=== PATIENT | male | born 1965 | race Caucasian/White ===

== ENCOUNTER 2023-08-20 14:54 | Emergency (ER) | payer OTHER, SELFPAY ==
[2023-08-20 14:55] VITALS: BP 183/89; PULSE 106; RESP 18; TEMP 37.4; O2SAT 95
[2023-08-20 15:10] VITALS: BMI 40.4
--- NOTE | 2023-08-20 15:34 | EX.ED.DYSGE1 ---
HPI <MERCY Schulz - Last Filed: 08/20/23 17:08> History of Present Illness Chief Complaint: Cellulitis Narrative Narrative: 58-year-old male with past medical history of hypertension and prediabetes developed redness, pain and swelling in his right elbow 3 days ago. He is right-hand dominant and states he has had a similar episode in the past and was told it is bursitis. Last night he developed pain in his left foot and this morning it is red and swollen. He was seen at his primary care's office and told he had a fever of 100.8 F. He does report subjectively feeling hot and cold. He has had similar redness in the foot before and states it resolved with prednisone but he was not diagnosed with gout. PFSH <MERCY Schulz - Last Filed: 08/20/23 17:08> [facility] Home Medications ?Medication ?Instructions ?Recorded ?Last Taken ?Type atorvastatin 20 mg tablet 20 mg PO DAILY 08/20/23 Unknown History cephalexin 500 mg capsule 500 mg PO Q6 #40 CAPSULES 08/20/23 Unknown Rx hydrochlorothiazide 25 mg tablet 25 mg PO DAILY 08/20/23 Unknown History lisinopril 40 mg tablet 40 mg PO DAILY 08/20/23 Unknown History metformin 1,000 mg tablet 1,000 mg PO BID 08/20/23 Unknown History Allergy/AdvReac Type Severity Reaction Status Date / Time No Known Allergies Allergy Verified 08/20/23 14:55 Social History Smoking Status: Never smoker ROS <MERCY Schulz - Last Filed: 08/20/23 17:08> ROS ED ROS Narrative Constitutional: Positive for fever, chills, malaise. CVS: Negative for chest pain. Respiratory: Negative for shortness of breath, cough. GI: Negative for nausea, vomiting, diarrhea. Musc: Positive for redness and swelling of right elbow and left foot, no trauma. EXAM <MERCY Schulz Last Filed: 08/20/23 17:08> Physical Exam Narrative Exam Narrative: CONST: Patient sitting in no acute distress. EYES: Normal inspection. NECK: Normal inspection. RESP: No respiratory distress, CTAB. CVS: Regular rate and rhythm, no murmur, no gallop. SKIN: Color normal, no rash, warm, dry, intact. EXTREMITIES: Soft tissue swelling right upper arm with overlying erythema and halo in the posterior elbow, warm to touch. No fluctuance or crepitus. Full range of motion intact, normal strength and sensation, 2+ radial pulses. Left dorsal lateral foot red, tender, warm to touch. No focal joint involvement. 2+ DP pulses. NEURO: Alert and answering questions appropriately. PSYCH: Normal affect. Const Vital Signs: 08/20/23 14:55 08/20/23 17:19 08/20/23 19:00 Temperature 99.3 F H 98.1 F Temperature Source Temporal Temporal Pulse Rate 106 H 102 H 80 Respiratory Rate 18 16 18 Blood Pressure 183/89 H 150/91 H 146/94 H Blood Pressure Mean 120 110 111 Pulse Ox 95 93 92 Oxygen Delivery Method Room Air Room Air Room Air 08/20/23 19:08 Temperature 98.1 F Temperature Source Pulse Rate 80 Respiratory Rate 18 Blood Pressure 146/94 H Blood Pressure Mean 111 Pulse Ox 91 Oxygen Delivery Method <Dr. Henry Parrish MD - Last Filed: 08/21/23 01:14> Physical Exam Const Vital Signs: 08/20/23 14:55 08/20/23 17:19 08/20/23 19:00 Temperature 99.3 F H 98.1 F Temperature Source Temporal Temporal Pulse Rate 106 H 102 H 80 Respiratory Rate 18 16 18 Blood Pressure 183/89 H 150/91 H 146/94 H Blood Pressure Mean 120 110 111 Pulse Ox 95 93 92 Oxygen Delivery Method Room Air Room Air Room Air 08/20/23 19:08 Temperature 98.1 F Temperature Source Pulse Rate 80 Respiratory Rate 18 Blood Pressure 146/94 H Blood Pressure Mean 111 Pulse Ox 91 Oxygen Delivery Method [facility] <MERCY Schulz - Last Filed: 08/20/23 17:08> [facility] Narrative Medical decision making narrative: Differential: Bursitis, cellulitis, abscess, septic joint Consults: Orthopedics Patient has following redness of the right elbow and left lateral foot over the fifth metatarsal. There is no joint involvement of the lower extremity. He has no pain to his shoulder range of motion and is neurovascularly intact. Right elbow was aspirated but did not have any fluid. Labs show white count of 11.3, normal lactate at 1.5, elevated inflammatory markers. There is no wounds or trauma send no indication for x-rays. I suspect he has right elbow bursitis and cellulitis and left foot cellulitis. He was given a dose of IV vancomycin and will be prescribed p.o. Keflex. Here he is afebrile and not septic and does not require admission. Case was discussed with Dr. Gordon in orthopedics for close follow-up and patient given return precautions. He was discharged in stable condition. Lab Data Attestation: I reviewed the patient's lab results. Labs: Laboratory Results - last 24 hr 08/20/23 08/20/23 15:45 16:00 WBC 11.3 H RBC 4.06 L Hgb 12.1 L Hct 38.8 L MCV 95.6 H MCH 29.8 MCHC 31.2 L RDW Std Deviation 48.7 H RDW Coeff of Sharif 13.7 Plt Count 207 MPV 9.8 Immature Gran % (Auto) 0.400 Neut % (Auto) 73.1 H Lymph % (Auto) 15.9 L [place] % (Auto) 8.6 Eos % (Auto) 1.6 Baso % (Auto) 0.4 Absolute Neuts (auto) 8.3 H Absolute Lymphs (auto) 1.80 Nucleated RBC % 0 ESR 55 H Sodium 135 L Potassium 3.7 Chloride 103 Carbon Dioxide 26.0 Anion Gap 6 BUN 18 Creatinine 1.05 Estim Creat Clear Calc 98.16 Est GFR (MDRD) Af Amer 94 Est GFR (MDRD) Non-Af 77 BUN/Creatinine Ratio 17.1 Glucose 114 H Lactic Acid 1.5 Calcium 9.2 C-React Prot Ext Range 161.00 H <Dr. Henry Parrish MD - Last Filed: 08/21/23 01:14> [facility] Lab Data Labs: Laboratory Results - last 24 hr 08/20/23 08/20/23 15:45 16:00 WBC 11.3 H RBC 4.06 L Hgb 12.1 L Hct 38.8 L MCV 95.6 H MCH 29.8 MCHC 31.2 L RDW Std Deviation 48.7 H RDW Coeff of Sharif 13.7 Plt Count 207 MPV 9.8 Immature Gran % (Auto) 0.400 Neut % (Auto) 73.1 H Lymph % (Auto) 15.9 L [place] % (Auto) 8.6 Eos % (Auto) 1.6 Baso % (Auto) 0.4 Absolute Neuts (auto) 8.3 H Absolute Lymphs (auto) 1.80 Nucleated RBC % 0 ESR 55 H Sodium 135 L Potassium 3.7 Chloride 103 Carbon Dioxide 26.0 Anion Gap 6 BUN 18 Creatinine 1.05 Estim Creat Clear Calc 98.16 Est GFR (MDRD) Af Amer 94 Est GFR (MDRD) Non-Af 77 BUN/Creatinine Ratio 17.1 Glucose 114 H Lactic Acid 1.5 Calcium 9.2 C-React Prot Ext Range 161.00 H Management Discussion w/another healthcare provider: Audio Video Repairer (ortho Dr. Johnson) Treatment and Re-Evaluation Comments:: I have personally performed a face to face assessment of the patient and have reviewed the JOSÉ Note. I performed a substantive portion of the visit including all aspects of the following. My yu findings include: History is spontaneous onset redness, swelling, discomfort right elbow and left foot around same out time 1 to 2 days. Fevers and chills. Body aches. Uses computer all day at work and often resting his right elbow on a solid surface. Exam is swollen right olecranon bursitis with surrounding cellulitis all tender and warm, good range of motion of the elbow but limited with regards to full flexion due to pain. Left foot is erythematous dorsal lateral midfoot, mild tenderness but not extremely tender at all and no induration, fluctuance, petechia, bullae or other skin abnormalities just hyperemia and warmth. Medical Decison Making Labs, bursa aspiration attempt, antibiotics, further evaluation Other additions or changes: [None] Procedures <Dr. Henry Parrish MD - Last Filed: 08/21/23 01:14> Other Procedures Procedure(s): Aspiration right olecranon bursa: After sterile prep and drape and informed consent from the patient, Betadine, local anesthesia with 0.5 cc 1% lidocaine with epinephrine, it was reprepped and entered lateral aspect of the bursa with the elbow and almost full extension with a #18 needle, a small white plug was able to be obtained but no other fluid. I probed around a short distance. Did not touch bone. Dressed with bacitracin tolerated well no complications. sent for cx, not enough for any other study. Discharge Plan Triage Chief Complaint: Cellulitis ED Midlevel Provider: Rosy Morrissey ED Provider: Henry Parrish Dx/Rx/DC Orders Clinical Impression: Cellulitis of right elbow, Cellulitis of left foot Instructions: Cellulitis Dc Prescriptions: New cephalexin 500 mg capsule 500 mg PO Q6 Qty: 40 0RF No Action atorvastatin 20 mg tablet 20 mg PO DAILY metformin 1,000 mg tablet 1,000 mg PO BID hydrochlorothiazide 25 mg tablet 25 mg PO DAILY lisinopril 40 mg tablet 40 mg PO DAILY Primary Care Provider: Nikunj Luna Referrals: Nikunj Luna [Other] Chau Johnson MD [Med Staff - Active Staff] - Activity Restrictions/Additional Instructions: Call the orthopedic doctor for an appointment to have them recheck your extremities in a few days. Take the antibiotics as directed. Print Language: Welsh Disposition Disposition: Home, Self Care Discharge Date/Time: 08/20/23 19:47
[2023-08-20 15:56] LABS: Absolute Neutrophil Count 8.3 X10^3/uL (2.0-7.7); Basophil# 0.05 X10^3/uL; Basophil% 0.4 % (0-1); Eosinophil# 0.18 X10^3/uL; Eosinophils% 1.6 % (0-5); Hematocrit 38.8 % (40-54); Hemoglobin 12.1 g/dL (13.0-16.5); Lymphocyte % 15.9 % (19-41); Mean Corp Hgb Conc 31.2 g/dL (32-36); Mean Corpuscular Hgb 29.8 pg (27.0-32.0); Mean Corpuscular Volume 95.6 fL (80-94); Mean Platelet Vol. 9.8 fl (6.2-12.0); Monocyte# 0.97 X10^3/uL; Monocyte% 8.6 % (0-10); NRBC Flagged by Analyzer 0 % (0-5); Neutrophil # 8.25 X10^3/uL (2.7-7.7); Neutrophil % 73.1 % (47-70); Platelet Count 207 K/mm3 (150-450); RBC Distribution Width CV 13.7 % (11.6-14.6); RBC Distribution Width SD 48.7 fl (35.1-43.9); Red Blood Count 4.06 M/mm3 (4.6-6.2); White Blood Count 11.3 K/mm3 (4.4-11.0)
[2023-08-20 16:08] LABS: Anion Gap 6 (5-15); BUN 18 mg/dL (7-18); BUN/Creat Ratio 17.1 RATIO (10-20); Calcium,Total 9.2 mg/dL (8.5-10.1); Chloride 103 mmol/L (98-107); Creatinine, Serum 1.05 mg/dL (0.70-1.30); EST Glomerular Filtration Rate 77 mL/min (>60); Est Glom Filt Rate - Afr Amer 94 mL/min (>60); Estimated Creatinine Clearance 98.16 ml/min; Glucose 114 mg/dL (74-106); Potassium 3.7 mmol/L (3.5-5.1); Sodium Level 135 mmol/L (136-145)
[2023-08-20] MEDS: Ketorolac 15 MG/ML Vial IV (16:08)
[2023-08-20] MEDS: 0.9% Normal Saline (1000mL) 1,000 ML 999 ML IV (16:08)
[2023-08-20 16:34] LABS: Erythrocyte Sedimentation Rate 55 mm/hr (0-20)
--- NOTE | 2023-08-20 16:46 | CON.PCM.OR_ITS ---
HPI Consult Data Date of Consult: 08/20/23 HPI Narrative HPI Narrative: MILY PERAZA, is a 58 M who presents per ED provider with cellulitis left olecranon. Aspirated, pending cultures. WBC 11 CRP elevated. PFSH Home Medications ?Medication ?Instructions ?Recorded ?Last Taken ?Type atorvastatin 20 mg tablet 20 mg PO DAILY 08/20/23 Unknown History cephalexin 500 mg capsule 500 mg PO Q6 #40 CAPSULES 08/20/23 Unknown Rx hydrochlorothiazide 25 mg tablet 25 mg PO DAILY 08/20/23 Unknown History lisinopril 40 mg tablet 40 mg PO DAILY 08/20/23 Unknown History metformin 1,000 mg tablet 1,000 mg PO BID 08/20/23 Unknown History Allergy/AdvReac Type Severity Reaction Status Date / Time No Known Allergies Allergy Verified 08/20/23 14:55 Social History Smoking Status: Never smoker Vital Signs Vital Signs Vital Signs: 08/20/23 14:55 Temperature 99.3 F H Temperature Source Temporal Pulse Rate 106 H Respiratory Rate 18 Blood Pressure 183/89 H Blood Pressure Mean 120 Pulse Ox 95 Oxygen Delivery Method Room Air Weight Weight: 266 lb 9.6 oz Body Mass Index (BMI) 40.4 Lab / Micro Data 08/20/23 15:45 08/20/23 15:45 Labs: Laboratory Results - last 24 hr 08/20/23 15:45: WBC 11.3 H, RBC 4.06 L, Hgb 12.1 L, Hct 38.8 L, MCV 95.6 H, MCH 29.8, MCHC 31.2 L, RDW Std Deviation 48.7 H, RDW Coeff of Sharif 13.7, Plt Count 207, MPV 9.8, Immature Gran % (Auto) 0.400, Neut % (Auto) 73.1 H, Lymph % (Auto) 15.9 L, [place] % (Auto) 8.6, Eos % (Auto) 1.6, Baso % (Auto) 0.4, Absolute Neuts (auto) 8.3 H, Absolute Lymphs (auto) 1.80, Nucleated RBC % 0, ESR 55 H, Sodium 135 L, Potassium 3.7, Chloride 103, Carbon Dioxide 26.0, Anion Gap 6, BUN 18, Creatinine 1.05, Estim Creat Clear Calc 98.16, Est GFR (MDRD) Af Amer 94, Est GFR (MDRD) Non-Af 77, BUN/Creatinine Ratio 17.1, Glucose 114 H, Calcium 9.2, C- React Prot Ext Range 161.00 H Assessment & Plan Assessment/Plan (1) Cellulitis of right elbow: PLAN: 58 M with cellulitis / infective bursitis right elbow. Sounds stable enough to treat with outpatient abx and close FU tomorrow AM. No signs of infected joint per the ED provider and pending cultures with no active drainage or fluid collection. Recommend xrays in ED.
[2023-08-20 16:52] LABS: Lactic Acid 1.5 mmol/L (0.4-1.9)
[2023-08-20] MEDS: Vancomycin HCl 1,750 MG in 0.9% Normal Saline (500mL Bag) 500 ML 250 MG IV (17:15)
[2023-08-20 17:19] VITALS: BP 150/91; PULSE 102; RESP 16; O2SAT 93
[2023-08-20 19:00] VITALS: BP 146/94; PULSE 80; RESP 18; TEMP 36.7; O2SAT 92
[2023-08-20 19:08] VITALS: BP 146/94; PULSE 80; RESP 18; TEMP 36.7; O2SAT 91
== END 2023-08-20 19:47 | disposition home or self-care (01) ==
PROVIDERS: Physician Assistant; Emergency Provider Emergency Medicine; Visit Provider Emergency Medicine
DX: L03.116 Cellulitis of left lower limb (principal); L03.113 Cellulitis of right upper limb; I10 Essential (primary) hypertension; Z79.899 Other long term (current) drug therapy; Z79.84 Long term (current) use of oral hypoglycemic drugs; R73.03 Prediabetes; M71.121 Other infective bursitis, right elbow
CPT/HCPCS: 80048; 83605; 85025; 85652; 86140; 87040; 96361; 96365; 96366; 96375; 99285; J7030; J7040; J7050

== ENCOUNTER → 2023-08-27 | Outpatient (CLI) | payer OTHER, SELFPAY ==
[2023-08-27 11:52] LABS: Uric Acid 10.5 mg/dL (3.5-7.2)
== END | disposition home or self-care (01) ==
LOC: LAB 11:09
PROVIDERS: PCP Internal Medicine; Referring Provider Podiatrist Foot & Ankle Surgery; Visit Provider Podiatrist Foot & Ankle Surgery
DX: M10.9 Gout, unspecified (principal)
CPT/HCPCS: 36415; 84550

== ENCOUNTER → 2023-09-23 | Outpatient (CLI) | payer OTHER, SELFPAY ==
[2023-09-23 09:09] LABS: Hemoglobin A1c 6.5 % (3.8-5.6)
[2023-09-23 09:15] LABS: ALB/GLOB Ratio 1.1 RATIO (0.9-2.4); AST(SGOT) 29 U/L (15-37); Alanine Aminotransfer ALT/SGPT 27 U/L (16-61); Albumin, Serum 4.1 g/dL (3.2-5.0); Alkaline Phosphatase 84 U/L (45-117); Anion Gap 4 (5-15); BUN 19 mg/dL (7-18); BUN/Creat Ratio 16.4 RATIO (10-20); Calcium,Total 9.5 mg/dL (8.5-10.1); Chloride 105 mmol/L (98-107); Cholesterol 101 mg/dL (200); Creatinine, Serum 1.16 mg/dL (0.70-1.30); EST Glomerular Filtration Rate 69 mL/min (>60); Est Glom Filt Rate - Afr Amer 83 mL/min (>60); Globulin 3.6 g/dL (2.2-4.2); Glucose 97 mg/dL (74-106); High Density Lipoprotein 35 mg/dL; Potassium 4.2 mmol/L (3.5-5.1); Protein, Total 7.7 g/dL (6.4-8.2); Sodium Level 137 mmol/L (136-145); Triglycerides 93 mg/dL; Very Low Density Lipoprotein 19 mg/dL (5-40)
== END | disposition home or self-care (01) ==
LOC: LAB.FUTURE 08:20 → LAB 08:22
PROVIDERS: PCP Internal Medicine; Visit Provider Internal Medicine
DX: E11.9 Type 2 diabetes mellitus without complications (principal); E78.2 Mixed hyperlipidemia
CPT/HCPCS: 36415; 80053; 80061; 83036

== ENCOUNTER → 2024-03-16 | Outpatient (CLI) | payer OTHER, SELFPAY ==
[2024-03-16 07:57] LABS: Absolute Lymphocyte Count 4.11 X10^3/uL (0.83-4.51); Absolute Neutrophil Count 6.3 X10^3/uL (2.0-7.7); Basophil# 0.08 X10^3/uL; Basophil% 0.7 % (0-1); Eosinophil# 0.41 X10^3/uL; Eosinophils% 3.5 % (0-5); Hematocrit 41.3 % (40-54); Hemoglobin 13.7 g/dL (13.0-16.5); Lymphocyte # 4.11 X10^3/ul (0.83-4.51); Mean Corp Hgb Conc 33.2 g/dL (32-36); Mean Corpuscular Hgb 30.4 pg (27.0-32.0); Mean Corpuscular Volume 91.8 fL (80-94); Mean Platelet Vol. 9.7 fl (6.2-12.0); Monocyte# 0.82 X10^3/uL; NRBC Flagged by Analyzer 0 % (0-5); Neutrophil # 6.25 X10^3/uL (2.7-7.7); Neutrophil % 53.1 % (47-70); Platelet Count 239 K/mm3 (150-450); RBC Distribution Width CV 13.1 % (11.6-14.6); RBC Distribution Width SD 43.8 fl (35.1-43.9); White Blood Count 11.8 K/mm3 (4.4-11.0)
[2024-03-16 08:34] LABS: Microalbumin,Random Urine < 5.0 mg/L (NO RANGE EST.)
[2024-03-16 08:51] LABS: PSA,Total - Annual Screen 1.21 ng/mL (0.00-4.00)
[2024-03-16 10:41] LABS: Hemoglobin A1c 6.7 % (3.8-5.6)
== END | disposition home or self-care (01) ==
LOC: LAB 07:16
PROVIDERS: PCP Internal Medicine
DX: Z00.00 Encounter for general adult medical examination without abnormal findings (principal); Z12.5 Encounter for screening for malignant neoplasm of prostate
CPT/HCPCS: 36415; 82043; 82570; 83036; 84153; 85025; G0103

== ENCOUNTER → 2024-09-09 | Outpatient (CLI) | payer OTHER, SELFPAY ==
[2024-09-09 08:57] LABS: Hematocrit 36.2 % (40-54); Hemoglobin 11.9 g/dL (13.0-16.5); Mean Corp Hgb Conc 32.9 g/dL (32-36); Mean Corpuscular Hgb 30.2 pg (27.0-32.0); Mean Corpuscular Volume 91.9 fL (80-94); Mean Platelet Vol. 9.4 fl (6.2-12.0); Platelet Count 212 K/mm3 (150-450); RBC Distribution Width CV 13.6 % (11.6-14.6); Red Blood Count 3.94 M/mm3 (4.6-6.2); White Blood Count 8.8 K/mm3 (4.4-11.0)
[2024-09-09 09:17] LABS: Color, Urine Yellow (Yellow); Glucose, Dipstick Normal (Normal); Ketone-Dipstick Negative (Negative); Leukocyte Esterase-Dipstick Negative /ul (Negative); Nitrite-Dipstick Negative (Negative); Occult Blood-Urine Negative /ul (Negative); Protein-Dipstick 15 mg/dl (Negative); Specific Gravity, Urine 1.015 (1.002-1.030); Urine Bilirubin Dipstick Negative (Negative); Urine Clarity Clear (Clear); Urine Urobilinogen Normal (Normal)
[2024-09-09 09:25] LABS: Hemoglobin A1c 5.7 % (<=5.6)
[2024-09-09 09:29] LABS: ALB/GLOB Ratio 1.4 RATIO (0.9-2.4); AST(SGOT) 28 U/L (<=37); Alanine Aminotransfer ALT/SGPT 10 U/L (<=46); Alkaline Phosphatase 109 U/L (40-129); Anion Gap 13 (5-15); BUN 14 mg/dL (4-19); BUN/Creat Ratio 13.2 RATIO (10-20); Calcium,Total 9.4 mg/dL (7.6-11.0); Carbon Dioxide 23.6 mmol/L (21.0-32.0); Chloride 102 mmol/L (98-108); Creatinine, Serum 1.09 mg/dL (0.70-1.20); EST Glomerular Filtration Rate 79 (>60); Globulin 2.8 g/dL (2.2-4.2); Glucose 102 mg/dL (70-99); Potassium 5.1 mmol/L (3.3-5.1); Protein, Total 6.8 g/dL (5.9-8.4); Sodium Level 138 mmol/L (133-145); Total Bilirubin 0.34 mg/dL (0.00-1.30)
[2024-09-09 10:00] LABS: Cholesterol 110 mg/dL (<=200); High Density Lipoprotein 26 mg/dL; Low Density Lipoprotein Calc. 59 mg/dL; Triglycerides 126 mg/dL; Very Low Density Lipoprotein 25 mg/dL (5-40); cholesterol:hdl ratio screen 4.28
== END | disposition home or self-care (01) ==
LOC: LAB 08:21
PROVIDERS: PCP Internal Medicine; Referring Provider Internal Medicine; Visit Provider Internal Medicine
DX: Z00.00 Encounter for general adult medical examination without abnormal findings (principal); E11.9 Type 2 diabetes mellitus without complications; Z12.5 Encounter for screening for malignant neoplasm of prostate
CPT/HCPCS: 36415; 80053; 80061; 81002; 83036; 85027

== ENCOUNTER → 2024-09-15 | Outpatient (CLI) | payer OTHER, SELFPAY ==
[2024-09-15 12:23] LABS: FOLATES,SERUM (FOLIC ACID) 6.23 ng/mL (4.60-34.80); Ferritin 500 ng/mL (37-417); Iron 37 ug/dL (65-175); Iron Binding Capacity,Total 281 ug/dL (250-450); Iron Binding Capacity,Unsat 244 ug/dL (228-428); Vitamin B12 304 pg/mL (180-914)
== END | disposition home or self-care (01) ==
LOC: LAB 10:00
PROVIDERS: PCP Internal Medicine; Referring Provider Internal Medicine; Visit Provider Internal Medicine
DX: D64.9 Anemia, unspecified (principal)
CPT/HCPCS: 36415; 82607; 82728; 82746; 83540; 83550

== ENCOUNTER 2024-10-17 07:00 | Day surgery (SDC) | payer OTHER, SELFPAY ==
[2024-10-17] VITALS (8 sets, daily range): BP systolic 77–109; BP diastolic 55–87; PULSE 75–92; RESP 16; TEMP 35.8–36.3; O2SAT 96–100; BMI 30.9
--- OUTSIDE RECORDS SUMMARY | 2024-10-17 07:03 | XMS RPT_ITS | CCD ---
Author Organization [facility]ini[facility] Care Team Providers [facility] Nurse Name Role Phone Gerry Luna Primary Care Provider Gerry Luna Unavailable [phone] JAVIER BOSWELL Attending Unavailable JAVIER BOSWELL Admitting Unavailable NONE, NONE Consulting Unavailable NONE, NONE Primary Care Unavailable Gerry Luna DO Primary Care Provi frank Gerry Luna DO Unavailable [phone] Gerry Luna DO Primary Care Provi frank Gerry Luna DO Unavailable [phone] Gerry Luna DO Unavailable Gerry Luna DO Primary Care Provi frank Gerry Luna DO Unavailable Gerry Luna DO Primary Care Provi frank Gerry Luna DO Primary Care Provider GERRY LUNA Primary Care Unavailable GERRY GORDON Attending Unavailable SELF, SELF Referring Unavailable GERRY LUNA Attending Unava ilGERRY Gallardo Primary Care Unava ilGERRY Gallardo Attending Unavailable GERRY LUNA Primary Care Unavailable Dr. Gerry Luna DO Primary Care Provide r Dr. Gerry Luna DO Attending Provider Dr. Gerry Luna DO Referring Provider GERRY LUNA Attending Unava ilable GERRY LUNA Primary Care Unava ilable GERRY LUNA Attending Unava ilGERRY Gallardo Primary Care Unava ilable GERRY LUNA Attending Unava ilable GERRY LUNA Primary Care Unava ilable GERRY LUNA Attending Unava ilable GERRY LUNA Primary Care Unava ilable GERRY LUNA Attending Unava ilable GERRY LUNA Primary Care Unava ilable TAURUS WOODS Attending Unavailable Gerry Luna Primary Care Unavailable TAURUS WOODS Referring Unavailable Moreno Mosqueda Attending Unavailable Gerry Luna Primary Care Unavailable Gerry Luna Referring Unavailable Gerry Luna Attending Unavailable Gerry Luna Primary Care Unavailable Gerry Luna Attending Unavailable Gerry Luna Primary Care Unavailable Gerry Luna Referring Unavailable Gerry Luna Attending Unavailable Gerry Luna Primary Care Unavailable Gerry Luna Referring Unavailable Medications Current Medications Medication Drug Class(es) Dates Sig (Normalized) Sig (Original) Acetaminophen (20 sources) acetaminophen (T YLENOL ARTHRITIS ORAL) Take by mouth . Active acetaminophen (T YLENOL ARTHRITIS ORAL) Take by mouth . 0 Active allopurinol 100 mg oral tablet (6 sources) Xanthine Oxidase Inhibitor Start: 08-25-2024 take 1 tablet by mouth once daily allopurinoL (ZYLOPRIM) 100 MG tablet Take 1 (one) tablet (100 mg total) by mouth daily . 30 tablet 5 08/25/2024 Active Start: 01-11-2024 take 1 tablet by ramón th once daily allopurinoL (ZYLOPRIM) 100 MG tablet Take 1 (one) tablet (100 mg total) by mouth daily . 30 tablet 5 01/11/2024 Active amoxicillin 875 mg oral tablet (2 sources) Penicillin-class Antibacterial Start: 05-30-2024 End: 06-06-2024 take 1 tablet by mouth twice daily amoxicillin (AMOXIL) 875 MG tablet Indications: Upper respiratory tract infection, unspecified type Take 1 (one) tablet (875 mg total) by mouth 2 (two) times a day for 7 days . 14 tablet 05/30/2024 06/06/2024 Active Start: 09-19-2022 End: 09-29-2022 take 1 capsule by mouth three times daily Amoxicillin 500 MG capsule Take 1 capsule by mouth 3 times daily for 10 days. 30 capsule 0 09/19/2022 09/29/2022 Active atorvastatin 20 mg oral tablet (19 sources) HMG-CoA Reductase Inhibitor Start: 03-27-2023 End: 06-13-2024 take 1 tablet by mouth once daily Atorvastatin 20 mg tablet Active 20 mg PO DAILY August 20, 2023 12:00am cephalexin 500 mg oral capsule (10 sources) Cephalosporin Antibacterial Start: 08-20-2023 take 1 capsule by mouth every six hours Cephalexin 500 mg capsule Active 500 mg PO EVERY 6 HOURS 40 August 20, 2023 12:00am Start: 03-18-2022 End: 03-25-2022 take 1 capsule by mouth three times daily cephALEXin (KEFLEX) 500 MG capsule Indications: Cellulitis of foot Take 1 (one) capsule (500 mg total) by mouth 3 (three) times a day for 7 days . 21 capsule 0 03/18/2022 03/25/2022 Active dexamethasone 1 mg/ml / neomycin 3.5 mg/ml / polymyxin b [id number] unt/ml ophthalmic suspension (1 source) Aminoglycoside Antibacterial, Polymyxin-class Antibacterial, Corticosteroid Start: 01-10-2018 [id number] yxin [id number] Suspension 3-4 drops to each ear 3 times daily x3 days. Leave in drops in the ear canals for 15 minutes each time. 5 mL 0 01/10/2018 Active ferrous sulfate 325 mg oral tablet (1 source) take 1 tablet by mouth once daily at breakf ast ferrous sulfate 325 (65 FE) MG tablet Take 1 (one) tablet (325 mg total) by mouth daily with breakfast . Active hydroCHLOROthiazide 25 mg oral tablet (20 sources) Thiazide Diuretic Start: 01-27-2022 End: 09-18-2024 take 1 tablet by mouth once daily Hydrochlorothiazide 25 mg tablet Active 25 mg PO DAILY August 20, 2023 12:00am Start: 01-18-2021 End: 01-20-2022 take 1 tablet by mouth once daily hydroCHLOROthiazide (HYDRODIURIL) 25 MG tablet Take 1 (one) tablet (25 mg total) by mouth daily . 90 tablet 1 07/24/2021 01/20/2022 Active Start: 10-18-2019 End: 01-12-2021 take 1 tablet by mouth once daily hydroCHLOROthiazide (HYDRODIURIL) 25 MG tablet Take 1 (one) tablet (25 mg total) by mouth daily . 90 tablet 1 07/16/2020 01/12/2021 Active take 1 capsule by mo [facility] once daily hydrochlorothiazide 12.5 MG Cap capsule Take 12.5 mg by mouth daily. 0 Active latanoprost 0.05 mg/ml ophthalmic solution (2 sources) Prostaglandin Analog Start: 08-23-2024 take 1 drop(s) into the eye(s) once daily at bedtime latanoprost (XALATAN) 0.005 % ophthalmic solution INSTILL 1 DROP INTO EACH EYE ONCE DAILY AT NIGHT AT BEDTIME 08/23/2024 Active lisinopril 40 mg oral tablet (20 sources) Angiotensin Converting Enzyme Inhibitor Start: 01-27-2022 End: 09-18-2024 take 1 tablet by mouth once daily Lisinopril 40 mg tablet Active 40 mg PO DAILY August 20, 2023 12:00am Start: 01-18-2021 End: 01-20-2022 take 1 tablet by mouth once daily lisinopriL (PRINIVIL,ZESTRIL) 40 MG tablet Take 1 (one) tablet (40 mg total) by mouth daily . 90 tablet 1 07/24/2021 01/20/2022 Active Start: 10-18-2019 End: 01-12-2021 take 1 tablet by mouth once daily lisinopriL (PRINIVIL,ZESTRIL) 40 MG tablet Take 1 (one) tablet (40 mg total) by mouth daily . 90 tablet 1 07/16/2020 01/12/2021 Active take 1 tablet by [facility] once daily lisinopril 20 MG Tab Take 20 mg by mouth daily. 0 Active metFORMIN hydrochloride 1000 mg oral tablet (20 sources) Biguanide Start: 03-27-2023 End: 09-18-2024 take 1 tablet by mouth twice daily Metformin 1,000 mg tablet Active 1000 mg PO TWICE A DAY August 20, 2023 12:00am Start: 01-27-2022 End: 07-28-2023 take 1 tablet by mouth twice daily at mealtime metFORMIN (GLUCOPHAGE) 500 MG tablet Take 1 (one) tablet (500 mg total) by mouth 2 (two) times a day with meals . 180 tablet 1 01/29/2023 07/28/2023 Active Start: 01-18-2021 End: 01-20-2022 take 1 tablet by mouth twice daily at mealtime metFORMIN (GLUCOPHAGE) 500 MG tablet Take 1 (one) tablet (500 mg total) by mouth 2 (two) times a day with meals . 180 tablet 1 07/24/2021 01/20/2022 Active Start: 11-19-2017 End: 01-12-2021 take 1 tablet by mouth twice daily at mealtime metFORMIN (GLUCOPHAGE) 500 MG tablet Take 1 (one) tablet (500 mg total) by mouth 2 (two) times a day with meals . 180 tablet 1 07/16/2020 01/12/2021 Active NIFEdipine 30 mg osmotic 24 hr extended release oral tablet (11 sources) Dihydropyridine Calcium Channel Nicko Start: 09-24-2023 End: 03-22-2024 take 1 tablet by mouth once daily NIFEdipine (PROCARDIA XL) 30 MG 24 hr tablet Indications: Essential hypertension Take 1 tablet by mouth once daily 30 tablet 5 03/06/2024 Active predniSONE 20 mg oral tablet (1 source) Start: 01-10-2018 predniSONE 20 MG Tab tablet PO QD: 60, 60, 40, 40, 20, 20 12 tablet 0 01/10/2018 Active Completed/Discontinued Medications Medication Drug Class(es) Dates Sig (Normalized) Sig (Original) methylPREDNISolone (20 sources) Corticosteroid Start: 09-29-2023 End: 03-22-2024 methylPREDNISolone (MEDROL DOSEPACK) 4 mg tablet Indications: Gout, unspecified cause, unspecified chronicity, unspecified site follow package directions . 21 tablet 09/29/2023 03/22/2024 Discontinued Start: 09-29-2023 methylPREDNISo lone (MEDROL DOSEPACK) 4 mg tablet Indications: Gout, unspecified cause, unspecified chronicity, unspecified site follow package directions . 21 tablet 09/29/2023 Active Start: 08-03-2023 End: 08-20-2023 methylPREDNISolone (MEDROL D OSEPACK) 4 mg tablet Indications: Acute ankle pain, unspecified laterality follow package directions . 21 tablet 0 08/03/2023 08/20/2023 Discontinued Start: 08-03-2023 methylPREDNISo lone (MEDROL DOSEPACK) 4 mg tablet Indications: Acute ankle pain, unspecified laterality follow package directions . 21 tablet 0 08/03/2023 Active Start: 06-22-2023 End: 08-03-2023 methylPREDNISolone (MEDROL D OSEPACK) 4 mg tablet Indications: Acute ankle pain, unspecified laterality follow package directions . 21 tablet 0 06/22/2023 08/03/2023 Discontinued (Reorder (Suppress CancelRx Message to Pharmacy)) Start: 06-22-2023 methylPREDNISo lone (MEDROL DOSEPACK) 4 mg tablet Indications: Acute ankle pain, unspecified laterality follow package directions . 21 tablet 0 06/22/2023 Active Start: 07-24-2022 End: 03-25-2023 methylPREDNISolone (MEDROL D OSEPACK) 4 mg tablet Indications: Acute ankle pain, unspecified laterality follow package directions . 21 tablet 0 07/24/2022 03/25/2023 Discontinued Start: 07-24-2022 methylPREDNISo lone (MEDROL DOSEPACK) 4 mg tablet Indications: Acute ankle pain, unspecified laterality follow package directions . 21 tablet 0 07/24/2022 Active Start: 03-18-2022 End: 07-24-2022 methylPREDNISolone (MEDROL D OSEPACK) 4 mg tablet Indications: Cellulitis of foot follow package directions . 21 tablet 0 03/18/2022 07/24/2022 Discontinued (Reorder (Suppress CancelRx Message to Pharmacy)) Start: 03-18-2022 methylPREDNISo lone (MEDROL DOSEPACK) 4 mg tablet Indications: Cellulitis of foot follow package directions . 21 tablet 0 03/18/2022 Active Start: 02-14-2021 End: 09-13-2021 methylPREDNISolone (MEDROL D OSEPACK) 4 mg tablet Indications: Strain of left ankle, initial encounter follow package directions . 21 tablet 0 02/14/2021 09/13/2021 Discontinued Start: 02-14-2021 methylPREDNISo lone (MEDROL DOSEPACK) 4 mg tablet Indications: Strain of left ankle, initial encounter follow package directions . 21 tablet 0 02/14/2021 Active Problems Active Problems Problem Classification Problem Date Documented Da te Episodic/Chronic Deficiency and other anemia (2 sources) Anemia; Translations: [Anemia, unspecified] 09-11-2024 Episodic Deficiency and other anemia (3 sources) Anemia, unspecified; Translations: [Anemia, unspecified] Onset: 09-21-2024 Episodic Diabetes mellitus without complication (20 sources) Type 2 diabetes mellitus without complication; Translations: [Type 2 diabetes mellitus without complications] Onset: 01-17-2020 01-17-2020 Chronic Diseases of white blood cells (1 source) Leukocytosis; Translations: [Elevated white blood cell count, unspecified] Chronic Disorders of lipid metabolism (20 sources) Hyperlipidemia; Translations: [Hyperlipidemia, unspecified] Onset: 01-17-2020 01-17-2020 Chronic Essential hypertension (20 sources) Essential hypertension; Translations: [Essential (primary) hypertension] Onset: 01-17-2020 01-17-2020 Chronic Gout and other crystal arthropathies (1 source) Gout; Translations: [Gout, unspecified] 09-29-2023 Chronic Other connective tissue disease (1 source) Infection of olecranon bursa of right elbow; Translations: [Other infective bursitis, right elbow] 08-20-2023 Episodic Other ear and sense organ disorders (1 source) Bilateral earache; Translations: [Otalgia, bilateral] 09-19-2022 Episodic Other ear and sense organ disorders (2 sources) Otalgia, bilateral; Translations: [Otalgia, bilateral] Onset: 09-19-2022 Episodic Other liver diseases (1 source) Elevated liver enzymes level; Translations: [Abnormal levels of other serum enzymes] Episodic Other non-traumatic joint disorders (3 sources) Acute ankle pain; Translations: [Pain in unspecified ankle and joints of unspecified foot] 07-24-2022 Episodic Other nutritional; endocrine; and metabolic disorders (1 source) Hyperproteinemia; 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, not elsewhere classified] Chronic Other screening for suspected conditions (not mental disorders or infectious disease) (6 sources) Viral screening status; Translations: [Patient encounter status] Onset: 03-25-2023 Episodic Other upper respiratory infections (1 source) Upper respiratory infection; Translations: [Acute upper respiratory infection, unspecified] 05-30-2024 Episodic Skin and subcutaneous tissue infections (7 sources) Cellulitis of foot; Translations: [Cellulitis of unspecified part of limb] Episodic Sprains and strains (2 sources) Strain of muscle and/or tendon of lower leg; Translations: [Strain of unspecified muscle and tendon at ankle and foot level, left foot, initial encounter] Episodic Unclassified (2 sources) Patient encounter status; Translations: [Preventative health care] Past or Other Problems Problem Classification Problem Date Documented Da te Episodic/Chronic Immunizations and screening for infectious disease (5 sources) Requires vaccination; Translations: [Encounter for immunization] Onset: 03-22-2024 Episodic Results Test Name Value Interpretation Reference Range Facility Ferritinon 09-15-2024 Ferritin [Mass/Vol] 500 ng/mL High 37-417 [facility] Comment on above: Performed By: #### L [id number], L503.0106, L506.0200, L503.6030 #### [facility] [address] [place], [place], [id number] Folate [Moles/volume] in Ser um or PlasmaOrdered By: Gerry Luna on 09-15-2024 Folate [Moles/Vol] 6.23 ng/mL 4.60-34.80 [facility] Folates,Serum (Folic Acid)on 09-15-2024 FOLATES,SERUM 6.23 ng/mL Normal 4.60-34.80 [facility] Comment on above: Order Comment: N Performed By: #### L [id number], L503.0106, L506.0200, L503.6030 #### [facility] [address] [place], [place], [id number] Iron measurement (mass/mass) Ordered By: Gerry Luna on 09-15-2024 Iron (Unsp spec) [Mass/Mass] 37 ug/dL Low 65-175 [facility] Iron+Iron Binding Capacityon 09-15-2024 Iron [Mass/Vol] 37 ug/dL Low 65-175 [facility] Comment on above: Performed By: #### L [id number], L503.0106, L506.0200, L503.6030 #### [facility] [address] [place], [place], [id number] IRON SATURATION 13.0 Normal 9-55 [facility] Comment on above: Performed By: #### L [id number], L503.0106, L506.0200, L503.6030 #### [facility] [address] [place], [address] TIBC 281 ug/dL Normal 250-450 [facility] Comment on above: Performed By: #### L [id number], L503.0106, L506.0200, L503.6030 #### [facility] [address] [place], [address] UIBC 244 ug/dL Normal 228-428 [facility] Comment on above: Performed By: #### L [id number], L503.0106, L506.0200, L503.6030 #### [facility] [address] [place], [address] No Panel InformationOrdered By: Gerry Luna on 09-15-2024 Unsaturated Iron Binding Capacity 244 ug/dL 228-428 [facility] Serum or plasma ferritin dick surement (mass/volume)Ordered By: Gerry Luna on 09-15-2024 Ferritin [Mass/Vol] 500 ng/mL High 37-417 [facility] Serum or plasma iron saturat ion measurement (mass fraction)Ordered By: Gerry Luna on 09-15-2024 Iron saturation [Mass fraction] 13.0 % 9-55 [facility] Vitamin B12on 09-15-2024 Cobalamin (Vitamin B12) [Mass/Vol] 304 pg/mL Normal 180-914 [facility] Comment on above: Performed By: #### L [id number], L503.0106, L506.0200, L503.6030 #### [facility] [address] [place], [address] Vitamin B12 ser/plasOrdered By: Gerry Luna on 09-15-2024 Cobalamin (Vitamin B12) [Mass/Vol] 304 pg/mL 180-914 [facility] Anion gap in Serum or Plasma Ordered By: Gerry Luna on 09-09-2024 Anion gap [Moles/Vol] 13 mmol/L 5-15 [facility] BUN/creatinine ratioOrdered By: Gerry Luna on 09-09-2024 Urea nitrogen/Creatinine [Mass ratio] 13.2 mg/mg 10-20 [facility] Bilirubin Test strip Ql (U)O rdered By: Gerry Luna on 09-09-2024 Bilirubin Ql (U) Negative Negative [facility] Bilirubin, totalOrdered By: Gerry Luna on 09-09-2024 Bilirubin [Mass/Vol] 0.34 mg/dL 0.00-1.30 [facility] CBC-Complete Blood Cnt No Di ffon 09-09-2024 Erythrocyte distribution width (RBC) [Ratio] 13.6 % Normal 11.6-14.6 [facility] Comment on above: Performed By: #### L [id number], L500.4100, L4, L100.0500, L500.4050 #### [facility] [address] [place], [address] Hematocrit (Bld) [Volume fraction] 36.2 % Low 40-54 [facility] Comment on above: Performed By: #### L [id number], L500.4100, L4, L100.0500, L500.4050 #### [facility] [address] [place], [address] Hemoglobin (Bld) [Mass/Vol] 11.9 g/dL Low 13.0-16.5 [facility] Comment on above: Performed By: #### L [id number], L500.4100, L4, L100.0500, L500.4050 #### [facility] [address] [place], [address] MCH (RBC) [Entitic mass] 30.2 pg Normal 27.0-32.0 [facility] Comment on above: Performed By: #### L [id number], L500.4100, L400.2010, L100.0500, L500.4050 #### [facility] [address] [place], [address] MCHC (RBC) [Mass/Vol] 32.9 g/dL Normal 32-36 [facility] Comment on above: Performed By: #### L [id number], L500.4100, L400.2010, L100.0500, L500.4050 #### [facility] [address] [place], [address] MCV (RBC) [Entitic vol] 91.9 fL Normal 80-94 [facility] Comment on above: Performed By: #### L [id number], L500.4100, L400.2010, L100.0500, L500.4050 #### [facility] [address] [place], [address] Platelet mean volume (Bld) [Entitic vol] 9.4 fL Normal 6.2-12.0 [facility] Comment on above: Performed By: #### L [id number], L500.4100, L400.2010, L100.0500, L500.4050 #### [facility] [address] [place], [address] Platelets (Bld) [#/Vol] 212 10*3/uL Normal 150-450 [facility] Comment on above: Performed By: #### L [id number], L500.4100, L400.2010, L100.0500, L500.4050 #### [facility] [address] [place], [address] RBC (Bld) [#/Vol] 3.94 10*6/uL Low 4.6-6.2 [facility] Comment on above: Performed By: #### L [id number], L500.4100, L400.2010, L100.0500, L500.4050 #### [facility] [address] [place], [address] RDW SD 46.0 fl High 35.1-43.9 [facility] Comment on above: Performed By: #### L [id number], L500.4100, L400.2010, L100.0500, L500.4050 #### [facility] [address] [place], [address] WBC (Bld) [#/Vol] 8.8 10*3/uL Normal 4.4-11.0 [facility] Comment on above: Performed By: #### L [id number], L500.4100, L400.2010, L100.0500, L500.4050 #### [facility] [address] [place], [address] Calculated very low density lipoprotein (VLDL) cholesterol measurementOrdered By: Gerry Luna on 09-09-2024 Calculated very low density lipoprotein (VLDL) cholesterol measurement 25 mg/dL 5-40 [facility] Carbon dioxide, total [Moles /volume] in Central venous bloodOrdered By: Gerry Luna on 09-09-2024 CO2 [Moles/Vol] 23.6 mmol/L 21.0-32.0 [facility] Chloride assayOrdered By: Joaquin Luna on 09-09-2024 Chloride [Moles/Vol] 102 mmol/L 98-108 [facility] Comprehensive Metabolic Prof ilon 09-09-2024 Albumin [Mass/Vol] 4.0 g/dL Normal 3.5-5.0 [facility] Comment on above: Performed By: #### L 503.6550, L503.0106, L506.0200, L503.6030 #### [facility] [address] [place], [address] Albumin/Globulin [Mass ratio] 1.4 {ratio} Normal 0.9-2.4 [facility] Comment on above: Performed By: #### L 503.6550, L503.0106, L506.0200, L503.6030 #### [facility] [address] [place], [address] ALK PHOS 109 U/L Normal 40-129 [facility] Comment on above: Performed By: #### L 503.6550, L503.0106, L506.0200, L503.6030 #### [facility] [address] [place], [address] ALT [Catalytic activity/Vol] 10 U/L Normal <=46 [facility] Comment on above: Performed By: #### L 503.6550, L503.0106, L506.0200, L503.6030 #### [facility] [address] [place], [address] AST [Catalytic activity/Vol] 28 U/L Normal <=37 [facility] Comment on above: Performed By: #### L 503.6550, L503.0106, L506.0200, L503.6030 #### [facility] [address] [place], [address] Bilirubin [Mass/Vol] 0.34 mg/dL Normal 0.00-1.30 [facility] Comment on above: Performed By: #### L 503.6550, L503.0106, L506.0200, L503.6030 #### [facility] [address] [place], [address] BUN/CRE 13.2 RATIO Normal 10-20 [facility] Comment on above: Performed By: #### L 503.6550, L503.0106, L506.0200, L503.6030 #### [facility] [address] [place], [address] Calcium [Mass/Vol] 9.4 mg/dL Normal 7.6-11.0 [facility] Comment on above: Performed By: #### L 503.6550, L503.0106, L506.0200, L503.6030 #### [facility] [address] [place], [address] Chloride [Moles/Vol] 102 mmol/L Normal 98-108 [facility] Comment on above: Performed By: #### L 503.6550, L503.0106, L506.0200, L503.6030 #### [facility] [address] [place], [address] CO2 [Moles/Vol] 23.6 mmol/L Normal 21.0-32.0 [facility] Comment on above: Performed By: #### L 503.6550, L503.0106, L506.0200, L503.6030 #### [facility] [address] [place], [address] Creatinine [Mass/Vol] 1.09 mg/dL Normal 0.70-1.20 [facility] Comment on above: Performed By: #### L 503.6550, L503.0106, L506.0200, L503.6030 #### [facility] [address] [place], [address] GAP 13 Normal 5-15 [facility] Comment on above: Performed By: #### L 503.6550, L503.0106, L506.0200, L503.6030 #### [facility] [address] [place], [address] GFR/1.73 sq M.predicted among non-blacks MDRD (S/P/Bld) [Vol rate/Area] 79 mL/min/{1.73_m2} Normal >60 [facility] Comment on above: Result Comment: mL/m in/1.73m2 CKD-EPI Creatinine Equation (2020) Performed By: #### L 503.6550, L503.0106, L506.0200, L503.6030 #### [facility] [address] [place], [address] Globulin (S) [Mass/Vol] 2.8 g/dL Normal 2.2-4.2 [facility] Comment on above: Performed By: #### L 503.6550, L503.0106, L506.0200, L503.6030 #### [facility] [address] [place], [address] Glucose [Mass/Vol] 102 mg/dL High 70-99 [facility] Comment on above: Performed By: #### L 503.6550, L503.0106, L506.0200, L503.6030 #### [facility] [address] [place], [address] Potassium [Moles/Vol] 5.1 mmol/L Normal 3.3-5.1 [facility] Comment on above: Performed By: #### L 503.6550, L503.0106, L506.0200, L503.6030 #### [facility] [address] [place], [address] Sodium [Moles/Vol] 138 mmol/L Normal 133-145 [facility] Comment on above: Performed By: #### L 503.6550, L503.0106, L506.0200, L503.6030 #### [facility] [address] [place], [address] T PROT 6.8 g/dL Normal 5.9-8.4 [facility] Comment on above: Performed By: #### L 503.6550, L503.0106, L506.0200, L503.6030 #### [facility] [address] [place], [address] Urea nitrogen [Mass/Vol] 14 mg/dL Normal 4-19 [facility] Comment on above: Performed By: #### L 503.6550, L503.0106, L506.0200, L503.6030 #### [facility] [address] [place], [address] Erythrocyte distribution wid th ratioOrdered By: Gerry Luna on 09-09-2024 Erythrocyte distribution width (RBC) [Ratio] 13.6 % 11.6-14.6 [facility] Erythrocyte distribution wid th standard deviationOrdered By: Gerry Luna on 09-09-2024 Erythrocyte distribution width (RBC) [Ratio] 46.0 fl High 35.1-43.9 [facility] Glomerular filtration rate ( GFR) estimation/1.73 sq m using serum, plasma, or whole bOrdered By: Gerry Luna on 09-09-2024 GFR/1.73 sq M.predicted among non-blacks MDRD (S/P/Bld) [Vol rate/Area] 79 mL/min/{1.73_m2} >60 [facility] Comment on above: mL/min/1.73m2 CKD-EP I Creatinine Equation (2020) Hematocrit Auto (Bld) [Volum e fraction]Ordered By: Gerry Luna on 09-09-2024 Hematocrit (Bld) [Volume fraction] 36.2 % Low 40-54 [facility] Hemoglobin A1con 09-09-2024 HbA1c (Bld) [Mass fraction] 5.7 % Normal <=5.6 [facility] Comment on above: Result Comment: Norm al < 5.7 % Prediabetic 5.7 - 6.4 % Diabetic >or= 6.5 % Please note range changes. Performed By: #### L 503.6550, L503.0106, L506.0200, L503.6030 #### [facility] [address] [place] [address]. [place], [place], [id number] Hemoglobin A1c percentageOrd ered By: Gerry Luna on 09-09-2024 HbA1c (Bld) [Mass fraction] 5.7 % <5.7 [facility] Comment on above: Normal < 5.7 % Predi abetic 5.7 - 6.4 % Diabetic >or= 6.5 % Please note range changes. Hemoglobin measurementOrdere d By: Gerry Luna on 09-09-2024 Hemoglobin (Bld) [Mass/Vol] 11.9 g/dL Low 13.0-16.5 [facility] Ketones Test strip Ql (U)Ord ered By: Gerry Luna on 09-09-2024 Ketones Ql (U) Negative Negative [facility] LDL calc ser/plasOrdered By: Gerry Luna on 09-09-2024 Cholesterol in LDL [Mass/Vol] 59 mg/dL Normal [facility] Comment on above: Fmpnvixtcn=150-595 m g/dL & Higher Cjqe=251 mg/dL or greater Result Comment: Bord seuhzb=671-215 mg/dL Higher Ivgo=323 mg/dL or greater Performed By: #### L 503.6550, L503.0106, L506.0200, L503.6030 #### [facility] [address] [place], [address] Laboratory - Chemistry and C hemistry - challengeOrdered By: Gerry Luna on 09-09-2024 AST [Catalytic activity/Vol] 28 U/L <38 [facility] Lipid Profileon 09-09-2024 CHOL:HDL 4.28 Normal [facility] Comment on above: Performed By: #### L 503.6550, L503.0106, L506.0200, L503.6030 #### [facility] [address] [place], [address] Cholesterol in VLDL [Mass/Vol] 25 mg/dL Normal 5-40 [facility] Comment on above: Performed By: #### L 503.6550, L503.0106, L506.0200, L503.6030 #### [facility] [address] [place], [address] MCV (mean corpuscular volume ) determinationOrdered By: Gerry Luna on 09-09-2024 MCV (RBC) [Entitic vol] 91.9 fL 80-94 [facility] Mean corpuscular hemoglobin (MCH) determinationOrdered By: Gerry Luna on 09-09-2024 MCH (RBC) [Entitic mass] 30.2 pg 27.0-32.0 [facility] Mean corpuscular hemoglobin concentration (MCHC) determinationOrdered By: Gerry Luna on 09-09-2024 MCHC (RBC) [Mass/Vol] 32.9 g/dL 32-36 [facility] Mean platelet volume determi nationOrdered By: Gerry Luna on 09-09-2024 Platelet mean volume (Bld) [Entitic vol] 9.4 fL 6.2-12.0 [facility] Nitrite Test strip Ql (U)Ord ered By: Gerry Luna on 09-09-2024 Nitrite Ql (U) Negative Negative [facility] Platelet countOrdered By: Joaquin Luna on 09-09-2024 Platelets (Bld) [#/Vol] 212 10*3/uL 150-450 [facility] Potassium measurement (mass/ volume)Ordered By: Gerry Luna on 09-09-2024 Potassium (Unsp spec) [Mass/Vol] 5.1 mmol/L 3.3-5.1 [facility] Protein Test strip Ql (U)Ord ered By: Gerry Luna on 09-09-2024 Protein Ql (U) 15 mg/dl High Negative [facility] RBC Auto (Bld) [#/Vol]Ordere d By: Gerry Luna on 09-09-2024 RBC (Bld) [#/Vol] 3.94 10*6/uL Low 4.6-6.2 [facility] Screening total cholesterol/ high density lipoprotein (HDL) cholesterol ratioOrdered By: Gerry Luna on 09-09-2024 Cholesterol.total/Cholest nathaniel in HDL [Mass ratio] 4.28 {ratio} [facility] Serum creatinine measurement (mass/volume)Ordered By: Gerry Luna on 09-09-2024 Creatinine [Mass/Vol] 1.09 mg/dL 0.70-1.20 [facility] Serum globulin measurementOr dered By: Gerry Luna on 09-09-2024 Globulin (S) [Mass/Vol] 2.8 g/dL 2.2-4.2 [facility] Serum glucose measurement (m ass/volume)Ordered By: Gerry Luna on 09-09-2024 Glucose [Mass/Vol] 102 mg/dL High 70-99 [facility] Serum or plasma alanine spencer otransferase (ALT) measurementOrdered By: Gerry Luna on 09-09-2024 ALT [Catalytic activity/Vol] 10 U/L <47 [facility] Serum or plasma albumin melony urement (mass/volume)Ordered By: Gerry Luna on 09-09-2024 Albumin [Mass/Vol] 4.0 g/dL 3.5-5.0 [facility] Serum or plasma albumin/glob ulin mass ratioOrdered By: Gerry Luna on 09-09-2024 Albumin/Globulin [Mass ratio] 1.4 {ratio} 0.9-2.4 [facility] Serum or plasma alkaline alexa sphatase measurementOrdered By: Gerry Luna on 09-09-2024 ALP [Catalytic activity/Vol] 109 U/L 40-129 [facility] Serum or plasma calcium melony urement (mass/volume)Ordered By: Gerry Luna on 09-09-2024 Calcium [Mass/Vol] 9.4 mg/dL 7.6-11.0 [facility] Serum or plasma cholesterol in HDL measurement (mass/volume)Ordered By: Gerry Luna on 09-09-2024 Cholesterol in HDL [Mass/Vol] 26 mg/dL Low [facility] Comment on above: National Cholesterol Education Program (NCEP) guidelines:<40 mg/dL: Low HDL-cholesterol (major risk factor for CHD)>= 60 mg/dL: High HDL-cholesterol (negative risk factor for CHD)HDL-cholesterol is affected by a number of factors, e.g. smoking, exercise, hormones, sex and age. Result Comment: Mari onal Cholesterol Education Program (NCEP) guidelines: <40 mg/dL: Low HDL-cholesterol (major risk factor for CHD) >= 60 mg/dL: High HDL-cholesterol (negative risk factor for CHD) HDL-cholesterol is affected by a number of factors, e.g. smoking, exercise, hormones, sex and age. Performed By: #### L 503.6550, L503.0106, L506.0200, L503.6030 #### [facility] [place], [address] Serum or plasma cholesterol measurement (mass/volume)Ordered By: Gerry Luna on 09-09-2024 Cholesterol [Mass/Vol] 110 mg/dL Normal <=200 [facility] Comment on above: Cholesterol level, D esirable <200 mg/dLBorderline high cholesterol 200-239 mg/dLHigh cholesterol >=240 mg/dLRecommendations of the NCEP Adult Treatment Panel for the following risk-cutoff thresholds for the [place] population. Result Comment: Chol esterol level, Desirable <200 mg/dL Borderline high cholesterol 200-239 mg/dL High cholesterol >=240 mg/dL Recommendations of the NCEP Adult Treatment Panel for the following risk-cutoff thresholds for the [place] population. Performed By: #### L 503.6550, L503.0106, L506.0200, L503.6030 #### [facility] [address] [place], [place], [id number] Serum or plasma urea nitroge n measurement (mass/volume)Ordered By: Gerry Luna on 09-09-2024 Urea nitrogen [Mass/Vol] 14 mg/dL 4-19 [facility] Sodium levelOrdered By: Chaz Luna on 09-09-2024 Sodium [Moles/Vol] 138 mmol/L 133-145 [facility] Total proteinOrdered By: Rafiq Luna on 09-09-2024 Protein [Mass/Vol] 6.8 g/dL 5.9-8.4 [facility] Triglycerides measurementOrd ered By: Gerry Luna on 09-09-2024 Triglyceride [Mass/Vol] 126 mg/dL Normal [facility] Comment on above: The drugs N-Acetylcy steine and Metamizole may falsely depress this assay. Normal range: <150 mg/dLBorderline High: 150-199 mg/dLHigh: 200-499 mg/dLVery High: >500 mg/dL Result Comment: The drugs N-Acetylcysteine and Metamizole may falsely depress this assay. Normal range: <150 mg/dL Borderline High: 150-199 mg/dL High: 200-499 mg/dL Very High: >500 mg/dL Performed By: #### L 503.6550, L503.0106, L506.0200, L503.6030 #### [facility] [address] [place], [place], [id number] Urinalysis, Routine (Dipstic k)on 06-06-2025 BILIRUBIN URINE Negative Normal Negative [facility] Comment on above: Order Comment: Urine , Random Performed By: #### L 501.9985, L500.4100, L400.2010, L100.0500, L500.4050 #### [facility] [address] [place], [address] Clarity (U) Clear Normal Clear [facility] Comment on above: Order Comment: Urine , Random Performed By: #### L 501.9985, L500.4100, L400.2010, L100.0500, L500.4050 #### [facility] [address] [place], [address] Color (U) Yellow Normal Yellow [facility] Comment on above: Order Comment: Urine , Random Performed By: #### L 501.9985, L500.4100, L400.2010, L100.0500, L500.4050 #### [facility] [address] [place], [address] GLUCOSE, UR Normal Normal Normal [facility] Comment on above: Order Comment: Urine , Random Performed By: #### L 501.9985, L500.4100, L400.2010, L100.0500, L500.4050 #### [facility] [address] [place], [address] KETONE UR Negative Normal Negative [facility] Comment on above: Order Comment: Urine , Random Performed By: #### L 501.9985, L500.4100, L400.2010, L100.0500, L500.4050 #### [facility] [address] [place], [address] LEUK ESTERASE Negative Normal Negative [facility] Comment on above: Order Comment: Urine , Random Performed By: #### L 501.9985, L500.4100, L400.2010, L100.0500, L500.4050 #### [facility] [address] [place], [address] Nitrite Ql (U) Negative Normal Negative [facility] Comment on above: Order Comment: Urine , Random Performed By: #### L 501.9985, L500.4100, L400.2010, L100.0500, L500.4050 #### [facility] [address] [place], [address] OCCULT BLOOD-UR Negative Normal Negative [facility] Comment on above: Order Comment: Urine , Random Performed By: #### L 501.9985, L500.4100, L400.2010, L100.0500, L500.4050 #### [facility] [address] [place], [address] pH UR 6.0 Normal 5.0 - 8.0 [facility] Comment on above: Order Comment: Urine , Random Performed By: #### L 501.9985, L500.4100, L400.2010, L100.0500, L500.4050 #### [facility] [address] [place], [address] PROT DIPSTX 15 mg/dl Abnormal Negative [facility] Comment on above: Order Comment: Urine , Random Performed By: #### L 501.9985, L500.4100, L400.2010, L100.0500, L500.4050 #### [facility] [address] [place], [address] SP.GR. DIPSTX 1.015 Normal 1.002-1.030 [facility] Comment on above: Order Comment: Urine , Random Performed By: #### L 501.9985, L500.4100, L400.2010, L100.0500, L500.4050 #### [facility] [address] [place], [address] UROBILI Normal Normal Normal [facility] Comment on above: Order Comment: Urine , Random Performed By: #### L 501.9985, L500.4100, L400.2011, L100.0500, L500.4050 #### [facility] [address] [place], [place], [id number] Urine clarityOrdered By: Rafiq servinm Cheryl on 09-09-2024 Clarity (U) Clear Clear [facility] Urine color determinationOrd ered By: Gerry Luna on 09-09-2024 Color (U) Yellow Yellow [facility] Urine glucose detectionOrder ed By: Gerry Luna on 09-09-2024 Glucose Ql (U) Normal mg/dl Normal [facility] Urine leukocyte esterase det ection by dipstickOrdered By: Gerry Luna on 09-09-2024 Leukocyte esterase Test strip Ql (U) Negative Negative [facility] Urine pHOrdered By: Gerry Luna on 09-09-2024 pH (U) 6.0 [pH] 5.0 - 8.0 [facility] Urine specific gravity measu rementOrdered By: Gerry Luna on 09-09-2024 Specific gravity (U) [Rel density] 1.015 1.002-1.030 [facility] Urine urobilinogen measureme ntOrdered By: Gerry Luna on 09-09-2024 Urobilinogen Ql (U) Normal mg/dl Normal [facility] White blood cell (WBC) count Ordered By: Gerry Luna on 09-09-2024 WBC (Bld) [#/Vol] 8.8 10*3/uL 4.4-11.0 [facility] CBC W/Diff, Automatedon 03-06 Absolute Lymph 4.11 X10 3/uL Normal 0.83-4.51 [facility] Comment on above: Performed By: #### L 502.0250, L501.9985, L100.0100, L501.9910 #### [facility] [address] [place], [place], [id number] Absolute Neut 6.3 X10 3/uL Normal 2.0-7.7 [facility] Comment on above: Performed By: #### L 502.0250, L501.9985, L100.0100, L501.9910 #### [facility] [address] [place], [address] Basophils/100 WBC (Bld) 0.7 % Normal 0-1 [facility] Comment on above: Performed By: #### L 502.0250, L501.9985, L100.0100, L501.9910 #### [facility] [address] [place], [address] Eosinophils/100 WBC (Bld) 3.5 % Normal 0-5 [facility] Comment on above: Performed By: #### L 502.0250, L501.9985, L100.0100, L501.9910 #### [facility] [address] [place], [address] Erythrocyte distribution width (RBC) [Ratio] 13.1 % Normal 11.6-14.6 [facility] Comment on above: Performed By: #### L 502.0250, L501.9985, L100.0100, L501.9910 #### [facility] [address] [place], [address] Hematocrit (Bld) [Volume fraction] 41.3 % Normal 40-54 [facility] Comment on above: Performed By: #### L 502.0250, L501.9985, L100.0100, L501.9910 #### [facility] [address] [place], [address] Hemoglobin (Bld) [Mass/Vol] 13.7 g/dL Normal 13.0-16.5 [facility] Comment on above: Performed By: #### L 502.0250, L501.9985, L100.0100, L501.9910 #### [facility] [address] [place], [address] IG% 0.700 Normal 0.0-0.9 [facility] Comment on above: Result Comment: IG% - Immature Granulocytes (promyelocytes, myelocytes and metamyelocytes) > 1% indicates that a LEFT SHIFT is Present. Performed By: #### L 502.0250, L501.9985, L100.0100, L501.9910 #### [facility] [address] [place], [address] Lymphocytes/100 WBC (Bld) 35.0 % Normal 19-41 [facility] Comment on above: Performed By: #### L 502.0250, L501.9985, L100.0100, L501.9910 #### [facility] [address] [place], [address] MCH (RBC) [Entitic mass] 30.4 pg Normal 27.0-32.0 [facility] Comment on above: Performed By: #### L 502.0250, L501.9985, L100.0100, L501.9910 #### [facility] [address] [place], [address] MCHC (RBC) [Mass/Vol] 33.2 g/dL Normal 32-36 [facility] Comment on above: Performed By: #### L 502.0250, L501.9985, L100.0100, L501.9910 #### [facility] [address] [place], [address] MCV (RBC) [Entitic vol] 91.8 fL Normal 80-94 [facility] Comment on above: Performed By: #### L 502.0250, L501.9985, L100.0100, L501.9910 #### [facility] [address] [place], [address] Monocytes/100 WBC (Bld) 7.0 % Normal 0-10 [facility] Comment on above: Performed By: #### L 502.0250, L501.9985, L100.0100, L501.9910 #### [facility] [address] [place], [address] Neutrophils/100 WBC (Bld) 53.1 % Normal 47-70 [facility] Comment on above: Performed By: #### L 502.0250, L501.9985, L100.0100, L501.9910 #### [facility] [address] [place], [address] Nucleated RBC (Bld) [#/Vol] 0 10*3/uL Normal 0-5 [facility] Comment on above: Performed By: #### L 502.0250, L501.9985, L100.0100, L501.9910 #### [facility] [address] [place], [address] Platelet mean volume (Bld) [Entitic vol] 9.7 fL Normal 6.2-12.0 [facility] Comment on above: Performed By: #### L 502.0250, L501.9985, L100.0100, L501.9910 #### [facility] [address] [place], [address] Platelets (Bld) [#/Vol] 239 10*3/uL Normal 150-450 [facility] Comment on above: Performed By: #### L 502.0250, L501.9985, L100.0100, L501.9910 #### [facility] [address] [place], [address] RBC (Bld) [#/Vol] 4.50 10*6/uL Low 4.6-6.2 [facility] Comment on above: Performed By: #### L 502.0250, L501.9985, L100.0100, L501.9910 #### [facility] [address] [place], [address] RDW SD 43.8 fl Normal 35.1-43.9 [facility] Comment on above: Performed By: #### L 502.0250, L501.9985, L100.0100, L501.9910 #### [facility] [address] [place], [address] WBC (Bld) [#/Vol] 11.8 10*3/uL High 4.4-11.0 [facility] Comment on above: Performed By: #### L 502.0250, L501.9985, L100.0100, L501.9910 #### [facility] [address] [place], [address] Hemoglobin A1con 03-16-2024 HbA1c (Bld) [Mass fraction] 6.7 % High 3.8-5.6 [facility] Comment on above: Result Comment: Norm al < 5.7 % Prediabetic 5.7 - 6.4 % Diabetic >or= 6.5 % Please note range changes. Performed By: #### L 502.0250, L501.9985, L100.0100, L501.9910 #### [facility] [address] [place], [address] Microalb:Creat Ratio,Random URon 03-16-2024 Creatinine [Mass/Vol] 34.90 mg/dL Normal NO RANGE EST. [facility] Comment on above: Performed By: #### L 502.0250, L501.9985, L100.0100, L501.9910 #### [facility] [address] [place], [address] MALB:CRE TNP Normal <30 mg/g CRE [facility] Comment on above: Performed By: #### L 502.0250, L501.9985, L100.0100, L501.9910 #### [facility] [address] [place], [address] MICROALBUMIN,UR < 5.0 Normal NO RANGE EST. [facility] Comment on above: Performed By: #### L 502.0250, L501.9985, L100.0100, L501.9910 #### [facility] [address] [place], [place], [address] PSA,Total - Annual Screenon 03-16-2024 PSA,TOT SCREEN 1.21 ng/mL Normal 0.00-4.00 [facility] Comment on above: Result Comment: This test was performed using the TPSA assay method for the [employer] chemistry system. Values obtained with different assay methods cannot be used interchangably. When changing PSA assays in the course of monitoring a patient, additional sequential testing should be carried out to confirm baseline values. Performed By: #### L 502.0250, L501.9985, L100.0100, L501.9910 #### [facility] [address] [place], [place], [id number] CBC With No Diffon Hematocrit (Bld) [Volume fraction] 42.7 % Normal [facility] Comment on above: Performed By: #### H EMOG #### [facility] (DEFAULT) [address], [place] [address] Hemoglobin (Bld) [Mass/Vol] 14.0 g/dL Normal 13.5-17.5 [facility] Comment on above: Performed By: #### H EMOG #### [facility] (DEFAULT) [address], [place] [address] MCH (RBC) [Entitic mass] 31.6 pg Normal 26.0-34.0 [facility] Comment on above: Performed By: #### H EMOG #### [facility] (DEFAULT) [address], [place] [address] MCHC (RBC) [Mass/Vol] 32.8 g/dL Normal 31.0-37.0 [facility] Comment on above: Performed By: #### H EMOG #### [facility] (DEFAULT) [address], [place] [address] MCV (RBC) [Entitic vol] 96 fL Normal 80-100 [facility] Comment on above: Performed By: #### H EMOG #### [facility] (DEFAULT) [address], [place] [address] Platelets (Bld) [#/Vol] 210 10*3/uL Normal 150-400 [facility] Comment on above: Performed By: #### H EMOG #### [facility] (DEFAULT) [address], [place] [address] RBC (Bld) [#/Vol] 4.43 10*6/uL Low 4.50-5.90 [facility] Comment on above: Performed By: #### H EMOG #### [facility] (DEFAULT) [address] [place] [address] WBC (Bld) [#/Vol] 8.00 10*3/uL Normal 4.50-11.00 [facility] Comment on above: Performed By: #### H EMOG #### [facility] (DEFAULT) [address] [place] [address] CBC panel Auto (Bld)on 03-25 Hematocrit (Bld) [Volume fraction] 42.7 % [facility] Hemoglobin (Bld) [Mass/Vol] 14.0 g/dL 13.5 - 17.5 g/dL [facility] Interpretation and review of laboratory results Abnormal [facility] MCH (RBC) [Entitic mass] 31.6 pg 26.0 - 34.0 pg [facility] MCHC (RBC) [Mass/Vol] 32.8 g/dL 31.0 - 37.0 g/dL [facility] MCV (RBC) [Entitic vol] 96 fL 80 - 100 fL [facility] Platelets (Bld) [#/Vol] 210 10*3/uL 150 - 400 K /uL [facility] RBC (Bld) [#/Vol] 4.43 10*6/uL [facility] WBC (Bld) [#/Vol] 8.00 10*3/uL 4.50 - 11. 00 K/uL [facility] Comprehensive Metabolic Pane godwin 03-25-2023 Albumin [Mass/Vol] 4.1 g/dL Normal 3.2-4.5 [facility] Comment on above: Performed By: #### C MP #### [facility] (DEFAULT) [address] [place], [place] [address] ALP [Catalytic activity/Vol] 75 U/L Normal 40-150 [facility] Comment on above: Performed By: #### C MP #### [facility] (DEFAULT) [address] [place], [place] [address] ALT [Catalytic activity/Vol] 96 U/L High 14-65 [facility] Comment on above: Performed By: #### C MP #### [facility] (DEFAULT) [address] [place], [place] [address] Anion gap [Moles/Vol] 12 mmol/L Normal 10-20 [facility] Comment on above: Performed By: #### C MP #### [facility] (DEFAULT) [address] [place], [place] [address] AST [Catalytic activity/Vol] 88 U/L High 0-45 [facility] Comment on above: Performed By: #### C MP #### [facility] (DEFAULT) [address] [place], [place] [address] Bilirubin [Mass/Vol] 0.5 mg/dL Normal 0.0-1.3 [facility] Comment on above: Performed By: #### C MP #### [facility] (DEFAULT) [address] [place], [place] [address] Calcium [Mass/Vol] 9.5 mg/dL Normal 8.0-10.2 [facility] Comment on above: Performed By: #### C MP #### [facility] (DEFAULT) [address] [place], [place] [address], [place] [address] Chloride [Moles/Vol] 105 mmol/L Normal 98-108 [facility] Comment on above: Performed By: #### C MP #### [facility] (DEFAULT) [address] [place], [place] [address] CO2 [Moles/Vol] 24.0 mmol/L Normal 21.0-32.0 [facility] Comment on above: Performed By: #### C MP #### [facility] (DEFAULT) [address], [place] [address] Creatinine [Mass/Vol] 1.1 mg/dL Normal 0.5-1.3 [facility] Comment on above: Performed By: #### C MP #### [facility] (DEFAULT) [address] [place], [place] [address] GFR/1.73 sq M.predicted MDRD (S/P/Bld) [Vol rate/Area] 71 mL/min/{1.73_m2} Normal 60-1000 [facility] Comment on above: Result Comment: The eGFR should be used for monitoring renal function only and not for medication dosing. Performed By: #### C MP #### [facility] (DEFAULT) [address] [place], [place] [address] Glucose [Mass/Vol] 100 mg/dL High 65-99 [facility] Comment on above: Performed By: #### C MP #### [facility] (DEFAULT) [address] [place], [place] [address] Potassium [Moles/Vol] 4.0 mmol/L Normal 3.5-5.1 [facility] Comment on above: Performed By: #### C MP #### [facility] (DEFAULT) [address] [place] [address] Protein [Mass/Vol] 8.4 g/dL High 6.0-8.0 [facility] Comment on above: Performed By: #### C MP #### [facility] (DEFAULT) [address] [place], [place] [address] Sodium [Moles/Vol] 137 mmol/L Normal 135-145 [facility] Comment on above: Performed By: #### C MP #### [facility] (DEFAULT) [address] [place] [address] Urea nitrogen [Mass/Vol] 23 mg/dL Normal 8-25 [facility] Comment on above: Performed By: #### C MP #### [facility] (DEFAULT) [address] [place], [place] [address] Comprehensive metabolic 2000 panelon 03-25-2023 Albumin [Mass/Vol] 4.1 g/dL 3.2 - 4.5 g/dL [facility] ALP [Catalytic activity/Vol] 75 U/L 40 - 150 U/L [facility] ALT [Catalytic activity/Vol] 96 U/L High 14 - 65 U/L [facility] Anion gap [Moles/Vol] 12 mmol/L 10 - 20 mmol/L [facility] AST [Catalytic activity/Vol] 88 U/L High 0 - 45 U/L [facility] Bilirubin Ql (U) 0.5 mg/dL 0.0 - 1.3 mg/dL [facility] Calcium [Mass/Vol] 9.5 mg/dL 8.0 - 10. 2 mg/dL [facility] Chloride [Moles/Vol] 105 mmol/L 98 - 10 8 mmol/L [facility] Creatinine [Mass/Vol] 1.1 mg/dL 0.5 - 1.3 mg/dL [facility] GFR/1.73 sq M.predicted among non-blacks MDRD (S/P/Bld) [Vol rate/Area] 71 mL/min/{1.73_m2} [facility] Comment on above: The eGFR should be u sed for monitoring renal function only and not for medication dosing. Glucose [Mass/Vol] 100 mg/dL High 65 - 99 [facility] (Bld) [Moles/Vol] 24.0 mmol/L 21.0 - 32.0 mmol/L [facility] Potassium [Moles/Vol] 4.0 mmol/L 3.5 - 5.1 mmol/L [facility] Protein [Mass/Vol] 8.4 g/dL High 6.0 - 8.0 g/dL [facility] Sodium [Moles/Vol] 137 mmol/L 135 - 145 mmol/L [facility] Urea nitrogen (BldV) [Mass/Vol] 23 mg/dL 8 - 25 mg/dL [facility] HGB A1Con 03-25-2023 Glucose [Mass/Vol] 151 mg/dL High 68-114 [facility] Comment on above: Performed By: #### A 1CE #### [facility] (DEFAULT) [address] [place], [place] [address] HbA1c (Bld) [Mass fraction] 6.9 % High 4.0-5.6 [facility] Comment on above: Result Comment: NORM AL: 4.0% - 5.6% INCREASED RISK FOR DIABETES: 5.7% - 6.4% DIABETES: >6.5% Performed By: #### A 1CE #### [facility] (DEFAULT) [address] [place], [place] [address] HbA1c (Bld) [Mass fraction]o n 03-25-2023 Glucose [Mass/Vol] 151 mg/dL High 68 - 114 mg/dL [facility] Interpretation and review of laboratory results Abnormal [facility] Hemoglobin A1con 03-25-2023 HbA1c (Bld) [Mass fraction] 6.9 % High 4.0 - 5.6 % [facility] Comment on above: NORMAL: 4.0% - 5.6% INCREASED RISK FOR DIABETES: 5.7% - 6.4% DIABETES: >6.5% Lipid 1996 panelon Cholesterol [Mass/Vol] 181 mg/dL 100 - 199 mg/dL [facility] Comment on above: Comment: National Cholesterol Education Program Guidelines: Cholesterol Desirable: <200 mg/dL Borderline High: 200-239 mg/dL High: greater than or equal to 240 mg/dL Cholesterol in HDL [Mass/Vol] 35 mg/dL Low 40 - 59 mg/dL [facility] Comment on above: Comment: National Cholesterol Education Program Guidelines: HDL Cholesterol Low: <40 mg/dL Near Optimal: 40-59 mg/dL High: greater than or equal to 60 mg/dL Cholesterol in LDL [Mass/Vol] 107 mg/dL High 0 - 99 mg/dL [facility] Comment on above: Comment: National Cholesterol Education Program Guidelines: LDL Cholesterol Optimal: <100 mg/dL Near Optimal/above Optimal: 100-129 mg/dL Borderline High: 130-159 mg/dL High: 160-189 mg/dL Very High: greater than or equal to 190 mg/dL Cholesterol.total/Cholest nathaniel in HDL [Mass ratio] 5.17 {ratio} [facility] Comment on above: Comment: Female CHolesterol/HDL Ratio: Average risk: 4.4 1/2 average risk: 3.3 2 x average risk: 7.1 Magnesium [Mass/Vol] 146 mg/dL [facility] Comment on above: Comment: National Cholesterol Education Program guidelines: NON HDL Cholesterol Desirable: <130 mg/dL Borderline High 130-159 mg/dL High: 160-189 mg/dL Very High: > or = 190 mg/dL Triglyceride [Mass/Vol] 196 mg/dL High 30 - 150 mg/ dL [facility] Comment on above: Comment: National Cholesterol Education Program Guidelines: Triglyceride Normal: <150 mg/dL Borderline High: 150-199 mg/dL High: 200-499 mg/dL Very High: greater than or equal to 500 mg/dL Lipid Profileon 03-25-2023 Cholesterol [Mass/Vol] 181 mg/dL Normal 100-199 [facility] Comment on above: Result Comment: Comm ent: National Cholesterol Education Program Guidelines: Cholesterol Desirable: <200 mg/dL Borderline High: 200-239 mg/dL High: greater than or equal to 240 mg/dL Performed By: #### L IPID #### [facility] (DEFAULT) [address] [place] [address] Cholesterol in HDL [Mass/Vol] 35 mg/dL Low 40-59 [facility] Comment on above: Result Comment: Comm ent: National Cholesterol Education Program Guidelines: HDL Cholesterol Low: <40 mg/dL Near Optimal: 40-59 mg/dL High: greater than or equal to 60 mg/dL Performed By: #### L IPID #### [facility] (DEFAULT) [address] [place] [address] Cholesterol in LDL [Mass/Vol] 107 mg/dL High 0-99 [facility] Comment on above: Result Comment: Comm ent: National Cholesterol Education Program Guidelines: LDL Cholesterol Optimal: <100 mg/dL Near Optimal/above Optimal: 100-129 mg/dL Borderline High: 130-159 mg/dL High: 160-189 mg/dL Very High: greater than or equal to 190 mg/dL Performed By: #### L IPID #### [facility] (DEFAULT) [address] [place] [address] Cholesterol non HDL [Mass/Vol] 146 mg/dL Normal [facility] Comment on above: Result Comment: Comm ent: National Cholesterol Education Program guidelines: NON HDL Cholesterol Desirable: <130 mg/dL Borderline High 130-159 mg/dL High: 160-189 mg/dL Very High: > or = 190 mg/dL Performed By: #### L IPID #### [facility] (DEFAULT) [address] [place] [address] Cholesterol.total/Cholest nathaniel in HDL [Mass ratio] 5.17 {ratio} Normal [facility] Comment on above: Result Comment: Comm ent: Female CHolesterol/HDL Ratio: Average risk: 4.4 1/2 average risk: 3.3 2 x average risk: 7.1 Performed By: #### L IPID #### [facility] (DEFAULT) [address] [place] [address] Triglyceride [Mass/Vol] 196 mg/dL High 30-150 [facility] Comment on above: Result Comment: Comm ent: National Cholesterol Education Program Guidelines: Triglyceride Normal: <150 mg/dL Borderline High: 150-199 mg/dL High: 200-499 mg/dL Very High: greater than or equal to 500 mg/dL Performed By: #### L IPID #### [facility] (DEFAULT) [address] [place] [address] Microalb/Creat Ratio, Urineo n 03-25-2022 Albumin DL <= 20 mg/L (U) [Mass/Vol] 0.7 mg/dL Normal 0.0-1.8 [facility] Comment on above: Result Comment: Test ing Performed At: [facility] [address] [place] [address] Performed By: #### Shahbaz MONTANO #### [facility] (UNKNOWN) [address] [place] [address] CREATININE, URINE, RANDOM 70.3 mg/dL Normal [facility] Comment on above: Result Comment: Test ing Performed At: [facility] [address] [place] [address] Performed By: #### M KYLERT #### [facility] (UNKNOWN) [address] [place] [address] MICROALBUMIN/CREATININE RATIO 10 mg/g crea Normal 0-25 [facility] Comment on above: Result Comment: Test ing Performed At: [facility] [address] [place] [address] Performed By: #### M CHARMAINE #### [facility] (UNKNOWN) [address] [place] [phone] No Panel Informationon 03-25 Interpretation and review of laboratory results Abnormal [facility] Prostate specific Ag [Mass/V ol]on 03-25-2023 PSA Total 1.35 ng/mL High 0.00 - 0.99 ng/mL [facility] Comment on above: NCCN Guidelines: PSA > 1.0 ng/mL and age 45-49 repeat in 1-2 years. PSA < 1.0 ng/mL and age 45-49 repeat at age 50 PSA > 3.0 ng/mL positive Urinalysison 03-25-2023 Bilirubin Ql (U) Negative Normal Negative [facility] Comment on above: Performed By: #### U A #### [facility] (DEFAULT) [address] [place] [address] Clarity (U) Clear Normal Clear [facility] Comment on above: Performed By: #### U A #### [facility] (DEFAULT) [address] [place] [address] Color (U) Yellow Normal [facility] Comment on above: Performed By: #### U A #### [facility] (DEFAULT) [address] [place] [address] Glucose Ql (U) Negative Normal Negative [facility] Comment on above: Performed By: #### U A #### [facility] (DEFAULT) [address] [place] [address] Hemoglobin Ql (U) Negative Normal Negative [facility] Comment on above: Performed By: #### U A #### [facility] (DEFAULT) [address] [place] [address] Ketones Ql (U) Negative Normal Negative [facility] Comment on above: Performed By: #### U A #### [facility] (DEFAULT) [address] [place] [address] Leukocytes Negative Normal Negative [facility] Comment on above: Performed By: #### U A #### [facility] (DEFAULT) [address] [place] [address] Nitrite Ql (U) Negative Normal Negative [facility] Comment on above: Performed By: #### U A #### [facility] (DEFAULT) [address] [place] [address] Protein Ql (U) Negative Normal Negative [facility] Comment on above: Performed By: #### U A #### [facility] (DEFAULT) [address] [place] [address] Specific gravity (U) [Rel density] 1.010 Normal 1.005-1.025 [facility] Comment on above: Performed By: #### U A #### [facility] (DEFAULT) [address] [place] [address] UpH 6.0 Normal 5.0-6.5 [facility] Comment on above: Performed By: #### U A #### [facility] (DEFAULT) [address] [place] [address] Urine Specimen Type Clean Catch Normal [facility] Comment on above: Performed By: #### U A #### [facility] (DEFAULT) [address] [place] [address] Urobilinogen (U) [Mass/Vol] 0.2 mg/dL Normal <2.0 [facility] Comment on above: Performed By: #### U A #### [facility] (DEFAULT) [address] [place] [address] Urinalysis dipstick panel Au to test strip (U)on 03-25-2023 Bilirubin Ql (U) Negative Negative [facility] Blood, Urine Negative Negative [facility] Clarity (U) Clear Clear [facility] Color (U) Yellow [facility] Glucose Ql (U) Negative Negative [facility] Ketones Ql (U) Negative Negative [facility] Leukocyte esterase Test strip Ql (U) Negative Negative [facility] Nitrite Auto test strip Ql (U) Negative Negative [facility] pH (U) 6.0 [pH] 5.0 - 6.5 [facility] Protein, Urine Negative Negative [facility] Specific gravity (U) [Rel density] 1.010 1.005 - 1.025 [facility] Urine Specimen Type Clean Catch [facility] Urobilinogen Qn (U) 0.2 NINF - 2.0 [facility] CBC panel Auto (Bld)on 03-18 Hematocrit (Bld) [Volume fraction] 42.9 % [facility] Hemoglobin (Bld) [Mass/Vol] 14.4 g/dL 13.5 - 17.5 g/dL [facility] Interpretation and review of laboratory results Abnormal [facility] MCH (RBC) [Entitic mass] 32.2 pg 26.0 - 34.0 pg [facility] MCHC (RBC) [Mass/Vol] 33.6 g/dL 31.0 - 37.0 g/dL [facility] MCV (RBC) [Entitic vol] 96 fL 80 - 100 fL [facility] Platelets (Bld) [#/Vol] 287 10*3/uL 150 - 400 K /uL [facility] RBC (Bld) [#/Vol] 4.47 10*6/uL Low [facility] WBC (Bld) [#/Vol] 16.64 10*3/uL High 4.50 - 11 .00 K/uL [facility] Comprehensive metabolic 2000 panelon 03-18-2022 Albumin [Mass/Vol] 4.0 g/dL 3.2 - 4.5 g/dL [facility] ALP [Catalytic activity/Vol] 82 U/L 40 - 150 U/L [facility] ALT [Catalytic activity/Vol] 31 U/L 14 - 65 U/L [facility] Anion gap [Moles/Vol] 15 mmol/L 10 - 20 mmol/L [facility] AST [Catalytic activity/Vol] 17 U/L 0 - 45 U/L [facility] Bilirubin Ql (U) 0.7 mg/dL 0.0 - 1.3 mg/dL [facility] Calcium [Mass/Vol] 9.8 mg/dL 8.0 - 10. 2 mg/dL [facility] Chloride [Moles/Vol] 98 mmol/L 98 - 10 8 mmol/L [facility] Creatinine [Mass/Vol] 1.5 mg/dL High 0.5 - 1.3 mg/dL [facility] GFR/1.73 sq M.predicted among non-blacks MDRD (S/P/Bld) [Vol rate/Area] 49 mL/min/{1.73_m2} Low [facility] Comment on above: The eGFR should be u sed for monitoring renal function only and not for medication dosing. Glucose [Mass/Vol] 136 mg/dL High 65 - 99 mg/dL [facility] HCO3 (Bld) [Moles/Vol] 25.0 mmol/L 21.0 - 32.0 mmol/L [facility] Interpretation and review of laboratory results Abnormal [facility] Potassium [Moles/Vol] 3.8 mmol/L 3.5 - 5.1 mmol/L [facility] Protein [Mass/Vol] 9.5 g/dL High 6.0 - 8.0 g/dL [facility] Sodium [Moles/Vol] 134 mmol/L Low 135 - 145 mmol/L [facility] Urea nitrogen (BldV) [Mass/Vol] 29 mg/dL High 8 - 25 mg/dL [facility] HbA1c (Bld) [Mass fraction]o n 03-18-2022 Glucose [Mass/Vol] 126 mg/dL High 68 - 114 mg/dL [facility] Interpretation and review of laboratory results Abnormal [facility] Hemoglobin A1con 03-18-2022 HbA1c (Bld) [Mass fraction] 6.0 % High 4.0 - 5.6 % [facility] Comment on above: NORMAL: 4.0% - 5.6% INCREASED RISK FOR DIABETES: 5.7% - 6.4% DIABETES: >6.5% Lipid 1996 panelon Cholesterol [Mass/Vol] 172 mg/dL 100 - 199 mg/dL [facility] Comment on above: Comment: National Cholesterol Education Program Guidelines: Cholesterol Desirable: <200 mg/dL Borderline High: 200-239 mg/dL High: greater than or equal to 240 mg/dL Cholesterol in HDL [Mass/Vol] 49 mg/dL 40 - 59 mg/dL [facility] Comment on above: Comment: National Cholesterol Education Program Guidelines: HDL Cholesterol Low: <40 mg/dL Near Optimal: 40-59 mg/dL High: greater than or equal to 60 mg/dL Cholesterol in LDL [Mass/Vol] 103 mg/dL High 0 - 99 mg/dL [facility] Comment on above: Comment: National Cholesterol Education Program Guidelines: LDL Cholesterol Optimal: <100 mg/dL Near Optimal/above Optimal: 100-129 mg/dL Borderline High: 130-159 mg/dL High: 160-189 mg/dL Very High: greater than or equal to 190 mg/dL Cholesterol.total/Cholest nathaniel in HDL [Mass ratio] 3.51 {ratio} [facility] Comment on above: Comment: Female CHolesterol/HDL Ratio: Average risk: 4.4 1/2 average risk: 3.3 2 x average risk: 7.1 Interpretation and review of laboratory results Abnormal [facility] Magnesium [Mass/Vol] 123 mg/dL [facility] Comment on above: Comment: National Cholesterol Education Program guidelines: NON HDL Cholesterol Desirable: <130 mg/dL Borderline High 130-159 mg/dL High: 160-189 mg/dL Very High: > or = 190 mg/dL Triglyceride [Mass/Vol] 99 mg/dL 30 - 150 mg/ dL [facility] Comment on above: Comment: National Cholesterol Education Program Guidelines: Triglyceride Normal: <150 mg/dL Borderline High: 150-199 mg/dL High: 200-499 mg/dL Very High: greater than or equal to 500 mg/dL [facility] Urinalysis dipstick panel Au to test strip (U)on 03-18-2022 Bilirubin Ql (U) Small Abnormal Negative [facility] th Blood, Urine Negative Negative [facility] Clarity (U) Clear Clear [facility] Color (U) Yellow [facility] Glucose Ql (U) Negative Negative [facility] Interpretation and review of laboratory results Abnormal [facility] Ketones Ql (U) 15 Abnormal Negative [facility] Leukocyte esterase Test strip Ql (U) Negative Negative [facility] Nitrite Auto test strip Ql (U) Negative Negative [facility] pH (U) 5.5 [pH] 5.0 - 6.5 [facility] Protein, Urine 30 Abnormal Negative [facility] Specific gravity (U) [Rel density] 1.005 - 1.025 [facility] Urine Specimen Type Clean Catch [facility] Urobilinogen Qn (U) 1.0 NINF - 2.0 [facility] Urine Microscopicon 03-18-20 22 Cast, Hyaline 5-10 [facility] Coarse Granular Casts 0-3 [facility] Interpretation and review of laboratory results Abnormal [facility] Mucus, Urine Moderate Abnormal None /hpf [facility] RBCs, Urine 0-3 None;0-3 /hpf [facility] Squamous Epithelial 0-4 [facility] WBCs, Urine 0-5 [facility] Comprehensive metabolic 2000 panelon 09-13-2021 Albumin [Mass/Vol] 4.3 g/dL 3.2 - 4.5 g/dL [facility] ALP [Catalytic activity/Vol] 84 U/L 40 - 150 U/L [facility] ALT [Catalytic activity/Vol] 84 U/L High 14 - 65 U/L [facility] Anion gap [Moles/Vol] 10 mmol/L 10 - 20 mmol/L [facility] AST [Catalytic activity/Vol] 56 U/L High 0 - 45 U/L [facility] Bilirubin Ql (U) 0.4 mg/dL 0 - 1.3 mg/dL [facility] Calcium [Mass/Vol] 9.4 mg/dL 8 - 10.2 mg/dL [facility] Chloride [Moles/Vol] 104 mmol/L 98 - 10 8 mmol/L [facility] Creatinine [Mass/Vol] 1.3 mg/dL 0.5 - 1.3 mg/dL [facility] GFR/1.73 sq M.predicted among non-blacks MDRD (S/P/Bld) [Vol rate/Area] 57 mL/min/{1.73_m2} Low [facility] Comment on above: The eGFR should be u sed for monitoring renal function only and not for medication dosing. Glucose [Mass/Vol] 102 mg/dL High 65 - 99 mg/dL [facility] HCO3 (Bld) [Moles/Vol] 24.0 mmol/L 21 - 32 mmol /L [facility] Interpretation and review of laboratory results Abnormal [facility] Potassium [Moles/Vol] 4.3 mmol/L 3.5 - 5.1 mmol/L [facility] Protein [Mass/Vol] 8.7 g/dL High 6 - 8 g/dL [facility] Sodium [Moles/Vol] 134 mmol/L Low 135 - 145 mmol/L [facility] Urea nitrogen (BldV) [Mass/Vol] 31 mg/dL High 8 - 25 mg/dL [facility] HbA1c (Bld) [Mass fraction]o n 09-13-2021 Glucose [Mass/Vol] 131 mg/dL High 68 - 114 mg/dL [facility] Interpretation and review of laboratory results Abnormal [facility] Hemoglobin A1con 09-13-2021 HbA1c (Bld) [Mass fraction] 6.2 % High 4 - 5.6 % [facility] Comment on above: NORMAL: 4.0% - 5.6% INCREASED RISK FOR DIABETES: 5.7% - 6.4% DIABETES: >6.5% CBC panel Auto (Bld)on 02-14 Hematocrit (Bld) [Volume fraction] 41.6 % [facility] Hemoglobin (Bld) [Mass/Vol] 14.0 g/dL 13.5 - 17.5 g/dL [facility] Interpretation and review of laboratory results Abnormal [facility] MCH (RBC) [Entitic mass] 32.3 pg 26.0 - 34.0 pg [facility] MCHC (RBC) [Mass/Vol] 33.7 g/dL 31.0 - 37.0 g/dL [facility] MCV (RBC) [Entitic vol] 96 fL 80 - 100 fL [facility] Platelets (Bld) [#/Vol] 238 10*3/uL 150 - 400 K /uL [facility] RBC (Bld) [#/Vol] 4.34 10*6/uL [facility] WBC (Bld) [#/Vol] 11.17 10*3/uL High 4.50 - 11 .00 K/uL [facility] HbA1c (Bld) [Mass fraction]o n 02-14-2021 Glucose [Mass/Vol] 128 mg/dL High 68 - 114 mg/dL [facility] Interpretation and review of laboratory results Abnormal [facility] Hemoglobin A1con 02-14-2021 HbA1c (Bld) [Mass fraction] 6.1 % High 4.0 - 5.6 % [facility] Comment on above: NORMAL: 4.0% - 5.6% INCREASED RISK FOR DIABETES: 5.7% - 6.4% DIABETES: >6.5% Lipid 1996 panelon Cholesterol [Mass/Vol] 135 mg/dL 100 - 199 mg/dL [facility] Comment on above: Comment: National Cholesterol Education Program Guidelines: Cholesterol Desirable: <200 mg/dL Borderline High: 200-239 mg/dL High: greater than or equal to 240 mg/dL Cholesterol in HDL [Mass/Vol] 47 mg/dL 40 - 59 mg/dL [facility] Comment on above: Comment: National Cholesterol Education Program Guidelines: HDL Cholesterol Low: <40 mg/dL Near Optimal: 40-59 mg/dL High: greater than or equal to 60 mg/dL Cholesterol in LDL [Mass/Vol] 74 mg/dL 0 - 99 mg/dL [facility] Comment on above: Comment: National Cholesterol Education Program Guidelines: LDL Cholesterol Optimal: <100 mg/dL Near Optimal/above Optimal: 100-129 mg/dL Borderline High: 130-159 mg/dL High: 160-189 mg/dL Very High: greater than or equal to 190 mg/dL Cholesterol.total/Cholest nathaniel in HDL [Mass ratio] 2.87 {ratio} [facility] Comment on above: Comment: Female CHolesterol/HDL Ratio: Average risk: 4.4 1/2 average risk: 3.3 2 x average risk: 7.1 Non HDL Cholesterol 88 mg/dL [facility] Comment on above: Comment: National Cholesterol Education Program guidelines: NON HDL Cholesterol Desirable: <130 mg/dL Borderline High 130-159 mg/dL High: 160-189 mg/dL Very High: > or = 190 mg/dL Triglyceride [Mass/Vol] 69 mg/dL 30 - 150 mg/ dL [facility] Comment on above: Comment: National Cholesterol Education Program Guidelines: Triglyceride Normal: <150 mg/dL Borderline High: 150-199 mg/dL High: 200-499 mg/dL Very High: greater than or equal to 500 mg/dL No Panel Informationon 02-14 [facility] Prostate specific Ag [Mass/V ol]on 02-14-2021 Interpretation and review of laboratory results Abnormal [facility] PSA Total 1.18 ng/mL High 0.00 - 0.99 ng/mL [facility] Comment on above: NCCN Guidelines: PSA > 1.0 ng/mL and age 45-49 repeat in 1-2 years. PSA < 1.0 ng/mL and age 45-49 repeat at age 50 PSA > 3.0 ng/mL positive Urinalysis dipstick panel Au to test strip (U)on 02-14-2021 Bilirubin, Urine Negative Negative [facility] Blood, Urine Negative Negative [facility] Clarity (U) Clear Clear [facility] Color (U) Yellow [facility] Glucose Ql (U) Negative Negative [facility] Interpretation and review of laboratory results Abnormal [facility] Ketones Ql (U) 40 Abnormal Negative [facility] Leukocyte esterase Test strip Ql (U) Negative Negative [facility] Nitrite, Urine Negative Negative [facility] pH (U) 5.5 [pH] [facility] Protein, Urine 30 Abnormal Negative [facility] Specific gravity (U) [Rel density] 1.025 [facility] Urine Specimen Type Clean Catch [facility] Urobilinogen, Urine 0.2 <2.0 [facility] Urine Microscopicon 02-15-20 Interpretation and review of laboratory results Abnormal [facility] Mucus, Urine Moderate Abnormal None /hpf [facility] Squamous Epithelial 0-1 [facility] Basic metabolic 2000 panelOr dered By: Gerry Luna on 08-06-2020 Anion gap [Moles/Vol] 11 mmol/L 10 - 20 mmol/L [facility] Calcium [Mass/Vol] 10.1 mg/dL 8.0 - 10. 2 mg/dL [facility] Chloride [Moles/Vol] 107 mmol/L 98 - 10 8 mmol/L [facility] Creatinine [Mass/Vol] 1.4 mg/dL High 0.5 - 1.3 mg/dL [facility] GFR/1.73 sq M.predicted among non-blacks MDRD (S/P/Bld) [Vol rate/Area] 52 mL/min/{1.73_m2} Low [facility] Comment on above: The eGFR should be u sed for monitoring renal function only and not for medication dosing. Glucose [Mass/Vol] 97 mg/dL 65 - 99 mg/dL [facility] HCO3 (Bld) [Moles/Vol] 25.0 mmol/L 21.0 - 32.0 mmol/L [facility] Interpretation and review of laboratory results Abnormal [facility] Potassium [Moles/Vol] 4.6 mmol/L 3.5 - 5.1 mmol/L [facility] Sodium [Moles/Vol] 138 mmol/L 135 - 145 mmol/L [facility] Urea nitrogen [Mass/Vol] 33 mg/dL High 8 - 25 mg/d L [facility] HbA1c (Bld) [Mass fraction]O rdered By: Gerry Luna on 08-06-2020 Glucose [Mass/Vol] 126 mg/dL High 68 - 114 mg/dL [facility] Interpretation and review of laboratory results Abnormal [facility] Hemoglobin [id number] By: Joaquin Luna on 08-06-2020 HbA1c (Bld) [Mass fraction] 6.0 % High 4.0 - 5.6 % [facility] Comment on above: NORMAL: 4.0% - 5.6% INCREASED RISK FOR DIABETES: 5.7% - 6.4% DIABETES: >6.5% Vital Signs Date Time Vital Sign Value Performing Clinician Facility 09-21-2024 07:29-0400 Body height 180.3 cm Gerry Luna DO Work Phone: [facility] 09-21-2024 07:29-0400 Body mass index (BMI) [Ratio] 30.68 kg/m2 Gerry Luna DO Work Phone: [facility] 09-21-2024 07:29-0400 Body weight 99.79 kg Gerry Luna DO Work Phone: [facility] 09-21-2024 07:29-0400 Diastolic blood pressure 82 mm[Hg] Gerry Luna DO Work Phone: [facility] 09-21-2024 07:29-0400 Heart rate 85 /min Gerry Luna DO Work Phone: [facility] 09-21-2024 07:29-0400 SaO2% (BldA) [Mass fraction] 99 % Gerry Luna DO Work Phone: [facility] 09-21-2024 07:29-0400 Systolic blood pressure 124 mm[Hg] Gerry Luna DO Work Phone: [facility] 03-22-2024 08:46-0500 Body height 180.3 cm Gerry Luna DO Work Phone: [facility] 03-22-2024 08:46-0500 Body mass index (BMI) [Ratio] 37.66 kg/m2 Gerry Luna DO Work Phone: [facility] 03-22-2024 08:46-0500 Body weight 122.47 kg Gerry Luna DO Work Phone: [facility] 03-22-2024 08:46-0500 Diastolic blood pressure 82 mm[Hg] Gerry Cheryl DO Work Phone: [facility] 03-22-2024 08:46-0500 Heart rate 81 /min Gerry Cheryl DO Work Phone: [facility] 03-22-2024 08:46-0500 Respiratory rate 14 /min Gerry Dejesuston DO Work Phone: [facility] 03-22-2024 08:46-0500 SaO2% (BldA) [Mass fraction] 96 % Gerry Luna DO Work Phone: [facility] 03-22-2024 08:46-0500 Systolic blood pressure 138 mm[Hg] Gerry Luna DO Work Phone: [facility] 09-24-2023 09:37-0400 Diastolic blood pressure 92 mm[Hg] Gerry Luna DO Work Phone: [facility] 09-24-2023 09:37-0400 Systolic blood pressure 154 mm[Hg] Gerry Luna DO Work Phone: [facility] 09-24-2023 09:35-0400 Body height 180.3 cm Gerry Luna DO Work Phone: [facility] 09-24-2023 09:35-0400 Body mass index (BMI) [Ratio] 35.43 kg/m2 Gerry Luna DO Work Phone: [facility] 09-24-2023 09:35-0400 Body weight 115.21 kg Gerry Luna DO Work Phone: [facility] 09-24-2023 09:35-0400 Heart rate 84 /min Gerry Dejesuston DO Work Phone: [facility] 09-24-2023 09:35-0400 Respiratory rate 14 /min Gerry Luna DO Work Phone: [facility] 09-24-2023 09:35-0400 SaO2% (BldA) [Mass fraction] 99 % Gerry Luna DO Work Phone: [facility] 08-20-2023 13:19-0400 Diastolic blood pressure 106 mm[Hg] Shirlene Mccarthy [employer] Work Phone: [facility] 08-20-2023 13:19-0400 Systolic blood pressure 188 mm[Hg] Shirlene Mccarthy [employer] Work Phone: [facility] 08-20-2023 13:10-0400 Body height 180.3 cm Shirlene Mccarthy CNP Work Phone: [facility] 08-20-2023 13:10-0400 Body mass index (BMI) [Ratio] 36.96 kg/m2 Shirlene Mccarthy CNP Work Phone: [facility] 08-20-2023 13:10-0400 Body temperature 100.8 [degF] Shirlene Mccarthy CNP Work Phone: [facility] 08-20-2023 13:10-0400 Body weight 120.2 kg Shirlene Mccarthy [employer] Work Phone: [facility] 08-20-2023 13:10-0400 Heart rate 97 /min Shirlene Mccarthy CNP Work Phone: [facility] 08-20-2023 13:10-0400 SaO2% (BldA) [Mass fraction] 96 % Shirlene Mccarthy [employer] Work Phone: [facility] 03-25-2023 13:56-0500 Diastolic blood pressure 90 mm[Hg] Gerry Rapidan DO Work Phone: [facility] 03-25-2023 13:56-0500 Systolic blood pressure 144 mm[Hg] Gerry Cheryl DO Work Phone: [facility] 03-25-2023 13:50-0500 Body height 180.3 cm Gerry Rapidan DO Work Phone: [facility] 03-25-2023 13:50-0500 Body mass index (BMI) [Ratio] 38.22 kg/m2 Gerry Rapidan DO Work Phone: [facility] 03-25-2023 13:50-0500 Body weight 124.29 kg Gerry Cheryl DO Work Phone: [facility] 03-25-2023 13:50-0500 Heart rate 86 /min Gerry Cheryl DO Work Phone: [facility] 03-25-2023 13:50-0500 Respiratory rate 14 /min Gerry Cheryl DO Work Phone: [facility] 03-25-2023 13:50-0500 SaO2% (BldA) [Mass fraction] 97 % Gerry Dejesuston DO Work Phone: [facility] 09-19-2022 08:33-0400 Body height 175.3 cm Gerry Jimmy PA Work Phone: [facility] 09-19-2022 08:33-0400 Body temperature 99.81 [degF] Gerry Jimmy PA Work Phone: [facility] 09-19-2022 08:33-0400 Diastolic blood pressure 68 mm[Hg] Gerry Jimmy PA Work Phone: [facility] 09-19-2022 08:33-0400 Heart rate 89 /min Gerry Jimmy PA Work Phone: [facility] 09-19-2022 08:33-0400 Respiratory rate 16 /min Gerry Jimmy PA Work Phone: [facility] 09-19-2022 08:33-0400 SaO2% (BldA) [Mass fraction] 97 % Gerry Jimmy PA Work Phone: [facility] 09-19-2022 08:33-0400 Systolic blood pressure 137 mm[Hg] Gerry Jimmy PA Work Phone: [facility] 03-18-2022 10:31-0500 Body height 180.3 cm Gerry Dejesuston DO Work Phone: [facility] 03-18-2022 10:31-0500 Body mass index (BMI) [Ratio] 33.89 kg/m2 Gerry Dejesuston DO Work Phone: [facility] 03-18-2022 10:31-0500 Body temperature 97.39 [degF] Gerry Cheryl DO Work Phone: [facility] 03-18-2022 10:31-0500 Body weight 110.22 kg Gerry Cheryl DO Work Phone: [facility] 03-18-2022 10:31-0500 Diastolic blood pressure 86 mm[Hg] Gerry Cheryl DO Work Phone: [facility] 03-18-2022 10:31-0500 Heart rate 113 /min Gerry Luna DO Work Phone: [facility] 03-18-2022 10:31-0500 SaO2% (BldA) [Mass fraction] 99 % Gerry Luna DO Work Phone: [facility] 03-18-2022 10:31-0500 Systolic blood pressure 138 mm[Hg] Gerry Luna DO Work Phone: [facility] 09-13-2021 08:32-0400 Body height 180.3 cm Gerry Luna DO Work Phone: [facility] 09-13-2021 08:32-0400 Body mass index (BMI) [Ratio] 36.74 kg/m2 Gerry Luna DO Work Phone: [facility] 09-13-2021 08:32-0400 Body temperature 98.2 [degF] Gerry Luna DO Work Phone: [facility] 09-13-2021 08:32-0400 Body weight 119.48 kg Gerry Luna DO Work Phone: [facility] 09-13-2021 08:32-0400 Diastolic blood pressure 78 mm[Hg] Gerry Luna DO Work Phone: [facility] 09-13-2021 08:32-0400 Heart rate 62 /min Gerry Luna DO Work Phone: [facility] 09-13-2021 08:32-0400 SaO2% (BldA) [Mass fraction] 97 % Gerry Luna DO Work Phone: [facility] 09-13-2021 08:32-0400 Systolic blood pressure 132 mm[Hg] Gerry Luna DO Work Phone: [facility] 02-14-2021 14:37-0500 Body height 180.3 cm Gerry Luna DO Work Phone: [facility] 02-14-2021 14:37-0500 Body mass index (BMI) [Ratio] 31.24 kg/m2 Gerry Luna DO Work Phone: [facility] 02-14-2021 14:37-0500 Body temperature 98.4 [degF] Gerry Luna DO Work Phone: [facility] 02-14-2021 14:37-0500 Body weight 101.61 kg Gerry Luna DO Work Phone: [facility] 02-14-2021 14:37-0500 Diastolic blood pressure 76 mm[Hg] Gerry Luna DO Work Phone: [facility] 02-14-2021 14:37-0500 Heart rate 88 /min Gerry Luna DO Work Phone: [facility] 02-14-2021 14:37-0500 Respiratory rate 16 /min Gerry Luna DO Work Phone: [facility] 02-14-2021 14:37-0500 SaO2% (BldA) [Mass fraction] 97 % Gerry Luna DO Work Phone: [facility] 02-14-2021 14:37-0500 Systolic blood pressure 128 mm[Hg] Gerry Luna DO Work Phone: [facility] 08-06-2020 09:12-0400 Diastolic blood pressure 84 mm[Hg] Gerry Luna DO Work Phone: [facility] 08-06-2020 09:12-0400 Systolic blood pressure 138 mm[Hg] Gerry Luna DO Work Phone: [facility] 08-06-2020 08:58-0400 Body height 180.3 cm Gerry Luna DO Work Phone: [facility] 08-06-2020 08:58-0400 Body mass index (BMI) [Ratio] 35.98 kg/m2 Gerry Luna DO Work Phone: [facility] 08-06-2020 08:58-0400 Body temperature 97.5 [degF] Gerry Luna DO Work Phone: [facility] 08-06-2020 08:58-0400 Body weight 117.03 kg Gerry Luna DO Work Phone: [facility] 08-06-2020 08:58-0400 Heart rate 81 /min Gerry Luna DO Work Phone: [facility] 08-06-2020 08:58-0400 Respiratory rate 16 /min Gerry Luna DO Work Phone: [facility] 08-06-2020 08:58-0400 SaO2% (BldA) [Mass fraction] 99 % Gerry Luna DO Work Phone: [facility] 01-17-2020 08:08-0400 BP Diastolic 88 mm[Hg] [facility] 01-17-2020 08:08-0400 BP Systolic 148 mm[Hg] [facility] 01-17-2020 07:50-0400 BMI (Body Mass Index) 32.5 kg/m2 [facility] 01-17-2020 07:50-0400 Body Temperature 97.5 [degF] [facility] 01-17-2020 07:50-0400 Body weight 105.69 [facility] 01-17-2020 07:50-0400 Height 180.3 cm [facility] 01-17-2020 07:50-0400 Pulse (Heart Rate) 87 /min Gerry [facility] 01-17-2020 07:50-0400 Pulse Oximetry 98 % Gerry [facility] 01-17-2020 07:50-0400 Respiratory Rate 14 /min [facility] 10-18-2019 14:03-0400 BP Diastolic 92 mm[Hg] [facility] 10-18-2019 14:03-0400 BP Systolic 180 mm[Hg] [facility] 10-18-2019 14:02-0400 BMI (Body Mass Index) 35.01 kg/m2 [facility] 10-18-2019 14:02-0400 Body Temperature 99.7 [degF] [facility] 10-18-2019 14:02-0400 Body weight 113.85 kg Gerry [facility] 10-18-2019 14:02-0400 Height 180.3 cm Gerry [facility] 10-18-2019 14:02-0400 Pulse (Heart Rate) 88 /min [facility] 10-18-2019 14:02-0400 Pulse Oximetry 96 % Gerry Luna [facility] 10-18-2019 [id number] Respiratory Rate 16 /min Gerry Rapidan [facility] Encounters Encounter Date Encounter Type Care Provider Facility Start: 10-17-2024 ambulatory [place] Facility :[facility] Start: 09-21-2024 End: 09-21-2024 Office outpatient visit 25 minutes Gerry Luna DO Work Phone: [facility] Comment on above: Type 2 diabetes jordi itus without complication, without long- term current use of insulin (HCC) (Primary Dx); Essential hypertension; Mixed hyperlipidemia; Anemia, unspecified type Start: 09-21-2024 End: 09-21-2024 ambulatory GERRY ANDRADE [facility] Start: 09-21-2024 ambulatory GERRY Lehman [facility] Start: 09-15-2024 End: 09-15-[address] Gerry Luna DO Work Phone: [facility] Work Phone: Start: 09-15-2024 End: 09-15-[address] Gerry Luna DO -Laboratory Work Phone: Start: 09-15-2024 Encounter for genera l adult medical examination without abnormal findings Gerry Miller Cheryl [facility] Start: 09-15-2024 End: 09-15-2024 ambulatory GERRY RANDALL [facility] Start: 09-11-2024 End: 09-11-2024 Orders Only Gerry Luna DO Work Phone: [facility] Comment on above: Anemia, unspecified type (Primary Dx) Start: 09-09-2024 End: 09-09-[address] Gerry Luna DO Work Phone: [facility] Work Phone: Start: 09-09-2024 End: 09-09-[address] Gerry Luna DO -Laboratory Work Phone: Start: 09-09-2024 End: 09-09-2024 ambulatory GERRY LUNA [facility] Start: 05-30-2024 End: 05-30-2024 Orders Only Gerry Luna DO Work Phone: [facility] Comment on above: Upper respiratory tr act infection, unspecified type (Primary Dx) Start: 03-24-2024 End: 03-24-2024 Orders Only Historical Provider [facility] Phys[facility] Start: 03-22-2024 End: 03-22-2024 Patient encounter status Gerry Luna DO Work Phone: [facility] Work Phone: Start: 03-22-2024 End: 03-22-2024 Periodic preventive med est patient 40-64yrs Gerry Luna DO Work Phone: [facility] Physician [facility] Comment on above: Preventative health care (Primary Dx); Type 2 diabetes mellitus without complication, without long-term current use of insulin (HCC); Essential hypertension; Mixed hyperlipidemia; Need for Streptococcus pneumoniae vaccination Start: 03-22-2024 End: 03-22-2024 ambulatory GERRY ANDRADE [facility] Start: 03-22-2024 End: 03-22-2024 Encounter for general adult medical examination without abnormal findings GERRY LUNA [facility] Start: 03-16-2024 End: 03-16-2024 ambulatory TAURUS WOODS Facility:[facility] Start: 03-06-2024 End: 03-06-2024 Refill Gerry Luna DO Work Phone: [facility] Comment on above: Essential hypertensi on Start: 12-16-2023 End: 12-16-2023 Refill Gerry Luna DO Work Phone: [facility] Comment on above: Mixed hyperlipidemia Start: 11-04-2023 End: 11-04-2023 Refill Gerry Luna DO Work Phone: [facility] Comment on above: Type 2 diabetes jordi itus without complication, without long- term current use of insulin (HCC); Mixed hyperlipidemia Start: 09-29-2023 End: 09-29-2023 Orders Only Gerry Randall Rapidan DO Work Phone: [facility] [address] Comment on above: Gout, unspecified ca use, unspecified chronicity, unspecified site (Primary Dx) Start: 09-24-2023 End: 09-24-2023 Office outpatient visit 25 minutes Gerry Randallenriqueta Luna DO Work Phone: [facility] Physician [facility] [address] Comment on above: Type 2 diabetes jordi itus without complication, without long- term current use of insulin (HCC) (Primary Dx); Essential hypertension; Mixed hyperlipidemia Start: 09-16-2023 Orders Only Gerry Luna DO Work Phone: [facility] [address] Comment on above: Type 2 diabetes jordi itus without complication, without long- term current use of insulin (HCC) (Primary Dx); Mixed hyperlipidemia Start: 08-20-2023 End: 08-20-2023 Office outpatient visit 25 minutes Shirlene Mccarthy CNP Work Phone: [facility] Phys[facility] [address] Comment on above: Septic olecranon bur sitis of right elbow (Primary Dx); Cellulitis of foot, left Start: 08-18-2023 Refill Nel adhikari MA [facility] [address] Start: 08-03-2023 Orders Only Gerry Luna DO Work Phone: [facility] Phys[facility] [address] Comment on above: Acute ankle pain, un specified laterality Start: 06-22-2023 Orders Only Gerry Luna DO Work Phone: [facility] Phys[facility] [address] Comment on above: Acute ankle pain, un specified laterality Start: 03-25-2023 End: 03-25-2023 ambulatory [facility] Start: 03-25-2023 End: 03-25-2023 Encounter for general adult medical examination without abnormal findings GERRY [facility] Start: 03-25-2023 End: 03-25-2023 ambulatory GERRY LUNA Facility:[facility] Start: 03-25-2023 Encounter for genera l adult medical examination without abnormal findings GERRY LUNA [facility] Start: 03-25-2023 Orders Only Gerry Luna DO Work Phone: [facility] Phys[facility] [address] Start: 03-25-2023 End: 03-25-2023 Patient encounter status Gerry Luna DO Work Phone: [facility] Work Phone: Start: 03-25-2023 End: 03-25-2023 Periodic preventive med est patient 40-64yrs Gerry Luna DO Work Phone: [facility] [address] Comment on above: Preventative health care (Primary Dx); Type 2 diabetes mellitus without complication, without long-term current use of insulin (HCC); Essential hypertension; Mixed hyperlipidemia; Prostate cancer screening Start: 01-29-2023 Refill Gerry Yosef Dejesuston DO Work Phone: [facility] [address] Start: 09-19-2022 ambulatory GERRY LUNA [facility] Start: 09-19-2022 End: 09-19-2022 Office outpatient new 30 minutes Gerry MADRID Work Phone: [facility] Comment on above: Ear pain, bilateral (Primary Dx) Start: 07-24-2022 Refill Gerry Yosef fallon Cheryl DO Work Phone: [facility] [address] Comment on above: Acute ankle pain, un specified laterality (Primary Dx); Cellulitis of foot Start: 03-19-2022 Orders Only Gerry Luna DO Work Phone: [facility] [address] Comment on above: Essential hypertensi on (Primary Dx); Leukocytosis, unspecified type Start: 03-18-2022 Orders Only Gerry Luna DO Work Phone: [facility] [address] Start: 03-18-2022 End: 03-18-2022 Patient encounter status Gerry Randallenriqueta Luna DO Work Phone: [facility] [address] Start: 03-18-2022 End: 03-18-2022 Periodic preventive med est patient 40-64yrs Gerry Luna DO Work Phone: [facility] [address] Comment on above: Preventative health care (Primary Dx); Type 2 diabetes mellitus without complication, without long-term current use of insulin (HCC); Essential hypertension; Hyperlipidemia, unspecified hyperlipidemia type; Cellulitis of foot Start: 09-16-2021 Orders Only Gerry Luna DO Work Phone: [facility] Comment on above: Elevated liver enzym es (Primary Dx) Start: 09-13-2021 Orders Only Gerry Luna DO Work Phone: [facility] [facility] [address] Start: 09-13-2021 End: 09-13-2021 Office outpatient visit 25 minutes Gerry Luna DO Work Phone: [facility] Comment on above: Type 2 diabetes jordi itus without complication, without long- term current use of insulin (HCC) (Primary Dx); Essential hypertension; Hyperlipidemia, unspecified hyperlipidemia type Start: 07-24-2021 Refill Gerry Luna DO Work Phone: [facility] [address] Start: 02-25-2021 Orders Only Gerry Luna DO Work Phone: [facility] Comment on above: Essential hypertensi on (Primary Dx) Start: 02-17-2021 Orders Only Gerry Luna DO Work Phone: [facility] Comment on above: Hyperproteinemia (Pr imary Dx) Start: 02-14-2021 End: 02-14-2021 Patient encounter status Gerry Luna DO Work Phone: [facility] [address] Start: 02-14-2021 End: 02-14-2021 Periodic preventive med est patient 40-64yrs Gerry Luna DO Work Phone: [facility] [address] Comment on above: Preventative health care (Primary Dx); Type 2 diabetes mellitus without complication, without long-term current use of insulin (HCC); Essential hypertension; Hyperlipidemia, unspecified hyperlipidemia type; Prostate cancer screening; Need for Streptococcus pneumoniae vaccination; Strain of left ankle, initial encounter Start: 02-14-2021 Orders Only Gerry Luna DO Work Phone: [facility] [address] Start: 08-06-2020 End: 08-06-2020 Orders Only Gerry Luna DO Work Phone: [facility] [address] Start: 08-06-2020 End: 08-06-2020 Office outpatient visit 25 minutes Gerry Luna DO Work Phone: [facility] [address] Comment on above: Type 2 diabetes jordi itus without complication, without long- term current use of insulin (HCC) (Primary Dx); Essential hypertension; Hyperlipidemia, unspecified hyperlipidemia type Start: 07-16-2020 End: 07-16-2020 Refill Gerry Luna Work Phone: [facility] [address] Start: 06-29-2020 Patient encounter procedure JAVIER YOUSUF ANTONIOKARISHMA Facility:[facility] Start: 06-13-2020 End: 06-13-2020 Orders Only Giuliana Burris Work Phone: [facility] Physician [facility] Start: 01-17-2020 End: 01-17-2020 Office outpatient visit 25 minutes Gerry Luna Work Phone: [facility] [address] Comment on above: Type 2 diabetes jordi itus without complication, without long- term current use of insulin (HCC) (Primary Dx); Essential hypertension; Hyperlipidemia, unspecified hyperlipidemia type Start: 10-18-2019 End: 10-18-2019 Initial preventive medicine new patient 40-64yrs Gerry Luna Work Phone: [facility] [place] Comment on above: Preventative health care (Primary Dx); Type 2 diabetes mellitus without complication, without long-term current use of insulin (HCC); Essential hypertension; Hyperlipidemia, unspecified hyperlipidemia type; Need for hepatitis C screening test; Prostate cancer screening Procedures Date Procedure Procedure Detail Performing Clinician Start: 09-15-2024 Total iron binding capacity measurement Dr. Gerry Luna DO Work Phone: Start: 09-09-2024 Urnls dip stick/tabl et reagent auto microscopy Dr. Gerry Luna DO Work Phone: Start: 03-24-2024 EXTERNAL LAB SCAN Histo rical Provider Start: 03-25-2023 PSA screening GERRY HERNANDEZ Comment on above: Result Comment: NCCN Guidelines: PSA > 1.0 ng/mL and age 45-49 repeat in 1-2 years. PSA < 1.0 ng/mL and age 45-49 repeat at age 50 PSA > 3.0 ng/mL positive Performed By: #### P SAS1 #### [facility] (DEFAULT) [address] [place] [address] Start: 03-25-2023 Blood count complete automated Gerry Luna DO Work Phone: Start: 03-25-2023 Lipid panel Gerry Luna DO Work Phone: Start: 03-25-2023 Prostate specific Ag [Mass/volume] in Serum or Plasma Gerry Luna DO Work Phone: Start: 03-25-2023 Urnls dip stick/tabl et rgnt auto w/o microscopy Gerry Luna DO Work Phone: Start: 03-25-2023 Microalbumin [Mass/v olume] in Urine by Test strip Gerry Luna DO Work Phone: Start: 03-18-2022 Blood count complete automated Gerry Luna DO Work Phone: Start: 03-18-2022 Lipid panel Gerry Luna DO Work Phone: Start: 03-18-2022 Urinalysis dipstick W Reflex Microscopic panel - Urine Gerry Luna DO Work Phone: Start: 03-18-2022 Urnls dip stick/tabl et rgnt auto w/o microscopy Gerry Luna DO Work Phone: Start: 03-18-2022 3 comp foot exam completed Gerry Luna DO Work Phone: Start: 03-18-2022 Microalbumin [Mass/v olume] in Urine by Test strip Gerry Luna DO Work Phone: Start: 09-13-2021 Hemoglobin glycosyla guille a1c Gerry Luna DO Work Phone: Start: 09-13-2021 Microalbumin [Mass/v olume] in Urine by Test strip Gerry Luna DO Work Phone: Start: 02-14-2021 Blood count complete automated Gerry Luna DO Work Phone: Start: 02-14-2021 Lipid panel Gerry Luna DO Work Phone: Start: 02-14-2021 Urinalysis dipstick W Reflex Microscopic panel - Urine Gerry Luna DO Work Phone: Start: 02-14-2021 Urnls dip stick/tabl et rgnt auto w/o microscopy Gerry Luna DO Work Phone: Start: 02-14-2021 3 comp foot exam completed Gerry Luna DO Work Phone: Start: 02-14-2021 Microalbumin [Mass/v olume] in Urine by Test strip Gerry Luna DO Work Phone: Start: 11-16-2020 Ophthalmic examinati on and evaluation Gerry Luna DO Work Phone: Start: 08-06-2020 Hemoglobin glycosyla guille a1c Gerry Luna DO Work Phone: Start: 01-17-2020 3 comp foot exam completed Gerry Luna Start: 10-18-2019 Microalbumin [Mass/v olume] in Urine by Test strip Gerry Lnua Start: 03-06-2017 Colonoscopy Gerry gibbs Plan of Treatment Date Care Activity Detail Author Start: 06-12-2031 Pneumococcal Vaccine : Ped or At-Risk (2 of 2 - PPSV23) Pneumococcal Vaccine: Ped or At-Risk (2 of 2 - PPSV23) [facility] Start: 03-06-2027 Screening for malign ant neoplasm of colon [facility] Start: 03-17-2026 Prostate specific antigen measurement PSA Level [facility] Start: 09-21-2025 Diabetic foot examination Diabetic Foot Exam [facility] Start: 09-21-2025 Tetanus vaccination Tetanus: Every 1 0yrs [facility] Comment on above: Postponed from 06/11 (Patient Refused) Start: 09-09-2025 eGFR Diabetes eGFR Diabetes [facility] Start: 03-25-2025 Prostate specific antigen measurement PSA Level [facility] Start: 03-23-2025 End: 03-23-2025 Patient encounter procedure 03/23/2025 7:20 AM EST Office Visit [facility] Physician [facility] [place] [place] [address] [place] [id number] Gerry Luna DO [address] [facility] [address] [facility] Physician [facility] [place] Start: 03-22-2025 History and physical examination, annual for health maintenance Wellness Visit [facility] Start: 03-17-2025 ambulatory Ambulatory Facility:[facility] Start: 03-11-2025 Hemoglobin A1c measurement A1C [facility] Start: 10-21-2024 End: 12-22-2024 CBC panel - Blood by Automated count CBC Lab Routine Anemia, unspecified type Expected: 10/21/2024, Expires: 12/22/2024 [facility] Work Phone: Comment on above: Expected: 10/21/2024 , Expires: 12/22/2024 Start: 10-21-2024 End: 12-22-2024 Iron and Iron binding capacity panel - Serum or Plasma Iron and TIBC Lab Routine Anemia, unspecified type Expected: 10/21/2024, Expires: 12/22/2024 [facility] Comment on above: Expected: 10/21/2024 , Expires: 12/22/2024 Start: 09-21-2024 End: 09-21-2024 Patient encounter procedure 09/21/2024 7:40 AM EDT Office Visit [facility] [place] [address] [place] [address] Gerry Luna DO [address] [facility] [address] [facility] [place] Start: 09-11-2024 End: 10-11-2024 B12/Folate B12/Folate Lab Routine Anemia, unspecified type Expected: 09/11/2024, Expires: 10/11/2024 [facility] Comment on above: Expected: 09/11/2024 , Expires: 10/11/2024 Start: 09-11-2024 End: 10-11-2024 Ferritin [Mass/volume] in Serum or Plasma Ferritin Lab Routine Anemia, unspecified type Expected: 09/11/2024, Expires: 10/11/2024 [facility] Comment on above: Expected: 09/11/2024 , Expires: 10/11/2024 Start: 09-11-2024 End: 10-11-2024 Iron and Iron binding capacity panel - Serum or Plasma Iron and TIBC Lab Routine Anemia, unspecified type Expected: 09/11/2024, Expires: 10/11/2024 [facility] Work Phone: Comment on above: Expected: 09/11/2024 , Expires: 10/11/2024 Start: 03-25-2024 Diabetic foot examination Diabetic Foot Exam [facility] Start: 03-25-2024 eGFR Diabetes eGFR Diabetes [facility] Start: 03-25-2024 History and physical examination, annual for health maintenance Wellness Visit [facility] Start: 03-25-2024 Tetanus vaccination Tetanus: Every 1 0yrs [facility] Comment on above: Postponed from 06/11 (Patient Refused) Start: 03-25-2024 Urine screening for protein [facility] Start: 03-24-2024 Hemoglobin A1c measurement A1C [facility] Start: 03-22-2024 End: 03-22-2024 Patient encounter procedure 03/22/2024 8:40 AM EST Office Visit [place] [address] [place] [address] Gerry Luna DO [address] [facility] [address] [facility] Start: 12-06-2023 Influenza vaccination Influenza Vacc ine (#1) [facility] Start: 09-24-2023 Hemoglobin A1c measurement A1C [facility] Start: 09-24-2023 End: 09-24-2023 Patient encounter procedure 09/24/2023 9:40 AM EDT Office Visit [facility] [address] [place] [id number] Gerry Luna DO [address] [facility] [place] [address] [facility] Start: 09-16-2023 End: 10-16-2023 Comprehensive metabolic 2000 panel - Serum or Plasma Comprehensive Metabolic Panel Lab Routine Mixed hyperlipidemia Expected: 09/16/2023, Expires: 10/16/2023 [facility] Work Phone: Comment on above: Expected: 09/16/2023 , Expires: 10/16/2023 Start: 09-16-2023 End: 10-16-2023 Hemoglobin A1c/Hemoglobin.total in Blood Hemoglobin A1c Lab Routine Type 2 diabetes mellitus without complication, without long-term current use of insulin (HCC) Expected: 09/16/2023, Expires: 10/16/2023 [facility] Comment on above: Expected: 09/16/2023 , Expires: 10/16/2023 Start: 09-16-2023 End: 10-16-2023 Lipid 1996 panel - Serum or Plasma Lipid Panel Lab Routine Mixed hyperlipidemia Expected: 09/16/2023, Expires: 10/16/2023 [facility] Comment on above: Expected: 09/16/2023 , Expires: 10/16/2023 Start: 03-25-2023 End: 04-25-2023 CBC panel - Blood by Automated count CBC Lab Routine Preventative health care Expected: 03/25/2023, Expires: 04/25/2023 [facility] Work Phone: Comment on above: Expected: 03/25/2023 , Expires: 04/25/2023 Start: 03-25-2023 End: 04-25-2023 Comprehensive metabolic 2000 panel - Serum or Plasma Comprehensive Metabolic Panel Lab Routine Preventative health care Expected: 03/25/2023, Expires: 04/25/2023 [facility] Comment on above: Expected: 03/25/2023 , Expires: 04/25/2023 Start: 03-25-2023 End: 04-25-2023 External Lab Microalbumin/Creatinine External Lab Microalbumin/Creatinine Lab Routine Type 2 diabetes mellitus without complication, without long-term current use of insulin (HCC) Expected: 03/25/2023, Expires: 04/25/2023 [facility] Comment on above: Expected: 03/25/2023 , Expires: 04/25/2023 Start: 03-25-2023 End: 04-25-2023 Hemoglobin A1c/Hemoglobin.total in Blood Hemoglobin A1c Lab Routine Type 2 diabetes mellitus without complication, without long-term current use of insulin (HCC) Expected: 03/25/2023, Expires: 04/25/2023 [facility] Comment on above: Expected: 03/25/2023 , Expires: 04/25/2023 Start: 03-25-2023 End: 04-25-2023 Lipid 1996 panel - Serum or Plasma Lipid Panel Lab Routine Preventative health care Expected: 03/25/2023, Expires: 04/25/2023 [facility] Comment on above: Expected: 03/25/2023 , Expires: 04/25/2023 Start: 03-25-2023 End: 03-25-2023 Patient encounter procedure 03/25/2023 2:00 PM EST Office Visit [facility] [place] [address] [place] [address] Gerry Luna, DO [address] [place] [address] [facility] Phys[facility] Start: 03-25-2023 End: 04-25-2023 Prostate specific Ag [Mass/volume] in Serum or Plasma PSA, Screen Lab Routine Prostate cancer screening Expected: 03/25/2023, Expires: 04/25/2023 [facility] Comment on above: Expected: 03/25/2023 , Expires: 04/25/2023 Start: 03-25-2023 End: 04-22-2023 Urinalysis Urinalysis Lab Routine Preventative health care Expected: 03/25/2023, Expires: 04/22/2023 [facility] Comment on above: Expected: 03/25/2023 , Expires: 04/22/2023 Start: 03-18-2023 Diabetic foot examination Foot Exam [facility] Start: 03-18-2023 History and physical examination, annual for health maintenance Wellness Visit [facility] Start: 03-18-2023 Tetanus vaccination Tetanus: Every 1 0yrs [facility] Comment on above: Postponed from 06/11 (Patient Refused) Start: 02-14-2023 Prostate specific antigen measurement PSA Level [facility] Start: 12-05-2022 COVID-19 Vaccine ( season) COVID-19 Vaccine ( season) [facility] Start: 12-05-2022 Influenza vaccination Sequenti al Influenza Vaccine (#1) [facility] Start: 09-18-2022 End: 09-18-2022 Patient encounter procedure [facility] Start: 09-16-2022 Hemoglobin A1c measurement A1C [facility] Start: 09-16-2022 Urine screening for protein Urine Microalbumin [facility] Start: 04-19-2022 End: 05-20-2022 Basic metabolic 2000 panel - Serum or Plasma Basic Metabolic Panel Lab Routine Essential hypertension Expected: 04/19/2022, Expires: 05/20/2022 [facility] Comment on above: Expected: 04/19/2022 , Expires: 05/20/2022 Start: 04-19-2022 End: 05-20-2022 Complete blood count with white cell differential, manual CBC and Differential Lab Routine Leukocytosis, unspecified type Expected: 04/19/2022, Expires: 05/20/2022 [facility] Work Phone: Comment on above: Expected: 04/19/2022 , Expires: 05/20/2022 Start: 03-18-2022 End: 04-18-2022 CBC panel - Blood by Automated count CBC Lab Routine Preventative health care Expected: 03/18/2022, Expires: 04/18/2022 [facility] Work Phone: Comment on above: Expected: 03/18/2022 , Expires: 04/18/2022 Start: 03-18-2022 End: 04-18-2022 Comprehensive metabolic 2000 panel - Serum or Plasma Comprehensive Metabolic Panel Lab Routine Preventative health care Expected: 03/18/2022, Expires: 04/18/2022 [facility] Comment on above: Expected: 03/18/2022 , Expires: 04/18/2022 Start: 03-18-2022 End: 04-18-2022 External Lab Microalbumin/Creatinine External Lab Microalbumin/Creatinine Lab Routine Type 2 diabetes mellitus without complication, without long-term current use of insulin (HCC) Expected: 03/18/2022, Expires: 04/18/2022 [facility] Comment on above: Expected: 03/18/2022 , Expires: 04/18/2022 Start: 03-18-2022 End: 04-18-2022 Hemoglobin A1c/Hemoglobin.total in Blood Hemoglobin A1c Lab Routine Type 2 diabetes mellitus without complication, without long-term current use of insulin (HCC) Expected: 03/18/2022, Expires: 04/18/2022 [facility] Comment on above: Expected: 03/18/2022 , Expires: 04/18/2022 Start: 03-18-2022 End: 04-18-2022 Lipid 1996 panel - Serum or Plasma Lipid Panel Lab Routine Preventative health care Expected: 03/18/2022, Expires: 04/18/2022 [facility] Comment on above: Expected: 03/18/2022 , Expires: 04/18/2022 Start: 03-18-2022 End: 04-18-2022 Urinalysis Urinalysis Lab Routine Preventative health care Expected: 03/18/2022, Expires: 04/18/2022 [facility] Comment on above: Expected: 03/18/2022 , Expires: 04/18/2022 Start: 03-15-2022 Hemoglobin A1c measurement A1C [facility] Start: 03-15-2022 Microalbumin measurement, urine, quantitative Urine Microalbumin [facility] Start: 03-15-2022 Urine screening for protein Urine Microalbumin [facility] Start: 03-14-2022 End: 03-14-2022 Patient encounter procedure 03/14/2022 Office Visit Primary Care Gerry Luna, DO [address] [address] [facility] [place] Start: 02-14-2022 Diabetic foot examination Foot Exam [facility] Start: 02-14-2022 History and physical examination, annual for health maintenance Wellness Visit [facility] Start: 02-14-2022 Microalbumin measurement, urine, quantitative Urine Microalbumin [facility] Start: 02-14-2022 Pneumococcal Vaccine : Ped or At-Risk (2 - PCV) Pneumococcal Vaccine: Ped or At-Risk (2 - PCV) [facility] Start: 02-14-2022 Pneumococcal Vaccine : Ped or At-Risk (2 of 2 - PCV) Pneumococcal Vaccine: Ped or At-Risk (2 of 2 - PCV) [facility] Start: 11-16-2021 Glaucoma screening [facility] Start: 11-16-2021 Ophthalmic examinati on and evaluation Ophthalmology Exam [facility] Start: 10-17-2021 Prostate specific antigen measurement PSA Level [facility] Start: 09-16-2021 End: 11-16-2021 US scan of upper abdomen US Abdomen Limited Study Imaging Routine Elevated liver enzymes Expected: 09/16/2021, Expires: 11/16/2021 [facility] Work Phone: Comment on above: Expected: 09/16/2021 , Expires: 11/16/2021 Start: 09-13-2021 End: 10-13-2021 Comprehensive metabolic 2000 panel - Serum or Plasma Comprehensive Metabolic Panel Lab Routine Type 2 diabetes mellitus without complication, without long-term current use of insulin (HCC) Expected: 09/13/2021, Expires: 10/13/2021 [facility] Work Phone: Comment on above: Expected: 09/13/2021 , Expires: 10/13/2021 Start: 09-13-2021 End: 10-13-2021 External Lab Microalbumin/Creatinine External Lab Microalbumin/Creatinine Lab Routine Type 2 diabetes mellitus without complication, without long-term current use of insulin ([facility]) Expected: 09/13/2021, Expires: 10/13/2021 [facility] Comment on above: Expected: 09/13/2021 , Expires: 10/13/2021 Start: 09-13-2021 End: 10-13-2021 Hemoglobin A1c/Hemoglobin.total in Blood Hemoglobin A1c Lab Routine Type 2 diabetes mellitus without complication, without long-term current use of insulin (HCC) Expected: 09/13/2021, Expires: 10/13/2021 [facility] Comment on above: Expected: 09/13/2021 , Expires: 10/13/2021 Start: 09-13-2021 End: 09-13-2021 Patient encounter procedure 09/13/2021 Office Visit Primary Care Gerry Luna DO [address] [place] [address] [facility] Start: 08-14-2021 Hemoglobin A1c measurement A1C [facility] Start: 08-14-2021 Microalbumin measurement, urine, quantitative Urine Microalbumin [facility] Start: 08-14-2021 End: 08-14-2021 Patient encounter procedure 08/14/2021 Office Visit Primary Care Gerry Luna DO [address] [place] [address] [facility] Start: 08-06-2021 Tetanus vaccination Tetanus: Every 1 0yrs [facility] Comment on above: Postponed from 06/11 (Patient Refused) Start: 08-04-2021 COVID-19 Vaccine (3 - Booster for Moderna series) COVID-19 Vaccine (3 - Booster for Moderna series) [facility] Start: 03-27-2021 End: 04-27-2021 Comprehensive metabolic 2000 panel - Serum or Plasma Comprehensive Metabolic Panel Lab Routine Essential hypertension Expected: 03/27/2021, Expires: 04/27/2021 [facility] Work Phone: Comment on above: Expected: 03/27/2021 , Expires: 04/27/2021 Start: 02-17-2021 End: 03-19-2021 Serum immunofixation Immunofixation, Serum Lab Routine Hyperproteinemia Expected: 02/17/2021, Expires: 03/19/2021 [facility] Comment on above: Expected: 02/17/2021 , Expires: 03/19/2021 Start: 02-17-2021 End: 03-19-2021 Serum protein electrophoresis Protein Electrophoresis, Serum Lab Routine Hyperproteinemia Expected: 02/17/2021, Expires: 03/19/2021 [facility] Work Phone: Comment on above: Expected: 02/17/2021 , Expires: 03/19/2021 Start: 02-17-2021 End: 03-19-2021 Urine protein electrophoresis Protein Electrophoresis, Urine, Random Lab Routine Hyperproteinemia Expected: 02/17/2021, Expires: 03/19/2021 [facility] Comment on above: Expected: 02/17/2021 , Expires: 03/19/2021 Start: 02-14-2021 End: 03-16-2021 CBC panel - Blood by Automated count CBC Lab Routine Preventative health care Expected: 02/14/2021, Expires: 03/16/2021 [facility] Work Phone: Comment on above: Expected: 02/14/2021 , Expires: 03/16/2021 Start: 02-14-2021 End: 03-16-2021 Comprehensive metabolic 2000 panel - Serum or Plasma Comprehensive Metabolic Panel Lab Routine Preventative health care Expected: 02/14/2021, Expires: 03/16/2021 [facility] Comment on above: Expected: 02/14/2021 , Expires: 03/16/2021 Start: 02-14-2021 End: 03-16-2021 External Lab Microalbumin/Creatinine External Lab Microalbumin/Creatinine Lab Routine Type 2 diabetes mellitus without complication, without long-term current use of insulin (HCC) Expected: 02/14/2021, Expires: 03/16/2021 [facility] Comment on above: Expected: 02/14/2021 , Expires: 03/16/2021 Start: 02-14-2021 End: 03-16-2021 Hemoglobin A1c/Hemoglobin.total in Blood Hemoglobin A1c Lab Routine Type 2 diabetes mellitus without complication, without long-term current use of insulin (HCC) Expected: 02/14/2021, Expires: 03/16/2021 [facility] Comment on above: Expected: 02/14/2021 , Expires: 03/16/2021 Start: 02-14-2021 End: 03-16-2021 Lipid 1996 panel - Serum or Plasma Lipid Panel Lab Routine Preventative health care Expected: 02/14/2021, Expires: 03/16/2021 [facility] Comment on above: Expected: 02/14/2021 , Expires: 03/16/2021 Start: 02-14-2021 End: 03-16-2021 Prostate specific Ag [Mass/volume] in Serum or Plasma PSA, Screen Lab Routine Prostate cancer screening Expected: 02/14/2021, Expires: 03/16/2021 [facility] Comment on above: Expected: 02/14/2021 , Expires: 03/16/2021 Start: 02-14-2021 End: 03-16-2021 Urinalysis Urinalysis Lab Routine Preventative health care Expected: 02/14/2021, Expires: 03/16/2021 [facility] Comment on above: Expected: 02/14/2021 , Expires: 03/16/2021 Start: 02-06-2021 Hemoglobin A1c measurement A1C [facility] Start: 02-04-2021 End: 02-04-2021 Patient encounter procedure 02/04/2021 Office Visit Primary Care Gerry Luna, [address] [place] [address] [phone] [facility] [place] Start: 01-16-2021 Diabetic foot examination Foot Exam [facility] Start: 10-17-2020 Albumin DL <= 20 mg/ L (U) [Mass/Vol] Urine Microalbumin [facility] Start: 10-17-2020 History and physical examination, annual for health maintenance Wellness Visit [facility] Start: 10-17-2020 Microalbumin measurement, urine, quantitative Urine Microalbumin [facility] Start: 08-06-2020 End: 09-06-2020 Basic metabolic 2000 panel - Serum or Plasma Basic Metabolic Panel Lab Routine Type 2 diabetes mellitus without complication, without long-term current use of insulin ([facility]) Expected: 08/06/2020, Expires: 09/06/2020 [facility] Comment on above: Expected: 08/06/2020 , Expires: 09/06/2020 Start: 08-06-2020 End: 09-06-2020 Hemoglobin A1c/Hemoglobin.total in Blood Hemoglobin A1c Lab Routine Type 2 diabetes mellitus without complication, without long-term current use of insulin ([facility]) Expected: 08/06/2020, Expires: 09/06/2020 [facility] Comment on above: Expected: 08/06/2020 , Expires: 09/06/2020 Start: 08-06-2020 End: 08-06-2020 Office Visit 08/06/2020 Office Visit Primary Care Gerry Luna DO [address] [place] [address] [phone] [facility] [place] Start: 08-03-2020 COVID-19 Vaccine (2 - Moderna 3-dose booster series) COVID-19 Vaccine (2 - Moderna 3-dose booster series) [facility] Start: 08-03-2020 COVID-19 Vaccine (2 - Moderna 3-dose series) COVID-19 Vaccine (2 - Moderna 3-dose series) [facility] Start: 07-17-2020 HbA1c (Bld) [Mass fraction] A1C [facility] Start: 07-17-2020 Hemoglobin A1c measurement A1C [facility] Start: 07-17-2020 End: 07-17-2020 Office Visit 07/17/2020 Office Visit Primary Care Gerry Luna DO [address] [place] [address] [phone] [facility] Physician [facility] [place] Start: 04-19-2020 HbA1c (Bld) [Mass fraction] A1C [facility] Start: 04-18-2020 Administration of he rpes zoster vaccine Zoster Vaccines (2 of 2) [facility] Start: 01-17-2020 End: 02-17-2020 Basic metabolic 2000 panel Basic Metabolic Panel Lab Routine Type 2 diabetes mellitus without complication, without long-term current use of insulin ([facility]) Expected: 01/17/2020, Expires: 02/17/2020 [facility] Comment on above: Expected: 01/17/2020 , Expires: 02/17/2020 Start: 01-17-2020 End: 02-17-2020 HbA1c (Bld) [Mass fraction] Hemoglobin A1c Lab Routine Type 2 diabetes mellitus without complication, without long-term current use of insulin (HCC) Expected: 01/17/2020, Expires: 02/17/2020 [facility] Comment on above: Expected: 01/17/2020 , Expires: 02/17/2020 Start: 01-17-2020 End: 01-17-2020 Office Visit 01/17/2020 Office Visit Primary Care Gerry Luna, DO [address] [address] [phone] [facility] [place] Start: 12-06-2019 Influenza vaccinatio n given Sequential Influenza Vaccine (#1) [facility] Start: 11-01-2019 End: 11-18-2019 Basic metabolic 2000 panel Basic Metabolic Panel Lab Routine Essential hypertension Expected: 11/01/2019, Expires: 11/18/2019 [facility] Comment on above: Expected: 11/01/2019 , Expires: 11/18/2019 Start: 10-18-2019 End: 11-18-2019 Complete blood count (hemogram) panel - Blood by Automated count CBC Lab Routine Preventative health care Expected: 10/18/2019, Expires: 11/18/2019 [facility] Comment on above: Expected: 10/18/2019 , Expires: 11/18/2019 Start: 10-18-2019 End: 11-18-2019 Comprehensive metabolic 2000 panel Comprehensive Metabolic Panel Lab Routine Preventative health care Expected: 10/18/2019, Expires: 11/18/2019 [facility] Comment on above: Expected: 10/18/2019 , Expires: 11/18/2019 Start: 10-18-2019 End: 11-18-2019 External Lab Microalbumin/Creatinine External Lab Microalbumin/Creatinine Lab Routine Type 2 diabetes mellitus without complication, without long-term current use of insulin (HCC) Expected: 10/18/2019, Expires: 11/18/2019 [facility] Comment on above: Expected: 10/18/2019 , Expires: 11/18/2019 Start: 10-18-2019 End: 11-18-2019 HbA1c (Bld) [Mass fraction] Hemoglobin A1c Lab Routine Type 2 diabetes mellitus without complication, without long-term current use of insulin (HCC) Expected: 10/18/2019, Expires: 11/18/2019 [facility] Comment on above: Expected: 10/18/2019 , Expires: 11/18/2019 Start: 10-18-2019 End: 11-18-2019 Hepatitis C antibody measurement Hepatitis C Antibody Lab Routine Need for hepatitis C screening test Expected: 10/18/2019, Expires: 11/18/2019 [facility] Comment on above: Expected: 10/18/2019 , Expires: 11/18/2019 Start: 10-18-2019 End: 11-18-2019 Lipid 1996 panel Lipid Panel Lab Routine Preventative health care Expected: 10/18/2019, Expires: 11/18/2019 [facility] Comment on above: Expected: 10/18/2019 , Expires: 11/18/2019 Start: 10-18-2019 End: 11-18-2019 Prostate specific Ag [Mass/Vol] PSA, Screen Lab Routine Prostate cancer screening Expected: 10/18/2019, Expires: 11/18/2019 [facility] Comment on above: Expected: 10/18/2019 , Expires: 11/18/2019 Start: 2016 Administration of critical access hospitals zoster vaccine Zoster Vaccines (1 of 2) [facility] Start: 2016 Prostate specific antigen measurement PROSTATE CANCER SCREENING DISCUSSION [facility] Start: 2016 Screening for malign ant neoplasm of colon [facility] Start: 06-12-2011 Screening for malign ant neoplasm of colon COLORECTAL CANCER SCREENING DISCUSSION [facility] Start: 2006 Lipid panel LIPID SCREENING [facility] Start: 1985 Third diphtheria, tetanus and acellular pertussis (DTaP) vaccination TDAP (ADULT) [facility] Start: 1982 COVID-19 Vaccine (1 of 2) COVID-19 Vaccine (1 of 2) [facility] Start: 1982 COVID-19 Vaccine (1) COVID-19 Vaccin e (1) [facility] Start: 1981 HIV screening HIV SCREENING DISCUSSI ON [facility] Start: 1976 Ophthalmic examinati on and evaluation Ophthalmology Exam [facility] Start: 1966 Hepatitis C screening HEPATITI S C VIRUS SCREENING [facility] Start: 1966 Potassium [Moles/vol ume] in Serum or Plasma POTASSIUM [facility] Start: 1966 Screening for malign ant neoplasm of colon [facility] Start: 1966 Tetanus vaccination [facility] Immunizations Immunization Date Immunization Notes Care Provider [facility] 03-22-2024 Pneumococcal Conjuga te 20-Valent (Prevnar 20) Gerry Luna DO Work Phone: [facility] 01-22-2024 Seasonal, trivalent, recombinant, injectable influenza vaccine, preservative free Gerry Luna DO Work Phone: [facility] 02-17-2023 influenza virus vacc ine, unspecified formulation Gerry Luna DO Work Phone: [facility] 01-19-2022 Seasonal, quadrivale nt, recombinant, injectable influenza vaccine, preservative free eGrry Luna DO Work Phone: [facility] 02-14-2021 pneumococcal polysac charide vaccine, 23 valent Gerry Luna DO Work Phone: [facility] 02-14-2021 pneumococcal vaccine , unspecified formulation Gerry Luna DO Work Phone: [facility] 01-19-2021 Seasonal, quadrivale nt, recombinant, injectable influenza vaccine, preservative free Gerry Luna DO Work Phone: [facility] 07-06-2020 Moderna SARS-CoV-2 Vaccination Gerry Luna DO Work Phone: [facility] 06-15-2020 zoster vaccine recombinant W illiam Cheryl DO Work Phone: [facility] 02-27-2020 zoster vaccine recombinant W illiam Cheryl DO Work Phone: [facility] 01-09-2020 Seasonal, quadrivale nt, recombinant, injectable influenza vaccine, preservative free Gerry [facility] 01-26-2019 Seasonal, quadrivale nt, recombinant, injectable influenza vaccine, preservative free [facility] 01-10-2014 influenza, seasonal, injectable [facility] 12-22-2011 influenza virus vacc ine, whole virus [facility] 01-27-2011 influenza virus vacc ine, whole virus [facility] Payers Date Payer Category Payer Self-pay 2023 Managed Care (privat e) or private health insurance (indemnity), not otherwise specified [employer] [id number] 2023 Private Health Insurance EMMANUEL BENITEZ [id number] 2023-Present [phone] [address] [place] [id number] 2023 Unknown [id number] 2018 Unknown MMO MED [employer] S UPERMED PPO xxxxxxxxxxxx 2018-Present [id number] 2018 Unknown [id number] 2018 Unknown [id number] 2018 Unknown [id number] 1966 Unknown [id number] 1966 Unknown [id number] 1966 Unknown [id number] 1966 Unknown [id number] [id number] 1966 Unknown [id number] [id number] 1966 Unknown [id number] 1966 Unknown [id number] [id number] 1966 Unknown [id number] 1959 Unknown [id number] Unknown [id number] Unknown [id number] Unknown [id number] Unknown [id number] Unknown [id number] Unknown [id number] Social History Date Type Detail Facility Start: 10-18-2019 End: 08-24-2023 Tobacco smoking status NHIS Never smoker [facility] Start: 10-18-2019 End: 09-21-2024 Alcohol intake Lifetime non-drinker (finding) [facility] Start: 10-18-2019 End: 09-13-2021 History SDOH Alcohol Frequency 1 [facility] Start: 1965 Sex Assigned At Not on file [facility] Start: 09-03-2021 End: 03-18-2022 Exposure to SARS-CoV-2 (event) Not sure [facility] Start: 01-17-2020 End: 09-13-2021 Tobacco use and exposure Never used [facility] Start: 01-17-2020 End: 09-13-2021 History SDOH Social Connections Phone 5 [facility] Start: 01-17-2020 End: 08-06-2020 History SDOH Social Connections Tenriism 3 [facility] Start: 01-17-2020 End: 09-13-2021 History SDOH Social Connections Membership 2 [facility] Start: 01-17-2020 End: 08-06-2020 History SDOH Physical Activity MPS 15 [facility] Start: 09-13-2021 End: 09-21-2024 Cigarette pack-years [facility] Start: 08-06-2020 End: 09-21-2024 Humiliation, Afraid, Rape, and Kick questionnaire [HARK] [facility] Within the last year , have you been afraid of your partner or ex-partner? No [facility] Are you now , , , , never or living with a partner? [facility] How often to you hav e a drink containing alcohol? Never [facility] Average Number of Drinks Not on file [facility] Do you feel stress - tense, restless, nervous, or anxious, or unable to sleep at night because your mind is troubled all the time - these days [OSQ] Not at all [facility] (I/We) worried wheth er (my/our) food would run out before (I/we) got money to buy more. Never true [facility] Start: 04-09-2017 Gender identity Identifies as male gender (finding) [facility] Start: 10-18-2019 Sexual orientation Heterosexual (finding) [facility] Start: 09-19-2022 Alcohol intake Current non-drinker of alcohol (finding) [facility] Start: 1965 Sex Assigned At Male [facility] How hard is it for y ou to pay for the very basics like food, housing, medical care, and heating Not very hard [facility] Clinical Notes 08-06-2020 to 09-21-2024 Gerry Luna, - 09/21/2024 7:41 AM EDTPatient InstructionsGerry Luna, - 03/22/2024 8:53 AM ESTTelephone Encounter - Rosy Ruvalcaba LPN - 12/16/2023 10:54 AM EDT Note Date & Type Note Facility 09-21-2024 Note Subjective Patient ID: Sidney Peraza is a 59 y.o. male. Diabetes He presents for his follow-up diabetic visit. He has type 2 diabetes mellitus. His disease course has been stable. Pertinent negatives for hypoglycemia include no confusion, dizziness, headaches or nervousness/anxiousness. Pertinent negatives for diabetes include no chest pain, no fatigue, no polydipsia and no polyphagia. Risk factors for coronary artery disease include diabetes mellitus, dyslipidemia, hypertension and male sex. Current diabetic treatment includes oral agent (monotherapy). He is compliant with treatment all of the time. He is following a generally healthy diet. An DANETTE inhibitor/angiotensin II receptor nicko is being taken. Hypertension This is a chronic problem. The current episode started more than 1 year ago. The problem is controlled (home bp's 120's/60's). Pertinent negatives include no chest pain, headaches or palpitations. Risk factors for coronary artery disease include diabetes mellitus, dyslipidemia, male gender and obesity. The current treatment provides moderate improvement. Hyperlipidemia This is a chronic problem. The current episode started more than 1 year ago. The problem is controlled. Pertinent negatives include no chest pain or myalgias. Current antihyperlipidemic treatment includes diet change. The current treatment provides significant improvement of lipids. There are no compliance problems. Risk factors for coronary artery disease include diabetes mellitus, dyslipidemia, hypertension and male sex. The following portions of the patient's history were reviewed and updated as appropriate: allergies, current medications, past family history, past medical history, past social history, past surgical history and problem list. Review of Systems Constitutional: Negative for fatigue and fever. HENT: Negative for sore throat and trouble swallowing. Eyes: Negative for pain and visual disturbance. Respiratory: Negative for cough and wheezing. Cardiovascular: Negative for chest pain and palpitations. Gastrointestinal: Negative for abdominal pain, constipation, diarrhea and nausea. Endocrine: Negative for polydipsia and polyphagia. Genitourinary: Negative for dysuria and urgency. Musculoskeletal: Negative for myalgias. Skin: Negative for color change. Neurological: Negative for dizziness and headaches. Hematological: Negative for adenopathy. Psychiatric/Behavioral: Negative for confusion. The patient is not nervous/anxious. Objective Physical Exam Constitutional: Appearance: He is well-developed. HENT: Head: Normocephalic and atraumatic. Eyes: Conjunctiva/sclera: Conjunctivae normal. Cardiovascular: Rate and Rhythm: Normal rate and regular rhythm. Heart sounds: Normal heart sounds. Pulmonary: Effort: Pulmonary effort is normal. Breath sounds: Normal breath sounds. No wheezing. Abdominal: General: Bowel sounds are normal. Palpations: Abdomen is soft. Tenderness: There is no abdominal tenderness. Musculoskeletal: General: Normal range of motion. Cervical back: Normal range of motion and neck supple. Skin: General: Skin is warm and dry. Neurological: Mental Status: He is alert and oriented to person, place, and time. Diabetic Foot Exam: Right Foot: warm, good capillary refill and normal DP and PT pulses Left Foot: warm, good capillary refill and normal DP and PT pulses Assessment/Plan: Problem List Items Addressed This Visit Endocrine Type 2 diabetes mellitus without complication, without long-term current use of insulin (HCC) - Primary Cardiovascular and Mediastinum Essential hypertension Other Hyperlipidemia Other Visit Diagnoses Anemia, unspecified type Relevant Medications ferrous sulfate 325 (65 FE) MG tablet Other Relevant Orders CBC Iron and TIBC I am treating Sidney Peraza for complex chronic condition(s) serving as the focal point for the patient's care for consistency and continuity over time. Recent labs reviewed. A1c 5.7%. LDL 59. Hb was low at 11.9 and added iron also low. He has been dieting and not sure getting enough iron in diet. Will repeat cbc and iron studies in a month. He has colonoscopy coming up next month. AUTHENTICATED BY GERRY LUNA, ON 09/21/2024 08:01:01 [facility] 09-21-2024 History of Present illness Narrative Subjective Patient ID: Sidney Peraza is a 59 y.o. male. Diabetes He presents for his follow-up diabetic visit. He has type 2 diabetes mellitus. His disease course has been stable. Pertinent negatives for hypoglycemia include no confusion, dizziness, headaches or nervousness/anxiousness. Pertinent negatives for diabetes include no chest pain, no fatigue, no polydipsia and no polyphagia. Risk factors for coronary artery disease include diabetes mellitus, dyslipidemia, hypertension and male sex. Current diabetic treatment includes oral agent (monotherapy). He is compliant with treatment all of the time. He is following a generally healthy diet. An DANETTE inhibitor/angiotensin II receptor nicko is being taken. Hypertension This is a chronic problem. The current episode started more than 1 year ago. The problem is controlled (home bp's 120's/60's). Pertinent negatives include no chest pain, headaches or palpitations. Risk factors for coronary artery disease include diabetes mellitus, dyslipidemia, male gender and obesity. The current treatment provides moderate improvement. Hyperlipidemia This is a chronic problem. The current episode started more than 1 year ago. The problem is controlled. Pertinent negatives include no chest pain or myalgias. Current antihyperlipidemic treatment includes diet change. The current treatment provides significant improvement of lipids. There are no compliance problems. Risk factors for coronary artery disease include diabetes mellitus, dyslipidemia, hypertension and male sex. The following portions of the patient's history were reviewed and updated as appropriate: allergies, current medications, past family history, past medical history, past social history, past surgical history and problem list. Review of Systems Constitutional: Negative for fatigue and fever. HENT: Negative for sore throat and trouble swallowing. Eyes: Negative for pain and visual disturbance. Respiratory: Negative for cough and wheezing. Cardiovascular: Negative for chest pain and palpitations. Gastrointestinal: Negative for abdominal pain, constipation, diarrhea and nausea. Endocrine: Negative for polydipsia and polyphagia. Genitourinary: Negative for dysuria and urgency. Musculoskeletal: Negative for myalgias. Skin: Negative for color change. Neurological: Negative for dizziness and headaches. Hematological: Negative for adenopathy. Psychiatric/Behavioral: Negative for confusion. The patient is not nervous/anxious. Objective Physical Exam Constitutional: Appearance: He is well-developed. HENT: Head: Normocephalic and atraumatic. Eyes: Conjunctiva/sclera: Conjunctivae normal. Cardiovascular: Rate and Rhythm: Normal rate and regular rhythm. Heart sounds: Normal heart sounds. Pulmonary: Effort: Pulmonary effort is normal. Breath sounds: Normal breath sounds. No wheezing. Abdominal: General: Bowel sounds are normal. Palpations: Abdomen is soft. Tenderness: There is no abdominal tenderness. Musculoskeletal: General: Normal range of motion. Cervical back: Normal range of motion and neck supple. Skin: General: Skin is warm and dry. Neurological: Mental Status: He is alert and oriented to person, place, and time. Diabetic Foot Exam: Right Foot: warm, good capillary refill and normal DP and PT pulses Left Foot: warm, good capillary refill and normal DP and PT pulses Assessment/Plan: Problem List Items Addressed This Visit Endocrine Type 2 diabetes mellitus without complication, without long-term current use of insulin (HCC) - Primary Cardiovascular and Mediastinum Essential hypertension Other Hyperlipidemia Other Visit Diagnoses Anemia, unspecified type Relevant Medications ferrous sulfate 325 (65 FE) MG tablet Other Relevant Orders CBC Iron and TIBC I am treating Sidney Peraza for complex chronic condition(s) serving as the focal point for the patient's care for consistency and continuity over time. Recent labs reviewed. A1c 5.7%. LDL 59. Hb was low at 11.9 and added iron also low. He has been dieting and not sure getting enough iron in diet. Will repeat cbc and iron studies in a month. He has colonoscopy coming up next month. documented in this encounter [facility] 09-21-2024 Instructions Rylee Rand LPN - 09/21/2024 7:07 AM EDT [facility] Our goal is to provide you with exceptional patient care, and we strive to do this for every patient, every visit. Since we care about you and your experience, you may receive a patient satisfaction survey in the mail, via email or text message from [employer] We truly welcome your feedback, positive and negative, and ask that you complete the survey to let us know how we are doing. Please skip over any question(s) that may not apply to your visit. Appointment Policy: We care about your health and we want to assist you if there is something preventing you from making it to your appointment. We know unexpected events occur that may prevent you from making your appointment and we understand. If you are not able to make it to your appointment, we would greatly appreciate if you could let us know. Patients arriving more than 15 minutes after their scheduled appointment may be asked to reschedule their appointment, this is at provider discretion. Any patient who fails to arrive for a scheduled appointment without canceling will be marked as a no show. Referrals: If were referred to another physician/specialist, we will send him or her your referral and any necessary clinical information. They will call you to schedule your appointment. If you have not heard, from the specialist that we are referring you to within 7-10 business days please call the specialist office or give our office a call at and we will be happy to assist. Advanced Imaging (MRI, CT, etc.) If your provider ordered advanced imaging during your visit today, you may be contacted by the requested locations you chose. If you have not heard anything about your test schedule or results in 5-7 days please call our office at [phone]. Test & Lab Results: Even though you may receive your test results in your MyChart, please allow up to 5 business days to be contacted by our office regarding your results. Be assured, if any test results are critical, our office will contact you as soon as possible to review the results with you. If your labs are normal and you have not heard from us after 5 business days, please give our office a call at or send the provider a [employer] message and we will be happy to look into this. Medication Refills: If you have a refill request outside of a scheduled appointment or after hours, please call your pharmacy to verify if you have any refills remaining. If a new prescription is needed, please give our office a call at during regular business hours or send the provider a [employer] message and allow up to 2 business days for us to complete this. If your insurance requires your medication(s) to be prior authorized, we will work with your insurance company to get these medication(s) prior authorized for you. Please allow up to 7-10 business days for this to be completed. [employer] Messaging: MyChart is a wonderful way to communicate with your provider and often allows for quicker response times compared to calling our office. Please consider sending your provider a [employer] message with your non-urgent questions or medication refill requests. Please do not use [employer] to send any messages requiring urgent or emergent attention. By selecting to send a message, you acknowledge you are seeking medical advice for non-urgent issues and that you are aware that you may not get a response for 2 business days. For issues requiring urgent or emergent attention, please call 911. Important Numbers: [facility] Billing Questions or MyChart Support or Medical Financial Assistance Central Scheduling or documented in this encounter [facility] 09-15-2024 Note B12 is low normal. F olate normal. Iron is low. I would recommend starting OTC ferrous sulfate 325mg daily with breakfast and repeat levels in a month. I will discuss further at his office visit that is coming up AUTHENTICATED BY GERRY LUNA, ON 09/15/2024 15:41:38 [facility] 09-11-2024 Note Recent labs reviewed . I would like him to get additional labs done. His Hb was slightly low. I printed those additional orders. You can fax those to his lab or he can pick them up. AUTHENTICATED BY GERRY LUNA, ON 09/11/2024 10:29:25 [facility] 03-22-2024 Note Subjective Patient ID: Sidney Peraza is a 58 y.o. male. Patient is here for yearly exam Diabetes He presents for his follow-up diabetic visit. He has type 2 diabetes mellitus. His disease course has been stable. Pertinent negatives for hypoglycemia include no confusion, dizziness, headaches or nervousness/anxiousness. Pertinent negatives for diabetes include no chest pain, no fatigue, no polydipsia and no polyphagia. Risk factors for coronary artery disease include diabetes mellitus, dyslipidemia, hypertension and male sex. Current diabetic treatment includes oral agent (monotherapy). He is compliant with treatment all of the time. He is following a generally healthy diet. An DANETTE inhibitor/angiotensin II receptor nicko is being taken. Hypertension This is a chronic problem. The current episode started more than 1 year ago. The problem is controlled (home bp's 120's/60's). Pertinent negatives include no chest pain, headaches or palpitations. Risk factors for coronary artery disease include diabetes mellitus, dyslipidemia, male gender and obesity. The current treatment provides moderate improvement. Hyperlipidemia This is a chronic problem. The current episode started more than 1 year ago. The problem is controlled. Pertinent negatives include no chest pain or myalgias. Current antihyperlipidemic treatment includes diet change. The current treatment provides significant improvement of lipids. There are no compliance problems. Risk factors for coronary artery disease include diabetes mellitus, dyslipidemia, hypertension and male sex. The following portions of the patient's history were reviewed and updated as appropriate: allergies, current medications, past family history, past medical history, past social history, past surgical history and problem list. Review of Systems Constitutional: Negative for fatigue and fever. HENT: Negative for sore throat and trouble swallowing. Eyes: Negative for pain and visual disturbance. Respiratory: Negative for cough and wheezing. Cardiovascular: Negative for chest pain and palpitations. Gastrointestinal: Negative for abdominal pain, constipation, diarrhea and nausea. Endocrine: Negative for polydipsia and polyphagia. Genitourinary: Negative for dysuria and urgency. Musculoskeletal: Negative for myalgias. Skin: Negative for color change. Neurological: Negative for dizziness and headaches. Hematological: Negative for adenopathy. Psychiatric/Behavioral: Negative for confusion. The patient is not nervous/anxious. Objective Physical Exam Constitutional: Appearance: He is well-developed. HENT: Head: Normocephalic and atraumatic. Eyes: Conjunctiva/sclera: Conjunctivae normal. Cardiovascular: Rate and Rhythm: Normal rate and regular rhythm. Heart sounds: Normal heart sounds. Pulmonary: Effort: Pulmonary effort is normal. Breath sounds: Normal breath sounds. No wheezing. Abdominal: General: Bowel sounds are normal. Palpations: Abdomen is soft. Tenderness: There is no abdominal tenderness. Musculoskeletal: General: Normal range of motion. Cervical back: Normal range of motion and neck supple. Skin: General: Skin is warm and dry. Neurological: Mental Status: He is alert and oriented to person, place, and time. Assessment/Plan: Problem List Items Addressed This Visit Endocrine Type 2 diabetes mellitus without complication, without long-term current use of insulin (HCC) Relevant Medications metFORMIN (GLUCOPHAGE) 1000 MG tablet Cardiovascular and Mediastinum Essential hypertension Relevant Medications lisinopriL (PRINIVIL,ZESTRIL) 40 MG tablet hydroCHLOROthiazide (HYDRODIURIL) 25 MG tablet Other Hyperlipidemia Other Visit Diagnoses Preventative health care - Primary Need for Streptococcus pneumoniae vaccination Relevant Orders Pneumococcal conjugate vaccine 20-valent Stable exam. Labs updated. Work on 150 minutes exercise weekly. Work on getting DM eye exam UTD AUTHENTICATED BY GERRY LUNA, ON 03/22/2024 11:13:34 [facility] 03-22-2024 History of Present illness Narrative Subjective Patient ID: Sidney Peraza is a 58 y.o. male. Patient is here for yearly exam Diabetes He presents for his follow-up diabetic visit. He has type 2 diabetes mellitus. His disease course has been stable. Pertinent negatives for hypoglycemia include no confusion, dizziness, headaches or nervousness/anxiousness. Pertinent negatives for diabetes include no chest pain, no fatigue, no polydipsia and no polyphagia. Risk factors for coronary artery disease include diabetes mellitus, dyslipidemia, hypertension and male sex. Current diabetic treatment includes oral agent (monotherapy). He is compliant with treatment all of the time. He is following a generally healthy diet. An DANETTE inhibitor/angiotensin II receptor nicko is being taken. Hypertension This is a chronic problem. The current episode started more than 1 year ago. The problem is controlled (home bp's 120's/60's). Pertinent negatives include no chest pain, headaches or palpitations. Risk factors for coronary artery disease include diabetes mellitus, dyslipidemia, male gender and obesity. The current treatment provides moderate improvement. Hyperlipidemia This is a chronic problem. The current episode started more than 1 year ago. The problem is controlled. Pertinent negatives include no chest pain or myalgias. Current antihyperlipidemic treatment includes diet change. The current treatment provides significant improvement of lipids. There are no compliance problems. Risk factors for coronary artery disease include diabetes mellitus, dyslipidemia, hypertension and male sex. The following portions of the patient's history were reviewed and updated as appropriate: allergies, current medications, past family history, past medical history, past social history, past surgical history and problem list. Review of Systems Constitutional: Negative for fatigue and fever. HENT: Negative for sore throat and trouble swallowing. Eyes: Negative for pain and visual disturbance. Respiratory: Negative for cough and wheezing. Cardiovascular: Negative for chest pain and palpitations. Gastrointestinal: Negative for abdominal pain, constipation, diarrhea and nausea. Endocrine: Negative for polydipsia and polyphagia. Genitourinary: Negative for dysuria and urgency. Musculoskeletal: Negative for myalgias. Skin: Negative for color change. Neurological: Negative for dizziness and headaches. Hematological: Negative for adenopathy. Psychiatric/Behavioral: Negative for confusion. The patient is not nervous/anxious. Objective Physical Exam Constitutional: Appearance: He is well-developed. HENT: Head: Normocephalic and atraumatic. Eyes: Conjunctiva/sclera: Conjunctivae normal. Cardiovascular: Rate and Rhythm: Normal rate and regular rhythm. Heart sounds: Normal heart sounds. Pulmonary: Effort: Pulmonary effort is normal. Breath sounds: Normal breath sounds. No wheezing. Abdominal: General: Bowel sounds are normal. Palpations: Abdomen is soft. Tenderness: There is no abdominal tenderness. Musculoskeletal: General: Normal range of motion. Cervical back: Normal range of motion and neck supple. Skin: General: Skin is warm and dry. Neurological: Mental Status: He is alert and oriented to person, place, and time. Assessment/Plan: Problem List Items Addressed This Visit Endocrine Type 2 diabetes mellitus without complication, without long-term current use of insulin (HCC) Relevant Medications metFORMIN (GLUCOPHAGE) 1000 MG tablet Cardiovascular and Mediastinum Essential hypertension Relevant Medications lisinopriL (PRINIVIL,ZESTRIL) 40 MG tablet hydroCHLOROthiazide (HYDRODIURIL) 25 MG tablet Other Hyperlipidemia Other Visit Diagnoses Preventative health care - Primary Need for Streptococcus pneumoniae vaccination Relevant Orders Pneumococcal conjugate vaccine 20-valent Stable exam. Labs updated. Work on 150 minutes exercise weekly. Work on getting DM eye exam UTD documented in this encounter [facility] 12-16-2023 Telephone encounter Note Sidney is requesting a refill for Requested Prescriptions Pending Prescriptions Disp Refills atorvastatin (LIPITOR) 20 MG tablet 90 tablet 1 Sig: Take 1 (one) tablet (20 mg total) by mouth daily . Last refill: 11/04/2023 Last appt: 09/24/2023 Upcoming appt (when is it due or is it scheduled): 03/22/2024 Please send to [facility] [address] [place] [address] Follow up: Refill pending for review without additional follow up based on information above. Patient consents to receiving text message survey upon completion of call. [facility] 12-16-2023 Miscellaneous Notes Sidney is requesting a refill for Requested Prescriptions Pending Prescriptions Disp Refills atorvastatin (LIPITOR) 20 MG tablet 90 tablet 1 Sig: Take 1 (one) tablet (20 mg total) by mouth daily . Last refill: 11/04/2023 Last appt: 09/24/2023 Upcoming appt (when is it due or is it scheduled): 03/22/2024 Please send to [facility] [address] [place] [address] Follow up: Refill pending for review without additional follow up based on information above. Patient consents to receiving text message survey upon completion of call. documented in this encounter [facility] 11-04-2023 Telephone encounter Note Sidney is requesting a refill for Requested Prescriptions Pending Prescriptions Disp Refills metFORMIN (GLUCOPHAGE) 1000 MG tablet 180 tablet 1 Sig: Take 1 (one) tablet (1,000 mg total) by mouth 2 (two) times a day with meals . hydroCHLOROthiazide (HYDRODIURIL) 25 MG tablet 90 tablet 1 Sig: Take 1 (one) tablet (25 mg total) by mouth daily . lisinopriL (PRINIVIL,ZESTRIL) 40 MG tablet 90 tablet 1 Sig: Take 1 (one) tablet (40 mg total) by mouth daily . atorvastatin (LIPITOR) 20 MG tablet 90 tablet 1 Sig: Take 1 (one) tablet (20 mg total) by mouth daily . Last refill: Lisinopril and hydrochlorothiazide sent in on 08/18/23 for 90 day and no refill Lipitor and metformin both sent in on 03/27/23 for 90 day and 1 refill Last appt: 09/24/23 Upcoming appt (when is it due or is it scheduled): 03/22/24 Please send to [facility] [address] [place] [address] [id number] [facility] [address] [place] [id number] Follow up: Refill pending for review without additional follow up based on information above. [facility] 11-04-2023 Miscellaneous Notes Sidney is requesting a refill for Requested Prescriptions Pending Prescriptions Disp Refills metFORMIN (GLUCOPHAGE) 1000 MG tablet 180 tablet 1 Sig: Take 1 (one) tablet (1,000 mg total) by mouth 2 (two) times a day with meals . hydroCHLOROthiazide (HYDRODIURIL) 25 MG tablet 90 tablet 1 Sig: Take 1 (one) tablet (25 mg total) by mouth daily . lisinopriL (PRINIVIL,ZESTRIL) 40 MG tablet 90 tablet 1 Sig: Take 1 (one) tablet (40 mg total) by mouth daily . atorvastatin (LIPITOR) 20 MG tablet 90 tablet 1 Sig: Take 1 (one) tablet (20 mg total) by mouth daily . Last refill: Lisinopril and hydrochlorothiazide sent in on 08/18/23 for 90 day and no refill Lipitor and metformin both sent in on 03/27/23 for 90 day and 1 refill Last appt: 09/24/23 Upcoming appt (when is it due or is it scheduled): 03/22/24 Please send to [facility] [address] [place] [address] [id number] [facility] [address] [facility] [id number] Follow up: Refill pending for review without additional follow up based on information above. documented in this encounter [facility] 09-24-2023 History of Present illness Narrative Subjective Patient ID: Sidney Peraza is a 58 y.o. male. Diabetes He presents for his follow-up diabetic visit. He has type 2 diabetes mellitus. His disease course has been stable. Pertinent negatives for hypoglycemia include no confusion, dizziness, headaches or nervousness/anxiousness. Pertinent negatives for diabetes include no chest pain, no fatigue, no polydipsia and no polyphagia. Risk factors for coronary artery disease include diabetes mellitus, dyslipidemia, hypertension and male sex. Current diabetic treatment includes oral agent (monotherapy). He is compliant with treatment all of the time. He is following a generally healthy diet. An DANETTE inhibitor/angiotensin II receptor nicko is being taken. Hypertension This is a chronic problem. The current episode started more than 1 year ago. The problem is uncontrolled (home bp's 120's/60's). Pertinent negatives include no chest pain, headaches or palpitations. Risk factors for coronary artery disease include diabetes mellitus, dyslipidemia, male gender and obesity. The current treatment provides moderate improvement. Hyperlipidemia This is a chronic problem. The current episode started more than 1 year ago. The problem is controlled. Pertinent negatives include no chest pain or myalgias. Current antihyperlipidemic treatment includes diet change. The current treatment provides significant improvement of lipids. There are no compliance problems. Risk factors for coronary artery disease include diabetes mellitus, dyslipidemia, hypertension and male sex. The following portions of the patient's history were reviewed and updated as appropriate: allergies, current medications, past family history, past medical history, past social history, past surgical history and problem list. Review of Systems Constitutional: Negative for fatigue and fever. HENT: Negative for sore throat and trouble swallowing. Eyes: Negative for pain and visual disturbance. Respiratory: Negative for cough and wheezing. Cardiovascular: Negative for chest pain and palpitations. Gastrointestinal: Negative for abdominal pain, constipation, diarrhea and nausea. Endocrine: Negative for polydipsia and polyphagia. Genitourinary: Negative for dysuria and urgency. Musculoskeletal: Negative for myalgias. Skin: Negative for color change. Neurological: Negative for dizziness and headaches. Hematological: Negative for adenopathy. Psychiatric/Behavioral: Negative for confusion. The patient is not nervous/anxious. Objective Physical Exam Constitutional: Appearance: He is well-developed. HENT: Head: Normocephalic and atraumatic. Eyes: Conjunctiva/sclera: Conjunctivae normal. Cardiovascular: Rate and Rhythm: Normal rate and regular rhythm. Heart sounds: Normal heart sounds. Pulmonary: Effort: Pulmonary effort is normal. Breath sounds: Normal breath sounds. No wheezing. Abdominal: General: Bowel sounds are normal. Palpations: Abdomen is soft. Tenderness: There is no abdominal tenderness. Musculoskeletal: General: Normal range of motion. Cervical back: Normal range of motion and neck supple. Skin: General: Skin is warm and dry. Neurological: Mental Status: He is alert and oriented to person, place, and time. Assessment/Plan: Problem List Items Addressed This Visit Endocrine Type 2 diabetes mellitus without complication, without long-term current use of insulin ([facility]) - Primary Cardiovascular and Mediastinum Essential hypertension Relevant Medications NIFEdipine (PROCARDIA XL) 30 MG 24 hr tablet Other Hyperlipidemia I am treating Sidney Peraza for complex chronic condition(s) serving as the focal point for the patient's care for consistency and continuity over time. Recent labs reviewed. A1c 6.5%. LDL at goal. Bmp normal. Low salt diet. Work on 150 minutes exercise weekly. Get bp numbers to us in 2-3 weeks. Advised to get updated vaccines at local pharmacy documented in this encounter [facility] 08-20-2023 History of Present illness Narrative Subjective Patient ID: Sidney Peraza is a 58 y.o. male. Pt is here with concerns for extremely painful R elbow, red, warm and swollen. This started Thursday of this week. He has limited ROM, pain with palpation and loss of strength R arm. This am, he woke with painful L ankle with reduced ROM and foot swelling. Lateral aspect of foot is warm to touch and foot is swollen. Pt had been experiencing chills over past 2 days and febrile at appointment. After seeing Pt,he was advised to be seen at ED for probable septic bursitis R elbow and cellulitis L foot with possible joint involvement. 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 Arm Pain The incident occurred 3 to 5 days ago. The incident occurred at home. There was no injury mechanism. The pain is present in the right elbow. The quality of the pain is described as aching, shooting and stabbing. The pain does not radiate. The pain is at a severity of 10/10. The pain is severe. The pain has been Constant since the incident. Associated symptoms include muscle weakness. The symptoms are aggravated by palpation. He has tried nothing for the symptoms. The treatment provided no relief. Foot Injury The incident occurred 6 to 12 hours ago. The incident occurred at home. There was no injury mechanism. The pain is present in the left foot and left ankle. The quality of the pain is described as aching, stabbing and burning. The pain is moderate. The pain has been Constant since onset. Associated symptoms include an inability to bear weight, a loss of motion and muscle weakness. He reports no foreign bodies present. The symptoms are aggravated by movement, palpation and weight bearing. He has tried nothing for the symptoms. The treatment provided no relief. No problem-specific Assessment & Plan notes found for this encounter. Current Outpatient Medications Medication Sig Dispense Refill acetaminophen (TYLENOL ARTHRITIS ORAL) Take by mouth . atorvastatin (LIPITOR) 20 MG tablet Take 1 (one) tablet (20 mg total) by mouth daily . 90 tablet 1 hydroCHLOROthiazide (HYDRODIURIL) 25 MG tablet Take 1 (one) tablet (25 mg total) by mouth daily . 90 tablet 0 lisinopriL (PRINIVIL,ZESTRIL) 40 MG tablet Take 1 (one) tablet (40 mg total) by mouth daily . 90 tablet 0 metFORMIN (GLUCOPHAGE) 1000 MG tablet Take 1 (one) tablet (1,000 mg total) by mouth 2 (two) times a day with meals . 180 tablet 1 No current facility-administered medications for this visit. The following portions of the patient's history were reviewed and updated as appropriate: allergies, current medications, past family history, past medical history, past social history, past surgical history, and problem list. Past Medical History: Diagnosis Date Diabetes mellitus (HCC) Hypertension Past Surgical History: Procedure Laterality Date COLONOSCOPY W/ POLYPECTOMY FOOT SURGERY Right lira fx Family History Problem Relation Age of Onset Cancer Mother lung cancer Cancer Father mesothelioma Review of Systems Constitutional: Positive for activity change and chills. HENT: Negative. Eyes: Negative. Respiratory: Negative. Cardiovascular: Negative. Gastrointestinal: Negative. Genitourinary: Negative. Musculoskeletal: Positive for arthralgias and joint swelling. Skin: Positive for color change. Allergic/Immunologic: Negative. Neurological: Positive for headaches. Hematological: Negative. Psychiatric/Behavioral: Negative. Objective Physical Exam Constitutional: Appearance: Normal appearance. Cardiovascular: Rate and Rhythm: Regular rhythm. Tachycardia present. Pulses: Normal pulses. Heart sounds: Normal heart sounds. Pulmonary: Effort: Pulmonary effort is normal. Breath sounds: Normal breath sounds. Musculoskeletal: General: Swelling and tenderness present. Left lower leg: Edema present. Skin: Findings: Erythema present. Neurological: Mental Status: He is alert and oriented to person, place, and time. Psychiatric: Mood and Affect: Mood normal. Behavior: Behavior normal. Assessment/Plan: Diagnoses and all orders for this visit: Septic olecranon bursitis of right elbow Cellulitis of foot, left ? documented in this encounter [facility] 08-18-2023 Telephone encounter Note Requested Prescriptions Pending Prescriptions Disp Refills hydroCHLOROthiazide (HYDRODIURIL) 25 MG tablet 90 tablet 1 Sig: Take 1 (one) tablet (25 mg total) by mouth daily . lisinopriL (PRINIVIL,ZESTRIL) 40 MG tablet 90 tablet 1 Sig: Take 1 (one) tablet (40 mg total) by mouth daily . Mago honeycutt [facility] 08-18-2023 Miscellaneous Notes Requested Prescriptions Pending Prescriptions Disp Refills hydroCHLOROthiazide (HYDRODIURIL) 25 MG tablet 90 tablet 1 Sig: Take 1 (one) tablet (25 mg total) by mouth daily . lisinopriL (PRINIVIL,ZESTRIL) 40 MG tablet 90 tablet 1 Sig: Take 1 (one) tablet (40 mg total) by mouth daily . Mago honeycutt documented in this encounter [facility] 03-25-2023 History of Present illness Narrative Subjective Patient ID: Sidney Peraza is a 57 y.o. male. Patient is here for yearly exam Diabetes He presents for his follow-up diabetic visit. He has type 2 diabetes mellitus. His disease course has been stable. Pertinent negatives for hypoglycemia include no confusion, dizziness, headaches or nervousness/anxiousness. Pertinent negatives for diabetes include no chest pain, no fatigue, no polydipsia and no polyphagia. Risk factors for coronary artery disease include diabetes mellitus, dyslipidemia, hypertension and male sex. Current diabetic treatment includes oral agent (monotherapy). He is compliant with treatment all of the time. He is following a generally healthy diet. An DANETTE inhibitor/angiotensin II receptor nicko is being taken. Hypertension This is a chronic problem. The current episode started more than 1 year ago. The problem is controlled (home bp's 120's/60's). Pertinent negatives include no chest pain, headaches or palpitations. Risk factors for coronary artery disease include diabetes mellitus, dyslipidemia, male gender and obesity. The current treatment provides moderate improvement. Hyperlipidemia This is a chronic problem. The current episode started more than 1 year ago. The problem is controlled. Pertinent negatives include no chest pain or myalgias. Current antihyperlipidemic treatment includes diet change. The current treatment provides significant improvement of lipids. There are no compliance problems. Risk factors for coronary artery disease include diabetes mellitus, dyslipidemia, hypertension and male sex. The following portions of the patient's history were reviewed and updated as appropriate: allergies, current medications, past family history, past medical history, past social history, past surgical history and problem list. Review of Systems Constitutional: Negative for fatigue and fever. HENT: Negative for sore throat and trouble swallowing. Eyes: Negative for pain and visual disturbance. Respiratory: Negative for cough and wheezing. Cardiovascular: Negative for chest pain and palpitations. Gastrointestinal: Negative for abdominal pain, constipation, diarrhea and nausea. Endocrine: Negative for polydipsia and polyphagia. Genitourinary: Negative for dysuria and urgency. Musculoskeletal: Negative for myalgias. Skin: Negative for color change. Neurological: Negative for dizziness and headaches. Hematological: Negative for adenopathy. Psychiatric/Behavioral: Negative for confusion. The patient is not nervous/anxious. Objective Physical Exam Constitutional: Appearance: He is well-developed. HENT: Head: Normocephalic and atraumatic. Eyes: Conjunctiva/sclera: Conjunctivae normal. Cardiovascular: Rate and Rhythm: Normal rate and regular rhythm. Heart sounds: Normal heart sounds. Pulmonary: Effort: Pulmonary effort is normal. Breath sounds: Normal breath sounds. No wheezing. Abdominal: General: Bowel sounds are normal. Palpations: Abdomen is soft. Tenderness: There is no abdominal tenderness. Musculoskeletal: General: Normal range of motion. Cervical back: Normal range of motion and neck supple. Skin: General: Skin is warm and dry. Neurological: Mental Status: He is alert and oriented to person, place, and time. Diabetic Foot Exam: Right Foot: warm, good capillary refill and normal DP and PT pulses Left Foot: warm, good capillary refill and normal DP and PT pulses Assessment/Plan: Problem List Items Addressed This Visit Endocrine Type 2 diabetes mellitus without complication, without long-term current use of insulin (HCC) Relevant Orders External Lab Microalbumin/Creatinine Hemoglobin A1c Cardiovascular and Mediastinum Essential hypertension Other Hyperlipidemia Other Visit Diagnoses Preventative health care - Primary Relevant Orders CBC Comprehensive Metabolic Panel Lipid Panel Urinalysis Prostate cancer screening Relevant Orders PSA, Screen Advised to get updated vaccines at local pharmacy. Stable exam. Labs updated. Work on routine exercise 150 minute weekly. documented in this encounter [facility] 01-29-2023 Telephone encounter Note Requested Prescriptions Pending Prescriptions Disp Refills metFORMIN (GLUCOPHAGE) 500 MG tablet 180 tablet 1 Sig: Take 1 (one) tablet (500 mg total) by mouth 2 (two) times a day with meals . lisinopriL (PRINIVIL,ZESTRIL) 40 MG tablet 90 tablet 1 Sig: Take 1 (one) tablet (40 mg total) by mouth daily . hydroCHLOROthiazide (HYDRODIURIL) 25 MG tablet 90 tablet 1 Sig: Take 1 (one) tablet (25 mg total) by mouth daily . Mago honeycutt [facility] 01-29-2023 Miscellaneous Notes Requested Prescriptions Pending Prescriptions Disp Refills metFORMIN (GLUCOPHAGE) 500 MG tablet 180 tablet 1 Sig: Take 1 (one) tablet (500 mg total) by mouth 2 (two) times a day with meals . lisinopriL (PRINIVIL,ZESTRIL) 40 MG tablet 90 tablet 1 Sig: Take 1 (one) tablet (40 mg total) by mouth daily . hydroCHLOROthiazide (HYDRODIURIL) 25 MG tablet 90 tablet 1 Sig: Take 1 (one) tablet (25 mg total) by mouth daily . Mago honeycutt documented in this encounter [facility] 09-19-2022 History of Present illness Narrative Emergency Department Report [facility] Service Date:.09/19/22 PCP: Gerry Luna Chief Complaint: Chief Complaint Patient presents with Ear Pain Bilat ear pain (sharp) onset 5 days ago HPI Sidney Peraza is a 57 y.o. male presents to the ED today due to bilateral ear pain and fullness for nearly a week. Pt had just driven back from [place] last [place]. No trauma. No drainage. Seems to think hearing is OK. Pain is sharp Review of Systems: Review of Systems Constitutional: Negative for fever. HENT: Positive for ear pain. Respiratory: Negative for cough. Cardiovascular: Negative for chest pain. Endocrine: Diabetes. All other systems reviewed and are negative. Past Medical History: Past Medical History: Diagnosis Date Diabetes Hypertension Past Surgical History: Past Surgical History: Procedure Laterality Date FOOT SURGERY Allergies: No Known Allergies Medications: Patient's Medications New Prescriptions No medications on file Previous Medications [id number] SUSPENSION 3-4 drops to each ear 3 times daily x3 days. Leave in drops in the ear canals for 15 minutes each time. HYDROCHLOROTHIAZIDE 12.5 MG CAP CAPSULE Take 12.5 mg by mouth daily. LISINOPRIL 20 MG TAB Take 20 mg by mouth daily. METFORMIN 500 MG TAB TABLET PREDNISONE 20 MG TAB TABLET PO QD: 60, 60, 40, 40, 20, 20 Modified Medications No medications on file Discontinued Medications No medications on file Family History: Family History Problem Relation Age of Onset Hypertension Mother Lung Cancer Mother Other - Specify Father mesothelioma Social History: Social History Socioeconomic History Marital status: Spouse name: Not on file Number of children: Not on file Years of education: Not on file Highest education level: Not on file Occupational History Not on file Tobacco Use Smoking status: Never Smokeless tobacco: Never Vaping Use Vaping Use: Never used Substance and Sexual Activity Alcohol use: No Drug use: No Sexual activity: Not on file Other Topics Concern Service Not Asked Blood Transfusions Not Asked Caffeine Concern Not Asked Occupational Exposure Not Asked Hobby Hazards Not Asked Sleep Concern Not Asked Stress Concern Not Asked Weight Concern Not Asked Special Diet Not Asked Back Care Not Asked Exercise Not Asked Bike Helmet Not Asked Seat Belt Not Asked Domestic Violence No Social History Narrative Not on file Social Determinants of Health Financial Resource Strain: Not on file Food Insecurity: Not on file Transportation Needs: Not on file Physical Activity: Not on file Stress: Not on file Social Connections: Not on file Intimate Partner Violence: Not on file Housing Stability: Not on file PMH, Surghx,Socialhx,FH and nurses notes and Medications, Allergies and VS reviewed. Vital Signs During ED Visit Reviewed in the nurses triage notes. Physical Exam: Vitals: 09/19/22 0833 BP: 137/68 Pulse: 89 Resp: 16 Temp: 99.8 F (37.7 C) SpO2: 97% Physical Exam Vitals and nursing note reviewed. Constitutional: General: He is not in acute distress. Appearance: Normal appearance. He is obese. HENT: Head: Normocephalic. Right Ear: Tympanic membrane, ear canal and external ear normal. There is no impacted cerumen. Left Ear: Ear canal and external ear normal. There is no impacted cerumen. Nose: Nose normal. No congestion. Mouth/Throat: Mouth: Mucous membranes are moist. Pharynx: No posterior oropharyngeal erythema. Eyes: Extraocular Movements: Extraocular movements intact. Pupils: Pupils are equal, round, and reactive to light. Cardiovascular: Rate and Rhythm: Normal rate and regular rhythm. Pulmonary: Effort: Pulmonary effort is normal. No respiratory distress. Abdominal: Palpations: Abdomen is soft. Tenderness: There is no abdominal tenderness. Musculoskeletal: General: Normal range of motion. Cervical back: Normal range of motion and neck supple. Lymphadenopathy: Cervical: No cervical adenopathy. Skin: General: Skin is warm. Neurological: General: No focal deficit present. Mental Status: He is alert and oriented to person, place, and time. Psychiatric: Mood and Affect: Mood normal. Behavior: Behavior normal. Orders/Results: No orders of the defined types were placed in this encounter. No results found for this or any previous visit. Radiographic Imaging No orders to display Procedures: Procedures Diff Dx: MDM: Assessment/Clinical Impression: Ear pain, bilateral. Plan: Continue your usual medications at the usual doses. Tylenol/Ibuprofen/Aleve for fever or pain. No more than 4000 mg of Tylenol or 2400 mg of Ibuprofen (Advil, Motrin) in a 24 hour period. Return here or nearest ER for uncontrolled fever, vomiting, difficulty breathing or difficulty swallowing or chest pain. Follow up with Dr. Luna in 2 weeks. Nothing in the ears - NO Q-TIPS 1. Ear pain, bilateral No follow-ups on file. New Prescriptions No medications on file Discontinued Medications No medications on file An After Visit Summary was printed and given to the patient with above information. . documented in this encounter [facility] 09-19-2022 Instructions [facility] - 09/19/2022 8:25 AM EDT Continue your usual medications at the usual doses. Tylenol/Ibuprofen/Aleve for fever or pain. No more than 4000 mg of Tylenol or 2400 mg of Ibuprofen (Advil, Motrin) in a 24 hour period. Return here or nearest ER for uncontrolled fever, vomiting, difficulty breathing or difficulty swallowing or chest pain. Follow up with Dr. Luna in 2 weeks. Nothing in the ears - NO Q-TIPS The following attachments cannot be sent through Care Everywhere.Earache: Adult (Hungarian)documented in this encounter [facility] 07-24-2022 Telephone encounter Note Requested Prescriptions Pending Prescriptions Disp Refills metFORMIN (GLUCOPHAGE) 500 MG tablet 180 tablet 1 Sig: Take 1 (one) tablet (500 mg total) by mouth 2 (two) times a day with meals . lisinopriL (PRINIVIL,ZESTRIL) 40 MG tablet 90 tablet 1 Sig: Take 1 (one) tablet (40 mg total) by mouth daily . hydroCHLOROthiazide (HYDRODIURIL) 25 MG tablet 90 tablet 1 Sig: Take 1 (one) tablet (25 mg total) by mouth daily . Mago Honeycutt Patient also wanted a prescription called in for his right ankle. He stated he tweaked his ankle and it is a little bit swollen. [facility] 07-24-2022 Miscellaneous Notes Requested Prescriptions Pending Prescriptions Disp Refills metFORMIN (GLUCOPHAGE) 500 MG tablet 180 tablet 1 Sig: Take 1 (one) tablet (500 mg total) by mouth 2 (two) times a day with meals . lisinopriL (PRINIVIL,ZESTRIL) 40 MG tablet 90 tablet 1 Sig: Take 1 (one) tablet (40 mg total) by mouth daily . hydroCHLOROthiazide (HYDRODIURIL) 25 MG tablet 90 tablet 1 Sig: Take 1 (one) tablet (25 mg total) by mouth daily . Mago Honeycutt Patient also wanted a prescription called in for his right ankle. He stated he tweaked his ankle and it is a little bit swollen. documented in this encounter [facility] 03-18-2022 History of Present illness Narrative Subjective Patient ID: Sidney Peraza is a 56 y.o. male. Patient is here for yearly exam Diabetes He presents for his follow-up diabetic visit. He has type 2 diabetes mellitus. His disease course has been stable. Pertinent negatives for hypoglycemia include no confusion, dizziness, headaches or nervousness/anxiousness. Pertinent negatives for diabetes include no chest pain, no fatigue, no polydipsia and no polyphagia. Risk factors for coronary artery disease include diabetes mellitus, dyslipidemia, hypertension and male sex. Current diabetic treatment includes oral agent (monotherapy). He is compliant with treatment all of the time. He is following a generally healthy diet. An DANETTE inhibitor/angiotensin II receptor nicko is being taken. Hypertension This is a chronic problem. The current episode started more than 1 year ago. The problem is controlled (home bp's 120's/60's). Pertinent negatives include no chest pain, headaches or palpitations. Risk factors for coronary artery disease include diabetes mellitus, dyslipidemia, male gender and obesity. The current treatment provides moderate improvement. Hyperlipidemia This is a chronic problem. The current episode started more than 1 year ago. The problem is controlled. Pertinent negatives include no chest pain or myalgias. Current antihyperlipidemic treatment includes diet change. The current treatment provides significant improvement of lipids. There are no compliance problems. Risk factors for coronary artery disease include diabetes mellitus, dyslipidemia, hypertension and male sex. The following portions of the patient's history were reviewed and updated as appropriate: allergies, current medications, past family history, past medical history, past social history, past surgical history and problem list. Review of Systems Constitutional: Negative for fatigue and fever. HENT: Negative for sore throat and trouble swallowing. Eyes: Negative for pain and visual disturbance. Respiratory: Negative for cough and wheezing. Cardiovascular: Negative for chest pain and palpitations. Gastrointestinal: Negative for abdominal pain, constipation, diarrhea and nausea. Endocrine: Negative for polydipsia and polyphagia. Genitourinary: Negative for dysuria and urgency. Musculoskeletal: Negative for myalgias. Skin: Positive for rash. Negative for color change. Neurological: Negative for dizziness and headaches. Hematological: Negative for adenopathy. Psychiatric/Behavioral: Negative for confusion. The patient is not nervous/anxious. Objective Physical Exam Constitutional: Appearance: He is well-developed. HENT: Head: Normocephalic and atraumatic. Eyes: Conjunctiva/sclera: Conjunctivae normal. Cardiovascular: Rate and Rhythm: Normal rate and regular rhythm. Heart sounds: Normal heart sounds. Pulmonary: Effort: Pulmonary effort is normal. Breath sounds: Normal breath sounds. No wheezing. Abdominal: General: Bowel sounds are normal. Palpations: Abdomen is soft. Tenderness: There is no abdominal tenderness. Musculoskeletal: General: Normal range of motion. Cervical back: Normal range of motion and neck supple. Skin: General: Skin is warm and dry. Findings: Erythema present. Comments: Left foot mostly top of foot. Tender to touch. Tinea between toes Neurological: Mental Status: He is alert and oriented to person, place, and time. Diabetic Foot Exam: Right Foot: warm, good capillary refill, normal DP and PT pulses, and normal sensory exam Left Foot: warm, good capillary refill, normal DP and PT pulses, and normal sensory exam Assessment/Plan: Problem List Items Addressed This Visit Endocrine Type 2 diabetes mellitus without complication, without long-term current use of insulin (HCC) Relevant Orders External Lab Microalbumin/Creatinine Hemoglobin A1c Cardiovascular and Mediastinum Essential hypertension Other Hyperlipidemia Other Visit Diagnoses Preventative health care - Primary Relevant Orders CBC Comprehensive Metabolic Panel Lipid Panel Urinalysis Cellulitis of foot Relevant Medications methylPREDNISolone (MEDROL DOSEPACK) 4 mg tablet cephALEXin (KEFLEX) 500 MG capsule Use otc lotrimin cream between toes daily x 1 week. Labs updated. Advised to get updated vaccines at local pharmacy documented in this encounter [facility] 09-13-2021 History of Present illness Narrative Subjective Patient ID: Sidney Peraza is a 56 y.o. male. Diabetes He presents for his follow-up diabetic visit. He has type 2 diabetes mellitus. His disease course has been stable. Pertinent negatives for hypoglycemia include no confusion, dizziness, headaches or nervousness/anxiousness. Pertinent negatives for diabetes include no chest pain, no fatigue, no polydipsia and no polyphagia. Risk factors for coronary artery disease include diabetes mellitus, dyslipidemia, hypertension and male sex. Current diabetic treatment includes oral agent (monotherapy). He is compliant with treatment all of the time. He is following a generally healthy diet. An DANETTE inhibitor/angiotensin II receptor nicko is being taken. Hypertension This is a chronic problem. The current episode started more than 1 year ago. The problem is controlled (home bp's 120's/60's). Pertinent negatives include no chest pain, headaches or palpitations. Risk factors for coronary artery disease include diabetes mellitus, dyslipidemia, male gender and obesity. The current treatment provides moderate improvement. Hyperlipidemia This is a chronic problem. The current episode started more than 1 year ago. The problem is controlled. Pertinent negatives include no chest pain or myalgias. Current antihyperlipidemic treatment includes diet change. The current treatment provides significant improvement of lipids. There are no compliance problems. Risk factors for coronary artery disease include diabetes mellitus, dyslipidemia, hypertension and male sex. The following portions of the patient's history were reviewed and updated as appropriate: allergies, current medications, past family history, past medical history, past social history, past surgical history and problem list. Review of Systems Constitutional: Negative for fatigue and fever. HENT: Negative for sore throat and trouble swallowing. Eyes: Negative for pain and visual disturbance. Respiratory: Negative for cough and wheezing. Cardiovascular: Negative for chest pain and palpitations. Gastrointestinal: Negative for abdominal pain, constipation, diarrhea and nausea. Endocrine: Negative for polydipsia and polyphagia. Genitourinary: Negative for dysuria and urgency. Musculoskeletal: Negative for myalgias. Skin: Negative for color change and rash. Neurological: Negative for dizziness and headaches. Hematological: Negative for adenopathy. Psychiatric/Behavioral: Negative for confusion. The patient is not nervous/anxious. Objective Physical Exam Constitutional: Appearance: He is well-developed. HENT: Head: Normocephalic and atraumatic. Eyes: Conjunctiva/sclera: Conjunctivae normal. Cardiovascular: Rate and Rhythm: Normal rate and regular rhythm. Heart sounds: Normal heart sounds. Pulmonary: Effort: Pulmonary effort is normal. Breath sounds: Normal breath sounds. No wheezing. Abdominal: General: Bowel sounds are normal. Palpations: Abdomen is soft. Tenderness: There is no abdominal tenderness. Musculoskeletal: General: Normal range of motion. Cervical back: Normal range of motion and neck supple. Skin: General: Skin is warm and dry. Neurological: Mental Status: He is alert and oriented to person, place, and time. Assessment/Plan: Problem List Items Addressed This Visit Endocrine Type 2 diabetes mellitus without complication, without long-term current use of insulin (HCC) - Primary Relevant Orders Comprehensive Metabolic Panel External Lab Microalbumin/Creatinine Hemoglobin A1c Cardiovascular and Mediastinum Essential hypertension Other Hyperlipidemia Recommend covid booster documented in this encounter [facility] 07-24-2021 Telephone encounter Note Requested Prescriptions Pending Prescriptions Disp Refills hydroCHLOROthiazide (HYDRODIURIL) 25 MG tablet 90 tablet 1 Sig: Take 1 (one) tablet (25 mg total) by mouth daily . lisinopriL (PRINIVIL,ZESTRIL) 40 MG tablet 90 tablet 1 Sig: Take 1 (one) tablet (40 mg total) by mouth daily . metFORMIN (GLUCOPHAGE) 500 MG tablet 180 tablet 1 Sig: Take 1 (one) tablet (500 mg total) by mouth 2 (two) times a day with meals . mago valadez run [facility] 07-24-2021 Miscellaneous Notes Requested Prescriptions Pending Prescriptions Disp Refills hydroCHLOROthiazide (HYDRODIURIL) 25 MG tablet 90 tablet 1 Sig: Take 1 (one) tablet (25 mg total) by mouth daily . lisinopriL (PRINIVIL,ZESTRIL) 40 MG tablet 90 tablet 1 Sig: Take 1 (one) tablet (40 mg total) by mouth daily . metFORMIN (GLUCOPHAGE) 500 MG tablet 180 tablet 1 Sig: Take 1 (one) tablet (500 mg total) by mouth 2 (two) times a day with meals . mago valadez run documented in this encounter [facility] 02-14-2021 History of Present illness Narrative Subjective Patient ID: Sidney Peraza is a 55 y.o. male. Patient is here for yearly exam Diabetes He presents for his follow-up diabetic visit. He has type 2 diabetes mellitus. His disease course has been stable. Pertinent negatives for hypoglycemia include no confusion, dizziness, headaches or nervousness/anxiousness. Pertinent negatives for diabetes include no chest pain, no fatigue, no polydipsia and no polyphagia. Risk factors for coronary artery disease include diabetes mellitus, dyslipidemia, hypertension and male sex. Current diabetic treatment includes oral agent (monotherapy). He is compliant with treatment all of the time. He is following a generally healthy diet. An DANETTE inhibitor/angiotensin II receptor nicko is being taken. Hypertension This is a chronic problem. The current episode started more than 1 year ago. The problem is controlled (home bp's 120's/60's). Pertinent negatives include no chest pain, headaches or palpitations. Risk factors for coronary artery disease include diabetes mellitus, dyslipidemia, male gender and obesity. The current treatment provides moderate improvement. Hyperlipidemia This is a chronic problem. The current episode started more than 1 year ago. The problem is controlled. Pertinent negatives include no chest pain or myalgias. Current antihyperlipidemic treatment includes diet change. The current treatment provides significant improvement of lipids. There are no compliance problems. Risk factors for coronary artery disease include diabetes mellitus, dyslipidemia, hypertension and male sex. The following portions of the patient's history were reviewed and updated as appropriate: allergies, current medications, past family history, past medical history, past social history, past surgical history and problem list. Review of Systems Constitutional: Negative for fatigue and fever. HENT: Negative for sore throat and trouble swallowing. Eyes: Negative for pain and visual disturbance. Respiratory: Negative for cough and wheezing. Cardiovascular: Negative for chest pain and palpitations. Gastrointestinal: Negative for abdominal pain, constipation, diarrhea and nausea. Endocrine: Negative for polydipsia and polyphagia. Genitourinary: Negative for dysuria and urgency. Musculoskeletal: Positive for arthralgias. Negative for myalgias. Skin: Negative for color change and rash. Neurological: Negative for dizziness and headaches. Hematological: Negative for adenopathy. Psychiatric/Behavioral: Negative for confusion. The patient is not nervous/anxious. Objective Physical Exam Constitutional: Appearance: He is well-developed. HENT: Head: Normocephalic and atraumatic. Eyes: Conjunctiva/sclera: Conjunctivae normal. Cardiovascular: Rate and Rhythm: Normal rate and regular rhythm. Heart sounds: Normal heart sounds. Pulmonary: Effort: Pulmonary effort is normal. Breath sounds: Normal breath sounds. No wheezing. Abdominal: General: Bowel sounds are normal. Palpations: Abdomen is soft. Tenderness: There is no abdominal tenderness. Musculoskeletal: General: Normal range of motion. Cervical back: Normal range of motion and neck supple. Left ankle: Swelling present. Tenderness present. Skin: General: Skin is warm and dry. Neurological: Mental Status: He is alert and oriented to person, place, and time. Diabetic Foot Exam: Right Foot: warm, good capillary refill and normal monofilament exam Left Foot: warm, good capillary refill and normal monofilament exam Assessment/Plan: Problem List Items Addressed This Visit Endocrine Type 2 diabetes mellitus without complication, without long-term current use of insulin (HCC) Relevant Orders External Lab Microalbumin/Creatinine Hemoglobin A1c Cardiovascular and Mediastinum Essential hypertension Other Hyperlipidemia Other Visit Diagnoses Preventative health care - Primary Relevant Orders CBC Comprehensive Metabolic Panel Lipid Panel Urinalysis Prostate cancer screening Relevant Orders PSA, Screen Need for Streptococcus pneumoniae vaccination Relevant Medications pneumococcal vaccine (PNU-IMMUNE 23) 25 mcg/0.5 mL injection Other Relevant Orders Pneumococcal polysaccharide vaccine 23-valent greater than or equal to 2yo subcutaneous/IM Strain of left ankle, initial encounter Relevant Medications methylPREDNISolone (MEDROL DOSEPACK) 4 mg tablet He has been climbing ladders and went on a long bike ride and developed left ankly pain and swelling. Med sent. Ice 2-3 times daily for 20 minutes each session. documented in this encounter [facility] 08-06-2020 History of Present illness Narrative Bun/cr up a little. Make sure drinking 4-6 large glasses of water daily. A1c improved to 6.0%. good. No change in meds. We'll see him next visit documented in this encounter [facility] 08-06-2020 History of Present illness Narrative Subjective Patient ID: Sidney Peraza is a 55 y.o. male. Diabetes He presents for his follow-up diabetic visit. He has type 2 diabetes mellitus. His disease course has been stable. Pertinent negatives for hypoglycemia include no confusion, dizziness, headaches or nervousness/anxiousness. Pertinent negatives for diabetes include no chest pain, no fatigue, no polydipsia and no polyphagia. Risk factors for coronary artery disease include diabetes mellitus, dyslipidemia, hypertension and male sex. Current diabetic treatment includes oral agent (monotherapy). He is compliant with treatment all of the time. He is following a generally healthy diet. An DANETET inhibitor/angiotensin II receptor nicko is being taken. Hypertension This is a chronic problem. The current episode started more than 1 year ago. The problem is controlled (home bp's 120's/60's). Pertinent negatives include no chest pain, headaches or palpitations. Risk factors for coronary artery disease include diabetes mellitus, dyslipidemia, male gender and obesity. The current treatment provides moderate improvement. Hyperlipidemia This is a chronic problem. The current episode started more than 1 year ago. The problem is controlled. Pertinent negatives include no chest pain or myalgias. Current antihyperlipidemic treatment includes diet change. The current treatment provides significant improvement of lipids. There are no compliance problems. Risk factors for coronary artery disease include diabetes mellitus, dyslipidemia, hypertension and male sex. The following portions of the patient's history were reviewed and updated as appropriate: allergies, current medications, past family history, past medical history, past social history, past surgical history and problem list. Review of Systems Constitutional: Negative for fatigue and fever. HENT: Negative for sore throat and trouble swallowing. Eyes: Negative for pain and visual disturbance. Respiratory: Negative for cough and wheezing. Cardiovascular: Negative for chest pain and palpitations. Gastrointestinal: Negative for abdominal pain, constipation, diarrhea and nausea. Endocrine: Negative for polydipsia and polyphagia. Genitourinary: Negative for dysuria and urgency. Musculoskeletal: Negative for arthralgias and myalgias. Skin: Negative for color change and rash. Neurological: Negative for dizziness and headaches. Hematological: Negative for adenopathy. Psychiatric/Behavioral: Negative for confusion. The patient is not nervous/anxious. Objective Physical Exam Constitutional: Appearance: He is well-developed. HENT: Head: Normocephalic and atraumatic. Eyes: Conjunctiva/sclera: Conjunctivae normal. Neck: Musculoskeletal: Normal range of motion and neck supple. Cardiovascular: Rate and Rhythm: Normal rate and regular rhythm. Heart sounds: Normal heart sounds. Pulmonary: Effort: Pulmonary effort is normal. Breath sounds: Normal breath sounds. No wheezing. Abdominal: General: Bowel sounds are normal. Palpations: Abdomen is soft. Tenderness: There is no abdominal tenderness. Musculoskeletal: Normal range of motion. Skin: General: Skin is warm and dry. Neurological: Mental Status: He is alert and oriented to person, place, and time. Assessment/Plan: Problem List Items Addressed This Visit Endocrine Type 2 diabetes mellitus without complication, without long-term current use of insulin (HCC) - Primary Relevant Orders Basic Metabolic Panel Hemoglobin A1c Cardiovascular and Mediastinum Essential hypertension Other Hyperlipidemia Working on getting eye exam UTD bp's at home stable. He'll continue to check bp and get those numbers to us. Low salt diet. Work on 150 minutes exercise weekly documented in this encounter [facility] Evaluation note Diagnosis Type 2 diabetes mellitus without complication, without long-term current use of insulin (HCC)- Primary Essential hypertension Unspecified essential hypertension Hyperlipidemia, unspecified hyperlipidemia type [facility] Preventative health care- Primary Routine general medical examination at a health care facility Type 2 diabetes mellitus without complication, without long-term current use of insulin (HCC) Essential hypertension Unspecified essential hypertension Hyperlipidemia, unspecified hyperlipidemia type Prostate cancer screening Special screening for malignant neoplasm of prostate Need for Streptococcus pneumoniae vaccination Strain of left ankle, initial encounter [facility] Diagnosis 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 [facility]* Diagnosis Essential hypertension- Primary Unspecified essential hypertension [facility]* Diagnosis Type 2 diabetes mellitus without complication, without long-term current use of insulin (HCC)- Primary Essential hypertension Unspecified essential hypertension Hyperlipidemia, unspecified hyperlipidemia type [facility] Diagnosis Elevated liver enzymes- Primary Other nonspecific abnormal serum enzyme levels [facility]* Diagnosis Preventative health care- Primary Routine general medical examination at a health care facility Type 2 diabetes mellitus without complication, without long-term current use of insulin (HCC) Essential hypertension Unspecified essential hypertension Hyperlipidemia, unspecified hyperlipidemia type Cellulitis of foot Cellulitis and abscess of foot, except toes [facility]* Diagnosis Essential hypertension- Primary Unspecified essential hypertension Leukocytosis, unspecified type [facility]* Diagnosis Acute ankle pain, unspecified laterality- Primary Cellulitis of foot Cellulitis and abscess of foot, except toes [facility]* Diagnosis [facility] pain, bilateral- [facility]- Primary Routine general medical examination at a health care facility Type 2 diabetes mellitus without complication, without long-term current use of insulin (HCC) Essential hypertension Unspecified essential hypertension Mixed hyperlipidemia Prostate cancer screening Special screening for malignant neoplasm of prostate [facility]* Diagnosis Acute ankle pain, unspecified laterality [facility] Diagnosis Acute ankle pain, unspecified laterality [facility] Diagnosis Septic olecranon bursitis of right elbow- Primary Cellulitis of foot, left [facility]* Diagnosis Type 2 diabetes mellitus without complication, without long-term current use of insulin (HCC)- Primary Mixed hyperlipidemia documented in this encounter [facility] note* Diagnosis Type 2 diabetes mellitus without complication, without long-term current use of insulin (HCC)- Primary Essential hypertension Unspecified essential hypertension Mixed hyperlipidemia documented in this encounter [facility] note* Diagnosis Gout, unspecified cause, unspecified chronicity, unspecified site- Primary documented in this encounter [facility] note* Diagnosis Type 2 diabetes mellitus without complication, without long-term current use of insulin (HCC) Mixed hyperlipidemia [facility]* Diagnosis Mixed hyperlipidemia documented in this encounter [facility]* Diagnosis Essential hypertension Unspecified essential hypertension documented in this encounter [facility] note* Diagnosis Preventative health care- Primary Routine general medical examination at a health care facility Type 2 diabetes mellitus without complication, without long-term current use of insulin (HCC) Essential hypertension Unspecified essential hypertension Mixed hyperlipidemia Need for Streptococcus pneumoniae vaccination documented in this encounter [facility] note* Diagnosis Upper respiratory tract infection, unspecified type- Primary documented in this encounter [facility] note* Diagnosis Anemia, unspecified type- Primary documented in this encounter [facility] noteNo assessment information availableWWVUMedicine [facility] Work Phone: Evaluation note* Diagnosis Type 2 diabetes mellitus without complication, without long-term current use of insulin (HCC)- Primary Essential hypertension Unspecified essential hypertension Mixed hyperlipidemia Anemia, unspecified type documented in this encounter [facility] for referral (narrative)No reason for referral information availableWWVUMedicine [facility] Work Phone: History of Present Illness * Gerry Luna, DO - 10/18/2019 2:13 PM EDT Subjective Patient ID: Sidney Peraza is a 54 y.o. male. Patient is here for yearly exam The following portions of the patient's history were reviewed and updated as appropriate: allergies, current medications, past family history, past medical history, past social history, past surgicalhistory and problem list. Review of Systems Constitutional: Negative for fatigue and fever. HENT: Negative for sore throat and trouble swallowing. Eyes: Negative for pain and visual disturbance. Respiratory: Negative for cough and wheezing. Cardiovascular: Negative for chest pain and palpitations. Gastrointestinal: Negative for abdominal pain, constipation, diarrhea and nausea. Endocrine: Negative for polydipsia and polyphagia. Genitourinary: Negative for dysuria and urgency. Musculoskeletal: Negative for arthralgias and myalgias. Skin: Negative for color change and rash. Neurological: Negative for dizziness and headaches. Hematological: Negative for adenopathy. Psychiatric/Behavioral: Negative for confusion. The patient is not nervous/anxious. Objective Physical Exam Constitutional: Appearance: He is well-developed. HENT: Head: Normocephalic and atraumatic. Eyes: Conjunctiva/sclera: Conjunctivae normal. Neck: Musculoskeletal: Normal range of motion and neck supple. Cardiovascular: Rate and Rhythm: Normal rate and regular rhythm. Heart sounds: Normal heart sounds. Pulmonary: Effort: Pulmonary effort is normal. Breath sounds: Normal breath sounds. No wheezing. Abdominal: General: Bowel sounds are normal. Palpations: Abdomen is soft. Tenderness: There is no abdominal tenderness. Musculoskeletal: Normal range of motion. Skin: General: Skin is warm and dry. Neurological: Mental Status: He is alert and oriented to person, place, and time. Assessment/Plan: Problem List Items Addressed This Visit None Visit Diagnoses Preventative health care - Primary Relevant Orders CBC Comprehensive Metabolic Panel Lipid Panel Type 2 diabetes mellitus without complication, without long-term current use of insulin (HCC) Relevant Orders External Lab Microalbumin/Creatinine Hemoglobin A1c Essential hypertension Relevant Medications lisinopriL (PRINIVIL,ZESTRIL) 40 MG tablet hydroCHLOROthiazide (HYDRODIURIL) 25 MG tablet Hyperlipidemia, unspecified hyperlipidemia type Need for hepatitis C screening test Relevant Orders Hepatitis C Antibody Prostate cancer screening Relevant Orders PSA, Screen Off meds over a year. States he has gained weight. Did well on previus lisinopril and hctz. rx's rewritten. Advised to get updated vaccines at local pharmacy documented in this encounter* Gerry Luna DO - 01/17/2020 7:57 AM EDT Subjective Patient ID: Sidney Peraza is a 54 y.o. male. Diabetes He presents for his follow-up diabetic visit. He has type 2 diabetes mellitus. His disease course has been stable. Pertinent negatives for hypoglycemia include no confusion, dizziness, headaches or nervousness/anxiousness. Pertinent negatives for diabetes include no chest pain, no fatigue, no polydipsia and no polyphagia. Risk factors for coronary artery disease include diabetes mellitus, dyslipidemia, hypertension and male sex. Current diabetic treatment includes oral agent (monotherapy). He is compliant with treatment all of the time. He is following a generally healthy diet. An DANETTE inhibitor/angiotensin II receptor nicko is being taken. Hypertension This is a chronic problem. The current episode started more than 1 year ago. The problem is controlled (home bp's 120's/60's). Pertinent negatives include no chest pain, headaches or palpitations. Risk factors for coronary artery disease include diabetes mellitus, dyslipidemia, male gender and obesity. The current treatment provides moderate improvement. Hyperlipidemia This is a chronic problem. The current episode started more than 1 year ago. The problem is controlled. Pertinent negatives include no chest pain or myalgias. Current antihyperlipidemic treatment includes diet change. The current treatment provides significant improvement of lipids. There are no compliance problems. Risk factors for coronary artery disease include diabetes mellitus, dyslipidemia,hypertension and male sex. The following portions of the patient's history were reviewed and updated as appropriate: allergies, current medications, past family history, past medical history, past social history, past surgicalhistory and problem list. Review of Systems Constitutional: Negative for fatigue and fever. HENT: Negative for sore throat and trouble swallowing. Eyes: Negative for pain and visual disturbance. Respiratory: Negative for cough and wheezing. Cardiovascular: Negative for chest pain and palpitations. Gastrointestinal: Negative for abdominal pain, constipation, diarrhea and nausea. Endocrine: Negative for polydipsia and polyphagia. Genitourinary: Negative for dysuria and urgency. Musculoskeletal: Negative for arthralgias and myalgias. Skin: Negative for color change and rash. Neurological: Negative for dizziness and headaches. Hematological: Negative for adenopathy. Psychiatric/Behavioral: Negative for confusion. The patient is not nervous/anxious. Objective Physical Exam Constitutional: Appearance: He is well-developed. HENT: Head: Normocephalic and atraumatic. Eyes: Conjunctiva/sclera: Conjunctivae normal. Neck: Musculoskeletal: Normal range of motion and neck supple. Cardiovascular: Rate and Rhythm: Normal rate and regular rhythm. Heart sounds: Normal heart sounds. Pulmonary: Effort: Pulmonary effort is normal. Breath sounds: Normal breath sounds. No wheezing. Abdominal: General: Bowel sounds are normal. Palpations: Abdomen is soft. Tenderness: There is no abdominal tenderness. Musculoskeletal: Normal range of motion. Skin: General: Skin is warm and dry. Neurological: Mental Status: He is alert and oriented to person, place, and time. Diabetic Foot Exam: Right Foot: warm, good capillary refill and normal monofilament exam Left Foot: warm, good capillary refill and normal monofilament exam Assessment/Plan: Problem List Items Addressed This Visit Endocrine Type 2 diabetes mellitus without complication, without long-term current use of insulin (HCC) - Primary Relevant Orders Hemoglobin A1c Basic Metabolic Panel Cardiovascular and Mediastinum Essential hypertension Relevant Medications hydroCHLOROthiazide (HYDRODIURIL) 25 MG tablet lisinopriL (PRINIVIL,ZESTRIL) 40 MG tablet Other Hyperlipidemia Max intake 120gm carbs daily. Minimize concentrated sweets. Home bp's per patient running 124/64. Low salt diet documented in this encounter Assessments Diagnosis Preventative health care Routine general medical examination at a health care facility Type 2 diabetes mellitus without complication, without long-term current use of insulin (HCC) Essential hypertension Unspecified essential hypertension Hyperlipidemia, unspecified hyperlipidemia type Need for hepatitis C screening test Special screening examination for other specified viral diseases Prostate cancer screening Special screening for malignant neoplasm of prostate Diagnosis Type 2 diabetes mellitus without complication, without long-term current use of insulin (HCC)- Primary Essential hypertension Unspecified essential hypertension Hyperlipidemia, unspecified hyperlipidemia type Advance Directives No Advanced Directives Records FoundDocuments on File Type Date Recorded Patient Market Risk Analyst Expl anation Advance Directives and Living Will Summary Purpose Family History No Family History Records FoundNo Family History Records FoundNo Family History Records FoundNo Family History Records FoundNo Family History Records FoundNo Family History Records Found Reason for Referral Specialty Diagnoses / Procedures Referred By Diann lehman Referred To Contact Diagnoses Elevated liver enzymes Procedures US Abdomen Limited Study Gerry Luna DO [address] [place] [address] Referral ID Status Reason Start Date Expiration Date V isits Requested Visits Authorized [id number] Authorized 09/16/2021 09/16/2022 1 1 Chief Complaint and Reason for Visit Chief Complaint Admit Date LABS September 09, 2024 8:20a m Additional Source Comments Reason for Visit (unrecogniz ed section and content) Reason Comments Annual Exam new pt- htn and diab etes. has not been on medications for a year. Reason Comments Follow-up fasting - had flu sh ot Reason Onset Date Comments Medication Refill 07/16/2020 Reason Comments Follow-up Fasting Reason Comments Annual Exam Reason Onset Date Comments Medication Refill 07/24/2021 Reason Comments Follow-up fasting Reason Comments Gap Closure (Health Maintenance) Annual Exam fasting Reason Comments Ear Pain Bilat ear pain (tony p) onset 5 days ago Reason Onset Date Comments Medication Refill 01/29/2023 Reason Comments Annual Exam Gap Closure (Health Maintenance) No diab etic eye examfasting Reason Onset Date Comments Medication Refill 08/18/2023 Reason Comments Gap Closure (Health Maintenance) Eyes- h as not gone yet but got a new one Pain Pain in left big toe and ankle and right elbow pain Reason Comments Gap Closure (Health Maintenance) Follow-up Reason Onset Date Comments Medication Refill 11/04/2023 Reason Onset Date Comments Medication Refill 12/16/2023 Reason Comments Medication Refill Reason Comments Annual Exam Gap Closure (Health Maintenance) Diabeti c Eye Exam due on 2Pneumococcal Vaccine: Ped or At-Risk(2 of 2 - PCV) due on 02/14/2022Wellness Visit due on 03/25/2024 Reason Comments Follow-up No concerns, not fas ting. States had bloodwork last week Gap Closure (Health Maintenance) YAYA paiz w/ Dr Burciaga (unrecognized sect ion and content) No Status Records FoundNo Status Records FoundNo Status Records FoundNo Status Records FoundNo Status Records FoundNo Status Records Found INFORMATION SOURCE (unrecogn ized section and content) DATE CREATED AUTHOR 06/26/2020 [facility] DATE CREATED AUTHOR AUTHOR'S ORGANIZ ATION 09/19/2022 [facility] DATE CREATED AUTHOR AUTHOR'S ORGANIZ ATION 03/27/2023 [facility] DATE CREATED AUTHOR AUTHOR'S ORGANIZ ATION [facility]/09[facility]2023 [facility] DATE CREATED AUTHOR AUTHOR'S ORGANIZ ATION 10/13/2024 [facility] DATE CREATED AUTHOR AUTHOR'S ORGANIZ ATION 10/17/2024 [facility] Telephone Encounter - Nel Robles MA - 07/16/2020 8:45 AM EDT Miscellaneous Notes (unrecog nized section and content) Requested Prescriptions Pending Prescriptions Disp Refills hydroCHLOROthiazide (HYDRODIURIL) 25 MG tablet 90 tablet 1 Sig: Take 1 (one) tablet (25 mg total) by mouth daily . lisinopriL (PRINIVIL,ZESTRIL) 40 MG tablet 90 tablet 1 Sig: Take 1 (one) tablet (40 mg total) by mouth daily . metFORMIN (GLUCOPHAGE) 500 MG tablet 180 tablet 1 Sig: Take 1 (one) tablet (500 mg total) by mouth 2 (two) times a day with meals . [address] documented in this encounter Care Teams (unrecognized sec tion and content) [facility] Nurse Relationship Specialty Start Date End Date Gerry Luna, [place] [address] [place] [address] PCP - General Internal Medicine 10/18/19 Gerry Luna DO [address] [place] [address] PCP - IZABEL Attributed Provider - [employer] 05/07/18 04/05/50 [facility] Nurse Relationship Specialty Start Date End Date Gerry Luna DO [address] [place] [address] PCP - General Internal Medicine 10/18/19 Gerry Luna DO [address] [place] [address] PCP - IZABEL Attributed Provider - [employer] 05/07/18 04/05/50 [facility] Nurse Relationship Specialty Start Date End Date Gerry [place] [place] [address] PCP - General Internal Medicine 10/18/19 [place] [place] [address] PCP - IZABEL Attributed Provider - [employer] 05/07/18 04/05/50 [facility] Nurse Relationship Specialty Start Date End Date Gerry [place] [address] PCP - General Internal Medicine 10/18/19 Gerry Luna DO [address] [place] [address] PCP - IZABEL Attributed Provider - [employer] 05/07/18 04/05/50 [facility] Nurse Relationship Specialty Start Date End Date Gerry [place] [address] PCP - General Internal Medicine 10/18/19 Gerry Luna DO [address] [place] [address] PCP - IZABEL Attributed Provider - [employer] 05/07/18 04/05/50 [facility] Nurse Relationship Specialty Start Date End Date Gerry Luna DO [address] [place] [address] PCP - General Internal Medicine 10/18/19 Gerry Luna DO [address] [place] [address] PCP - IZABEL Attributed Provider - [employer] 05/07/18 04/05/50 [facility] Nurse Relationship Specialty Start Date End Date Gerry Luna DO [address] [place] [address] PCP - General Internal Medicine 10/18/19 Gerry Luna DO [address] [place] [address] PCP - IZABEL Attributed Provider - [employer] 05/07/18 04/05/50 [facility] Nurse Relationship Specialty Start Date End Date Gerry Luna DO [address] [place] [address] PCP - General Internal Medicine 10/18/19 Gerry Luna DO [address] [place] [address] PCP - IZABEL Attributed Provider - [employer] 05/07/18 04/05/50 [facility] Nurse Relationship Specialty Start Date End Date Gerry Luna DO [address] [place] [address] PCP - General Internal Medicine 10/18/19 Gerry Luna DO [address] [place] [address] PCP - IZABEL Attributed Provider - [employer] 05/07/18 04/05/50 [facility] Nurse Relationship Specialty Start Date End Date Gerry Luna DO [address] [place] [address] PCP - General Internal Medicine 10/18/19 [place] [address] PCP - IZABEL Attributed Provider - [employer] 05/07/18 04/05/50 [facility] Nurse Relationship Specialty Start Date End Date Gerry Luna DO [address] [place] [address] PCP - General Internal Medicine 09/19/22 [facility] Nurse Relationship Specialty Start Date End Date Gerry Luna, [address] [place] [address] PCP - General Internal Medicine 10/18/19 Gerry Luna, [address] [place] [address] PCP - IZABEL Attributed Provider - [employer] 05/07/18 04/05/50 [facility] Nurse Relationship Specialty Start Date End Date Gerry Luna DO [address] [place] [address] PCP - General Internal Medicine 10/18/19 Gerry Luna, [address] [place] [address] PCP - IZABEL Attributed Provider - [employer] 05/07/18 04/05/50 [facility] Nurse Relationship Specialty Start Date End Date Gerry Luna, [address] [place] [address] PCP - General Internal Medicine 10/18/19 Gerry Luna, [address] [place] [address] PCP - IZABEL Attributed Provider - [employer] 05/07/18 04/05/50 [facility] Nurse Relationship Specialty Start Date End Date Gerry Luna DO [address] [place] [address] PCP - General Internal Medicine 10/18/19 Gerry Luna DO [address] [place] [address] PCP - IZABEL Attributed Provider - [employer] 05/07/18 04/05/50 [facility] Nurse Relationship Specialty Start Date End Date Gerry Luna DO [address] [place] [address] PCP - General Internal Medicine 10/18/19 Gerry Luna DO [address] [place] [address] PCP - IZABEL Attributed Provider - [employer] 05/07/18 04/05/50 [facility] Nurse Relationship Specialty Start Date End Date Gerry Luna, [address] [place] [address] PCP - General Internal Medicine 10/18/19 Gerry Luna, [address] [place] [address] PCP - IZABEL Attributed Provider - [employer] 05/07/18 04/05/50 [facility] Nurse Relationship Specialty Start Date End Date Gerry Luna DO [address] [place] [address] PCP - General Internal Medicine 10/18/19 Gerry Luna DO [address] [place] [address] PCP - IZABEL Attributed Provider - [employer] 05/07/18 04/05/50 [facility] Nurse Relationship Specialty Start Date End Date Gerry Luna DO [address] [place] [address] PCP - General Internal Medicine 10/18/19 [facility] Nurse Relationship Specialty Start Date End Date Gerry Luna DO [address] [place] [address] PCP - General Internal Medicine 10/18/19 [facility] Nurse Relationship Specialty Start Date End Date Gerry Luna DO [address] [place] [address] PCP - General Internal Medicine 10/18/19 [facility] Nurse Relationship Specialty Start Date End Date Gerry Luna DO [address] [place] [address] PCP - General Internal Medicine 10/18/19 [facility] Nurse Relationship Specialty Start Date End Date Gerry Luna DO [address] [facility] [place] [address] PCP - General Internal Medicine 10/18/19 [facility] Nurse Relationship Specialty Start Date End Date Gerry Luna DO [address] [facility] [place] [address] PCP - General Internal Medicine 10/18/19 [facility] Nurse Relationship Specialty Start Date End Date Gerry Luna DO [address] [place] [address] PCP - General Internal Medicine 10/18/19 Team Status: Active Member Role Status Dates Dr. Gerry Luna DO Primary Care Provider Act otoniel Team Status: Inactive Member Role Status Dates Dr. Gerry Luna DO Primary Care Provider Act otoniel Start: September 09, 2024 End: September 09, 2024 Dr. Gerry Luna DO Attending Provider Active Start: September 09, 2024 End: September 09, 2024 Dr. Gerry Luna DO Referring Provider Active Start: September 09, 2024 End: September 09, 2024 [facility] Nurse Relationship Specialty Start Date End Date Gerry Luna DO [address] [place] [address] PCP - General Internal Medicine 10/18/19 Team Status: Inactive Member Role Status Dates Dr. Gerry Luna DO Primary Care Provider Act otoniel Start: September 15, 2024 End: September 15, 2024 Dr. Gerry Luna DO Attending Provider Active Start: September 15, 2024 End: September 15, 2024 Dr. Gerry Luna DO Referring Provider Active Start: September 15, 2024 End: September 15, 2024 Goals (unrecognized section and content) Goals may be documented in a n alternate sectionGoals may be documented in an alternate section FOR RECORDS PERTAINING TO PATIENTS WHO ARE OR HAVE BEEN ENROLLED IN A CHEMICAL DEPENDENCY/SUBSTANCEABUSE PROGRAM, SOME INFORMATION MAY BE OMITTED. This clinical summary was aggregated from multiple sources. Caution should be exercised in using it in the provision of clinical care. This summary normalizes information from multiple sources, and as a consequence, information in this document may materially change the coding, format and clinical context of patient data. In addition, data may be omitted in some cases. CLINICAL DECISIONS SHOULD BE BASED ON THE PRIMARY CLINICAL RECORDS. [employer] provides no warranty or guarantee of the accuracy or completeness of information in this document.
[2024-10-17] MEDS: Lactated Ringers 1,000 ML 15 ML IV (07:35)
--- NOTE | 2024-10-17 07:41 | PRE.ANES_ITS ---
ASA Classification* ASA Classification ASA Classification: 2 Assessment & Plan Anesthesia* Anesthesia Assessment Anesthesia Assessment: Discussed sedation and/or anesthesia options, risks, benefits, and alternatives with patient/parents/legal guardian/POA. Questions invited. The patient/parents/legal guardian/POA seems to understand and agrees to proceed with anesthesia plan. Reviewed the physical assessment, medical history, allergy history and patient home medications list prior to surgery/procedure/anesthetic and documented any changes. Performed airway and anesthesia risk assessments. Anesthesia Type Anesthesia Type: MAC History Source History Obtained from:: Patient and Chart Anesthesia Focused Assessment* Temperature: 97.4 F Pulse Rate: 92 Blood Pressure: 109/81 Respiratory Rate: 16 Pulse Ox: 100 Oxygen Delivery Method: Room Air Airway Assessment Mouth opens: >3 cm Mallampati Score: II Teeth Condition: Intact Neck Range of motion (ROM): Full ROM Labs Anesthesia Preop lab: CBC WBC 8.8 K/mm3 (4.4-11.0) 09/09/24 08:09/09/24 RBC 3.94 M/mm3 (4.6-6.2) L 09/09/24 08:26 09/09/24 Hgb 11.9 g/dL (13.0-16.5) L 09/09/24 08:26 5 Hct 36.2 % (40-54) L 09/09/24 08:26 09/09/24 Plt Count 212 K/mm3 (150-450) 09/09/24 08:26 09/09/24 CHEMISTRY Potassium 5.1 mmol/L (3.3-5.1) 09/09/24 08:26 09/09/24 Sodium 138 mmol/L (133-145) 09/09/24 08:26 09/09/24 BUN 14 mg/dL (4-19) 09/09/24 08:09/09/24 Creatinine 1.09 mg/dL (0.70-1.20) 09/09/24 08:26 09/09/24 Glucose 102 mg/dL (70-99) H 09/09/24 08:26 09/09/24 COAG Pre-Assessment Diagnosis/Proposed Procedure Planned Operative Procedure(s): COLONOSCOPY-OA Anesthesia History 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 When Was Last Pacemaker Check QUESTION #4 FULL TEXT: You/Your Family Experience fever (hyperthermia) with Anesthesia Last Oral Intake Last Oral intake: Last Oral Intake NPO since :30 10/17/24 07:25 Meds taken in AM with sips of water? Meds patient instructed to take am of surgery PONV PONV - resource room teacher: PONV - resource room teacher Female No 10/12/24 11:34 HX of Motion Sickness No 10/12/24 11:34 HX of N/V After Surgery No 10/12/24 11:34 Non-Smoker Yes 10/12/24 11:34 Duration of Surgery greater No 10/12/24 11:34 than 60 minutes Number of Risk Factors 1 10/12/24 11:34 PONV Score Low Risk 10/12/24 11:34 Height & Weight Height & Weight: Anesthesia: Height & Weight Height 5 ft 9 in 10/17/24 07:25 Weight: 95 kg 10/17/24 07:25 Body Mass Index (BMI) 30.9 10/17/24 07:25 Respiratory Assessment Respiratory Assessment - resource room teacher: Respiratory Tract Infection Hx - resource room teacher Hx Respiratory Tract Infection No 10/12/24 11:34 STOP Sleep Apnea STOP Sleep Apnea - resource room teacher: STOP Sleep Apnea - resource room teacher Hx Hypertension Yes: CONTROLLED ON MED 10/12/24 11:34 Hx Sleep Apnea No 10/12/24 11:34 CPAP BIPAP Do you snore loudly (louder No 10/12/24 11:34 than talking or can be heard Do you often feel tired/ No 10/12/24 11:34 fatigued/ sleepy during daytime? Has anyone observed you stop No 10/12/24 11:34 breathing during sleep? STOP Results Negative 10/12/24 11:34 QUESTION #5 FULL TEXT : Do you snore loudly (louder than talking or can be heard through closed doors)? 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 Specify any problems Hx of Preganancy in last 3 N/A 10/12/24 11:34 Months Nurse Filling Out Transfusion VCHRISTIN 10/12/24 11:34 & Questions: Date: 10/12/24 10/12/24 11:34 Time: 11:36 10/12/24 11:34 Patient unable to answer at this time (ie. confused, unrespo /Reproduction History /Reproductive History - resource room teacher: /Reproductive Hx- resource room teacher Hx Now No 10/12/24 11:34 Gestational Age (in weeks): EDC: Hx Hx Para Hx Section SAB No 10/12/24 11:34 Active Medications Active Medications: Current Medications Generic Name Dose Route Start Last Admin Trade Name Freq PRN Reason Stop Dose Admin Lactated Ringer's 1,000 mls @ 15 mls/hr 10/17/24 07:45 10/17/24 07:35 IV 15 mls/hr .Q48H ARIELLE Administration PFSH Medical History Hemorrhoid Wears glasses Gout Arthritis DVT (deep venous thrombosis) Anemia Non-smoker Hypertension Home Medications ?Medication ?Instructions ?Recorded ?Last Taken ?Type atorvastatin 20 mg tablet 20 mg PO DAILY 08/20/2310/04 History hydrochlorothiazide 25 mg tablet 25 mg PO DAILY 10/14/24 History lisinopril 40 mg tablet 40 mg PO DAILY 08/20/2310/04 History metformin 1,000 mg tablet 1,000 mg PO BID 08/20/23 History allopurinol 100 mg tablet 100 mg PO QHS 10/12/2410/14 History ferrous sulfate 325 mg (65 mg 325 mg PO DAILY 10/12/24 10/06/24 History iron) tablet (FeroSul) latanoprost 0.005 % eye drops 1 drp ophthalmic (eye) Q HS 10/12/24 10/17/24 History nifedipine 30 mg tablet,extended 30 mg PO DAILY 10/17/24 History release 24 hr Allergy/AdvReac Type Severity Reaction Status Date / Time No Known Allergies Allergy Verified 10/17/24 07:20 Surgical History (Updated 08/24/23 @ 08:11 by Sherly Baeza) H/O foot surgery Social History (Updated 08/24/23 @ 08:11 by Sherly Baeza) household members: family Smoking Status: Never smoker alcohol intake: current Review of Systems (Anesthesia) ROS Narrative System reviewed and no additional complaints, except as documented. Physical Exam Const alert, oriented x3 and average body habitus Resp normal respiratory effort and normal air movement Cardio regular rate Neuro oriented x3 and moves all extremities
--- NOTE | 2024-10-17 08:00 | COLBX_PTH ---
PATIENT: MILY PERAZA LOC: EN U#:[id number] AGE/SX: 59/M ROOM: RE10/17/[address]: Dr. Moreno Mosqueda DO : 1965 BED: DIS: 10/17/2024 SPEC #: [id number] RECD: 10/17/24 09:51 STATUS: KONRAD ACEVESSurinder #: [id number] ELINOR: 10/17/24 08:[address]: Moreno Mosqueda DEPT: SURGICAL PATHOLOGY RECD BY: Alejandro Llanos ENTERED: 10/17/24 11:12 SP TYPE: COLON BX LEATHA DR: Dr. Nikunj Luna DO Tissues: A - Sigmoid colon biopsy Procedures: Surgery Specimen Level IV HEADER OPERATION: Colonoscopy, polypectomy PRE-OP DIAGNOSIS: Personal history of colonic polyps TISSUE SUBMITTED: A- Sigmoid polyp MICROSCOPIC DIAGNOSIS A. Large intestine, sigmoid polyp, biopsy: * Tubular adenoma MICROSCOPIC DESCRIPTION Slides are reviewed. GROSS DESCRIPTION A. Received in fixative is one container labeled with the patient's name and designated Sigmoid polyp. The specimen consists of two irregular fragments of light brower soft tissue that in aggregate measure 0.3 and 0.5 cm. The specimen is totally submitted in one cassette. CT 10/17/2024 CPT:46368
--- NOTE | 2024-10-17 08:36 | PCM.HP.STD ---
[facility] - General General Date of Admission: 10/17/24 Date of Service: 10/17/24 Chief Complaint: Surveillance colonoscopy HPI Narrative MILY PERAZA, is a 59 M who presents today for surveillance colonoscopy. He had a full colonoscopy back in 2019. During a colonoscopy discovered to have 1 adenomatous polyp that was removed. He is not having any problems with his bowels at this time. He has a past medical history hypertension diabetes which are controlled with medicines. Overall is in fairly good health. [facility] Medical History Hemorrhoid Wears glasses Gout Arthritis DVT (deep venous thrombosis) Anemia Non-smoker Hypertension Home Medications ?Medication ?Instructions ?Recorded ?Last Taken ?Type atorvastatin 20 mg tablet 20 mg PO DAILY 08/20/23 10/14/24 History hydrochlorothiazide 25 mg tablet 25 mg PO DAILY 08/20/23 10/14/24 History lisinopril 40 mg tablet 40 mg PO DAILY 08/20/23 10/14/24 History metformin 1,000 mg tablet 1,000 mg PO BID 08/20/23 10/16/24 History allopurinol 100 mg tablet 100 mg PO QHS 10/12/24 10/14/24 History ferrous sulfate 325 mg (65 mg 325 mg PO DAILY 10/12/24 10/06/24 History iron) tablet (FeroSul) latanoprost 0.005 % eye drops 1 drp ophthalmic (eye) QHS 10/12/24 10/17/24 History nifedipine 30 mg tablet,extended 30 mg PO DAILY 10/12/24 10/17/24 History release 24 hr Allergy/AdvReac Type Severity Reaction Status Date / Time No Known Allergies Allergy Verified 10/17/24 07:20 Surgical History H/O foot surgery Social History household members: family Smoking Status: Never smoker alcohol intake: current ROS Constitutional Constitutional: Denies fatigue, fever(s), poor appetite, weight gain or weight loss Gastrointestinal Gastrointestinal: Denies belching, bloating, change in bowel habits, change in stool character, chewing difficulty, coffee ground emesis, constipation, cramping, diarrhea, dyspepsia, dysphagia, early satiety, excessive flatus, fecal incontinence, heartburn, hematemesis, hematochezia, hemorrhoids, loose stools, melena, nausea, odynophagia, rectal bleeding, tenesmus, vomiting or weight changes Vital Signs Vital Signs Vital Signs: 10/17/24 07:25 10/17/24 07:25 10/17/24 07:44 Temperature 97.4 F L 97.4 F L Temperature Source Temporal Pulse Rate 92 92 Respiratory Rate 16 16 Respiratory Pattern Normal Blood Pressure 109/81 H 109/81 H Blood Pressure Mean 90 Blood Pressure Source Monitor Blood Pressure Position Semi-Fowlers Blood Pressure Location Left Arm Pulse Ox 100 100 Oxygen Delivery Method Room Air Room Air Weight Weight: 209 lb 7.026 oz Body Mass Index (BMI) 30.9 Physical Exam Const alert, oriented x3, no apparent distress and healthy appearing General Appearance: cooperative GI normal to inspection, nondistended, normoactive bowel sounds, soft to palpation, non-tender and non-distended Percussion: normal to percussion Rectal Exam: deferred Results Lab / Micro Data Labs: Laboratory Results - last 24 hr 10/17/24 07:23: POC Glucose 99 Assessment & Plan Assessment/Plan (1) Personal history of colonic polyps: PLAN: Patient will undergo colonoscopy. He was explained alternatives, risk and benefits include not withstanding bleeding, infection, sepsis, perforation, need for return to . He will have an ASA of 3.
--- NOTE | 2024-10-17 09:14 | OP.CCLET_ITS ---
10/17/2024 Nikunj Luna, Re : Colonoscopy procedure for Sidney Ingram Dear Dr. Luna This procedure was performed on Thursday, October 17, 2024. My impressions and recommendations are as follows: Impressions : - One 8 mm polyp in the sigmoid colon, removed with a hot snare. Resected and retrieved. - Diverticulosis in the recto-sigmoid colon and in the sigmoid colon. - Non-bleeding hemorrhoids. Recommendations : - Repeat colonoscopy in 5 years for surveillance. - Continue present medications. My findings are described in the full procedure note, which is enclosed. If I can be of further assistance, please feel free to contact me at . Sincerely, Moreno Mosqueda, 10/17/2024 9:13:56 AM This report has been signed electronically.
--- NOTE | 2024-10-17 09:14 | OP.COLON_ITS ---
Patient Name: Sidney Ingram Procedure Date: 10/17/2024 8:42 AM Date of : 1965 Age: 59 Procedure: Colonoscopy Indications: High risk colon cancer surveillance: Personal history of colonic polyps Providers: Moreno Mosqueda DO Referring MD: Nikunj Luna Do Medicines: Monitored Anesthesia Care Patient Profile: This is a 59 year old male. Refer to note in patient chart for documentation of history and physical. Last Colonoscopy: 5 years ago. Complications: No immediate complications. Procedure: Pre-Anesthesia Assessment: - Prior to the procedure, a History and Physical was performed, and patient medications and allergies were reviewed. The patient is competent. The risks and benefits of the procedure and the sedation options and risks were discussed with the patient. All questions were answered and informed consent was obtained. Patient identification and proposed procedure were verified by the physician in the pre-procedure area. Mental Status Examination: alert and oriented. Airway Examination: normal oropharyngeal airway and neck mobility. Respiratory Examination: clear to auscultation. CV Examination: normal. ASA Grade Assessment: II - A patient with mild systemic disease. After reviewing the risks and benefits, the patient was deemed in satisfactory condition to undergo the procedure. The anesthesia plan was to use monitored anesthesia care (MAC). Immediately prior to administration of medications, the patient was re-assessed for adequacy to receive sedatives. The heart rate, respiratory rate, oxygen saturations, blood pressure, adequacy of pulmonary ventilation, and response to care were monitored throughout the procedure. The physical status of the patient was re-assessed after the procedure. After I obtained informed consent, the scope was passed under direct vision. Throughout the procedure, the patient's blood pressure, pulse, and oxygen saturations were monitored continuously. The Colonoscope was introduced through the anus and advanced to the cecum, identified by appendiceal orifice and ileocecal valve. The colonoscopy was performed without difficulty. The patient tolerated the procedure well. The quality of the bowel preparation was adequate. The ileocecal valve, appendiceal orifice, and rectum were photographed. Scope In: 8:52:45 AM Scope Withdrawal Time 0 hours 9 minutes 41 seconds Scope Out: 9:05:37 AM Total Procedure Duration Time 0 hours 12 minutes 52 seconds Findings: The perianal and digital rectal examinations were normal. An 8 mm polyp was found in the sigmoid colon. The polyp was sessile. The polyp was removed with a hot snare. Resection and retrieval were complete. Verification of patient identification for the specimen was done. Estimated blood loss was minimal. A few small-mouthed diverticula were found in the recto-sigmoid colon and sigmoid colon. Non-bleeding hemorrhoids were found during retroflexion. The hemorrhoids were Grade III (internal hemorrhoids that prolapse but require manual reduction) and Grade IV (internal hemorrhoids that prolapse and cannot be reduced manually). Impression: - One 8 mm polyp in the sigmoid colon, removed with a hot snare. Resected and retrieved. - Diverticulosis in the recto-sigmoid colon and in the sigmoid colon. - Non-bleeding hemorrhoids. Recommendation: - Repeat colonoscopy in 5 years for surveillance. - Continue present medications. Procedure Code(s): --- Professional --- 63046, Colonoscopy, flexible; with removal of tumor(s), polyp(s), or other lesion(s) by snare technique CPT copyright 2021 [employer]. All rights reserved. The codes documented in this report are preliminary and upon language tutor review may be revised to meet current compliance requirements. Moreno Mosqueda DO 10/17/2024 9:13:56 AM This report has been signed electronically. Number of Addenda: 0 Note Initiated On: 10/17/2024 8:42 AM
--- NOTE | 2024-10-17 09:17 | PCM.POST.ANE ---
Anesthesia: Postop Eval I Current Vital Signs Temperature: 97 F Pulse Rate: 76 Blood Pressure: 103/87 Respiratory Rate: 16 Pulse Ox: 96 Oxygen Delivery Method: Room Air Assessment Airway patent: Yes Spontaneous unlabored respirations: Yes Mental status: Awake and Calm nausea: No Vomiting: No Anesthesia Complication: No Fluid Hydration Crystalloid volume administer (ml): 900 Total IV fluid infused: 900 Progress Note Anesthesia document: Postop Eval 1 completed: Yes
--- NOTE | 2024-10-17 10:31 | PCM.POSTANE2 ---
Anesthesia Postop Eval I Sum Postop Eval Completion status Anesthesia document: Postop Eval 1 completed: Yes Anesthesia Postop Eval I Summary Anesthesia Postop Eval I Summary: Anesthesia Postop Eval I: Assessment Summary Airway patent Yes 10/17/24 09:43 [email or web address] Spontaneous unlabored Yes 10/17/24 09:43 [email or web address] respirations Mental status Awake,Calm 10/17/24 09:43 [email or web address] nausea No 10/17/24 09:43 [email or web address] Vomiting No 10/17/24 09:43 [email or web address] Anesthesia Postop Eval I: Fluid Summary Crystalloid volume administer 900 10/17/24 09:43 [email or web address] (ml) Colloids volume administered ( ml) Blood Product volume administered (ml) Total IV fluid infused 900 10/17/24 09:43 [email or web address] Anesthesia Postop Eval I: Summary Notes Anesthesia Complication No 10/17/24 09:43 [email or web address] Anesthesia Complication Comment: Post-operative progress note Anesthesia: Postop Eval II Evaluation Mental status: Awake and Calm Pain Level: 0 nausea: No Vomiting: No Complications Anesthesia Complication: No
== END 2024-10-17 09:54 | disposition home or self-care (01) ==
LOC: EN 07:00 → AC 07:02
PROVIDERS: PCP Internal Medicine; Referring Provider Internal Medicine; Visit Provider Internal Medicine Gastroenterology
PROC: 0DJD8ZZ Inspection of Lower Intestinal Tract, Via Natural or Artificial Opening Endoscopic (ICD-10-PCS; CPT 45378; principal; 2024-10-17 07:55)
DX: Z12.11 Encounter for screening for malignant neoplasm of colon (principal); K57.30 Diverticulosis of large intestine without perforation or abscess without bleeding; K64.2 Third degree hemorrhoids; K64.3 Fourth degree hemorrhoids; Z86.718 Personal history of other venous thrombosis and embolism; Z79.899 Other long term (current) drug therapy; I10 Essential (primary) hypertension; Z86.0100 Personal history of colon polyps, unspecified; Z79.84 Long term (current) use of oral hypoglycemic drugs; D12.5 Benign neoplasm of sigmoid colon
CPT/HCPCS: 45385; 82962; 88305; J2405

== ENCOUNTER 2024-11-24 08:54 | Day surgery (SDC) | payer OTHER, SELFPAY ==
[2024-11-24] VITALS (8 sets, daily range): BP systolic 100–125; BP diastolic 60–74; PULSE 78–93; RESP 14–20; TEMP 36.1–36.8; O2SAT 91–97; BMI 30.6
--- NOTE | 2024-11-24 09:04 | EKG12_ITS ---
Test Reason : PRE OP Blood Pressure : */* mmHG Vent. Rate : 81 BPM Atrial Rate : 81 BPM P-R Int : 160 ms QRS Dur : 92 ms QT Int : 368 ms P-R-T Axes : 12 4 19 degrees QTcB Int : 427 ms Normal sinus rhythm Normal ECG No previous ECGs available Confirmed by CRYSTAL PLEITEZ, NICO ([id number]), rewrite editor YELENA DE LA GARZA ([id number]) on 11/28/2024 6:32:38 AM Referred By: Harrison Courtney Confirmed By: NICO ROJAS MD
[2024-11-24] MEDS: Lactated Ringers 1,000 ML 15 ML IV (09:21)
--- NOTE | 2024-11-24 09:31 | PCM.PRE.AN2 ---
ASA Classification* ASA Classification ASA Classification: 3 Assessment & Plan Anesthesia* Anesthesia Assessment Anesthesia Assessment: Discussed sedation and/or anesthesia options, risks, benefits, and alternatives with patient/parents/legal guardian/POA. Questions invited. The patient/parents/legal guardian/POA seems to understand and agrees to proceed with anesthesia plan. Reviewed the physical assessment, medical history, allergy history and patient home medications list prior to surgery/procedure/anesthetic and documented any changes. Performed airway and anesthesia risk assessments. Anesthesia Type Anesthesia Type: General History Source History Obtained from:: Patient and Chart Anesthesia Focused Assessment* Temperature: 97.5 F Pulse Rate: 83 Blood Pressure: 125/73 Respiratory Rate: 16 Pulse Ox: 97 Oxygen Delivery Method: Room Air Airway Assessment Mouth opens: >3 cm Mallampati Score: II Teeth Condition: Intact Neck Range of motion (ROM): Full ROM Labs Anesthesia Preop lab: CBC WBC 8.8 K/mm3 (4.4-11.0) 09/09/24 08:09/09/24 RBC 3.94 M/mm3 (4.6-6.2) L 09/09/24 08:26 09/09/24 Hgb 11.9 g/dL (13.0-16.5) L 09/09/24 08:26 09/09/24 Hct 36.2 % (40-54) L 09/09/24 08:26 09/09/24 Plt Count 212 K/mm3 (150-450) 09/09/24 08:26 09/09/24 CHEMISTRY Potassium 5.1 mmol/L (3.3-5.1) 09/09/24 08:26 09/09/24 Sodium 138 mmol/L (133-145) 09/09/24 08:26 09/09/24 BUN 14 mg/dL (4-19) 09/09/24 08:26 09/09/24 Creatinine 1.09 mg/dL (0.70-1.20) 09/09/24 08:26 09/09/24 Glucose 102 mg/dL (70-99) H 09/09/24 08:26 09/09/24 POC Glucose 99 mg/dL (74-106) 10/17/24 07:23 10/17/24 COAG Pre-Assessment Diagnosis/Proposed Procedure Planned Operative Procedure(s): Doppler Guided Hemorrhoid Ligation TDH hemorrhoidectomy w/excision prolapsed internal hemorrhoids Anesthesia History Anesthesia History - 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 When Was Last Pacemaker Check QUESTION #4 FULL TEXT: You/Your Family Experience fever (hyperthermia) with Anesthesia Last Oral Intake Last Oral intake: Last Oral Intake NPO since 17:30 11/24/24 09:16 Meds taken in AM with sips of Yes 11/24/24 09:16 water? Meds patient instructed to PROCARDIA 11/24/24 09:16 take am of surgery PONV PONV - supervisor tumblers: PONV - supervisor tumblers Female No 11/10/24 12:39 HX of Motion Sickness No 11/10/24 12:39 HX of N/V After Surgery No 11/10/24 12:39 Non-Smoker Yes 11/10/24 12:39 Duration of Surgery greater Yes 11/10/24 12:39 than 60 minutes Number of Risk Factors 2 11/10/24 12:39 PONV Score Moderate Risk 11/10/24 12:39 Height & Weight Height & Weight: Anesthesia: Height & Weight Height 5 ft 9 in 11/24/24 09:16 Weight: 94 kg 11/24/24 09:16 Body Mass Index (BMI) 30.6 11/24/24 09:16 Respiratory Assessment Respiratory Assessment - supervisor tumblers: Respiratory Tract Infection Hx - supervisor tumblers Hx Respiratory Tract Infection No 11/10/24 12:39 STOP Sleep Apnea STOP Sleep Apnea - supervisor tumblers: STOP Sleep Apnea - supervisor tumblers Hx Hypertension Yes: ON MEDS 11/10/24 12:39 Hx Sleep Apnea No 11/10/24 12:39 CPAP BIPAP Do you snore loudly (louder No 11/10/24 12:39 than talking or can be heard Do you often feel tired/ No 11/10/24 12:39 fatigued/ sleepy during daytime? Has anyone observed you stop No 11/10/24 12:39 breathing during sleep? STOP Results Negative 11/10/24 12:39 QUESTION #5 FULL TEXT : Do you snore loudly (louder than talking or can be heard through closed doors)? 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 Specify any problems Hx of Preganancy in last 3 N/A 11/10/24 12:39 Months Nurse Filling Out Transfusion JZOLLINGE 11/10/24 12:39 & Questions: Date: 11/10/24 11/10/24 12:39 Time: 12:41 11/10/24 12:39 Patient unable to answer at this time (ie. confused, unrespo /Reproduction History /Reproductive History - supervisor tumblers: /Reproductive Hx- supervisor tumblers Hx Now No 11/10/24 12:39 Gestational Age (in weeks): EDC: Hx Hx Para Hx Section SAB No 11/10/24 12:39 Active Medications Active Medications: Current Medications Generic Name Dose Route Start Last Admin Trade Name Freq PRN Reason Stop Dose Admin Lactated Ringer's 1,000 mls @ 15 mls/hr 11/24/24 09:00 11/24/24 09:21 IV 15 mls/hr .Q48H ARIELLE Administration PFSH Medical History (Updated 11/10/24 @ 12:39 by Toyin Vasquez) Dietary restriction Hemorrhoid Wears glasses Gout Arthritis DVT (deep venous thrombosis) Anemia Non-smoker Hypertension Home Medications ?Medication ?Instructions ?Recorded ?Last Taken ?Type atorvastatin 20 mg tablet 20 mg PO DAILY 08/20/23 11/23/24 History hydrochlorothiazide 25 mg tablet 25 mg PO DAILY 08/20/23 11/23/24 History lisinopril 40 mg tablet 40 mg PO DAILY 08/20/23 11/23/24 History metformin 1,000 mg tablet 1,000 mg PO BID 08/20/23 11/23/24 History allopurinol 100 mg tablet 100 mg PO QHS 10/12/24 11/23/24 History ferrous sulfate 325 mg (65 mg 325 mg PO DAILY 10/12/24 11/20/24 History iron) tablet (FeroSul) latanoprost 0.005 % eye drops 1 drp ophthalmic (eye) QHS 10/12/24 11/22/24 History nifedipine 30 mg tablet,extended 30 mg PO DAILY 10/12/24 11/24/24 History release 24 hr Allergy/AdvReac Type Severity Reaction Status Date / Time No Known Allergies Allergy Verified 11/24/24 09:14 Surgical History (Updated 11/10/24 @ 12:39 by Toyin Vasquez) Hx of colonoscopy with polypectomy H/O foot surgery Social History household members: family Smoking Status: Never smoker alcohol intake: current Review of Systems (Anesthesia) ROS Narrative System reviewed and no additional complaints, except as documented.
--- NOTE | 2024-11-24 10:30 | HEM_PTH ---
PATIENT: MILY PERAZA LOC: [facility] – [place] U#:[id number] AGE/SX: 59/M ROOM: RE11/24/[address]: Dr. Harrison Courtney MD : 1965 BED: DIS: 11/24/2024 SPEC #: [id number] RECD: 11/24/24 13:21 STATUS: KONRAD RESurinder #: [id number] ELINOR: 11/24/24 10:[address]: Harrison Courtney DEPT: SURGICAL PATHOLOGY RECD BY: Alejandro Llanos ENTERED: 11/24/24 14:53 SP TYPE: HEMORRHOID OTHR DR: Dr. Nikunj Luna, Tissues: A - HEMORRHOIDS Procedures: Surgery Specimen Level III HEADER OPERATION: Hemorrhoid, artery ligation, hemorrhoidectomy with excision PRE-OP DIAGNOSIS: Hemorrhoid TISSUE SUBMITTED: A- Internal hemorrhoid MICROSCOPIC DIAGNOSIS A. Anal region, internal hemorrhoidectomy: * Benign hemorrhoidal tissue MICROSCOPIC DESCRIPTION Slides are reviewed. GROSS DESCRIPTION A. Received in formalin labeled with the patient's name and date of . Designated as internal hemorrhoid is a 2.7 x 1.0 x 0.9 cm pink-brower red, focally granular rubbery portion of tissue. The cauterized resection margin is inked black. Sectioning reveals red, rubbery and congested cut surfaces. Clinical Systems Educator sections are submitted in 1 cassette. [place] 11/24/2024 CPT:75434
--- NOTE | 2024-11-24 10:48 | PCM.HP.STD ---
HPI - General General Date of Admission: 11/24/24 Date of Service: 11/24/24 Chief Complaint: Bleeding hemorrhoids HPI Narrative MILY PERAZA, is a 59 M who presents today for elective Doppler hemorrhoid artery ligation surgery as well as excision of a prolapsing internal hemorrhoid [facility] Medical History (Updated 11/10/24 @ 12:39 by Toyin Vasquez) Dietary restriction Hemorrhoid Wears glasses Gout Arthritis DVT (deep venous thrombosis) Anemia Non-smoker Hypertension Home Medications ?Medication ?Instructions ?Recorded ?Last Taken ?Type atorvastatin 20 mg tablet 20 mg PO DAILY 08/20/23 11/23/24 History hydrochlorothiazide 25 mg tablet 25 mg PO DAILY 08/20/23 11/23/24 History lisinopril 40 mg tablet 40 mg PO DAILY 08/20/23 11/23/24 History metformin 1,000 mg tablet 1,000 mg PO BID 08/20/23 11/23/24 History allopurinol 100 mg tablet 100 mg PO QHS 10/12/24 11/23/24 History ferrous sulfate 325 mg (65 mg 325 mg PO DAILY 10/12/24 11/20/24 History iron) tablet (FeroSul) latanoprost 0.005 % eye drops 1 drp ophthalmic (eye) QHS 10/12/24 11/22/24 History nifedipine 30 mg tablet,extended 30 mg PO DAILY 10/12/24 11/24/24 History release 24 hr Allergy/AdvReac Type Severity Reaction Status Date / Time No Known Allergies Allergy Verified 11/24/24 09:14 Surgical History (Updated 11/10/24 @ 12:39 by Toyin Vasquez) Hx of colonoscopy with polypectomy H/O foot surgery Social History household members: family Smoking Status: Never smoker alcohol intake: current Vital Signs Vital Signs Vital Signs: 11/24/24 09:16 11/24/24 09:16 11/24/24 09:32 Temperature 97.5 F L 97.5 F L Temperature Source Temporal Pulse Rate 83 83 Respiratory Rate 16 16 Respiratory Pattern Normal Blood Pressure 125/73 H 125/73 H Blood Pressure Mean 90 Blood Pressure Source Monitor Blood Pressure Position Semi-Fowlers Blood Pressure Location Left Arm Pulse Ox 97 97 Oxygen Delivery Method Room Air Room Air Weight Weight: 207 lb 3.752 oz Body Mass Index (BMI) 30.6 Physical Exam Const alert, oriented x3 and no apparent distress Assessment & Plan Assessment/Plan (1) Hemorrhoid: PLAN: Plan The patient is a 59-year-old male who presents with bleeding internal hemorrhoids as well as a prolapsing internal hemorrhoid. I have offered him a Doppler hemorrhoid artery ligation surgery along with excision of prolapsed internal hemorrhoid. We discussed the details of the planned procedure including risks benefits and alternatives. He wishes to proceed. Surgery began momentarily Charges/Coding Visit Charges Inpatient E&M: 71353 Init Hosp L3
[2024-11-24] MEDS: Lactated Ringers 1,000 ML 1000 ML IV (10:54)
[2024-11-24] MEDS: Midazolam 2 MG/2 ML Syringe IV (11:00)
[2024-11-24] MEDS: Lidocaine 1% (5 ml sdv) 5 ML Vial IV (11:00)
[2024-11-24] MEDS: fentaNYL 100 MCG/2 ML Ampul IV (11:00)
[2024-11-24] MEDS: Bupiv/Epi 0.25% 30 ML Vial (11:42)
--- NOTE | 2024-11-24 12:14 | PCM.POST.ANE ---
Anesthesia: Postop Eval I Current Vital Signs Temperature: 97.8 F Pulse Rate: 90 Blood Pressure: 104/63 Respiratory Rate: 20 Pulse Ox: 93 Oxygen Delivery Method: Room Air Assessment Airway patent: Yes Spontaneous unlabored respirations: Yes Mental status: Awake and Calm nausea: No Vomiting: No Anesthesia Complication: No Fluid Hydration Crystalloid volume administer (ml): 900 Total IV fluid infused: 900 Progress Note Anesthesia document: Postop Eval 1 completed: Yes
--- NOTE | 2024-11-24 12:22 | EX.PCM.DISCH ---
Discharge Instructions Diet Discharge Diet: Light diet - advance as tolerated Activity Discharge Activity: No Restrictions, May Shower and May Take a Tub Bath May shower in (days): 1 Dressing / Incision Call your doctor if your incision/area has: Continuous Slow Oozing, Sudden Increased Bleeding, Increased Pain/ Swelling, Increased Redness, Foul Smelling Discharge and Swelling at the incision site Call your doctor if you observe: Fever of 101 or Higher Cleanse incision/area with: Soap & Water Follow Up Care Please Follow Up With: Harrison Courtney MD When: 2 weeks. Please call my office to schedule appointment Test Results: Test results from this visit will be discussed in further detail at your follow-up appointment, if applicable. Discharge Plan Admission Primary Reason for Your Visit: Hemorrhoid surgery Attending Provider: Harrison Courtney Primary Care Provider: Nikunj Luna Instructions Print Language: Albanian Discharge Orders/Prescriptions Prescriptions: New oxycodone 5 mg tablet 5 mg PO Q8H PRN (Reason: pain) 3 Days Qty: 12 0RF Continued allopurinol 100 mg tablet 100 mg PO QHS nifedipine 30 mg tablet extended release 24hr 30 mg PO DAILY latanoprost 0.005 % drops 1 drp ophthalmic (eye) QHS ferrous sulfate [FeroSul] 325 mg (65 mg iron) tablet 325 mg PO DAILY atorvastatin 20 mg tablet 20 mg PO DAILY metformin 1,000 mg tablet 1,000 mg PO BID hydrochlorothiazide 25 mg tablet 25 mg PO DAILY lisinopril 40 mg tablet 40 mg PO DAILY Referrals / Follow Up: Nikunj Luna, DO [Primary Care Provider] - Disposition Disposition (needs filled in before D/C Order can be placed): Home, Self Care
--- NOTE | 2024-11-24 12:26 | OP.PCM_ITS ---
Problems Associated Problem List Diagnoses (1) Hemorrhoid: Multi Select Codes Digestive Digestive CPT Codes: 37234 Remove in/ex hem groups 2+ and 17679 Excision, Anus w/US guidance Operative Report (Standard) Operative Information Date of Procedure: 11/24/24 Pre-Operative Diagnosis: Bleeding internal hemorrhoids Post-Operative Diagnosis: Same Surgery/Procedure Performed: 1. Hemorrhoid artery ligation 2. Excision of prolapsed internal hemorrhoid. fire boss: Yes Sewing Room Supervisor: Ary Roy Tasks completed by assistant professor of geography: Retracting Additional retail event assistant?: No Type of Anesthesia: General and Local RN Documented Start/Stop Times: Operation Date: 11/24/24 10:30 Case Time Into Pre-Op 11/24/24 08:58 Anesthesia Start 11/24/24 10:54 Into Room 11/24/24 10:54 Out of Pre-Op 11/24/24 10:54 Procedure Start 11/24/24 11:20 Procedure End 11/24/24 12:00 Anesthesia End 11/24/24 12:08 Out of Room 11/24/24 12:08 Into Recovery 11/24/24 12:10 Procedure Start Time: 11:20 Procedure Stop Time: 12:00 Select all DRAINS/GRAFTS/IMPLANTS that apply: None Estimated Blood Loss: 15 mL Specimen collected: Yes Description of specimen(s) removed: Chronically prolapsed internal hemorrhoid Description of surgery: The patient is a 59-year-old male who was seen in my office recently with issues related to bleeding hemorrhoids. He was evaluated and was found to have mild external hemorrhoids but was experiencing bleeding likely related to a chronically prolapsed internal hemorrhoid. I offered him Doppler guided hemorrhoid artery ligation surgery along with excision of the prolapsed internal hemorrhoid. We discussed the details of the planned procedure including the risks benefits and alternatives and he wished to proceed Patient was brought to the operative room today following informed consent. Preoperative timeout was performed. He was placed supine on the operative table with arms outstretched and arm boards. General anesthesia was induced. Once adequately sedated his legs were placed in a modified lithotomy position with appropriate padding and positioning. The area was prepped and draped in the usual sterile manner. Digital rectal examination was performed and no obvious masses were noted. The prolapsing internal hemorrhoid located at the 6 o'clock position posteriorly was clearly visible. This was excised first. A harmonic scalpel was then used to transect the prolapsed hemorrhoid. This was sent to pathology. The mucosa was then closed in a running manner using 2-0 chromic suture. We then proceeded with the hemorrhoid ligation portion of the operation. It was noted that when the Doppler ligation device was being assembled, that the battery door was not with the Doppler probe itself. Unfortunately the door was not able to be located. This was necessary to make electrical connection with the batteries and so this rendered the device not able to be powered. At this point we did not have a replacement. So instead it was decided to place 2-0 Vicryl sutures in the typical locations where the dopplerable signals are usually located and those are typically at the 1, 3, 5, 7, 9, and 11:00 positions. This was performed without incident. A [id number] suture was placed in each location and tied down thus effectively tying off the blood flow to the internal hemorrhoids. Hemostasis was very good. A total of 30 cc of local anesthetic were injected in to the region and a bilateral pudendal block manner. A Gelfoam plug was inserted along with Dibucaine. He was then awakened from anesthesia. Mesh underwear were applied as dressing. He was taken to recovery in good condition. Surgical Findings: See procedure note Complications Complications: No Admit VTE Documentation VTE Present on Admission: No VTE Mechan Device Prophylaxis: SCD's VTE Pharm Prophylaxis ordered?: No Reason prophylaxis not ordered: Treatment Not Indicated
== END 2024-11-24 13:32 | disposition home or self-care (01) ==
LOC: SDC 08:54 → AC 08:56
PROVIDERS: PCP Internal Medicine; Referring Provider Surgery; Visit Provider Surgery
PROC: (CPT 46948; principal; 2024-11-24 10:15)
DX: K64.9 Unspecified hemorrhoids (principal); Z86.718 Personal history of other venous thrombosis and embolism; Z79.899 Other long term (current) drug therapy; I10 Essential (primary) hypertension
CPT/HCPCS: 46948; 00902; 82962; 88304; 93005; J2405

== ENCOUNTER → 2025-03-10 | Outpatient (CLI) | payer OTHER, SELFPAY ==
--- OUTSIDE RECORDS SUMMARY | 2025-03-10 06:44 | XMS RPT_ITS | CCD ---
Author Organization [facility] CliniSynd Care Team Providers Care Lpn Name Role Phone Nikunj Adams Primary Care Provider Nikunj Adams Unavailable JAVIER BOSWELL Attending Unavailable JAVIER BOSWELL Admitting Unavailable NONE, NONE Consulting Unavailable NONE, NONE Primary Care Unavailable Nikunj Adams DO Primary Care Provi frank Nikunj Adams DO Unavailable Nikunj Adams DO Primary Care Provi frank Nikunj Adams DO Unavailable Nikunj Adams DO Unavailable Nikunj Adams DO Primary Care Provi frank Nikunj Adams DO Unavailable [phone] Nikunj Adams DO Primary Care Provi frank Nikunj Adams DO Primary Care Provider NIKUNJ ADAMS Primary Care Unavailable NIKUNJ GORDON Attending Unavailable SELF, SELF Referring Unavailable NIKUNJ ADAMS Attending Unava ilable NIKUNJ ADAMS Primary Care Unava ilable NIKUNJ ADAMS Attending Unavailable NIKUNJ ADAMS Primary Care Unavailable Dr. Nikunj Adams DO Primary Care Provide r Dr. Nikunj Adams DO Attending Provider Dr. Nikunj Adams DO Referring Provider Dr. Moreno Mosqueda DO Attending Provider Dr. Moreno Mosqueda DO Other Provider [phone] Sherwin PLEITEZ, Dr. Harrison Kim Attending Provider Friend DO, Dr. Mayer Referring Provider Sherwin PLEITEZ, Dr. Harrison Kim Referring Provider Sherwin PLEITEZ, Dr. Harrison Kim Other Provider [phone] Angie, Nikunj E Primary Care Unavailable Sherwin, Harrison Kim Attending Unavailable Friend, Moreno Referring Unavailable Angie, Nikunj E Referring Unavailable Angie, Nikunj E Primary Care Unavailable Friend, Moreno Attending Unavailable MIKKI TROTTER Attending Unavailable MIKKI TROTTER Referring Unavailable Angie, Nikunj E Primary Care Unavailable [place], Nikunj E Primary Care Unavailable Angie, Nikunj E Attending Unavailable [place], Nikunj E Referring Unavailable Anige, Nikunj E Attending Unavailable [place], Nikunj E Primary Care Unavailable Angie, Nikunj E Referring Unavailable [place], Nikunj E Primary Care Unavailable Angie, Nikunj E Attending Unavailable [place], Nikunj E Primary Care Unavailable Harrison Courtney Attending Unavailable Wanfelipe, Harrison Kim Referring Unavailable [place], Nikunj E Referring Unavailable [place], Nikunj E Primary Care Unavailable Wanfelipe, Harrison Kim Attending Unavailable Nagajothi, Nagapradee Attending Unavailabl e Nagajothi, Nagapradee Referring Unavailabl e Angie, Nikunj E Primary Care Unavailable Angie, Nikunj E Referring Unavailable Angie, Nikunj E Primary Care Unavailable Friend, Moreno Consulting Unavailable Friend, Moreno Attending Unavailable [place], Nikunj E Primary Care Unavailable Wanfelipe, Harrison Kim Consulting Unavailable Harrison Courtney Attending Unavailable Harrison Courtney Referring Unavailable ANGIE, NIKUNJ PEREIRA Primary Care Unava ilable ANGIENIKUNJ WHITFIELD Attending Unava ilable ANGIE, NIKUNJ PEREIRA Primary Care Unava ilable ANGIENIKUNJ Attending Unava ilable ANGIENIKUNJ Attending Unava ilable ANGIE, NIKUNJ PEREIRA Primary Care Unava ilable ANGIENIKUNJ Primary Care Unava ilable ANGIENIKUNJ Attending Unava ilable ANGIENIKUNJ Primary Care Unava ilable ANGIENIKUNJ WHITFIELD Attending Unava ilable ANGIE, NIKUNJ PEREIRA Primary Care Unava ilable ANGIENIKUNJ WHITFIELD Attending Unava ilable Medications Current Medications Medication Drug Class(es) Dates Sig (Normalized) Sig (Original) Acetaminophen (20 sources) acetaminophen (T YLENOL ARTHRITIS ORAL) Take by mouth . Active acetaminophen (T YLENOL ARTHRITIS ORAL) Take by mouth . 0 Active allopurinol 100 mg oral tablet (15 sources) Xanthine Oxidase Inhibitor Start: 08-25-2024 take 1 tablet by mouth once daily allopurinoL (ZYLOPRIM) 100 MG tablet Take 1 (one) tablet (100 mg total) by mouth daily . 30 tablet 5 08/25/2024 Active Start: 01-11-2024 take 1 tablet by ramón once daily allopurinoL (ZYLOPRIM) 100 MG tablet [...] 09/29/2022 Active atorvastatin 20 mg oral tablet (20 sources) HMG-CoA Reductase Inhibitor Start: 03-27-2023 End: 06-13-2024 take 1 tablet by mouth once daily atorvastatin (LIPITOR) 20 MG tablet Indications: Mixed hyperlipidemia Take 1 (one) tablet (20 mg total) by mouth daily . 90 tablet 1 12/16/2023 Active dexamethasone 1 mg/ml / neomycin 3.5 mg/ml / polymyxin b 71259 unt/ml ophthalmic suspension (1 source) Aminoglycoside Antibacterial, Polymyxin-class Antibacterial, Corticosteroid Start: 01-10-2018 dexamethasone-neomycin -polymyxin [id number] Suspension 3-4 drops to each ear 3 times daily x3 days. Leave in drops in the ear canals for 15 minutes each time. 5 mL 0 01/10/2018 Active ferrous sulfate 325 mg oral tablet (8 sources) Start: 10-12-2024 take 1 tablet by mouth once daily Ferrous Sulfate (Ferosul) 325 mg (65 mg iron) tablet Active 325 mg PO DAILY October 12, 2024 12:00am hydroCHLOROthiazide 25 mg oral tablet (20 sources) Thiazide Diuretic Start: 01-27-2022 End: 06-10-2025 take 1 tablet by mouth once daily hydroCHLOROthiazide (HYDRODIURIL) 25 MG tablet Indications: Essential hypertension Take 1 (one) tablet (25 mg total) by mouth daily . 90 tablet 1 12/12/2024 06/10/2025 Active Start: 01-18-2021 End: 01-20-2022 take 1 [...] 07/16/2020 01/12/2021 Active take 1 capsule by [facility] once daily hydrochlorothiazide 12.5 MG Cap capsule Take 12.5 mg by mouth daily. 0 Active latanoprost 0.05 mg/ml ophthalmic solution (11 sources) Prostaglandin Analog Start: 10-12-[address] 0.005 % drops Active 1 NMA OPHTHALMIC AT BEDTIME October 12, 2024 12:00am Start: 08-23-2024 take 1 drop(s) into the eye(s) once daily at bedtime latanoprost (XALATAN) 0.005 % ophthalmic solution INSTILL 1 DROP INTO EACH EYE ONCE DAILY AT NIGHT AT BEDTIME 08/23/2024 Active lisinopril 40 mg oral tablet (20 sources) Angiotensin Converting Enzyme Inhibitor Start: 01-27-2022 End: 06-10-2025 take 1 tablet by mouth once daily lisinopriL (PRINIVIL,ZESTRIL) 40 MG tablet Indications: Essential hypertension Take 1 (one) tablet (40 mg total) by mouth daily . 90 tablet 1 12/12/2024 06/10/2025 Active Start: 01-18-2021 End: 01-20-2022 take 1 [...] 07/16/2020 01/12/2021 Active take 1 tablet by ramón th once daily lisinopril 20 MG Tab Take 20 mg by mouth daily. 0 Active metFORMIN hydrochloride 1000 mg oral tablet (20 sources) Biguanide Start: 03-27-2023 End: 05-03-2025 take 1 tablet by mouth twice daily at mealtime metFORMIN (GLUCOPHAGE) 1000 MG tablet Indications: Type 2 diabetes mellitus without complication, without long-term current use of insulin (HCC) Take 1 (one) tablet (1,000 mg total) by mouth 2 (two) times a day with meals . 180 tablet 1 11/04/2024 05/03/2025 Active Start: 01-27-2022 End: 07-28-2023 take 1 tablet [...] osmotic 24 hr extended release oral tablet (19 sources) Dihydropyridine Calcium Channel David Start: 09-24-2023 End: 10-17-2024 take 1 tablet by mouth once daily NIFEdipine (PROCARDIA XL) 30 MG 24 hr tablet Indications: Essential hypertension Take 1 tablet by mouth once daily 30 tablet 5 10/17/2024 Active polyethylene glycol 3350 11819 mg powder for oral solution (1 source) Osmotic Laxative Start: 12-07-2024 Polyethylene Glycol 3350 (Miralax) 17 gram/dose powder Active 2 g PO ONCE December 07, 2024 12:00am predniSONE 20 mg oral tablet (1 source) Start: 01-10-2018 predniSONE 20 MG Tab tablet PO QD: 60, 60, 40, 40, 20, 20 12 tablet 0 01/10/2018 Active Completed/Discontinued Medications Medication Drug Class(es) Dates Sig (Normalized) Sig (Original) cephalexin 500 mg oral capsule (14 sources) Cephalosporin Antibacterial Start: 08-20-2023 End: 10-12-2024 take 1 capsule by mouth every six hours Cephalexin 500 mg capsule Discontinued 500 mg PO EVERY 6 HOURS 40 0 August 20, 2023 12:00am October 12, 2024 11:29am Start: 03-18-2022 End: 03-25-2022 take 1 capsule by mouth three times daily cephALEXin (KEFLEX) 500 MG capsule Indications: Cellulitis of foot Take 1 (one) capsule (500 mg total) by mouth 3 (three) times a day for 7 days . 21 capsule 0 03/18/2022 03/25/2022 Active methylPREDNISolone (20 sources) Corticosteroid Start: 09-29-2023 End: [...] directions . 21 tablet 0 02/14/2021 Active oxyCODONE hydrochloride 5 mg oral tablet (2 sources) Opioid Agonist Start: 11-24-2024 End: 12-07-2024 take 1 tablet by mouth every eight hours as needed for pain Oxycodone 5 mg tablet Discontinued 5 mg PO Q8H as needed for pain 12 3 0 November 24, 2024 December 07, 2024 8:57am Hemorrhoids Unspecified hemorrhoids Problems Active Problems Problem Classification Problem Date Documented Da te Episodic/Chronic Deficiency and other anemia (2 sources) Anemia; Translations: [Anemia, unspecified] 09-11-2024 Episodic Diabetes mellitus without complication (20 sources) [...] source) Gout; Translations: [Gout, unspecified] 09-29-2023 Chronic Hemorrhoids (9 sources) Hemorrhoids; Translations: [Unspecified hemorrhoids] Onset: 12-16-2024 10-25-2024 Episodic Other and unspecified benign neoplasm (8 sources) History of polyp of colon; Translations: [History of colonic polyps] 10-17-2024 Episodic Other connective tissue disease (1 source) Infection [...] conditions (not mental disorders or infectious disease) (7 sources) Viral screening status; Translations: [Patient encounter status] Onset: 03-25-2023 Episodic Other upper respiratory infections (1 source) Upper respiratory infection; Translations: [Acute upper respiratory infection, unspecified] 05-30-2024 Episodic Skin and subcutaneous tissue infections (15 sources) Cellulitis of foot; Translations: [Cellulitis of unspecified part of limb] Episodic Sprains and strains (2 sources) Strain of muscle and/or tendon of lower leg; Translations: [Strain of unspecified muscle and tendon at ankle and foot level, left foot, initial encounter] Episodic Unclassified (2 sources) Patient encounter status; Translations: [Preventative health care] Unclassified (1 source) Personal history of colon polyps, unspecified; Translations: [Personal history of colon polyps, unspecified] Onset: 11-14-2024 Past or Other Problems Problem Classification Problem Date Documented Da te Episodic/Chronic Deficiency and other anemia (3 sources) Anemia, unspecified; Translations: [Anemia, unspecified] Onset: 09-15-2024 Episodic Immunizations and screening for infectious disease (5 sources) Requires vaccination; Translations: [Encounter for immunization] Onset: 03-22-2024 Episodic Results Test Name Value Interpretation Reference Range Facility Surgery Visit Reporton 12-07 Surgery Visit Report [facility] [address] [place] [address]. [address] [place] [address] OFFICE VISIT Date of Service: 12/07/24 MR#: [id number] Acct: [id number] Name: MILY INGRAM Rep #: [id number] : 1965 Provider: Dr. Harrison wang MD Age/Sex: 59/M Location: [facility] Status: Signed Intake Vital Signs 11/24/24 09:16 Height 5 ft 9 in Intake Visit Reasons: 2 W S/P HEMORRHOID LIGATION Chief Complaint: hemorrhoidectomy f/u Shot Peening Operator Required: No Is patient in pain?: No Allergies No Known Allergies Allergy (Verified 12/07/24 08:57) Medications ???Medication ???Instructions ???Recorded ???Confirmed ???Type atorvastatin 20 mg tablet 20 mg PO DAILY 08/20/23 11/24/24 H istory hydrochlorothiazide 25 mg tablet 25 mg PO DAILY 08/20/23 11/24/24 H istory lisinopril 40 mg tablet 40 mg PO DAILY 08/20/23 11/24/24 H istory metformin 1,000 mg tablet 1,000 mg PO BID 08/20/23 11/24/24 History allopurinol 100 mg tablet 100 mg PO QHS 10/12/24 11/24/24 Hi story ferrous sulfate 325 mg (65 mg 325 mg PO DAILY 10/12/24 11/24/24 History iron) tablet (FeroSul) latanoprost 0.005 % eye drops 1 drp ophthalmic (eye) QHS 10/12/2 5 11/24/24 History nifedipine 30 mg tablet,extended 30 mg PO DAILY 10/12/24 11/24/24 H istory release 24 hr polyethylene glycol 3350 17 2 g PO ONCE 12/07/24 12/07/24 Hist ory gram/dose oral powder (Miralax) Subjective Details: The patient is a 59-year-old male status post a recent surgery to excise the prolapsing internal hemorrhoid and also perform a Doppler hemorrhoid artery ligation surgery. He returns today for postoperative visit. He denies any significant issues or problems. He states that all of his bleeding has stopped since surgery. Objective Details: He is alert and oriented x 3. He is in no acute distress. Perianal area is without any issues. No erythema. Coding Level of Care Code Global Post Op Diagnoses Hemorrhoid K64.9 [facility] Medical History Dietary restriction Hemorrhoid Wears glasses Gout Arthritis DVT (deep venous thrombosis) Anemia Non-smoker Hypertension Surgical History (Updated 12/07/24 @ 08:57 by Lauren Upton) S/P hemorrhoidectomy Hx of colonoscopy with polypectomy H/O foot surgery Social History household members: family Smoking Status: Never smoker alcohol intake: current Assessment and Plan (No Qualifiers) Assessment and Plan (1) Hemorrhoid: Status: Acute Plan: The patient is a 59-year-old male status post a successful Doppler guided hemorrhoid artery ligation surgery along with excision of an internal hemorrhoid that was prolapsing and bleeding. He is doing well postoperatively. He has no issues or problems. No further bleeding. Follow-up will be as needed. I recommend that he continue to keep his stool soft. Follow-up will be as needed. 12/07/24 1119 Date Harrison Courtney MD Cosigner Signature: Date (if applicable) CC: Normal [facility] Bedside Glucoseon 11-28-2024 FINGERSTICK GLU 97 mg/dL Normal 74-106 [facility] Comment on above: Result Comment: PAIGE NEUMANNENT OF PATIENT CARE PER NURSING PROTOCOL Performed By: #### L 501.080 #### [facility] [address] [place], [address] 12 Lead EKGon 11-24-2024 12 Lead EKG [facility] Cardiovascular Services [address] [place] [address] 12 Lead EKG 11/24/24 0914 MR#: [id number] Acct: [id number] Name: MILY INGRAM Rep #: [id number] : 1965 59 From: Lexi Munoz MD Attending Dr: Dr. Harrison Courtney MD Status: DE P [facility] Ordering Dr: Wilmer Limon MD Date: 11/24/24 Location: [facility] Sex: M C Admitted: Test Reason : PRE OP Blood Pressure : */* mmHG Vent. Rate : 81 BPM Atrial Rate : 81 BPM P-R Int : 160 ms QRS Dur : 92 ms QT Int : 368 ms P-R-T Axes : 12 4 19 degrees QTcB Int : 427 ms Normal sinus rhythm Normal ECG No previous ECGs available Confirmed by CRYSTAL PLEITEZ, NICO ([id number]), clinical editor YELENA DE LA GARZA ([id number]) on 11/28/2024 6:32:38 AM Referred By: Harrison Courtney Confirmed By: NICO MUNOZ MD 11/28/24 0632 Date Lexi Munoz MD CC: Dr. Wilmer Limon MD; Dr. Harrison Courtney MD; Dr. Nikunj Adams DO Signed Normal [facility] Discharge Instructionon 11-05 Discharge Instruction [facility] Medical Records Department [address] [place] [address] Instructions for Home/Discharge Instructions 11/24/24 1222 MR#: [id number] Acct: [id number] Name: MILY INGRAM Rep #: [id number] : 1965 59 From: Harrison Courtney MD PCP: Dr. Nikunj Adams DO Status:REG [facility] Discharge Instructions Diet Discharge Diet: Light diet - advance as tolerated Activity Discharge Activity: No Restrictions, May Shower and May Take a Tub Bath May shower in (days): 1 Dressing / Incision Call your doctor if your incision/area has: Continuous Slow Oozing, Sudden Increased Bleeding, Increased Pain/ Swelling, Increased Redness, Foul Smelling Discharge and Swelling at the incision site Call your doctor if you observe: Fever of 101 or Higher Cleanse incision/area with: Soap Water Follow Up Care Please Follow Up With: Harrison Courtney MD When: 2 weeks. Please call my office to schedule appointment Test Results: Test results from this visit will be discussed in further detail at your follow-up appointment, if applicable. Discharge Plan Admission Primary Reason for Your Visit: Hemorrhoid surgery Attending Provider: Harrison Courtney Primary Care Provider: Nikunj Adams Print Language: Salvadorean Discharge Orders/Prescriptions Prescriptions: New oxycodone 5 mg tablet 5 mg PO Q8H PRN (Reason: pain) 3 Days Qty: 12 0RF Continued allopurinol 100 mg tablet 100 mg PO QHS nifedipine 30 mg tablet extended release 24hr 30 mg PO DAILY latanoprost 0.005 % drops 1 drp ophthalmic (eye) QHS ferrous sulfate [FeroSul] 325 mg (65 mg iron) tablet 325 mg PO DAILY atorvastatin 20 mg tablet 20 mg PO DAILY metformin 1,000 mg tablet 1,000 mg PO BID hydrochlorothiazide 25 mg tablet 25 mg PO DAILY lisinopril 40 mg tablet 40 mg PO DAILY Referrals / Follow Up: Nikunj Adams DO [Primary Care Provider] - Disposition Disposition (needs filled in before D/C Order can be placed): Home, Self Care 11/24/24 1226 Harrison Courtney MD CC: Dr. Nikunj Adams DO Signed Normal [facility] deOrdered By: Harrison Courtney on 11-24-2024 Glucose [Mass/Vol] 97 mg/dL 74-106 [facility] Comment on above: MANAGEMENT OF PATIEN T CARE PER NURSING PROTOCOL MR/POSTOP.ANE 11-24-2024 MR/POSTOP.[facility] Medical Records Department [address] [place] [address] Anesthesia Postop Eval I 11/24/24 1214 MR#: [id number] Acct: [id number] Name: MILY INGRAM Rep #: [id number] : 1965 59 From: Artemio Amaya CRNA PCP: Dr. Nikunj Adams DO Status:REG SDC Y Race: C Location: [place] [address] Anesthesia: Postop Eval I Current Vital Signs Temperature: 97.8 F Pulse Rate: 90 Blood Pressure: 104/63 Respiratory Rate: 20 Pulse Ox: 93 Oxygen Delivery Method: Room Air Assessment Airway patent: Yes Spontaneous unlabored respirations: Yes Mental status: Awake and Calm nausea: No Vomiting: No Anesthesia Complication: No Fluid Hydration Crystalloid volume administer (ml): 900 Total IV fluid infused: 900 Progress Note Anesthesia document: Postop Eval 1 completed: Yes 11/24/24 1215 Date Artemio Amaya CRNA Cosigner Signature: Date CC: Signed Normal [facility] Operative Reporton 5 Operative Report [facility] Medical Records Department [address] [place] [address] Operative Report 11/24/24 1226 MR#: [id number] Acct: [id number] Name: MILY INGRAM Rep #: [id number] : 1965 59 From: Harrison Courtney MD PCP: Dr. Nikunj Adams, DO Status:REG [facility] Location: [place] [address] Problems Associated Problem List Diagnoses (1) Hemorrhoid: Multi Select Codes Digestive Digestive CPT Codes: 20976 Remove in/ex hem groups 2+ and 19330 Excision, Anus w/US guidance Operative Report (Standard) Operative Information Date of Procedure: 11/24/24 Pre-Operative Diagnosis: Bleeding internal hemorrhoids Post-Operative Diagnosis: Same Surgery/Procedure Performed: 1. Hemorrhoid artery ligation 2. Excision of prolapsed internal hemorrhoid. payment analyst: Yes Systems Technologist: Ary Roy Tasks completed by medical support assistant: Retracting Additional sales assistants and salespersons?: No Type of Anesthesia: General and Local RN Documented Start/Stop Times: Operation Date: 11/24/24 10:30 Case Time Into Pre-Op 11/24/24 08:58 Anesthesia Start 11/24/24 10:54 Into Room 11/24/24 10:54 Out of Pre-Op 11/24/24 10:54 Procedure Start 11/24/24 11:20 Procedure End 11/24/24 12:00 Anesthesia End 11/24/24 12:08 Out of Room 11/24/24 12:08 Into Recovery 11/24/24 12:10 Procedure Start Time: 11:20 Procedure Stop Time: 12:00 Select all DRAINS/GRAFTS/IMPLAN TS that apply: None Estimated Blood Loss: 15 mL Specimen collected: Yes Description of specimen(s) removed: Chronically prolapsed internal hemorrhoid Description of surgery: The patient is a 59-year-old male who was seen in my office recently with issues related to bleeding hemorrhoids. He was evaluated and was found to have mild external hemorrhoids but was experiencing bleeding likely related to a chronically prolapsed internal hemorrhoid. I offered him Doppler guided hemorrhoid artery ligation surgery along with excision of the prolapsed internal hemorrhoid. We discussed the details of the planned procedure including the risks benefits and alternatives and he wished to proceed Patient was brought to the operative room today following informed consent. Preoperative timeout was performed. He was placed supine on the operative table with arms outstretched and arm boards. General anesthesia was induced. Once adequately sedated his legs were placed in a modified lithotomy position with appropriate padding and positioning. The area was prepped and draped in the usual sterile manner. Digital rectal examination was performed and no obvious masses were noted. The prolapsing internal hemorrhoid located at the 6 o'clock position posteriorly was clearly visible. This was excised first. A harmonic scalpel was then used to transect the prolapsed hemorrhoid. This was sent to pathology. The mucosa was then closed in a running manner using 2-0 chromic suture. We then proceeded with the hemorrhoid ligation portion of the operation. It was noted that when the Doppler ligation device was being assembled, that the battery door was not with the Doppler probe itself. Unfortunately the door was not able to be located. This was necessary to make electrical connection with the batteries and so this rendered the device not able to be powered. At this point we did not have a replacement. So instead it was decided to place 2-0 Vicryl sutures in the typical locations where the dopplerable signals are usually located and those are typically at the 1, 3, 5, 7, 9, and 11:00 positions. This was performed without incident. A [id number] suture was placed in each location and tied down thus effectively tying off the blood flow to the internal hemorrhoids. Hemostasis was very good. A total of 30 cc of local anesthetic were injected in to the region and a bilateral pudendal block manner. A Gelfoam plug was inserted along with Dibucaine. He was then awakened from anesthesia. Mesh underwear were applied as dressing. He was taken to recovery in good condition. Surgical Findings: See procedure note Complications Complications: No Admit VTE Documentation VTE Present on Admission: No VTE Mechan Device Prophylaxis: SCD's VTE Pharm Prophylaxis ordered?: No Reason prophylaxis not ordered: Treatment Not Indicated 11/24/24 9516 Cosigner Signature (if applicable): CC: Dr. Harrison Courtney MD; Dr. Nikunj Adams DO Signed Normal [facility] Surgery Specimen Level IIIon 11-24-2024 Surgery Specimen Level III Patient Age/Sex Location Account Attending Physician MILY INGRAM 59/M [facility] [id number] Dr. Harrison Courtney MD Specimen: [id number] Received: 11/24/24-1320 Status: KONRAD Owens Num: [id number] Spec Type: HEMORRHOID Subm Dr: Dr. Harrison Courtney MD HEADER OPERATION: Hemorrhoid, artery ligation, hemorrhoidectomy with excision PRE-OP DIAGNOSIS: Hemorrhoid TISSUE SUBMITTED: A- Internal hemorrhoid MICROSCOPIC DIAGNOSIS A. Anal region, internal hemorrhoidectomy: * Benign hemorrhoidal tissue MICROSCOPIC DESCRIPTION Slides are reviewed. GROSS DESCRIPTION A. Received in formalin labeled with the patient's name and date of . Designated as internal hemorrhoid is a 2.7 x 1.0 x 0.9 cm pink-brower red, focally granular rubbery portion of tissue. The cauterized resection margin is inked black. Sectioning reveals red, rubbery and congested cut surfaces. Automatic Pinsetter Mechanic sections are submitted in 1 cassette. ID 11/24/2024 [facility]:[id number] Patient Age/Sex Location Account Attending Physician MILY INGRAM 59/M [facility] [id number] Dr. Harrison Courtney MD Signed (signature on file) Dr. Olivia Rodriguez DO 11/25/24 1326 Normal [facility] Comment on above: Performed By: #### P SUIII #### [facility] [address] [place], [address] Surgery Visit Reporton 10-25 Surgery Visit Report [facility] [address] [place] [address] OFFICE VISIT Date of Service: 10/25/24 MR#: [id number] Acct: [id number] Name: MILY INGRAM Rep #: [id number] : 1965 Provider: Dr. Harrison wang MD Age/Sex: 59/M Location: [facility] Status: Signed Intake Vital Signs 10/17/24 07:25 10/25/24 13:55 Height 5 ft 9 in 5 ft 9 in Weight: 215 lb BMI 31.7 BP 118/75 Blood Pressure Location Lt brachial Position Sitting Respiration 18 Pulse 78 Pulse Source Monitor Pulse Oximetry (%) 98 Oxygen Delivery Method room air Intake Visit Reasons: HEMORRHOIDS Chief Complaint: hemorrhoids Is patient in pain?: No Allergies No Known Allergies Allergy (Verified 10/25/24 13:56) Medications ???Medication ???Instructions ???Recorded ???Confirmed ???Type atorvastatin 20 mg tablet 20 mg PO DAILY 08/20/23 10/25/24 H istory hydrochlorothiazide 25 mg tablet 25 mg PO DAILY 08/20/23 10/25/24 H istory lisinopril 40 mg tablet 40 mg PO DAILY 08/20/23 10/25/24 H istory metformin 1,000 mg tablet 1,000 mg PO BID 08/20/23 10/25/24 History allopurinol 100 mg tablet 100 mg PO QHS 10/12/24 10/25/24 Hi story ferrous sulfate 325 mg (65 mg 325 mg PO DAILY 10/12/24 10/25/24 History iron) tablet (FeroSul) latanoprost 0.005 % eye drops 1 drp ophthalmic (eye) QHS 5 10/25/24 History nifedipine 30 mg tablet,extended 30 mg PO DAILY 10/12/24 10/25/24 H istory release 24 hr [facility] Medical History (Updated 10/25/24 @ 13:55 by Mirella Delgadillo) Hemorrhoid Wears glasses Gout Arthritis DVT (deep venous thrombosis) Anemia Non-smoker Hypertension Surgical History H/O foot surgery Social History household members: family Smoking Status: Never smoker alcohol intake: current HPI HPI HPI: The patient is a 59-year-old male who is being seen today for symptomatic hemorrhoids. He describes mostly discomfort in the perianal area especially after bicycle riding. He does also note some periodic blood with wiping. This is causing him increasing discomfort and he presents today to discuss having this surgically addressed. It sounds as though he really does not have any issues with constipation ROS General General: No weight change, appetite, fatigue, colon cancer, breast cancer or weakness HEENT HEENT: No difficulty swallowing, eye injury, eye surgery, swollen glands or hoarseness Endo Endocrine: Yes diabetes mellitus; No thyroid disease, thyroid cancer, Hair loss, heat intolerance or cold intolerance Skin Skin: No rash or changing moles Musc Musculoskeletal: Yes gout; No back problems, arthritis, rheumatoid arthritis or joint pain Cardio Cardiovascular: Yes high blood pressure; No murmur, pacemaker, heart disease, atrial fibrillation, heart attack, heart stent, palpitations, shortness of breath with exertion or chest pain Psych Psychiatric: No depression, anxiety or hearing voices Resp Respiratory: No shortness of breath, No sleep apnea, No cough, No COPD, No asthma, No emphysema and No wheezing Gastro Gastrointestinal: No abdominal pain, No nausea or vomiting, No diarrhea, No constipation, No blood in stool, No acid reflux, Yes hemorrhoids, No ulcers, No gallbladder problem and No black,tarry stools Melquiades Hematologic: No blood thinners, No blood disorders, No bleeding, Yes anemia and Yes blood clots Additional Details: blood clot in lower right leg >10years ago Neuro Neurologic: No system reviewed and no additional complaints, except as documented, No as per HPI, No abnormal gait, No abnormal hearing, No abnormal movements, No abnormal speech, No behavioral changes, No burning sensations, No confusion, No convulsions, No disequilibrium, No dizziness, No localized weakness, No frequent falls, No headache(s), No lack of coordination, No loss of vision, No memory loss, No numbness, No other visual disturbances, No radicular pain, No restless legs, No sensory deficit, No syncope, No tingling, No tremor(s), No weakness and No other Exam Const General: cooperative, healthy appearing and comfortable [facility] Head: normal to inspection Eyes General: appearance normal, both eyes and all related structures Neck Neck: normal visual inspection Resp Effort Inspection: normal respiratory effort GI Other: Examination of the perianal area reveals a very mild external hemorrhoids. He does however have a very prominent prolapsing grade 4 internal hemorrhoid that is quite excoriated and bleeds easily with manipulation.. Digital rectal exam does reveal some grade 3 hemorrhoids as well. Assessment and Plan Assessment and Plan (1) Hemorrhoid (more content not included)... Normal [facility] Bedside Glucoseon 10-17-2024 FINGERSTICK GLU 99 mg/dL Normal 74-106 [facility] Comment on above: Result Comment: PAIGE MOTTA OF PATIENT CARE PER NURSING PROTOCOL Performed By: #### P SUIII #### [facility] [address] [place], [address] Colonoscopy Reporton 025 Colonoscopy Report [facility] Medical Records Department [address] [address] Colonoscopy Report MR#: [id number] Acct: [id number] Name: MILY INGRAM Rep #: [id number] : 1965 59 From: Moreno Mosqueda DO PCP: Dr. Nikunj Adams DO Status:[facility] Patient Name: Mily Ingram Procedure Date: 10/17/2024 8:42 AM Date of : 1965 Age: 59 Procedure: Colonoscopy Indications: High risk colon cancer surveillance: Personal history of colonic polyps Providers: Moreno Mosqueda DO Referring MD: Nikunj Adams Do Medicines: Monitored Anesthesia Care Patient Profile: This is a 59 year old male. Refer to note in patient chart for documentation of history and physical. Last Colonoscopy: 5 years ago. Complications: No immediate complications. Procedure: Pre-Anesthesia Assessment: - Prior to the procedure, a History and Physical was performed, and patient medications and allergies were reviewed. The patient is competent. The risks and benefits of the procedure and the sedation options and risks were discussed with the patient. All questions were answered and informed consent was obtained. Patient identification and proposed procedure were verified by the physician in the pre-procedure area. Mental Status Examination: alert and oriented. Airway Examination: normal oropharyngeal airway and neck mobility. Respiratory Examination: clear to auscultation. CV Examination: normal. ASA Grade Assessment: II - A patient with mild systemic disease. After reviewing the risks and benefits, the patient was deemed in satisfactory condition to undergo the procedure. The anesthesia plan was to use monitored anesthesia care (MAC). Immediately prior to administration of medications, the patient was re-assessed for adequacy to receive sedatives. The heart rate, respiratory rate, oxygen saturations, blood pressure, adequacy of pulmonary ventilation, and response to care were monitored throughout the procedure. The physical status of the patient was re-assessed after the procedure. After I obtained informed consent, the scope was passed under direct vision. Throughout the procedure, the patient's blood pressure, pulse, and oxygen saturations were monitored continuously. The Colonoscope was introduced through the anus and advanced to the cecum, identified by appendiceal orifice and ileocecal valve. The colonoscopy was performed without difficulty. The patient tolerated the procedure well. The quality of the bowel preparation was adequate. The ileocecal valve, appendiceal orifice, and rectum were photographed. Scope In: 8:52:45 AM Scope Withdrawal Time 0 hours 9 minutes 41 seconds Scope Out: 9:05:37 AM Total Procedure Duration Time 0 hours 12 minutes 52 seconds Findings: The perianal and digital rectal examinations were normal. An 8 mm polyp was found in the sigmoid colon. The polyp was sessile. The polyp was removed with a hot snare. Resection and retrieval were complete. Verification of patient identification for the specimen was done. Estimated blood loss was minimal. A few small-mouthed diverticula were found in the recto-sigmoid colon and sigmoid colon. Non-bleeding hemorrhoids were found during retroflexion. The hemorrhoids were Grade III (internal hemorrhoids that prolapse but require manual reduction) and Grade IV (internal hemorrhoids that prolapse and cannot be reduced manually). Impression: - One 8 mm polyp in the sigmoid colon, removed with a hot snare. Resected and retrieved. - Diverticulosis in the recto-sigmoid colon and in the sigmoid colon. - Non-bleeding hemorrhoids. Recommendation: - Repeat colonoscopy in 5 years for surveillance. - Continue present medications. Procedure Code(s): --- Professional --- 04746, Colonoscopy, flexible; with removal of tumor(s), polyp(s), or other lesion(s) by snare technique CPT copyright 2021 [employer]. All rights reserved. The codes documented in this report are preliminary and upon beader tender review may be revised to meet current compliance requirements. Moreno Mosqueda DO 10/17/2024 9:13:56 AM This report has been signed electronically. Number of Addenda: 0 Note Initiated On: 10/17/2024 8:42 AM 10/17/24913 Date Moreno Mosqueda DO Cosigner Signature: Date (if indicated) CC: Dr. Nikunj Adams DO; Moreno Mosqueda DO Date Dictated: 10/17/24841 Date Transcribed: Tumbler Machine Operator Helper: JENNIFER Signed [facility] deOrdered By: Moreno Mosqueda on 10-17-2024 Glucose [Mass/Vol] 99 mg/dL 74-106 [facility] Comment on above: MANAGEMENT OF PATIEN T CARE PER NURSING PROTOCOL MR/POSTOP.Mika 10-17-2024 MR/POSTOP.[facility] Medical Records Department [address] [place] [address] Anesthesia Postop Eval I 10/17/24916 MR#: [id number] Acct: [id number] Name: MILY INGRAM Rep #: [id number] : 1965 59 From: Donato Resendiz PCP: Dr. Nikunj Adams, DO Status:[facility] Y Race: C Location: [place] [address] Anesthesia: Postop Eval I Current Vital Signs Temperature: 97 F Pulse Rate: 76 Blood Pressure: 103/87 Respiratory Rate: 16 Pulse Ox: 96 Oxygen Delivery Method: Room Air Assessment Airway patent: Yes Spontaneous unlabored respirations: Yes Mental status: Awake and Calm nausea: No Vomiting: No Anesthesia Complication: No Fluid Hydration Crystalloid volume administer (ml): 900 Total IV fluid infused: 900 Progress Note Anesthesia document: Postop Eval 1 completed: Yes 10/17/24 0943 Date Donato Resendiz Cosignclarita Signature: Date CC: Signed Normal [facility] [id number] 10-17-2024 [facility] Medical Records Department [address] [place] [address] Anesthesia Postop Eval II 10/17/24 1031 MR#: [id number] Acct: [id number] Name: MILY INGRAM Rep #: [id number] : 1965 59 From: Oj Serrano MD PCP: Dr. Nikunj Adams, DO Status:[facility] Y Race: C Location: EN Anesthesia Postop Eval I Sum Postop Eval Completion status Anesthesia document: Postop Eval 1 completed: Yes Anesthesia Postop Eval I Summary Anesthesia Postop Eval I Summary: Anesthesia Postop Eval I: Assessment Summary Airway patent Yes 10/17/24 09:43 [email or web address] Spontaneous unlabored Yes 10/17/24 09:43 [email or web address] respirations Mental status Awake,Calm 10/17/24 09:43 [email or web address] nausea No 10/17/24 09:43 [email or web address] Vomiting No 10/17/24 09:43 [email or web address] Anesthesia Postop Eval I: Fluid Summary Crystalloid volume administer 900 10/17/24 09:43 [email or web address] (ml) Colloids volume administered ( ml) Blood Product volume administered (ml) Total IV fluid infused 900 10/17/24 09:43 [email or web address] Anesthesia Postop Eval I: Summary Notes Anesthesia Complication No 10/17/24 09:43 [email or web address] Anesthesia Complication Comment: Post-operative progress note Anesthesia: Postop Eval II Evaluation Mental status: Awake and Calm Pain Level: 0 nausea: No Vomiting: No Complications Anesthesia Complication: No 10/17/24 1031 Date Oj Bahena Signature: Date CC: Signed Normal [facility] Surgery Specimen Level Shazia 10-17-2024 Surgery Specimen Level IV Patient Age/Sex Location Account Attending Physician MILY INGRAM 59/M EN [id number] Moreno Mosqueda DO Specimen: [id number] Received: 10/17/24 Status: KONRAD Owens Num: [id number] Spec Type: COLON BX Subm Dr: Moreno Mosqueda DO HEADER OPERATION: Colonoscopy, polypectomy PRE-OP DIAGNOSIS: Personal history of colonic polyps TISSUE SUBMITTED: A- Sigmoid polyp MICROSCOPIC DIAGNOSIS A. Large intestine, sigmoid polyp, biopsy: * Tubular adenoma MICROSCOPIC DESCRIPTION Slides are reviewed. GROSS DESCRIPTION A. Received in fixative is one container labeled with the patient's name and designated Sigmoid polyp. The specimen consists of two irregular fragments of light brower soft tissue that in aggregate measure 0.3 and 0.5 cm. The specimen is totally submitted in one cassette. 10/17/2024 CPT:99821 Patient Age/Sex Location Account Attending Physician MILY INGRAM ANNA 59/M EN [id number] Moreno Friend, DO Signed (signature on file) Dr. Jake Copeland MD 10/25/242223 Normal [facility] Comment on above: Performed By: #### P SUIV #### [facility] [address] [place], [address] Ferritinon 09-15-2024 Ferritin [Mass/Vol] 500 ng/mL High 37-417 [facility] Comment on above: Performed By: #### P SUIII #### [facility] [address] [place], [address] Folate [Moles/volume] in Ser um or PlasmaOrdered By: Nikunj Adams on 09-15-2024 Folate [Moles/Vol] 6.23 ng/mL 4.60-34.80 [facility] Folates,Serum (Folic Acid)on 09-15-2024 FOLATES,SERUM 6.23 ng/mL Normal 4.60-34.80 [facility] Comment on above: Order Comment: N Performed By: #### P SUIII #### [facility] [address] [place], [place], [id number] Iron measurement (mass/mass) Ordered By: Nikunj Adams on 09-15-2024 Iron (Unsp spec) [Mass/Mass] 37 ug/dL Low 65-175 [facility] Iron+Iron Binding Capacityon 09-15-2024 Iron [Mass/Vol] 37 ug/dL Low 65-175 [facility] Comment on above: Performed By: #### P SUIII #### [facility] [address] [place], [place], [id number] IRON SATURATION 13.0 Normal 9-55 [facility] Comment on above: Performed By: #### P SUIII #### [facility] [address] [place], [place], [id number] TIBC 281 ug/dL Normal 250-450 [facility] Comment on above: Performed By: #### P SUIII #### [facility] [address] [place], [place], [id number] UIBC 244 ug/dL Normal 228-428 [facility] Comment on above: Performed By: #### P SUIII #### [facility] [address] [place], [place], [id number] No Panel InformationOrdered By: Nikunj Adams on 09-15-2024 Unsaturated Iron Binding Capacity 244 ug/dL 228-428 [facility] Serum or plasma ferritin dick surement (mass/volume)Ordered By: Nikunj Adams on 09-15-2024 Ferritin [Mass/Vol] 500 ng/mL High 37-417 [facility] Serum or plasma iron saturat ion measurement (mass fraction)Ordered By: Nikunj Adams on 09-15-2024 Iron saturation [Mass fraction] 13.0 % 9-55 [facility] Vitamin B12on 09-15-2024 Cobalamin (Vitamin B12) [Mass/Vol] 304 pg/mL Normal 180-914 [facility] Comment on above: Performed By: #### P SUIII #### [facility] [address] [place], [place], [id number] Vitamin B12 ser/plasOrdered By: Nikunj Adams on 09-15-2024 Cobalamin (Vitamin B12) [Mass/Vol] 304 pg/mL 180-914 [facility] Anion gap in Serum or Plasma Ordered By: Nikunj Adams on 09-09-2024 Anion gap [Moles/Vol] 13 mmol/L 5-15 [facility] BUN/creatinine ratioOrdered By: Nikunj Adams on 09-09-2024 Urea nitrogen/Creatinine [Mass ratio] 13.2 mg/mg 10-20 [facility] Bilirubin Test strip Ql (U)O rdered By: Nikunj Adams on 09-09-2024 Bilirubin Ql (U) Negative Negative [facility] Bilirubin, totalOrdered By: Nikunj Adams on 09-09-2024 Bilirubin [Mass/Vol] 0.34 mg/dL 0.00-1.30 [facility] CBC-Complete Blood Cnt No Di ffon 09-09-2024 Erythrocyte distribution width (RBC) [Ratio] 13.6 % Normal 11.6-14.6 [facility] Comment on above: Performed By: #### P SUIV #### [facility] [address] [place], [address] ( Hematocrit (Bld) [Volume fraction] 36.2 % Low 40-54 [facility] Comment on above: Performed By: #### P SUIV #### [facility] [address] [place], [address] Hemoglobin (Bld) [Mass/Vol] 11.9 g/dL Low 13.0-16.5 [facility] Comment on above: Performed By: #### P SUIV #### [facility] [address] [place], [address] MCH (RBC) [Entitic mass] 30.2 pg Normal 27.0-32.0 [facility] Comment on above: Performed By: #### P SUIV #### [facility] [address] [place], [address] MCHC (RBC) [Mass/Vol] 32.9 g/dL Normal 32-36 [facility] Comment on above: Performed By: #### P SUIV #### [facility] [address] [place], [address] MCV (RBC) [Entitic vol] 91.9 fL Normal 80-94 [facility] Comment on above: Performed By: #### P SUIV #### [facility] [address] [place], [address] Platelet mean volume (Bld) [Entitic vol] 9.4 fL Normal 6.2-12.0 [facility] Comment on above: Performed By: #### P SUIV #### [facility] [address] [place], [address] Platelets (Bld) [#/Vol] 212 10*3/uL Normal 150-450 [facility] Comment on above: Performed By: #### P SUIV #### [facility] [address] [place], [address] RBC (Bld) [#/Vol] 3.94 10*6/uL Low 4.6-6.2 [facility] Comment on above: Performed By: #### P SUIV #### [facility] [address] [place], [address] RDW SD 46.0 fl High 35.1-43.9 [facility] Comment on above: Performed By: #### P SUIV #### [facility] [address] [place], [address] WBC (Bld) [#/Vol] 8.8 10*3/uL Normal 4.4-11.0 [facility] Comment on above: Performed By: #### P SUIV #### [facility] [address] [place], [address] Calculated very low density lipoprotein (VLDL) cholesterol measurementOrdered By: Nikunj Adams on 09-09-2024 Calculated very low density lipoprotein (VLDL) cholesterol measurement 25 mg/dL 5-40 [facility] Carbon dioxide, total [Moles /volume] in Central venous bloodOrdered By: Nikunj Adams on 09-09-2024 CO2 [Moles/Vol] 23.6 mmol/L 21.0-32.0 [facility] Chloride assayOrdered By: Joaquin Adams on 09-09-2024 Chloride [Moles/Vol] 102 mmol/L 98-108 [facility] Comprehensive Metabolic Prof ilon 09-09-2024 Albumin [Mass/Vol] 4.0 g/dL Normal 3.5-5.0 [facility] Comment on above: Performed By: #### P SUIV #### [facility] [address] [place], [address] Albumin/Globulin [Mass ratio] 1.4 {ratio} Normal 0.9-2.4 [facility] Comment on above: Performed By: #### P SUIV #### [facility] [address] [place], [address] ALK PHOS 109 U/L Normal 40-129 [facility] Comment on above: Performed By: #### P SUIV #### [facility] [address] [place], [address] ALT [Catalytic activity/Vol] 10 U/L Normal <=46 [facility] Comment on above: Performed By: #### P SUIV #### [facility] [address] [place], [address] AST [Catalytic activity/Vol] 28 U/L Normal <=37 [facility] Comment on above: Performed By: #### P SUIV #### [facility] [address] [place], [address] Bilirubin [Mass/Vol] 0.34 mg/dL Normal 0.00-1.30 [facility] Comment on above: Performed By: #### P SUIV #### [facility] [address] [place], [address] BUN/CRE 13.2 RATIO Normal 10-20 [facility] Comment on above: Performed By: #### P SUIV #### [facility] [address] [place], [address] Calcium [Mass/Vol] 9.4 mg/dL Normal 7.6-11.0 [facility] Comment on above: Performed By: #### P SUIV #### [facility] [address] [place], [address] Chloride [Moles/Vol] 102 mmol/L Normal 98-108 [facility] Comment on above: Performed By: #### P SUIV #### [facility] [address] [place], [address] CO2 [Moles/Vol] 23.6 mmol/L Normal 21.0-32.0 [facility] Comment on above: Performed By: #### P SUIV #### [facility] [address] [place], [address] Creatinine [Mass/Vol] 1.09 mg/dL Normal 0.70-1.20 [facility] Comment on above: Performed By: #### P SUIV #### [facility] [address] [place], [address] GAP 13 Normal 5-15 [facility] Comment on above: Performed By: #### P SUIV #### [facility] [address] [place], [address] GFR/1.73 sq M.predicted among non-blacks MDRD (S/P/Bld) [Vol rate/Area] 79 mL/min/{1.73_m2} Normal >60 [facility] Comment on above: Result Comment: mL/m in/1.73m2 CKD-EPI Creatinine Equation (2021) Performed By: #### P SUIV #### [facility] [address] [place], [address] Globulin (S) [Mass/Vol] 2.8 g/dL Normal 2.2-4.2 [facility] Comment on above: Performed By: #### P SUIV #### [facility] [address] [place], [address] Glucose [Mass/Vol] 102 mg/dL High 70-99 [facility] Comment on above: Performed By: #### P SUIV #### [facility] [address] [place], [address] Potassium [Moles/Vol] 5.1 mmol/L Normal 3.3-5.1 [facility] Comment on above: Performed By: #### P SUIV #### [facility] [address] [place], [address] Sodium [Moles/Vol] 138 mmol/L Normal 133-145 [facility] Comment on above: Performed By: #### P SUIV #### [facility] [address] [place], [address] T PROT 6.8 g/dL Normal 5.9-8.4 [facility] Comment on above: Performed By: #### P SUIV #### [facility] [address] [place], [address] Urea nitrogen [Mass/Vol] 14 mg/dL Normal 4-19 [facility] Comment on above: Performed By: #### P SUIV #### [facility] [address] [place], [address] Erythrocyte distribution wid th ratioOrdered By: Nikunj Adams on 09-09-2024 Erythrocyte distribution width (RBC) [Ratio] 13.6 % 11.6-14.6 [facility] Erythrocyte distribution wid th standard deviationOrdered By: Nikunj Adams on 09-09-2024 Erythrocyte distribution width (RBC) [Ratio] 46.0 fl High 35.1-43.9 [facility] Glomerular filtration rate ( GFR) estimation/1.73 sq m using serum, plasma, or whole bOrdered By: Nikunj Adams on 09-09-2024 GFR/1.73 sq M.predicted among non-blacks MDRD (S/P/Bld) [Vol rate/Area] 79 mL/min/{1.73_m2} >60 [facility] Comment on above: mL/min/1.73m2 CKD-EP I Creatinine Equation (2020) Hematocrit Auto (Bld) [Volum e fraction]Ordered By: Nikunj Adams on 09-09-2024 Hematocrit (Bld) [Volume fraction] 36.2 % Low 40-54 [facility] Hemoglobin A1con 09-09-2024 HbA1c (Bld) [Mass fraction] 5.7 % Normal <=5.6 [facility] Comment on above: Result Comment: Norm al < 5.7 % Prediabetic 5.7 - 6.4 % Diabetic >or= 6.5 % Please note range changes. Performed By: #### P SUIV #### [facility] [address] [place] [address]. [place], [address] Hemoglobin A1c percentageOrd ered By: Nikunj Adams on 09-09-2024 HbA1c (Bld) [Mass fraction] 5.7 % <5.7 [facility] Comment on above: Normal < 5.7 % Predi abetic 5.7 - 6.4 % Diabetic >or= 6.5 % Please note range changes. Hemoglobin measurementOrdere d By: Nikunj Adams on 09-09-2024 Hemoglobin (Bld) [Mass/Vol] 11.9 g/dL Low 13.0-16.5 [facility] Ketones Test strip Ql (U)Ord ered By: Nikunj Adams on 09-09-2024 Ketones Ql (U) Negative Negative [facility] LDL calc ser/plasOrdered By: Nikujn Adams on 09-09-2024 Cholesterol in LDL [Mass/Vol] 59 mg/dL Normal [facility] Comment on above: Cbmyaavsdw=169-161 m g/dL & Higher Hiqo=944 mg/dL or greater Result Comment: Bord vccmnl=735-676 mg/dL Higher Cmsj=329 mg/dL or greater Performed By: #### P SUIV #### [facility] [address] [place], [place], [id number] Laboratory - Chemistry and C hemistry - challengeOrdered By: Nikunj Adams on 09-09-2024 AST [Catalytic activity/Vol] 28 U/L <38 [facility] Lipid Profileon 09-09-2024 CHOL:HDL 4.28 Normal [facility] Comment on above: Performed By: #### P SUIV #### [facility] [address] [place], [address] Cholesterol in VLDL [Mass/Vol] 25 mg/dL Normal 5-40 [facility] Comment on above: Performed By: #### P SUIV #### [facility] [address] [place], [address] MCV (mean corpuscular volume ) determinationOrdered By: Nikunj Adams on 09-09-2024 MCV (RBC) [Entitic vol] 91.9 fL 80-94 [facility] Mean corpuscular hemoglobin (MCH) determinationOrdered By: Nikunj Adams on 09-09-2024 MCH (RBC) [Entitic mass] 30.2 pg 27.0-32.0 [facility] Mean corpuscular hemoglobin concentration (MCHC) determinationOrdered By: Nikunj Adams on 09-09-2024 MCHC (RBC) [Mass/Vol] 32.9 g/dL 32-36 [facility] Mean platelet volume determi nationOrdered By: Nikunj Adams on 09-09-2024 Platelet mean volume (Bld) [Entitic vol] 9.4 fL 6.2-12.0 [facility] Nitrite Test strip Ql (U)Ord ered By: Nikunj Adams on 09-09-2024 Nitrite Ql (U) Negative Negative [facility] Platelet countOrdered By: Joaquin Adams on 09-09-2024 Platelets (Bld) [#/Vol] 212 10*3/uL 150-450 [facility] Potassium measurement (mass/ volume)Ordered By: Nikunj Adams on 09-09-2024 Potassium (Unsp spec) [Mass/Vol] 5.1 mmol/L 3.3-5.1 [facility] Protein Test strip Ql (U)Ord ered By: Nikunj Adams on 09-09-2024 Protein Ql (U) 15 mg/dl High Negative [facility] RBC Auto (Bld) [#/Vol]Ordere d By: Nikunj Adams on 09-09-2024 RBC (Bld) [#/Vol] 3.94 10*6/uL Low 4.6-6.2 [facility] Screening total cholesterol/ high density lipoprotein (HDL) cholesterol ratioOrdered By: Nikunj Adams on 09-09-2024 Cholesterol.total/Choles terol in HDL [Mass ratio] 4.28 {ratio} [facility] Serum creatinine measurement (mass/volume)Ordered By: Nikunj Adams on 09-09-2024 Creatinine [Mass/Vol] 1.09 mg/dL 0.70-1.20 [facility] Serum globulin measurementOr dered By: Nikunj Adams on 09-09-2024 Globulin (S) [Mass/Vol] 2.8 g/dL 2.2-4.2 [facility] Serum glucose measurement (m ass/volume)Ordered By: Nikunj Adams on 09-09-2024 Glucose [Mass/Vol] 102 mg/dL High 70-99 [facility] Serum or plasma alanine spencer otransferase (ALT) measurementOrdered By: Nikunj Adams on 09-09-2024 ALT [Catalytic activity/Vol] 10 U/L <47 [facility] Serum or plasma albumin melony urement (mass/volume)Ordered By: Nikunj Adams on 09-09-2024 Albumin [Mass/Vol] 4.0 g/dL 3.5-5.0 [facility] Serum or plasma albumin/glob ulin mass ratioOrdered By: Nikunj Adams on 09-09-2024 Albumin/Globulin [Mass ratio] 1.4 {ratio} 0.9-2.4 [facility] Serum or plasma alkaline alexa sphatase measurementOrdered By: Nikunj Adams on 09-09-2024 ALP [Catalytic activity/Vol] 109 U/L 40-129 [facility] Serum or plasma calcium melony urement (mass/volume)Ordered By: Nikunj Adams on 09-09-2024 Calcium [Mass/Vol] 9.4 mg/dL 7.6-11.0 [facility] Serum or plasma cholesterol in HDL measurement (mass/volume)Ordered By: Nikunj Adams on 09-09-2024 Cholesterol in HDL [Mass/Vol] 26 mg/dL Low [facility] Comment on above: National Cholesterol Education Program [...] hormones, sex and age. Performed By: #### P SUIV #### [facility] [address] [place], [address] Serum or plasma cholesterol measurement (mass/volume)Ordered By: Nikunj Adams on 09-09-2024 Cholesterol [Mass/Vol] 110 mg/dL Normal <=200 [facility] Comment on above: Cholesterol level, D esirable <200 mg/dLBorderline high cholesterol 200-239 mg/dLHigh cholesterol >=240 mg/dLRecommendations of the NCEP Adult Treatment Panel for the following risk-cutoff thresholds for the [place] population. Result Comment: Chol esterol level, Desirable <200 mg/dL Borderline high cholesterol 200-239 mg/dL High cholesterol >=240 mg/dL Recommendations of the NCEP Adult Treatment Panel for the following risk-cutoff thresholds for the [place] population. Performed By: #### P SUIV #### [facility] [address] [place], [address] Serum or plasma urea nitroge n measurement (mass/volume)Ordered By: Nikunj Adams on 09-09-2024 Urea nitrogen [Mass/Vol] 14 mg/dL 4-19 [facility] Sodium levelOrdered By: Chaz Adams on 09-09-2024 Sodium [Moles/Vol] 138 mmol/L 133-145 [facility] Total proteinOrdered By: Rafiq Adams on 09-09-2024 Protein [Mass/Vol] 6.8 g/dL 5.9-8.4 [facility] Triglycerides measurementOrd ered By: Nikunj Ramirezton on 09-09-2024 Triglyceride [Mass/Vol] 126 mg/dL Normal [facility] Comment on above: The drugs N-Acetylcy steine and Metamizole may falsely depress this assay. Normal range: <150 mg/dLBorderline High: 150-199 mg/dLHigh: 200-499 mg/dLVery High: >500 mg/dL Result Comment: The drugs N-Acetylcysteine and Metamizole may falsely depress this assay. Normal range: <150 mg/dL Borderline High: 150-199 mg/dL High: 200-499 mg/dL Very High: >500 mg/dL Performed By: #### P SUIV #### [facility] [address] [place], [place], [id number] Urinalysis, Routine (Dipstic k)on 09-09-2024 BILIRUBIN URINE Negative Normal Negative [facility] Comment on above: Order Comment: Urine , Random Performed By: #### P SUIV #### [facility] [address] [place], [place], [id number] Clarity (U) Clear Normal Clear [facility] Comment on above: Order Comment: Urine , Random Performed By: #### P SUIV #### [facility] [address] [place], [place], [id number] Color (U) Yellow Normal Yellow [facility] Comment on above: Order Comment: Urine , Random Performed By: #### P SUIV #### [facility] [address] [place], [place], [id number] GLUCOSE, UR Normal Normal Normal [facility] Comment on above: Order Comment: Urine , Random Performed By: #### P SUIV #### [facility] [address] [place], [address] KETONE UR Negative Normal Negative [facility] Comment on above: Order Comment: Urine , Random Performed By: #### P SUIV #### [facility] [address] [place], [address] LEUK ESTERASE Negative Normal Negative [facility] Comment on above: Order Comment: Urine , Random Performed By: #### P SUIV #### [facility] [address] [place], [address] Nitrite Ql (U) Negative Normal Negative [facility] Comment on above: Order Comment: Urine , Random Performed By: #### P SUIV #### [facility] [address] [place], [address] OCCULT BLOOD-UR Negative Normal Negative [facility] Comment on above: Order Comment: Urine , Random Performed By: #### P SUIV #### [facility] [address] [place], [address] pH UR 6.0 Normal 5.0 - 8.0 [facility] Comment on above: Order Comment: Urine , Random Performed By: #### P SUIV #### [facility] [address] [place], [address] PROT DIPSTX 15 mg/dl Abnormal Negative [facility] Comment on above: Order Comment: Urine , Random Performed By: #### P SUIV #### [facility] [address] [place], [address] SP.GR. DIPSTX 1.015 Normal 1.002-1.030 [facility] Comment on above: Order Comment: Urine , Random Performed By: #### P SUIV #### [facility] [address] [place], [address] UROBILI Normal Normal Normal [facility] Comment on above: Order Comment: Urine , Random Performed By: #### P SUIV #### [facility] [address] [place], [address] Urine clarityOrdered By: Rafiq Adams on 09-09-2024 Clarity (U) Clear Clear [facility] Urine color determinationOrd ered By: Nikunj Adams on 09-09-2024 Color (U) Yellow Yellow [facility] Urine glucose detectionOrder ed By: Nikunj Adams on 09-09-2024 Glucose Ql (U) Normal mg/dl Normal [facility] Urine leukocyte esterase det ection by dipstickOrdered By: Nikunj Adams on 09-09-2024 Leukocyte esterase Test strip Ql (U) Negative Negative [facility] Urine pHOrdered By: Nikunj Adams on 09-09-2024 pH (U) 6.0 [pH] 5.0 - 8.0 [facility] Urine specific gravity measu rementOrdered By: Nikunj Adams on 09-09-2024 Specific gravity (U) [Rel density] 1.015 1.002-1.030 [facility] Urine urobilinogen measureme ntOrdered By: Nikunj Adams on 09-09-2024 Urobilinogen Ql (U) Normal mg/dl Normal [facility] White blood cell (WBC) count Ordered By: Nikunj Adams on 09-09-2024 WBC (Bld) [#/Vol] 8.8 10*3/uL 4.4-11.0 [facility] CBC W/Diff, Automatedon - Absolute Lymph 4.11 X10 3/uL Normal 0.83-4.51 [facility] Comment on above: Performed By: #### P SUIV #### [facility] [address] [place], [address] Absolute Neut 6.3 X10 3/uL Normal 2.0-7.7 [facility] Comment on above: Performed By: #### P SUIV #### [facility] [address] [place], [address] Basophils/100 WBC (Bld) 0.7 % Normal 0-1 [facility] Comment on above: Performed By: #### P SUIV #### [facility] [address] [place], [address] Eosinophils/100 WBC (Bld) 3.5 % Normal 0-5 [facility] Comment on above: Performed By: #### P SUIV #### [facility] [address] [place], [address] Erythrocyte distribution width (RBC) [Ratio] 13.1 % Normal 11.6-14.6 [facility] Comment on above: Performed By: #### P SUIV #### [facility] [address] [place], [address] Hematocrit (Bld) [Volume fraction] 41.3 % Normal 40-54 [facility] Comment on above: Performed By: #### P SUIV #### [facility] [address] [place], [address] Hemoglobin (Bld) [Mass/Vol] 13.7 g/dL Normal 13.0-16.5 [facility] Comment on above: Performed By: #### P SUIV #### [facility] [address] [place], [address] IG% 0.700 Normal 0.0-0.9 [facility] Comment on above: Result Comment: IG% - Immature Granulocytes (promyelocytes, myelocytes and metamyelocytes) > 1% indicates that a LEFT SHIFT is Present. Performed By: #### P SUIV #### [facility] [address] [place], [address] Lymphocytes/100 WBC (Bld) 35.0 % Normal 19-41 [facility] Comment on above: Performed By: #### P SUIV #### [facility] [address] [place], [address] MCH (RBC) [Entitic mass] 30.4 pg Normal 27.0-32.0 [facility] Comment on above: Performed By: #### P SUIV #### [facility] [address] [place], [address] MCHC (RBC) [Mass/Vol] 33.2 g/dL Normal 32-36 [facility] Comment on above: Performed By: #### P SUIV #### [facility] [address] [place], [address] MCV (RBC) [Entitic vol] 91.8 fL Normal 80-94 [facility] Comment on above: Performed By: #### P SUIV #### [facility] [address] [place], [address] Monocytes/100 WBC (Bld) 7.0 % Normal 0-10 [facility] Comment on above: Performed By: #### P SUIV #### [facility] [address] [place], [address] Neutrophils/100 WBC (Bld) 53.1 % Normal 47-70 [facility] Comment on above: Performed By: #### P SUIV #### [facility] [address] [place], [address] Nucleated RBC (Bld) [#/Vol] 0 10*3/uL Normal 0-5 [facility] Comment on above: Performed By: #### P SUIV #### [facility] [address] [place], [address] Platelet mean volume (Bld) [Entitic vol] 9.7 fL Normal 6.2-12.0 [facility] Comment on above: Performed By: #### P SUIV #### [facility] [address] [place], [address] Platelets (Bld) [#/Vol] 239 10*3/uL Normal 150-450 [facility] Comment on above: Performed By: #### P SUIV #### [facility] [address] [place], [address] RBC (Bld) [#/Vol] 4.50 10*6/uL Low 4.6-6.2 [facility] Comment on above: Performed By: #### P SUIV #### [facility] [address] [place], [address] RDW SD 43.8 fl Normal 35.1-43.9 [facility] Comment on above: Performed By: #### P SUIV #### [facility] [address] [place], [address] WBC (Bld) [#/Vol] 11.8 10*3/uL High 4.4-11.0 [facility] Comment on above: Performed By: #### P SUIV #### [facility] [address] [place], [address] Hemoglobin A1con 03-16-2024 HbA1c (Bld) [Mass fraction] 6.7 % High 3.8-5.6 [facility] Comment on above: Result Comment: Norm al < 5.7 % Prediabetic 5.7 - 6.4 % Diabetic >or= 6.5 % Please note range changes. Performed By: #### P SUIII #### [facility] [address] [place], [address] Microalb:Creat Ratio,Random URon 03-16-2024 Creatinine [Mass/Vol] 34.90 mg/dL Normal NO RANGE EST. [facility] Comment on above: Performed By: #### P SUIII #### [facility] [address] [place], [address] MALB:CRE TNP Normal <30 mg/g CRE [facility] Comment on above: Performed By: #### P SUIII #### [facility] [address] [place], [place], [id number] MICROALBUMIN,UR < 5.0 Normal NO RANGE EST. [facility] Comment on above: Performed By: #### P SUIII #### [facility] [address] [place], [place], [id number] PSA,Total - Annual Screenon 03-16-2024 PSA,TOT SCREEN 1.21 ng/mL Normal 0.00-4.00 [facility] Comment on above: Result Comment: This test was performed using the TPSA assay method for the [employer] chemistry system. Values obtained with different assay methods cannot be used interchangably. When changing PSA assays in the course of monitoring a patient, additional sequential testing should be carried out to confirm baseline values. Performed By: #### P SUIII #### [facility] [address] [place], [place], [id number] CBC With No Diffon Hematocrit (Bld) [Volume fraction] 42.7 % Normal [facility] Comment on above: Performed By: #### H EMOG #### [facility] (DEFAULT) [address] [place], [place] [address] Hemoglobin (Bld) [Mass/Vol] 14.0 g/dL Normal 13.5-17.5 [facility] Comment on above: Performed By: #### H EMOG #### [facility] (DEFAULT) [address] [place], [place] [address] MCH (RBC) [Entitic mass] 31.6 pg Normal 26.0-34.0 [facility] Comment on above: Performed By: #### H EMOG #### [facility] (DEFAULT) [address] [place], [place] [address] MCHC (RBC) [Mass/Vol] 32.8 g/dL Normal 31.0-37.0 [facility] Comment on above: Performed By: #### H EMOG #### [facility] (DEFAULT) [address] [place], [place] [address] MCV (RBC) [Entitic vol] 96 fL Normal 80-100 [facility] Comment on above: Performed By: #### H EMOG #### [facility] (DEFAULT) [address] [place], [place] [address] Platelets (Bld) [#/Vol] 210 10*3/uL Normal 150-400 [facility] Comment on above: Performed By: #### H EMOG #### [facility] (DEFAULT) [address] [place], [place] [address] RBC (Bld) [#/Vol] 4.43 10*6/uL Low 4.50-5.90 [facility] Comment on above: Performed By: #### H EMOG #### [facility] (DEFAULT) [address] [place], [place] [address] WBC (Bld) [#/Vol] 8.00 10*3/uL Normal 4.50-11.00 [facility] Comment on above: Performed By: #### H EMOG #### [facility] (DEFAULT) [address] [place] [address] CBC panel Auto (Bld)on 03-25 Hematocrit (Bld) [Volume fraction] 42.7 % [facility] Hemoglobin (Bld) [Mass/Vol] 14.0 g/dL 13.5 - 17.5 g/dL [facility] Interpretation and review of laboratory results Abnormal [facility] MCH (RBC) [Entitic mass] 31.6 pg 26. 0 - 34.0 pg [facility] MCHC (RBC) [Mass/Vol] 32.8 g/dL 31.0 - 37.0 g/dL [facility] MCV (RBC) [Entitic vol] 96 fL 80 - 100 fL [facility] Platelets (Bld) [#/Vol] 210 10*3/uL 150 - 400 K/uL [facility] RBC (Bld) [#/Vol] 4.43 10*6/uL Low [facility] WBC (Bld) [#/Vol] 8.00 10*3/uL 4.50 - 11. 00 K/uL [facility] Comprehensive Metabolic Pane godwin 03-25-2023 Albumin [Mass/Vol] 4.1 g/dL Normal 3.2-4.5 [facility] Comment on above: Performed By: #### C MP #### [facility] (DEFAULT) [address] [place], [place] [address] ALP [Catalytic activity/Vol] 75 U/L Normal 40-150 [facility] Comment on above: Performed By: #### C MP #### [facility] (DEFAULT) [address] [place], [place] [address] ALT [Catalytic activity/Vol] 96 U/L High 14-65 [facility] Comment on above: Performed By: #### C MP #### [facility] (DEFAULT) [facility] [address] [place], [place] [address] Anion gap [Moles/Vol] 12 mmol/L Normal 10-20 [facility] Comment on above: Performed By: #### C MP #### [facility] (DEFAULT) [address] [place], [place] [address] [place], [place] [address] AST [Catalytic activity/Vol] 88 U/L High 0-45 [facility] Comment on above: Performed By: #### C MP #### [facility] (DEFAULT) [facility] [address] [place], [place] [address] Bilirubin [Mass/Vol] 0.5 mg/dL Normal 0.0-1.3 [facility] Comment on above: Performed By: #### C MP #### [facility] (DEFAULT) [facility] [address] [place], [place] [address] Calcium [Mass/Vol] 9.5 mg/dL Normal 8.0-10.2 [facility] Comment on above: Performed By: #### C MP #### [facility] (DEFAULT) [address] [place], [place] [address] [place], [place] [address] Chloride [Moles/Vol] 105 mmol/L Normal 98-108 [facility] Comment on above: Performed By: #### C MP #### [facility] (DEFAULT) [facility] [address] [place], [place] [address] CO2 [Moles/Vol] 24.0 mmol/L Normal 21.0-32.0 [facility] Comment on above: Performed By: #### C MP #### [facility] (DEFAULT) [address] [place], [place] [address] Creatinine [Mass/Vol] 1.1 mg/dL Normal 0.5-1.3 [facility] Comment on above: Performed By: #### C MP #### [facility] (DEFAULT) [address] [place], [place] [address] GFR/1.73 sq M.predicted MDRD (S/P/Bld) [Vol rate/Area] 71 mL/min/{1.73_m2} Normal 60-1000 [facility] Comment on above: Result Comment: The eGFR should be used for monitoring renal function only and not for medication dosing. Performed By: #### C MP #### [facility] (DEFAULT) [address] [place] [address] Glucose [Mass/Vol] 100 mg/dL High 65-99 [facility] Comment on above: Performed By: #### C MP #### [facility] (DEFAULT) [address] [place] [address] Potassium [Moles/Vol] 4.0 mmol/L Normal 3.5-5.1 [facility] Comment on above: Performed By: #### C MP #### [facility] (DEFAULT) [address] [place] [address] Protein [Mass/Vol] 8.4 g/dL High 6.0-8.0 [facility] Comment on above: Performed By: #### C MP #### [facility] (DEFAULT) [address] [place] [address] Sodium [Moles/Vol] 137 mmol/L Normal 135-145 [facility] Comment on above: Performed By: #### C MP #### [facility] (DEFAULT) [address] [place] [address] Urea nitrogen [Mass/Vol] 23 mg/dL Normal 8-25 [facility] Comment on above: Performed By: #### C MP #### [facility] (DEFAULT) [address] [place], [place] [address] Comprehensive metabolic 2000 panelon 03-25-2023 Albumin [Mass/Vol] 4.1 g/dL 3.2 - 4.5 g/dL [facility] ALP [Catalytic activity/Vol] 75 U/L 40 - 150 U/L [facility] ALT [Catalytic activity/Vol] 96 U/L High 14 - 65 U/L [facility] Anion gap [Moles/Vol] 12 mmol/L 10 - 2 0 mmol/L [facility] AST [Catalytic activity/Vol] 88 U/L High 0 - 45 U/L [facility] Bilirubin Ql (U) 0.5 mg/dL 0.0 - 1.3 mg/dL [facility] Calcium [Mass/Vol] 9.5 mg/dL 8.0 - 10. 2 mg/dL [facility] Chloride [Moles/Vol] 105 mmol/L 98 - 10 8 mmol/L [facility] Creatinine [Mass/Vol] 1.1 mg/dL 0.5 - 1.3 mg/dL [facility] GFR/1.73 sq M.predicted among non-blacks MDRD (S/P/Bld) [Vol rate/Area] 71 mL/min/{1.73_m2} [facility] Comment on above: The eGFR should be u sed for monitoring renal function only and not for medication dosing. Glucose [Mass/Vol] 100 mg/dL High 65 - 99 mg/dL [facility] HCO3 (Bld) [Moles/Vol] 24.0 mmol/L 21.0 - 32.0 mmol/L [facility] Potassium [Moles/Vol] 4.0 mmol/L 3.5 - 5.1 mmol/L [facility] Protein [Mass/Vol] 8.4 g/dL High 6.0 - 8.0 g/dL [facility] Sodium [Moles/Vol] 137 mmol/L 135 - 145 mmol/L [facility] Urea nitrogen (BldV) [Mass/Vol] 23 mg/dL 8 - 25 mg/dL [facility] HGB A1Con 03-25-2023 Glucose [Mass/Vol] 151 mg/dL High 68-114 [facility] Comment on above: Performed By: #### A 1CE #### [facility] (DEFAULT) [address] [place], [place] [address] HbA1c (Bld) [Mass fraction] 6.9 % High 4.0-5.6 [facility] Comment on above: Result Comment: NORM AL: 4.0% - 5.6% INCREASED RISK FOR DIABETES: 5.7% - 6.4% DIABETES: >6.5% Performed By: #### A 1CE #### [facility] (DEFAULT) [address] [place], [place] [address] HbA1c (Bld) [Mass fraction]o n 03-25-2023 Glucose [Mass/Vol] 151 mg/dL High 68 - 114 mg/dL [facility] Interpretation and review of laboratory results Abnormal [facility] Hemoglobin A1con 03-25-2023 HbA1c (Bld) [Mass fraction] 6.9 % High 4.0 - 5.6 % [facility] Comment on above: NORMAL: 4.0% - 5.6% INCREASED RISK FOR DIABETES: 5.7% - 6.4% DIABETES: >6.5% Lipid 1996 panelon 3 Cholesterol [Mass/Vol] 181 mg/dL 100 - 199 mg/dL [facility] Comment on above: Comment: National Cholesterol Education Program Guidelines: Cholesterol Desirable: <200 mg/dL Borderline High: 200-239 mg/dL High: greater than or equal to 240 mg/dL Cholesterol in HDL [Mass/Vol] 35 mg/dL Low 40 - 59 mg/dL [facility] Comment on above: Comment: National Cholesterol Education Program Guidelines: HDL Cholesterol Low: <40 mg/dL Near Optimal: 40-59 mg/dL High: greater than or equal to 60 mg/dL Cholesterol in LDL [Mass/Vol] 107 mg/dL High 0 - 99 mg/dL [facility] Comment on above: Comment: National Cholesterol Education Program Guidelines: LDL Cholesterol Optimal: <100 mg/dL Near Optimal/above Optimal: 100-129 mg/dL Borderline High: 130-159 mg/dL High: 160-189 mg/dL Very High: greater than or equal to 190 mg/dL Cholesterol.total/Choles terol in HDL [Mass ratio] 5.17 {ratio} [facility] Comment on above: Comment: Female CHolesterol/HDL Ratio: Average risk: 4.4 1/2 average risk: 3.3 2 x average risk: 7.1 Magnesium [Mass/Vol] 146 mg/dL [facility] Comment on above: Comment: National Cholesterol Education Program guidelines: NON HDL Cholesterol Desirable: <130 mg/dL Borderline High 130-159 mg/dL High: 160-189 mg/dL Very High: > or = 190 mg/dL Triglyceride [Mass/Vol] 196 mg/dL High 30 - 150 mg/dL [facility] Comment on above: Comment: National Cholesterol Education Program Guidelines: Triglyceride Normal: <150 mg/dL Borderline High: 150-199 mg/dL High: 200-499 mg/dL Very High: greater than or equal to 500 mg/dL Lipid Profileon 03-25-2023 Cholesterol [Mass/Vol] 181 mg/dL Normal 100-199 [facility] Comment on above: Result Comment: Comm ent: National Cholesterol Education Program Guidelines: Cholesterol Desirable: <200 mg/dL Borderline High: 200-239 mg/dL High: greater than or equal to 240 mg/dL Performed By: #### L IPID #### [facility] (DEFAULT) [address] [place] [id number] Cholesterol in HDL [Mass/Vol] 35 mg/dL Low 40-59 [facility] Comment on above: Result Comment: Comm ent: National Cholesterol Education Program Guidelines: HDL Cholesterol Low: <40 mg/dL Near Optimal: 40-59 mg/dL High: greater than or equal to 60 mg/dL Performed By: #### L IPID #### [facility] (DEFAULT) [address] [place] [phone] Cholesterol in LDL [Mass/Vol] 107 mg/dL High 0-99 [facility] Comment on above: Result Comment: Comm ent: National Cholesterol Education Program Guidelines: LDL Cholesterol Optimal: <100 mg/dL Near Optimal/above Optimal: 100-129 mg/dL Borderline High: 130-159 mg/dL High: 160-189 mg/dL Very High: greater than or equal to 190 mg/dL Performed By: #### L IPID #### [facility] (DEFAULT) [address] [place] [address] 74330 Cholesterol non HDL [Mass/Vol] 146 mg/dL Normal [facility] Comment on above: Result Comment: Comm ent: National Cholesterol Education Program guidelines: NON HDL Cholesterol Desirable: <130 mg/dL Borderline High 130-159 mg/dL High: 160-189 mg/dL Very High: > or = 190 mg/dL Performed By: #### L IPID #### [facility] (DEFAULT) [address] [place] [address] 97100 Cholesterol.total/Choles terol in HDL [Mass ratio] 5.17 {ratio} Normal [facility] Comment on above: Result Comment: Comm ent: Female CHolesterol/HDL Ratio: Average risk: 4.4 1/2 average risk: 3.3 2 x average risk: 7.1 Performed By: #### L IPID #### [facility] (DEFAULT) [address] [place] [address] [id number] Triglyceride [Mass/Vol] 196 mg/dL High 30-150 [facility] Comment on above: Result Comment: Comm ent: National Cholesterol Education Program Guidelines: Triglyceride Normal: <150 mg/dL Borderline High: 150-199 mg/dL High: 200-499 mg/dL Very High: greater than or equal to 500 mg/dL Performed By: #### L IPID #### [facility] (DEFAULT) [address] [place] [address] [phone] Microalb/Creat Ratio, Urineo n 03-25-2023 Albumin DL <= 20 mg/L (U) [Mass/Vol] 0.7 mg/dL Normal 0.0-1.8 [facility] Comment on above: Result Comment: Test ing Performed At: [facility] [address] [place] [address] Performed By: #### Shahbaz CHÁVEZT #### [facility] (UNKNOWN) [address] [place] [address] [id number] CREATININE, URINE, RANDOM 70.3 mg/dL Normal [facility] Comment on above: Result Comment: Test ing Performed At: [facility] [address] [place] [id number] Performed By: #### M TASHARAT #### [facility] (UNKNOWN) [address] [place] [address] 17059 MICROALBUMIN/CREATININE RATIO 10 mg/g crea Normal 0-25 [facility] Comment on above: Result Comment: Test ing Performed At: [facility] [address] [place] [address] Performed By: #### M CHARMAINE #### [facility] (UNKNOWN) [address] [place] [address] [phone] No Panel Informationon 03-25 Interpretation and review of laboratory results Abnormal [facility] Prostate specific Ag [Mass/V ol]on 03-25-2023 PSA Total 1.35 ng/mL High 0.00 - 0.99 ng/mL [facility] Comment on above: NCCN Guidelines: PSA > 1.0 ng/mL and age 45-49 repeat in 1-2 years. PSA < 1.0 ng/mL and age 45-49 repeat at age 50 PSA > 3.0 ng/mL positive Urinalysison 03-25-2023 Bilirubin Ql (U) Negative Normal Negative [facility] Comment on above: Performed By: #### U A #### [facility] (DEFAULT) [address] [place] [phone] Clarity (U) Clear Normal Clear [facility] Comment on above: Performed By: #### U A #### [facility] (DEFAULT) [address] [place] [address] Color (U) Yellow Normal [facility] Comment on above: Performed By: #### U A #### [facility] (DEFAULT) [address] [place] [address] 45490 Glucose Ql (U) Negative Normal Negative [facility] Comment on above: Performed By: #### U A #### [facility] (DEFAULT) [address] [place] [address] 24323 Hemoglobin Ql (U) Negative Normal Negative [facility] Comment on above: Performed By: #### U A #### [facility] (DEFAULT) [address] [place] [address] [phone] Ketones Ql (U) Negative Normal Negative [facility] Comment on above: Performed By: #### U A #### [facility] (DEFAULT) [address] [place] [address] [phone] Leukocytes Negative Normal Negative [facility] Comment on above: Performed By: #### U A #### [facility] (DEFAULT) [address] [place] [address] 97719 Nitrite Ql (U) Negative Normal Negative [facility] Comment on above: Performed By: #### U A #### [facility] (DEFAULT) [address] [place] [address] [phone] Protein Ql (U) Negative Normal Negative [facility] Comment on above: Performed By: #### U A #### [facility] (DEFAULT) [address] [place] [address] [phone] Specific gravity (U) [Rel density] 1.010 Normal 1.005-1.025 [facility] Comment on above: Performed By: #### U A #### [facility] (DEFAULT) [address] [place] [address] 39856 UpH 6.0 Normal 5.0-6.5 [facility] Comment on above: Performed By: #### U A #### [facility] (DEFAULT) [address] [place] [address] 44635 Urine Specimen Type Clean Catch Normal [facility] Comment on above: Performed By: #### U A #### [facility] (DEFAULT) [address] [place] [address] [phone] Urobilinogen (U) [Mass/Vol] 0.2 mg/dL Normal <2.0 [facility] Comment on above: Performed By: #### U A #### [facility] (DEFAULT) [address] [place] [address] [phone] Urinalysis dipstick panel Au to test strip (U)on 03-25-2023 Bilirubin Ql (U) Negative Negative [facility] Blood, Urine Negative Negative [facility] Clarity (U) Clear Clear [facility] Color (U) Yellow [facility] Glucose Ql (U) Negative Negative [facility] Ketones Ql (U) Negative Negative [facility] Leukocyte esterase Test strip Ql (U) Negative Negative [facility] Nitrite Auto test strip Ql (U) Negative Negative [facility] pH (U) 6.0 [pH] 5.0 - 6.5 [facility] Protein, Urine Negative Negative [facility] Specific gravity (U) [Rel density] 1.010 1.005 - 1.025 [facility] Urine Specimen Type Clean Catch [facility] Urobilinogen Qn (U) 0.2 NINF - 2.0 [facility] CBC panel Auto (Bld)on 03-18 Hematocrit (Bld) [Volume fraction] 42.9 % [facility] Hemoglobin (Bld) [Mass/Vol] 14.4 g/dL 13.5 - 17.5 g/dL [facility] Interpretation and review of laboratory results Abnormal [facility] MCH (RBC) [Entitic mass] 32.2 pg 26. 0 - 34.0 pg [facility] MCHC (RBC) [Mass/Vol] 33.6 g/dL 31.0 - 37.0 g/dL [facility] MCV (RBC) [Entitic vol] 96 fL 80 - 100 fL [facility] Platelets (Bld) [#/Vol] 287 10*3/uL 150 - 400 K/uL [facility] RBC (Bld) [#/Vol] 4.47 10*6/uL Low [facility] WBC (Bld) [#/Vol] 16.64 10*3/uL High 4.50 - 11 .00 K/uL [facility] Comprehensive metabolic 2000 panelon 03-18-2022 Albumin [Mass/Vol] 4.0 g/dL 3.2 - 4.5 g/dL [facility] ALP [Catalytic activity/Vol] 82 U/L 40 - 150 U/L [facility] ALT [Catalytic activity/Vol] 31 U/L 14 - 65 U/L [facility] Anion gap [Moles/Vol] 15 mmol/L 10 - 2 0 mmol/L [facility] AST [Catalytic activity/Vol] 17 U/L 0 - 45 U/L [facility] Bilirubin Ql (U) 0.7 mg/dL 0.0 - 1.3 mg/dL [facility] Calcium [Mass/Vol] 9.8 mg/dL 8.0 - 10. 2 mg/dL [facility] Chloride [Moles/Vol] 98 mmol/L 98 - 10 8 mmol/L [facility] Creatinine [Mass/Vol] 1.5 mg/dL High 0.5 - 1.3 mg/dL [facility] GFR/1.73 sq M.predicted among non-blacks MDRD (S/P/Bld) [Vol rate/Area] 49 mL/min/{1.73_m2} Low [facility] Comment on above: The eGFR should be u sed for monitoring renal function only and not for medication dosing. Glucose [Mass/Vol] 136 mg/dL High 65 - 99 mg/dL [facility] HCO3 (Bld) [Moles/Vol] 25.0 mmol/L 21.0 - 32.0 mmol/L [facility] Interpretation and review of laboratory results Abnormal [facility] Potassium [Moles/Vol] 3.8 mmol/L 3.5 - 5.1 mmol/L [facility] Protein [Mass/Vol] 9.5 g/dL High 6.0 - 8.0 g/dL [facility] Sodium [Moles/Vol] 134 mmol/L Low 135 - 145 mmol/L [facility] Urea nitrogen (BldV) [Mass/Vol] 29 mg/dL High 8 - 25 mg/dL [facility] HbA1c (Bld) [Mass fraction]o n 03-18-2022 Glucose [Mass/Vol] 126 mg/dL High 68 - 114 mg/dL [facility] Interpretation and review of laboratory results Abnormal [facility] Hemoglobin A1con 03-18-2022 HbA1c (Bld) [Mass fraction] 6.0 % High 4.0 - 5.6 % [facility] Comment on above: NORMAL: 4.0% - 5.6% INCREASED RISK FOR DIABETES: 5.7% - 6.4% DIABETES: >6.5% Lipid 1996 panelon Cholesterol [Mass/Vol] 172 mg/dL 100 - 199 mg/dL [facility] Comment on above: Comment: National Cholesterol Education Program Guidelines: Cholesterol Desirable: <200 mg/dL Borderline High: 200-239 mg/dL High: greater than or equal to 240 mg/dL Cholesterol in HDL [Mass/Vol] 49 mg/dL 40 - 59 mg/dL [facility] Comment on above: Comment: National Cholesterol Education Program Guidelines: HDL Cholesterol Low: <40 mg/dL Near Optimal: 40-59 mg/dL High: greater than or equal to 60 mg/dL Cholesterol in LDL [Mass/Vol] 103 mg/dL High 0 - 99 mg/dL [facility] Comment on above: Comment: National Cholesterol Education Program Guidelines: LDL Cholesterol Optimal: <100 mg/dL Near Optimal/above Optimal: 100-129 mg/dL Borderline High: 130-159 mg/dL High: 160-189 mg/dL Very High: greater than or equal to 190 mg/dL Cholesterol.total/Choles terol in HDL [Mass ratio] 3.51 {ratio} [facility] Comment on above: Comment: Female CHolesterol/HDL Ratio: Average risk: 4.4 1/2 average risk: 3.3 2 x average risk: 7.1 Interpretation and review of laboratory results Abnormal [facility] Magnesium [Mass/Vol] 123 mg/dL [facility] Comment on above: Comment: National Cholesterol Education Program guidelines: NON HDL Cholesterol Desirable: <130 mg/dL Borderline High 130-159 mg/dL High: 160-189 mg/dL Very High: > or = 190 mg/dL Triglyceride [Mass/Vol] 99 mg/dL 30 - 150 mg/dL [facility] Comment on above: Comment: National Cholesterol Education Program Guidelines: Triglyceride Normal: <150 mg/dL Borderline High: 150-199 mg/dL High: 200-499 mg/dL Very High: greater than or equal to 500 mg/dL [facility] Urinalysis dipstick panel Au to test strip (U)on 03-18-2022 Bilirubin Ql (U) Small Abnormal Negative [facility] th Blood, Urine Negative Negative [facility] Clarity (U) Clear Clear [facility] Color (U) Yellow [facility] Glucose Ql (U) Negative Negative [facility] Interpretation and review of laboratory results Abnormal [facility] Ketones Ql (U) 15 Abnormal Negative [facility] Leukocyte esterase Test strip Ql (U) Negative Negative [facility] Nitrite Auto test strip Ql (U) Negative Negative [facility] pH (U) 5.5 [pH] 5.0 - 6.5 [facility] Protein, Urine 30 Abnormal Negative [facility] Specific gravity (U) [Rel density] 1.005 - 1.025 [facility] Urine Specimen Type Clean Catch [facility] Urobilinogen Qn (U) 1.0 NINF - 2.0 [facility] Urine Microscopicon 03-18-20 22 Cast, Hyaline 5-10 [facility] Coarse Granular Casts 0-3 [facility] Interpretation and review of laboratory results Abnormal [facility] Mucus, Urine Moderate Abnormal None /hpf [facility] RBCs, Urine 0-3 None;0-3 /hpf [facility] Squamous Epithelial 0-4 [facility] WBCs, Urine 0-5 [facility] Comprehensive metabolic 2000 panelon 09-13-2021 Albumin [Mass/Vol] 4.3 g/dL 3.2 - 4.5 g/dL [facility] ALP [Catalytic activity/Vol] 84 U/L 40 - 150 U/L [facility] ALT [Catalytic activity/Vol] 84 U/L High 14 - 65 U/L [facility] Anion gap [Moles/Vol] 10 mmol/L 10 - 2 0 mmol/L [facility] AST [Catalytic activity/Vol] 56 U/L High 0 - 45 U/L [facility] Bilirubin Ql (U) 0.4 mg/dL 0 - 1.3 mg/dL [facility] Calcium [Mass/Vol] 9.4 mg/dL 8 - 10.2 mg/dL [facility] Chloride [Moles/Vol] 104 mmol/L 98 - 10 8 mmol/L [facility] Creatinine [Mass/Vol] 1.3 mg/dL 0.5 - 1.3 mg/dL [facility] GFR/1.73 sq M.predicted among non-blacks MDRD (S/P/Bld) [Vol rate/Area] 57 mL/min/{1.73_m2} Low [facility] Comment on above: The eGFR should be u sed for monitoring renal function only and not for medication dosing. Glucose [Mass/Vol] 102 mg/dL High 65 - 99 mg/dL [facility] HCO3 (Bld) [Moles/Vol] 24.0 mmol/L 21 - 32 mmol/L [facility] Interpretation and review of laboratory results Abnormal [facility] Potassium [Moles/Vol] 4.3 mmol/L 3.5 - 5.1 mmol/L [facility] Protein [Mass/Vol] 8.7 g/dL High 6 - 8 g/dL [facility] Sodium [Moles/Vol] 134 mmol/L Low 135 - 145 mmol/L [facility] Urea nitrogen (BldV) [Mass/Vol] 31 mg/dL High 8 - 25 mg/dL [facility] HbA1c (Bld) [Mass fraction]o n 09-13-2021 Glucose [Mass/Vol] 131 mg/dL High 68 - 114 mg/dL [facility] Interpretation and review of laboratory results Abnormal [facility] Hemoglobin A1con 09-13-2021 HbA1c (Bld) [Mass fraction] 6.2 % High 4 - 5.6 % [facility] Comment on above: NORMAL: 4.0% - 5.6% INCREASED RISK FOR DIABETES: 5.7% - 6.4% DIABETES: >6.5% CBC panel Auto (Bld)on 02-14 Hematocrit (Bld) [Volume fraction] 41.6 % [facility] Hemoglobin (Bld) [Mass/Vol] 14.0 g/dL 13.5 - 17.5 g/dL [facility] Interpretation and review of laboratory results Abnormal [facility] MCH (RBC) [Entitic mass] 32.3 pg 26. 0 - 34.0 pg [facility] MCHC (RBC) [Mass/Vol] 33.7 g/dL 31.0 - 37.0 g/dL [facility] MCV (RBC) [Entitic vol] 96 fL 80 - 100 fL [facility] Platelets (Bld) [#/Vol] 238 10*3/uL 150 - 400 K/uL [facility] RBC (Bld) [#/Vol] 4.34 10*6/uL Low [facility] WBC (Bld) [#/Vol] 11.17 10*3/uL High 4.50 - 11 .00 K/uL [facility] HbA1c (Bld) [Mass fraction]o n 02-14-2021 Glucose [Mass/Vol] 128 mg/dL High 68 - 114 mg/dL [facility] Interpretation and review of laboratory results Abnormal [facility] Hemoglobin A1con 02-14-2021 HbA1c (Bld) [Mass fraction] 6.1 % High 4.0 - 5.6 % [facility] Comment on above: NORMAL: 4.0% - 5.6% INCREASED RISK FOR DIABETES: 5.7% - 6.4% DIABETES: >6.5% Lipid 1996 panelon Cholesterol [Mass/Vol] 135 mg/dL 100 - 199 mg/dL [facility] Comment on above: Comment: National Cholesterol Education Program Guidelines: Cholesterol Desirable: <200 mg/dL Borderline High: 200-239 mg/dL High: greater than or equal to 240 mg/dL Cholesterol in HDL [Mass/Vol] 47 mg/dL 40 - 59 mg/dL [facility] Comment on above: Comment: National Cholesterol Education Program Guidelines: HDL Cholesterol Low: <40 mg/dL Near Optimal: 40-59 mg/dL High: greater than or equal to 60 mg/dL Cholesterol in LDL [Mass/Vol] 74 mg/dL 0 - 99 mg/dL [facility] Comment on above: Comment: National Cholesterol Education Program Guidelines: LDL Cholesterol Optimal: <100 mg/dL Near Optimal/above Optimal: 100-129 mg/dL Borderline High: 130-159 mg/dL High: 160-189 mg/dL Very High: greater than or equal to 190 mg/dL Cholesterol.total/Choles terol in HDL [Mass ratio] 2.87 {ratio} [facility] Comment on above: Comment: Female CHolesterol/HDL Ratio: Average risk: 4.4 1/2 average risk: 3.3 2 x average risk: 7.1 Non HDL Cholesterol 88 mg/dL [facility] Comment on above: Comment: National Cholesterol Education Program guidelines: NON HDL Cholesterol Desirable: <130 mg/dL Borderline High 130-159 mg/dL High: 160-189 mg/dL Very High: > or = 190 mg/dL Triglyceride [Mass/Vol] 69 mg/dL 30 - 150 mg/dL [facility] Comment on above: Comment: National Cholesterol Education Program Guidelines: Triglyceride Normal: <150 mg/dL Borderline High: 150-199 mg/dL High: 200-499 mg/dL Very High: greater than or equal to 500 mg/dL No Panel Informationon 02-14 [facility] Prostate specific Ag [Mass/V ol]on 02-14-2021 Interpretation and review of laboratory results Abnormal [facility] PSA Total 1.18 ng/mL High 0.00 - 0.99 ng/mL [facility] Comment on above: NCCN Guidelines: PSA > 1.0 ng/mL and age 45-49 repeat in 1-2 years. PSA < 1.0 ng/mL and age 45-49 repeat at age 50 PSA > 3.0 ng/mL positive Urinalysis dipstick panel Au to test strip (U)on 02-14-2021 Bilirubin, Urine Negative Negative [facility] Blood, Urine Negative Negative [facility] Clarity (U) Clear Clear [facility] Color (U) Yellow [facility] Glucose Ql (U) Negative Negative [facility] Interpretation and review of laboratory results Abnormal [facility] Ketones Ql (U) 40 Abnormal Negative [facility] Leukocyte esterase Test strip Ql (U) Negative Negative [facility] Nitrite, Urine Negative Negative [facility] pH (U) 5.5 [pH] [facility] Protein, Urine 30 Abnormal Negative [facility] Specific gravity (U) [Rel density] 1.025 [facility] Urine Specimen Type Clean Catch [facility] Urobilinogen, Urine 0.2 <2.0 [facility] Urine Microscopicon 02-15-20 Interpretation and review of laboratory results Abnormal [facility] Mucus, Urine Moderate Abnormal None /hpf [facility] Squamous Epithelial 0-1 [facility] Basic metabolic 2000 panelOr dered By: Nikunj Adams on 08-06-2020 Anion gap [Moles/Vol] 11 mmol/L 10 - 2 0 mmol/L [facility] Calcium [Mass/Vol] 10.1 mg/dL 8.0 - 10. 2 mg/dL [facility] Chloride [Moles/Vol] 107 mmol/L 98 - 10 8 mmol/L [facility] Creatinine [Mass/Vol] 1.4 mg/dL High 0.5 - 1.3 mg/dL [facility] GFR/1.73 sq M.predicted among non-blacks MDRD (S/P/Bld) [Vol rate/Area] 52 mL/min/{1.73_m2} Low [facility] Comment on above: The eGFR should be u sed for monitoring renal function only and not for medication dosing. Glucose [Mass/Vol] 97 mg/dL 65 - 99 mg/dL [facility] HCO3 (Bld) [Moles/Vol] 25.0 mmol/L 21.0 - 32.0 mmol/L [facility] Interpretation and review of laboratory results Abnormal [facility] Potassium [Moles/Vol] 4.6 mmol/L 3.5 - 5.1 mmol/L [facility] Sodium [Moles/Vol] 138 mmol/L 135 - 145 mmol/L [facility] Urea nitrogen [Mass/Vol] 33 mg/dL High 8 - 25 mg/d L [facility] HbA1c (Bld) [Mass fraction]O rdered By: Nikunj Adams on 08-06-2020 Glucose [Mass/Vol] 126 mg/dL High 68 - 114 mg/dL [facility] Interpretation and review of laboratory results Abnormal [facility] Hemoglobin [id number] By: Joaquin Adams on 08-06-2020 HbA1c (Bld) [Mass fraction] 6.0 % High 4.0 - 5.6 % [facility] Comment on above: NORMAL: 4.0% - 5.6% INCREASED RISK FOR DIABETES: 5.7% - 6.4% DIABETES: >6.5% Vital Signs Date Time Vital Sign Value Performing Clinician Facility 11-24-2024 13:25-0400 Body temperature 97 [degF] Dr. Nikunj Adams DO Work Phone: [phone] [place] [address] 11-24-2024 13:25-0400 Diastolic blood pressure 74 mm[Hg] Dr. Nikunj Adams DO Work Phone: [phone])[phone] [place] [address] 11-24-2024 13:25-0400 Heart rate 78 /min Dr. Nikunj Adams DO Work Phone: [phone])[phone] [place] [address] 11-24-2024 13:25-0400 Respiratory rate 16 /min Dr. Nikunj Adams DO Work Phone: [phone] [place] [address] 11-24-2024 13:25-0400 SaO2% (BldA) [Mass fraction] 96 % Dr. Nikunj Adams DO Work Phone: [phone])[phone] [place] [address] 11-24-2024 13:25-0400 Systolic blood pressure 114 mm[Hg] Dr. Nikunj Adams DO Work Phone: [phone] [place] [address] 11-24-2024 12:20-0400 Inhaled oxygen flow rate 2 L/min Dr. Nikunj Adams DO Work Phone: 0([phone])[phone] [place] [address] 11-24-2024 09:16-0400 Body height 175.[address] Nikunj Adams DO Work Phone: [phone])[phone] [place] [address] 11-24-2024 09:16-0400 Body mass index (BMI) [Ratio] 30.6 kg/m2 Dr. Nikunj Adams DO Work Phone: [phone])[phone] [place] [address] 11-24-2024 09:16-0400 Body weight [address] Nikunj Adams DO Work Phone: [phone] [place] [address] 10-25-2024 13:55-0400 Body height 175.[address] Nikunj Adams DO Work Phone: [phone] [place] [address] 10-25-2024 13:55-0400 Body mass index (BMI) [Ratio] 31.7 kg/m2 Dr. Nikujn Adams DO Work Phone: [facility] 10-25-2024 13:55-0400 Body weight 97.[address] Nikunj Adams DO Work Phone: [facility] 10-25-2024 13:55-0400 Diastolic blood pressure 75 mm[Hg] Dr. Nikunj Adams DO Work Phone: [facility] 10-25-2024 13:55-0400 Heart rate 78 /min Dr. Nikunj Adams DO Work Phone: [facility] 10-25-2024 13:55-0400 Respiratory rate 18 /min Dr. Nikunj Adams DO Work Phone: [phone] [place] [address] 10-25-2024 13:55-0400 SaO2% (BldA) [Mass fraction] 98 % Dr. Nikunj Adams DO Work Phone: [facility] 10-25-2024 13:55-0400 Systolic blood pressure 118 mm[Hg] Dr. Nikunj Adams DO Work Phone: [facility] 10-17-2024 09:43-0400 Body temperature 97 [degF] Dr. Nikunj Adams DO Work Phone: [facility] 10-17-2024 09:43-0400 Diastolic blood pressure 87 mm[Hg] Dr. Nikunj Adams DO Work Phone: [facility] 10-17-2024 09:43-0400 Heart rate 76 /min Dr. Nikunj Adams DO Work Phone: [facility] 10-17-2024 09:43-0400 Respiratory rate 16 /min Dr. Nikunj Adams DO Work Phone: [facility] 10-17-2024 09:43-0400 SaO2% (BldA) [Mass fraction] 96 % Dr. Nikunj Adams DO Work Phone: [facility] 10-17-2024 09:43-0400 Systolic blood pressure 103 mm[Hg] Dr. Nikunj Adams DO Work Phone: [facility] 10-17-2024 07:25-0400 Body height 175.[address] Nikunj Adams DO Work Phone: [facility] 10-17-2024 07:25-0400 Body mass index (BMI) [Ratio] 30.9 kg/m2 Dr. Nikunj Adams DO Work Phone: [facility] 10-17-2024 07:25-0400 Body weight [address] Nikunj Adams DO Work Phone: [facility] 09-21-2024 07:29-0400 Body height 180.3 cm Nikunj Adams DO Work Phone: [facility] 09-21-2024 07:29-0400 Body mass index (BMI) [Ratio] 30.68 kg/m2 Nikunj Adams DO Work Phone: [facility] 09-21-2024 07:29-0400 Body weight 99.79 kg Nikunj Adams DO Work Phone: [facility] 09-21-2024 07:29-0400 Diastolic blood pressure 82 mm[Hg] Nikunj Adams DO Work Phone: [facility] 09-21-2024 07:29-0400 Heart rate 85 /min Nikunj Adams Work Phone: [facility] 09-21-2024 07:29-0400 SaO2% (BldA) [Mass fraction] 99 % Nikunj Adams DO Work Phone: [facility] 09-21-2024 07:29-0400 Systolic blood pressure 124 mm[Hg] Nikunj Adams DO Work Phone: [facility] 03-22-2024 08:46-0500 Body height 180.3 cm Nikunj Adams DO Work Phone: [facility] 03-22-2024 08:46-0500 Body mass index (BMI) [Ratio] 37.66 kg/m2 Nikunj Adams DO Work Phone: [facility] 03-22-2024 08:46-0500 Body weight 122.47 kg Nikunj Ramirezton DO Work Phone: [facility] 03-22-2024 08:46-0500 Diastolic blood pressure 82 mm[Hg] Nikunj Ramirezton DO Work Phone: [facility] 03-22-2024 08:46-0500 Heart rate 81 /min Nikunj Ramirezton DO Work Phone: [facility] 03-22-2024 08:46-0500 Respiratory rate 14 /min Nikunj Adams DO Work Phone: [facility] 03-22-2024 08:46-0500 SaO2% (BldA) [Mass fraction] 96 % Nikunj Adams DO Work Phone: [facility] 03-22-2024 08:46-0500 Systolic blood pressure 138 mm[Hg] Nikunj Adams DO Work Phone: [facility] 09-24-2023 09:37-0400 Diastolic blood pressure 92 mm[Hg] Nikunj Adams DO Work Phone: [facility] 09-24-2023 09:37-0400 Systolic blood pressure 154 mm[Hg] Nikunj Adams DO Work Phone: [facility] 09-24-2023 09:35-0400 Body height 180.3 cm Nikunj Ramirezton DO Work Phone: [facility] 09-24-2023 09:35-0400 Body mass index (BMI) [Ratio] 35.43 kg/m2 Nikunj Ramirezton DO Work Phone: [facility] 09-24-2023 09:35-0400 Body weight 115.21 kg Nikunj Ramirezton DO Work Phone: [facility] 09-24-2023 09:35-0400 Heart rate 84 /min Nikunj Ramirezton DO Work Phone: [facility] 09-24-2023 09:35-0400 Respiratory rate 14 /min Nikunj Ramirezton DO Work Phone: [facility] 09-24-2023 09:35-0400 SaO2% (BldA) [Mass fraction] 99 % Nikunj Adams DO Work Phone: [facility] 08-20-2023 13:19-0400 Diastolic blood pressure 106 mm[Hg] Shirlene Mccarthy SDC TEACHER Work Phone: [facility] 08-20-2023 13:19-0400 Systolic blood pressure 188 mm[Hg] Shirlene Mccarthy SDC TEACHER Work Phone: [facility] 08-20-2023 13:10-0400 Body height 180.3 cm Shirlene Mccarthy SDC TEACHER Work Phone: [facility] 08-20-2023 13:10-0400 Body mass index (BMI) [Ratio] 36.96 kg/m2 Shirlene Mccarthy SDC TEACHER Work Phone: [facility] 08-20-2023 13:10-0400 Body temperature 100.8 [degF] Shirlene Mccarthy SDC TEACHER Work Phone: [facility] 08-20-2023 13:10-0400 Body weight 120.2 kg Shirlene Mccarthy SDC TEACHER Work Phone: [facility] 08-20-2023 13:10-0400 Heart rate 97 /min Shirlene Mccarthy SDC TEACHER Work Phone: [facility] 08-20-2023 13:10-0400 SaO2% (BldA) [Mass fraction] 96 % Shirlene Mccarthy SDC TEACHER Work Phone: [facility] 03-25-2023 13:56-0500 Diastolic blood pressure 90 mm[Hg] Nikunj Angie DO Work Phone: [facility] 03-25-2023 13:56-0500 Systolic blood pressure 144 mm[Hg] Nikunj Adams DO Work Phone: [facility] 03-25-2023 13:50-0500 Body height 180.3 cm Nikunj Adams DO Work Phone: [facility] 03-25-2023 13:50-0500 Body mass index (BMI) [Ratio] 38.22 kg/m2 Nikunj Adams DO Work Phone: [facility] 03-25-2023 13:50-0500 Body weight 124.29 kg Nikunj Ramirezton DO Work Phone: [facility] 03-25-2023 13:50-0500 Heart rate 86 /min Nikunj Springfield DO Work Phone: [facility] 03-25-2023 13:50-0500 Respiratory rate 14 /min Nikunj Ramirezton DO Work Phone: [facility] 03-25-2023 13:50-0500 SaO2% (BldA) [Mass fraction] 97 % Nikunj Ramirezton DO Work Phone: [facility] 09-19-2022 08:33-0400 Body height 175.3 cm Nikunj Jimmy PA Work Phone: [facility] 09-19-2022 08:33-0400 Body temperature 99.81 [degF] Nikunj Jimmy PA Work Phone: [facility] 09-19-2022 08:33-0400 Diastolic blood pressure 68 mm[Hg] Nikunj Jimmy PA Work Phone: [facility] 09-19-2022 08:33-0400 Heart rate 89 /min Nikunj Jimmy PA Work Phone: [facility] 09-19-2022 08:33-0400 Respiratory rate 16 /min Nikunj Jimmy PA Work Phone: [facility] 09-19-2022 08:33-0400 SaO2% (BldA) [Mass fraction] 97 % Nikunj Jimmy PA Work Phone: [facility] 09-19-2022 08:33-0400 Systolic blood pressure 137 mm[Hg] Nikunj Jimmy PA Work Phone: [facility] 03-18-2022 10:31-0500 Body height 180.3 cm Nikunj Ramirezton DO Work Phone: [facility] 03-18-2022 10:31-0500 Body mass index (BMI) [Ratio] 33.89 kg/m2 Nikunj Adams DO Work Phone: [facility] 03-18-2022 10:31-0500 Body temperature 97.39 [degF] Nikunj Adams DO Work Phone: [facility] 03-18-2022 10:31-0500 Body weight 110.22 kg Nikunj Adams DO Work Phone: [facility] 03-18-2022 10:31-0500 Diastolic blood pressure 86 mm[Hg] Nikunj Adams DO Work Phone: [facility] 03-18-2022 10:31-0500 Heart rate 113 /min Nikunj Adams DO Work Phone: [facility] 03-18-2022 10:31-0500 SaO2% (BldA) [Mass fraction] 99 % Nikunj Adams DO Work Phone: [facility] 03-18-2022 10:31-0500 Systolic blood pressure 138 mm[Hg] Nikunj Adams DO Work Phone: [facility] 09-13-2021 08:32-0400 Body height 180.3 cm Nikunj Adams DO Work Phone: [facility] 09-13-2021 08:32-0400 Body mass index (BMI) [Ratio] 36.74 kg/m2 Nikunj Adams DO Work Phone: [facility] 09-13-2021 08:32-0400 Body temperature 98.2 [degF] Nikunj Adams DO Work Phone: [facility] 09-13-2021 08:32-0400 Body weight 119.48 kg Nikunj Adams DO Work Phone: [facility] 09-13-2021 08:32-0400 Diastolic blood pressure 78 mm[Hg] Nikunj Adams DO Work Phone: [facility] 09-13-2021 08:32-0400 Heart rate 62 /min Nikunj Adams DO Work Phone: [facility] 09-13-2021 08:32-0400 SaO2% (BldA) [Mass fraction] 97 % Nikunj Adams DO Work Phone: [facility] 09-13-2021 08:32-0400 Systolic blood pressure 132 mm[Hg] Nikunj Adams DO Work Phone: [facility] 02-14-2021 14:37-0500 Body height 180.3 cm Nikunj Adams DO Work Phone: [facility] 02-14-2021 14:37-0500 Body mass index (BMI) [Ratio] 31.24 kg/m2 Nikunj Adams DO Work Phone: [facility] 02-14-2021 14:37-0500 Body temperature 98.4 [degF] Nikunj Adams DO Work Phone: [facility] 02-14-2021 14:37-0500 Body weight 101.61 kg Nikunj Adams DO Work Phone: [facility] 02-14-2021 14:37-0500 Diastolic blood pressure 76 mm[Hg] Nikunj Adams DO Work Phone: [facility] 02-14-2021 14:37-0500 Heart rate 88 /min Nikunj Adams DO Work Phone: [facility] 02-14-2021 14:37-0500 Respiratory rate 16 /min Nikunj Adams DO Work Phone: [facility] 02-14-2021 14:37-0500 SaO2% (BldA) [Mass fraction] 97 % Nikunj Adams DO Work Phone: [facility] 02-14-2021 14:37-0500 Systolic blood pressure 128 mm[Hg] Nikunj Adams DO Work Phone: [facility] 08-06-2020 09:12-0400 Diastolic blood pressure 84 mm[Hg] Nikunj Adams DO Work Phone: [facility] 08-06-2020 09:12-0400 Systolic blood pressure 138 mm[Hg] Nikunj Adams DO Work Phone: [facility] 08-06-2020 08:58-0400 Body height 180.3 cm Nikunj Adams DO Work Phone: [facility] 08-06-2020 08:58-0400 Body mass index (BMI) [Ratio] 35.98 kg/m2 Nikunj Adams DO Work Phone: [facility] 08-06-2020 08:58-0400 Body temperature 97.5 [degF] Nikunj Adams DO Work Phone: [facility] 08-06-2020 08:58-0400 Body weight 117.03 kg Nikunj Adams DO Work Phone: [facility] 08-06-2020 08:58-0400 Heart rate 81 /min Nikunj Adams DO Work Phone: [facility] 08-06-2020 08:58-0400 Respiratory rate 16 /min Nikunj Adams DO Work Phone: [facility] 08-06-2020 08:58-0400 SaO2% (BldA) [Mass fraction] 99 % Nikunj Adams DO Work Phone: [facility] 01-17-2020 08:08-0400 BP Diastolic 88 mm[Hg] Nikunj [facility] 01-17-2020 08:08-0400 BP Systolic 148 mm[Hg] Nikunj Adams [facility] 01-17-2020 07:50-0400 BMI (Body Mass Index) 32.5 kg/m2 Nikunj Adams [facility] 01-17-2020 07:50-0400 Body Temperature 97.5 [degF] Nikunj Adams [facility] 01-17-2020 07:50-0400 Body weight 105.69 kg Nikunj Adams [facility] 01-17-2020 07:50-0400 Height 180.3 [facility] 07:50-0400 Pulse (Heart Rate) 87 /min [facility]-17-2020 07:50-0400 Pulse Oximetry 98 % [facility]-17-2020 07:50-0400 Respiratory Rate 14 /min Nikunj Adams [facility] 10-18-2019 14:03-0400 BP Diastolic 92 mm[Hg] Nikunj Adams [facility] 10-18-2019 14:03-0400 BP Systolic 180 mm[Hg] Nikunj [facility] 10-18-2019 14:02-0400 BMI (Body Mass Index) 35.01 kg/m2 Nikunj [facility] 10-18-2019 14:02-0400 Body Temperature 99.7 [degF] Nikunj [facility] 10-18-2019 14:02-0400 Body weight 113.85 kg Nikunj [facility] 10-18-2019 14:02-0400 Height 180.3 cm Nikunj [facility] 10-18-2019 14:02-0400 Pulse (Heart Rate) 88 /min Nikunj [facility] 10-18-2019 14:02-0400 Pulse Oximetry 96 % Nikunj [facility] 10-18-2019 14:02-0400 Respiratory Rate 16 /min Nikunj [facility] Encounters Encounter Date Encounter Type Care Provider Facility Start: 03-17-2025 ambulatory Nikunj Gu ility:[facility] Start: 12-12-2024 End: 12-12-2024 Refill Nikunj Adams DO Work Phone: [facility] Comment on above: Essential hypertensi on Start: 12-07-2024 End: 12-07-[address] Nikunj Adams DO Work Phone: -[facility] Start: 12-07-2024 End: 12-07-[address] Harrison Courtney MD -[facility] Work Phone: Start: 11-24-2024 ambulatory Nikunj Gu ility:[facility] Start: 11-24-2024 Non-patient / Non-visit Dr. Janay PLEITEZ -[facility] Start: 11-24-2024 End: 11-24-2024 Admission to same day surgery center Dr. Harrison Courtney MD [facility] Start: 11-24-2024 End: 11-24-[address] Nikunj Adams DO Work Phone: [facility] Start: 11-24-2024 ambulatory NIKUNJ Lehman [facility] Start: 11-04-2024 End: 11-04-2024 Refill Nikunj Adams DO Work Phone: [facility] [place] Comment on above: Type 2 diabetes jordi itus without complication, without long- term current use of insulin (HCC) Start: 10-25-2024 End: 10-25-[address] Harrison Courtney MD -[facility] Work Phone: Start: 10-25-2024 End: 10-25-[address] Nikunj Adams DO Work Phone: -[facility] Start: 10-17-2024 ambulatory Nikunj Adams Fac ility:[facility] Start: 10-17-2024 Non-patient / Non-visit Moreno Shaffer nd, DO -[facility] Start: 10-17-2024 End: 10-17-2024 Admission to same day surgery center Moreno Mosqueda DO -Endoscopy Work Phone: Start: 10-17-2024 End: 10-17-[address] Nikunj Adams DO Work Phone: -Endoscopy Comment on above: Essential hypertensi on Start: 09-21-2024 End: 09-21-2024 Office outpatient visit 25 minutes Nikunj Adams DO Work Phone: [facility] [place] Comment on above: Type 2 diabetes jordi itus without complication, without long- term current use of insulin (HCC) (Primary Dx); Essential hypertension; Mixed hyperlipidemia; Anemia, unspecified type Start: 09-21-2024 End: 09-21-2024 ambulatory NIKUNJ PEREIRA [facility] Start: 09-21-2024 ambulatory NIKUNJ Lehman [facility] Start: 09-15-2024 End: 11-15-2024 Follow-up encounter Nikunj Adams DO Work Phone: [facility] [place] Comment on above: Ferritin, B12/Folate , Iron and TIBC Start: 09-15-2024 End: 09-15-[address] Nikunj Adams DO Work Phone: [facility] Work Phone: Start: 09-15-2024 End: 09-15-[address] Nikunj Adams DO -Laboratory Work Phone: Start: 09-15-2024 Encounter for genera l adult medical examination without abnormal findings Nikunj Adams [facility] Start: 09-15-2024 End: 09-15-2024 ambulatory Nikunj Adams Facility:[facility] Start: 09-11-2024 End: 11-11-2024 Orders Only Nikunj Adams DO Work Phone: [facility] [place] Comment on above: Anemia, unspecified type (Primary Dx) CBC Start: 09-09-2024 End: 09-09-[address] Nikunj Adams DO Work Phone: [facility] Work Phone: Start: 09-09-2024 End: 09-09-[address] Nikunj Adams DO -Laboratory Work Phone: Start: 09-09-2024 End: 09-09-2024 ambulatory Nikunj Adams Facility:[facility] Start: 09-09-2024 Encounter for genera l adult medical examination without abnormal findings NIKUNJ ADAMS [facility] Start: 05-30-2024 End: 05-30-2024 Orders Only Nikunj Adams DO Work Phone: [facility] [place] Comment on above: Upper respiratory tr act infection, unspecified type (Primary Dx) Start: 03-24-2024 End: 03-24-2024 Orders Only Historical Provider [facility] [place] Start: 03-22-2024 End: 03-22-2024 Patient encounter status Nikunj Adams DO Work Phone: [facility] Work Phone: Start: 03-22-2024 End: 03-22-2024 Periodic preventive med est patient 40-64yrs Nikunj Adams DO Work Phone: [facility] [place] Comment on above: Preventative health care (Primary Dx); Type 2 diabetes mellitus without complication, without long-term current use of insulin (HCC); Essential hypertension; Mixed hyperlipidemia; Need for Streptococcus pneumoniae vaccination Start: 03-22-2024 End: 03-22-2024 ambulatory NIKUNJ ADAMS [facility] Start: 03-16-2024 End: 03-16-2024 ambulatory MIKKI TROTTER Facility:[facility] Start: 03-06-2024 End: 03-06-2024 Refill Nikunj Adams DO Work Phone: [facility] [place] Comment on above: Essential hypertensi on Start: 12-16-2023 End: 12-16-2023 Refill Nikunj Adams DO Work Phone: [facility] [place] Comment on above: Mixed hyperlipidemia Start: 11-04-2023 End: 11-04-2023 Refill Nikunj Adams DO Work Phone: [facility] [place] Comment on above: Type 2 diabetes jordi itus without complication, without long- term current use of insulin (HCC); Mixed hyperlipidemia Start: 09-29-2023 End: 09-29-2023 Orders Only Nikunj Adams DO Work Phone: [facility] [place] Comment on above: Gout, unspecified ca use, unspecified chronicity, unspecified site (Primary Dx) Start: 09-24-2023 End: 09-24-2023 Office outpatient visit 25 minutes Nikunj Adams DO Work Phone: [facility] [place] Comment on above: Type 2 diabetes jordi itus without complication, without long- term current use of insulin (HCC) (Primary Dx); Essential hypertension; Mixed hyperlipidemia Start: 09-16-2023 Orders Only Nikunj Adams DO Work Phone: [facility] [place] Comment on above: Type 2 diabetes jordi itus without complication, without long- term current use of insulin (HCC) (Primary Dx); Mixed hyperlipidemia Start: 08-20-2023 End: 08-20-2023 Office outpatient visit 25 minutes Shirlene Poe Fabio SANDOVAL Work Phone: [facility] [place] Comment on above: Septic olecranon bur sitis of right elbow (Primary Dx); Cellulitis of foot, left Start: 08-18-2023 Refill Nel adhikari MA [facility] [place] Start: 08-03-2023 Orders Only Nikunj Adams DO Work Phone: [facility] [place] Comment on above: Acute ankle pain, un specified laterality Start: 06-22-2023 Orders Only Nikunj Adams DO Work Phone: [facility] [place] Comment on above: Acute ankle pain, un specified laterality Start: 03-25-2023 End: [facility]: 03-25-2023 End: 03-25-2023 Encounter for general adult medical examination without abnormal findings [facility] Start: 03-25-2023 End: 03-25-2023 ambulatory NIKUNJ RAMIREZTON Facility:[facility] Start: 03-25-2023 Encounter for genera l adult medical examination without abnormal findings [facility] Paul [facility] Start: 03-25-2023 Orders Only Nikunj Adams DO Work Phone: [facility] [place] Start: 03-25-2023 End: 03-25-2023 Patient encounter status Nikunj Adams DO Work Phone: [facility] Work Phone: Start: 03-25-2023 End: 03-25-2023 Periodic preventive med est patient 40-64yrs Nikunj Adams Work Phone: [facility] [place] Comment on above: Preventative health care (Primary Dx); Type 2 diabetes mellitus without complication, without long-term current use of insulin (HCC); Essential hypertension; Mixed hyperlipidemia; Prostate cancer screening Start: 01-29-2023 Refill Nikunj Adams DO Work Phone: [facility] [place] Start: 09-19-2022 ambulatory NIKUNJ ADAMS [facility] Start: 09-19-2022 End: 09-19-2022 Office outpatient new 30 minutes Nikunj MADRID Work Phone: [facility] Comment on above: Ear pain, bilateral (Primary Dx) Start: 07-24-2022 Refill Nikunj Adams DO Work Phone: [facility] [place] Comment on above: Acute ankle pain, un specified laterality (Primary Dx); Cellulitis of foot Start: 03-19-2022 Orders Only Nikunj Adams DO Work Phone: [facility] [place] Comment on above: Essential hypertensi on (Primary Dx); Leukocytosis, unspecified type Start: 03-18-2022 Orders Only Nikunj Adams DO Work Phone: [facility] [place] Start: 03-18-2022 End: 03-18-2022 Patient encounter status Nikunj Adams DO Work Phone: [facility] [place] Start: 03-18-2022 End: 03-18-2022 Periodic preventive med est patient 40-64yrs Nikunj Adams Work Phone: [facility] [place] Comment on above: Preventative health care (Primary Dx); Type 2 diabetes mellitus without complication, without long-term current use of insulin (HCC); Essential hypertension; Hyperlipidemia, unspecified hyperlipidemia type; Cellulitis of foot Start: 09-16-2021 Orders Only Nikunj Adams DO Work Phone: [facility] [place] Comment on above: Elevated liver enzym es (Primary Dx) Start: 09-13-2021 Orders Only Nikunj Arbendavid lehman Angie DO Work Phone: [facility] [place] Start: 09-13-2021 End: 09-13-2021 Office outpatient visit 25 minutes Nikunj Adams DO Work Phone: [facility] [place] Comment on above: Type 2 diabetes jordi itus without complication, without long- term current use of insulin (HCC) (Primary Dx); Essential hypertension; Hyperlipidemia, unspecified hyperlipidemia type Start: 07-24-2021 Refill Nikunj Adams DO Work Phone: [facility] [place] Start: 02-25-2021 Orders Only Nikunj Ramirezton DO Work Phone: [facility] [place] Comment on above: Essential hypertensi on (Primary Dx) Start: 02-17-2021 Orders Only Nikunj Adams DO Work Phone: [facility] [place] Comment on above: Hyperproteinemia (Pr imary Dx) Start: 02-14-2021 End: 02-14-2021 Patient encounter status Nikunj Adams DO Work Phone: [facility] [place] Start: 02-14-2021 End: 02-14-2021 Periodic preventive med est patient 40-64yrs Nikunj Adams DO Work Phone: [facility] [place] Comment on above: Preventative health care (Primary Dx); Type 2 diabetes mellitus without complication, without long-term current use of insulin (HCC); Essential hypertension; Hyperlipidemia, unspecified hyperlipidemia type; Prostate cancer screening; Need for Streptococcus pneumoniae vaccination; Strain of left ankle, initial encounter Start: 02-14-2021 Orders Only Nikunj Adams DO Work Phone: [facility] [place] Start: 08-06-2020 End: 08-06-2020 Orders Only Nikunj Adams DO Work Phone: [facility] [place] Start: 08-06-2020 End: 08-06-2020 Office outpatient visit 25 minutes Nikunj Adams DO Work Phone: [facility] [place] Comment on above: Type 2 diabetes jordi itus without complication, without long- term current use of insulin (HCC) (Primary Dx); Essential hypertension; Hyperlipidemia, unspecified hyperlipidemia type Start: 07-16-2020 End: 07-16-2020 Refill Nikunj Adams Work Phone: [facility] [place] Start: 06-29-2020 Patient encounter procedure JAVIER ADHIKARI Facility:[facility] Start: 06-13-2020 End: 06-13-2020 Orders Only Giuliana Tanya Burris Work Phone: [facility] Start: 01-17-2020 End: 01-17-2020 Office outpatient visit 25 minutes Nikunj Adams Work Phone: [facility] [place] Comment on above: Type 2 diabetes jordi itus without complication, without long- term current use of insulin (HCC) (Primary Dx); Essential hypertension; Hyperlipidemia, unspecified hyperlipidemia type Start: 10-18-2019 End: 10-18-2019 Initial preventive medicine new patient 40-64yrs Nikunj Adams Work Phone: [facility] [place] Comment on above: Preventative health care (Primary Dx); Type 2 diabetes mellitus without complication, without long-term current use of insulin (HCC); Essential hypertension; Hyperlipidemia, unspecified hyperlipidemia type; Need for hepatitis C screening test; Prostate cancer screening Procedures Date Procedure Procedure Detail Performing Clinician Start: 11-24-[address] Joaquin Adams DO Work Phone: Start: 10-17-2024 End: 10-17-[address] Nikunj de león DO Work Phone: Start: 09-15-2024 Total iron binding c apacity measurement Dr. Nikunj Adams DO Work Phone: Start: 09-09-2024 Urnls dip stick/tabl et reagent auto microscopy Dr. Nikunj Adams DO Work Phone: Start: 03-24-2024 EXTERNAL LAB SCAN Histo rical Provider Start: 03-25-2023 PSA screening NIKUNJ HERNANDEZ Comment on above: Result Comment: NCCN Guidelines: PSA > 1.0 ng/mL and age 45-49 repeat in 1-2 years. PSA < 1.0 ng/mL and age 45-49 repeat at age 50 PSA > 3.0 ng/mL positive Performed By: #### P SAS1 #### [facility] (DEFAULT) [address] [place], [place] [address] Start: 03-25-2023 Blood count complete automated Nikunj Adams Work Phone: Start: 03-25-2023 Lipid panel Nikunj Ramireztraci LIGHT Work Phone: Start: 03-25-2023 Prostate specific Ag [Mass/volume] in Serum or Plasma Nikunj Ramireztraci LIGHT Work Phone: Start: 03-25-2023 Urnls dip stick/tabl et rgnt auto w/o microscopy Nikunj Pereira Angie LIGHT Work Phone: Start: 03-25-2023 Microalbumin [Mass/v olume] in Urine by Test strip Nikunj Angie [facility]IGHT Work Phone: Start: 03-18-2022 Blood count complete automated Nikunj Ramireztraci LIGHT Work Phone: Start: 03-18-2022 Lipid panel Nikunj Ramireztraci LIGHT Work Phone: Start: 03-18-2022 Urinalysis dipstick W Reflex Microscopic panel - Urine Nikunj Pereira Angie LIGHT Work Phone: Start: 03-18-2022 Urnls dip stick/tabl et rgnt auto w/o microscopy Nikunj Ramireztraci LIGHT Work Phone: Start: 03-18-2022 3 comp foot exam completed Nikunj Adams Work Phone: Start: 03-18-2022 Microalbumin [Mass/v olume] in Urine by Test strip Nikunj Adams DO Work Phone: Start: 09-13-2021 Hemoglobin glycosylated a1c Nikunj Adams DO Work Phone: Start: 09-13-2021 Microalbumin [Mass/v olume] in Urine by Test strip Nikunj Adams DO Work Phone: Start: 02-14-2021 Blood count complete automated Nikunj Adams DO Work Phone: Start: 02-14-2021 Lipid panel Nikunj Adams DO Work Phone: Start: 02-14-2021 Urinalysis dipstick W Reflex Microscopic panel - Urine Nikunj Adams DO Work Phone: Start: 02-14-2021 Urnls dip stick/tabl et rgnt auto w/o microscopy Nikunj Adams DO Work Phone: Start: 02-14-2021 3 comp foot exam completed Nikunj Adams DO Work Phone: Start: 02-14-2021 Microalbumin [Mass/v olume] in Urine by Test strip Nikunj Adams DO Work Phone: Start: 11-16-2020 Ophthalmic examinati on and evaluation Nikunj Adams DO Work Phone: Start: 08-06-2020 Hemoglobin glycosylated a1c Nikunj Adams DO Work Phone: Start: 01-17-2020 3 comp foot exam completed Nikunj Adams Start: 10-18-2019 Microalbumin [Mass/v olume] in Urine by Test strip Nikunj Adams Start: 03-06-2017 Colonoscopy Nikunj gibbs Plan of Treatment Date Care Activity Detail Author Start: 10-17-2034 Screening for malign ant neoplasm of [facility] Start: 06-12-2031 Pneumococcal Vaccine : Ped or At-Risk (2 of 2 - PPSV23) Pneumococcal Vaccine: Ped or At-Risk (2 of 2 - PPSV23) [facility] Start: 03-06-2027 Screening for malign ant neoplasm of colon [facility] Start: 03-17-2026 Prostate specific antigen measurement PSA Level [facility] Start: 09-21-2025 Diabetic foot examination Diabetic Foot Exam [facility] Start: 09-21-2025 Tetanus vaccination Tetanus: Every 1 0yrs [facility] Comment on above: Postponed from 06/11 (Patient Refused) Start: 09-09-2025 eGFR Diabetes eGFR Diabetes [facility] Start: 03-25-2025 Prostate specific antigen measurement PSA Level [facility] Start: 03-23-2025 End: 03-23-2025 Patient encounter procedure 03/23/2025 7:20 AM EST Office Visit [facility] [place] [address] [place] [address] Nikunj Adams [address] [place] [address] [facility] [place] Start: 03-22-2025 History and physical examination, annual for health maintenance Wellness Visit [facility] Start: 03-11-2025 Hemoglobin A1c measurement A1C [facility] Start: 12-05-2024 Influenza vaccination Influenza Vacc ine (#1) [facility] Start: 11-24-2024 Anesthesia anorectal procedure ANESTH ANORECTAL SURGERY [facility] Start: 11-24-2024 Int hrhc transanal h roid darmarnie 2+ w/us gdn INT HRHC TRANAL DARTLZJ 2+ [facility] Start: 11-24-2024 Patient discharge [facility] Start: 10-21-2024 End: 12-22-2024 CBC panel - Blood by Automated count CBC Lab Routine Anemia, unspecified type Expected: 10/21/2024, Expires: 12/22/2024 [facility] Work Phone: Comment on above: Expected: 10/21/2024 , Expires: 12/22/2024 Start: 10-21-2024 End: 12-22-2024 Iron and Iron binding capacity panel - Serum or Plasma Iron and TIBC Lab Routine Anemia, unspecified type Expected: 10/21/2024, Expires: 12/22/2024 [facility] Comment on above: Expected: 10/21/2024 , Expires: 12/22/2024 Start: 10-17-2024 Colsc flx w/rmvl of tumor polyp lesion snare tq COLONOSCOPY W/LESION REMOVAL [facility] Start: 10-17-2024 [facility] Start: 09-21-2024 End: 09-21-2024 Patient encounter procedure 09/21/2024 7:40 AM EDT Office Visit [facility] [address] [place] [address] Nikunj Adams, [address] [place] [address] [facility] [place] Start: 09-11-2024 End: 10-11-2024 B12/Folate B12/Folate Lab Routine Anemia, unspecified type Expected: 09/11/2024, Expires: 10/11/2024 [facility] Comment on above: Expected: 09/11/2024 , Expires: 10/11/2024 Start: 09-11-2024 End: 10-11-2024 Ferritin [Mass/volume] in Serum or Plasma Ferritin Lab Routine Anemia, unspecified type Expected: 09/11/2024, Expires: 10/11/2024 [facility] Comment on above: Expected: 09/11/2024 , Expires: 10/11/2024 Start: 09-11-2024 End: 10-11-2024 Iron and Iron binding capacity panel - Serum or Plasma Iron and TIBC Lab Routine Anemia, unspecified type Expected: 09/11/2024, Expires: 10/11/2024 [facility] Work Phone: Comment on above: Expected: 09/11/2024 , Expires: 10/11/2024 Start: 03-25-2024 Diabetic foot examination Diabetic Foot Exam [facility] Start: 03-25-2024 eGFR Diabetes eGFR Diabetes [facility] Start: 03-25-2024 History and physical examination, annual for health maintenance Wellness Visit [facility] Start: 03-25-2024 Tetanus vaccination Tetanus: Every 1 0yrs [facility] Comment on above: Postponed from 06/11 (Patient Refused) Start: 03-25-2024 Urine screening for protein [facility] Start: 03-24-2024 Hemoglobin A1c measurement A1C [facility] Start: 03-22-2024 End: 03-22-2024 Patient encounter procedure 03/22/2024 8:40 AM EST Office Visit [facility] [address] [place] [address] Nikunj Adams DO [address] [place] [address] [facility] Start: 12-06-2023 Influenza vaccination Influenza Vacc ine (#1) [facility] Start: 09-24-2023 Hemoglobin A1c measurement A1C [facility] Start: 09-24-2023 End: 09-24-2023 Patient encounter procedure 09/24/2023 9:40 AM EDT Office Visit [facility] [address] [place] [address] Nikunj Adams DO [address] [place] [address] [facility] Start: 09-16-2023 End: 10-16-2023 Comprehensive metabolic 2000 panel - Serum or Plasma Comprehensive Metabolic Panel Lab Routine Mixed hyperlipidemia Expected: 09/16/2023, Expires: 10/16/2023 [facility] Work Phone: Comment on above: Expected: 09/16/2023 , Expires: 10/16/2023 Start: 09-16-2023 End: 10-16-2023 Hemoglobin A1c/Hemoglobin.total in Blood Hemoglobin A1c Lab Routine Type 2 diabetes mellitus without complication, without long-term current use of insulin (HCC) Expected: 09/16/2023, Expires: 10/16/2023 [facility] Comment on above: Expected: 09/16/2023 , Expires: 10/16/2023 Start: 09-16-2023 End: 10-16-2023 Lipid 1996 panel - Serum or Plasma Lipid Panel Lab Routine Mixed hyperlipidemia Expected: 09/16/2023, Expires: 10/16/2023 [facility] Comment on above: Expected: 09/16/2023 , Expires: 10/16/2023 Start: 03-25-2023 End: 04-25-2023 CBC panel - Blood by Automated count CBC Lab Routine Preventative health care Expected: 03/25/2023, Expires: 04/25/2023 [facility] Work Phone: Comment on above: Expected: 03/25/2023 , Expires: 04/25/2023 Start: 03-25-2023 End: 04-25-2023 Comprehensive metabolic 2000 panel - Serum or Plasma Comprehensive Metabolic Panel Lab Routine Preventative health care Expected: 03/25/2023, Expires: 04/25/2023 [facility] Comment on above: Expected: 03/25/2023 , Expires: 04/25/2023 Start: 03-25-2023 End: 04-25-2023 External Lab Microalbumin/Creatinine External Lab Microalbumin/Creatinine Lab Routine Type 2 diabetes mellitus without complication, without long-term current use of insulin (HCC) Expected: 03/25/2023, Expires: 04/25/2023 [facility] Comment on above: Expected: 03/25/2023 , Expires: 04/25/2023 Start: 03-25-2023 End: 04-25-2023 Hemoglobin A1c/Hemoglobin.total in Blood Hemoglobin A1c Lab Routine Type 2 diabetes mellitus without complication, without long-term current use of insulin (HCC) Expected: 03/25/2023, Expires: 04/25/2023 [facility] Comment on above: Expected: 03/25/2023 , Expires: 04/25/2023 Start: 03-25-2023 End: 04-25-2023 Lipid 1996 panel - Serum or Plasma Lipid Panel Lab Routine Preventative health care Expected: 03/25/2023, Expires: 04/25/2023 [facility] Comment on above: Expected: 03/25/2023 , Expires: 04/25/2023 Start: 03-25-2023 End: 03-25-2023 Patient encounter procedure 03/25/2023 2:00 PM EST Office Visit [facility] [place] [phone] Nikunj Adams DO [address] [place] [address] [facility] Start: 03-25-2023 End: 04-25-2023 Prostate specific Ag [Mass/volume] in Serum or Plasma PSA, Screen Lab Routine Prostate cancer screening Expected: 03/25/2023, Expires: 04/25/2023 [facility] Comment on above: Expected: 03/25/2023 , Expires: 04/25/2023 Start: 03-25-2023 End: 04-22-2023 Urinalysis Urinalysis Lab Routine Preventative health care Expected: 03/25/2023, Expires: 04/22/2023 [facility] Comment on above: Expected: 03/25/2023 , Expires: 04/22/2023 Start: 03-18-2023 Diabetic foot examination Foot Exam [facility] Start: 03-18-2023 History and physical examination, annual for health maintenance Wellness Visit [facility] Start: 03-18-2023 Tetanus vaccination Tetanus: Every 1 0yrs [facility] Comment on above: Postponed from 06/11 (Patient Refused) Start: 02-14-2023 Prostate specific antigen measurement PSA Level [facility] Start: 12-05-2022 COVID-19 Vaccine ( season) COVID-19 Vaccine ( season) [facility] Start: 12-05-2022 Influenza vaccination Sequenti al Influenza Vaccine (#1) [facility] Start: 09-18-2022 End: 09-18-2022 Patient encounter procedure [facility] [place] Start: 09-16-2022 Hemoglobin A1c measurement A1C [facility] Start: 09-16-2022 Urine screening for protein Urine Microalbumin [facility] Start: 04-19-2022 End: 05-20-2022 Basic metabolic 2000 panel - Serum or Plasma Basic Metabolic Panel Lab Routine Essential hypertension Expected: 04/19/2022, Expires: 05/20/2022 [facility] Comment on above: Expected: 04/19/2022 , Expires: 05/20/2022 Start: 04-19-2022 End: 05-20-2022 Complete blood count with white cell differential, manual CBC and Differential Lab Routine Leukocytosis, unspecified type Expected: 04/19/2022, Expires: 05/20/2022 [facility] Work Phone: Comment on above: Expected: 04/19/2022 , Expires: 05/20/2022 Start: 03-18-2022 End: 04-18-2022 CBC panel - Blood by Automated count CBC Lab Routine Preventative health care Expected: 03/18/2022, Expires: 04/18/2022 [facility] Work Phone: Comment on above: Expected: 03/18/2022 , Expires: 04/18/2022 Start: 03-18-2022 End: 04-18-2022 Comprehensive metabolic 2000 panel - Serum or Plasma Comprehensive Metabolic Panel Lab Routine Preventative health care Expected: 03/18/2022, Expires: 04/18/2022 [facility] Comment on above: Expected: 03/18/2022 , Expires: 04/18/2022 Start: 03-18-2022 End: 04-18-2022 External Lab Microalbumin/Creatinine External Lab Microalbumin/Creatinine Lab Routine Type 2 diabetes mellitus without complication, without long-term current use of insulin (HCC) Expected: 03/18/2022, Expires: 04/18/2022 [facility] Comment on above: Expected: 03/18/2022 , Expires: 04/18/2022 Start: 03-18-2022 End: 04-18-2022 Hemoglobin A1c/Hemoglobin.total in Blood Hemoglobin A1c Lab Routine Type 2 diabetes mellitus without complication, without long-term current use of insulin (HCC) Expected: 03/18/2022, Expires: 04/18/2022 [facility] Comment on above: Expected: 03/18/2022 , Expires: 04/18/2022 Start: 03-18-2022 End: 04-18-2022 Lipid 1996 panel - Serum or Plasma Lipid Panel Lab Routine Preventative health care Expected: 03/18/2022, Expires: 04/18/2022 [facility] Comment on above: Expected: 03/18/2022 , Expires: 04/18/2022 Start: 03-18-2022 End: 04-18-2022 Urinalysis Urinalysis Lab Routine Preventative health care Expected: 03/18/2022, Expires: 04/18/2022 [facility] Comment on above: Expected: 03/18/2022 , Expires: 04/18/2022 Start: 03-15-2022 Hemoglobin A1c measurement A1C [facility] Start: 03-15-2022 Microalbumin measurement, urine, quantitative Urine Microalbumin [facility] Start: 03-15-2022 Urine screening for protein Urine Microalbumin [facility] Start: 03-14-2022 End: 03-14-2022 Patient encounter procedure 03/14/2022 Office Visit Primary Care Nikunj Adams, DO [address] [place] [address] [facility] [place] Start: 02-14-2022 Diabetic foot examination Foot Exam [facility] Start: 02-14-2022 History and physical examination, annual for health maintenance Wellness Visit [facility] Start: 02-14-2022 Microalbumin measurement, urine, quantitative Urine Microalbumin [facility] Start: 02-14-2022 Pneumococcal Vaccine : Ped or At-Risk (2 - PCV) Pneumococcal Vaccine: Ped or At-Risk (2 - PCV) [facility] Start: 02-14-2022 Pneumococcal Vaccine : Ped or At-Risk (2 of 2 - PCV) Pneumococcal Vaccine: Ped or At-Risk (2 of 2 - PCV) [facility] Start: 11-16-2021 Glaucoma screening [facility] Start: 11-16-2021 Ophthalmic examinati on and evaluation Ophthalmology Exam [facility] Start: 10-17-2021 Prostate specific antigen measurement PSA Level [facility] Start: 09-16-2021 End: 11-16-2021 US scan of upper abdomen US Abdomen Limited Study Imaging Routine Elevated liver enzymes Expected: 09/16/2021, Expires: 11/16/2021 [facility] Work Phone: Comment on above: Expected: 09/16/2021 , Expires: 11/16/2021 Start: 09-13-2021 End: 10-13-2021 Comprehensive metabolic 2000 panel - Serum or Plasma Comprehensive Metabolic Panel Lab Routine Type 2 diabetes mellitus without complication, without long-term current use of insulin (HCC) Expected: 09/13/2021, Expires: 10/13/2021 [facility] Work Phone: Comment on above: Expected: 09/13/2021 , Expires: 10/13/2021 Start: 09-13-2021 End: 10-13-2021 External Lab Microalbumin/Creatinine External Lab Microalbumin/Creatinine Lab Routine Type 2 diabetes mellitus without complication, without long-term current use of insulin (HCC) Expected: 09/13/2021, Expires: 10/13/2021 [facility] Comment on above: Expected: 09/13/2021 , Expires: 10/13/2021 Start: 09-13-2021 End: 10-13-2021 Hemoglobin A1c/Hemoglobin.total in Blood Hemoglobin A1c Lab Routine Type 2 diabetes mellitus without complication, without long-term current use of insulin (HCC) Expected: 09/13/2021, Expires: 10/13/2021 [facility] Comment on above: Expected: 09/13/2021 , Expires: 10/13/2021 Start: 09-13-2021 End: 09-13-2021 Patient encounter procedure 09/13/2021 Office Visit Primary Care Nikunj Adams DO [address] [place] [address] [facility] [place] Start: 08-14-2021 Hemoglobin A1c measurement A1C [facility] Start: 08-14-2021 Microalbumin measurement, urine, quantitative Urine Microalbumin [facility] Start: 08-14-2021 End: 08-14-2021 Patient encounter procedure 08/14/2021 Office Visit Primary Care Nikunj Adams DO [address] [place] [address] [facility] [place] Start: 08-06-2021 Tetanus vaccination Tetanus: Every 1 0yrs [facility] Comment on above: Postponed from 06/11 (Patient Refused) Start: 08-04-2021 COVID-19 Vaccine (3 - Booster for Moderna series) COVID-19 Vaccine (3 - Booster for Moderna series) [facility] Start: 03-27-2021 End: 04-27-2021 Comprehensive metabolic 2000 panel - Serum or Plasma Comprehensive Metabolic Panel Lab Routine Essential hypertension Expected: 03/27/2021, Expires: 04/27/2021 [facility] Work Phone: Comment on above: Expected: 03/27/2021 , Expires: 04/27/2021 Start: 02-17-2021 End: 03-19-2021 Serum immunofixation Immunofixation, Serum Lab Routine Hyperproteinemia Expected: 02/17/2021, Expires: 03/19/2021 [facility] Comment on above: Expected: 02/17/2021 , Expires: 03/19/2021 Start: 02-17-2021 End: 03-19-2021 Serum protein electrophoresis Protein Electrophoresis, Serum Lab Routine Hyperproteinemia Expected: 02/17/2021, Expires: 03/19/2021 [facility] Work Phone: Comment on above: Expected: 02/17/2021 , Expires: 03/19/2021 Start: 02-17-2021 End: 03-19-2021 Urine protein electrophoresis Protein Electrophoresis, Urine, Random Lab Routine Hyperproteinemia Expected: 02/17/2021, Expires: 03/19/2021 [facility] Comment on above: Expected: 02/17/2021 , Expires: 03/19/2021 Start: 02-14-2021 End: 03-16-2021 CBC panel - Blood by Automated count CBC Lab Routine Preventative health care Expected: 02/14/2021, Expires: 03/16/2021 [facility] Work Phone: Comment on above: Expected: 02/14/2021 , Expires: 03/16/2021 Start: 02-14-2021 End: 03-16-2021 Comprehensive metabolic 2000 panel - Serum or Plasma Comprehensive Metabolic Panel Lab Routine Preventative health care Expected: 02/14/2021, Expires: 03/16/2021 [facility] Comment on above: Expected: 02/14/2021 , Expires: 03/16/2021 Start: 02-14-2021 End: 03-16-2021 External Lab Microalbumin/Creatinine External Lab Microalbumin/Creatinine Lab Routine Type 2 diabetes mellitus without complication, without long-term current use of insulin (HCC) Expected: 02/14/2021, Expires: 03/16/2021 [facility] Comment on above: Expected: 02/14/2021 , Expires: 03/16/2021 Start: 02-14-2021 End: 03-16-2021 Hemoglobin A1c/Hemoglobin.total in Blood Hemoglobin A1c Lab Routine Type 2 diabetes mellitus without complication, without long-term current use of insulin (HCC) Expected: 02/14/2021, Expires: 03/16/2021 [facility] Comment on above: Expected: 02/14/2021 , Expires: 03/16/2021 Start: 02-14-2021 End: 03-16-2021 Lipid 1996 panel - Serum or Plasma Lipid Panel Lab Routine Preventative health care Expected: 02/14/2021, Expires: 03/16/2021 [facility] Comment on above: Expected: 02/14/2021 , Expires: 03/16/2021 Start: 02-14-2021 End: 03-16-2021 Prostate specific Ag [Mass/volume] in Serum or Plasma PSA, Screen Lab Routine Prostate cancer screening Expected: 02/14/2021, Expires: 03/16/2021 [facility] Comment on above: Expected: 02/14/2021 , Expires: 03/16/2021 Start: 02-14-2021 End: 03-16-2021 Urinalysis Urinalysis Lab Routine Preventative health care Expected: 02/14/2021, Expires: 03/16/2021 [facility] Comment on above: Expected: 02/14/2021 , Expires: 03/16/2021 Start: 02-06-2021 Hemoglobin A1c measurement A1C [facility] Start: 02-04-2021 End: 02-04-2021 Patient encounter procedure 02/04/2021 Office Visit Primary Care Nikunj Adams, DO [address] [place] [address] [phone] [facility] [place] Start: 01-16-2021 Diabetic foot examination Foot Ex[facility] Start: 10-17-2020 Albumin DL <= 20 mg/ L (U) [Mass/Vol] Urine Microalbumin [facility] Start: 10-17-2020 History and physical examination, annual for health maintenance Wellness Visit [facility] Start: 10-17-2020 Microalbumin measurement, urine, quantitative Urine Microalbumin [facility] Start: 08-06-2020 End: 09-06-2020 Basic metabolic 2000 panel - Serum or Plasma Basic Metabolic Panel Lab Routine Type 2 diabetes mellitus without complication, without long-term current use of insulin ([facility]) Expected: 08/06/2020, Expires: 09/06/2020 [facility] Comment on above: Expected: 08/06/2020 , Expires: 09/06/2020 Start: 08-06-2020 End: 09-06-2020 Hemoglobin A1c/Hemoglobin.total in Blood Hemoglobin A1c Lab Routine Type 2 diabetes mellitus without complication, without long-term current use of insulin ([facility]) Expected: 08/06/2020, Expires: 09/06/2020 [facility] Comment on above: Expected: 08/06/2020 , Expires: 09/06/2020 Start: 08-06-2020 End: 08-06-2020 Office Visit 08/06/2020 Office Visit Primary Care Nikunj Adams DO [address] [place] [address] [phone] [facility] [place] Start: 08-03-2020 COVID-19 Vaccine (2 - Moderna 3-dose booster series) COVID-19 Vaccine (2 - Moderna 3-dose booster series) [facility] Start: 08-03-2020 COVID-19 Vaccine (2 - Moderna 3-dose series) COVID-19 Vaccine (2 - Moderna 3-dose series) [facility] Start: 07-17-2020 HbA1c (Bld) [Mass fraction] A1C [facility] Start: 07-17-2020 Hemoglobin A1c measurement A1C [facility] Start: 07-17-2020 End: 07-17-2020 Office Visit 07/17/2020 Office Visit Primary Care Nikunj Adams DO [address] [place] [address] [phone] [facility] Start: 04-19-2020 HbA1c (Bld) [Mass fraction] A1C [facility] Start: 04-18-2020 Administration of he rpes zoster vaccine Zoster Vaccines (2 of 2) [facility] Start: 01-17-2020 End: 02-17-2020 Basic metabolic 2000 panel Basic Metabolic Panel Lab Routine Type 2 diabetes mellitus without complication, without long-term current use of insulin (HCC) Expected: 01/17/2020, Expires: 02/17/2020 [facility] Comment on above: Expected: 01/17/2020 , Expires: 02/17/2020 Start: 01-17-2020 End: 02-17-2020 HbA1c (Bld) [Mass fraction] Hemoglobin A1c Lab Routine Type 2 diabetes mellitus without complication, without long-term current use of insulin (HCC) Expected: 01/17/2020, Expires: 02/17/2020 [facility] Comment on above: Expected: 01/17/2020 , Expires: 02/17/2020 Start: 01-17-2020 End: 01-17-2020 Office Visit 01/17/2020 Office Visit Primary Care Nikunj Adams, DO [address] [place] [address] [phone] [facility] [place] Start: 12-06-2019 Influenza vaccinatio n given Sequential Influenza Vaccine (#1) [facility] Start: 11-01-2019 End: 11-18-2019 Basic metabolic 2000 panel Basic Metabolic Panel Lab Routine Essential hypertension Expected: 11/01/2019, Expires: 11/18/2019 [facility] Comment on above: Expected: 11/01/2019 , Expires: 11/18/2019 Start: 10-18-2019 End: 11-18-2019 Complete blood count (hemogram) panel - Blood by Automated count CBC Lab Routine Preventative health care Expected: 10/18/2019, Expires: 11/18/2019 [facility] Comment on above: Expected: 10/18/2019 , Expires: 11/18/2019 Start: 10-18-2019 End: 11-18-2019 Comprehensive metabolic 2000 panel Comprehensive Metabolic Panel Lab Routine Preventative health care Expected: 10/18/2019, Expires: 11/18/2019 [facility] Comment on above: Expected: 10/18/2019 , Expires: 11/18/2019 Start: 10-18-2019 End: 11-18-2019 External Lab Microalbumin/Creatinine External Lab Microalbumin/Creatinine Lab Routine Type 2 diabetes mellitus without complication, without long-term current use of insulin (HCC) Expected: 10/18/2019, Expires: 11/18/2019 [facility] Comment on above: Expected: 10/18/2019 , Expires: 11/18/2019 Start: 10-18-2019 End: 11-18-2019 HbA1c (Bld) [Mass fraction] Hemoglobin A1c Lab Routine Type 2 diabetes mellitus without complication, without long-term current use of insulin (HCC) Expected: 10/18/2019, Expires: 11/18/2019 [facility] Comment on above: Expected: 10/18/2019 , Expires: 11/18/2019 Start: 10-18-2019 End: 11-18-2019 Hepatitis C antibody measurement Hepatitis C Antibody Lab Routine Need for hepatitis C screening test Expected: 10/18/2019, Expires: 11/18/2019 [facility] Comment on above: Expected: 10/18/2019 , Expires: 11/18/2019 Start: 10-18-2019 End: 11-18-2019 Lipid 1996 panel Lipid Panel Lab Routine Preventative health care Expected: 10/18/2019, Expires: 11/18/2019 [facility] Comment on above: Expected: 10/18/2019 , Expires: 11/18/2019 Start: 10-18-2019 End: 11-18-2019 Prostate specific Ag [Mass/Vol] PSA, Screen Lab Routine Prostate cancer screening Expected: 10/18/2019, Expires: 11/18/2019 [facility] Comment on above: Expected: 10/18/2019 , Expires: 11/18/2019 Start: 2016 Administration of [facility] zoster vaccine Zoster Vaccines (1 of 2) [facility] Start: 2016 Prostate specific antigen measurement PROSTATE CANCER SCREENING DISCUSSION [facility] Start: 2016 Screening for malign ant neoplasm of colon [facility] Start: 06-12-2011 Screening for malign ant neoplasm of colon COLORECTAL CANCER SCREENING DISCUSSION [facility] Start: 2006 Lipid panel LIPID SCREENING [facility] Start: 1985 Third diphtheria, tetanus and acellular pertussis (DTaP) vaccination TDAP (ADULT) [facility] Start: 1982 COVID-19 Vaccine (1 of 2) COVID-19 Vaccine (1 of 2) [facility] Start: 1982 COVID-19 Vaccine (1) COVID-19 Vaccin e (1) [facility] Start: 1981 HIV screening HIV SCREENING DISCUSSI ON [facility] Start: 1976 Ophthalmic examinati on and evaluation Ophthalmology Exam [facility] Start: 1966 Hepatitis C screening HEPATITI S C VIRUS SCREENING [facility] Start: 1966 Potassium [Moles/vol ume] in Serum or Plasma POTASSIUM [facility] Start: 1966 Screening for malign ant neoplasm of colon [facility] Start: 1966 Tetanus vaccination [facility] Immunizations Immunization Date Immunization Notes Care Provider Fa cility 03-22-2024 Pneumococcal Conjuga te 20-Valent (Prevnar 20) Nikunj Adams DO Work Phone: [facility] 01-22-2024 Seasonal, trivalent, recombinant, injectable influenza vaccine, preservative free Nikunj Adams DO Work Phone: [facility] 01-22-2024 influenza virus vacc ine, unspecified formulation Nikunj Adams DO Work Phone: [facility] 02-17-2023 influenza virus vacc ine, unspecified formulation Nikunj Adams DO Work Phone: [facility] 01-19-2022 Seasonal, quadrivale nt, recombinant, injectable influenza vaccine, preservative free Nikunj Adams DO Work Phone: [facility] 02-14-2021 pneumococcal polysac charide vaccine, 23 valent Nikunj Adams DO Work Phone: [facility] 02-14-2021 pneumococcal vaccine , unspecified formulation Nikunj Adams DO Work Phone: [facility] 01-19-2021 Seasonal, quadrivale nt, recombinant, injectable influenza vaccine, preservative free Nikunj Adams DO Work Phone: [facility] 07-06-2020 Moderna SARS-CoV-2 Vaccination Nikunj Adams DO Work Phone: [facility] 06-15-2020 zoster vaccine recombinant W illiam Springfield DO Work Phone: [facility] 02-27-2020 zoster vaccine recombinant W illiam Angie DO Work Phone: [facility] 01-09-2020 Seasonal, quadrivale nt, recombinant, injectable influenza vaccine, preservative free Nikunj [facility] 01-26-2019 Seasonal, quadrivale nt, recombinant, injectable influenza vaccine, preservative free Nikunj [facility] 01-10-2014 influenza, seasonal, injectable Nikunj [facility] 12-22-2011 influenza virus vacc ine, whole virus [facility] 01-27-2011 influenza virus vacc ine, whole virus [facility] Payers Date Payer Category Payer Self-pay 2023 Managed Care (privat e) or private health insurance (indemnity), not otherwise specified [employer] [id number] 2023 Private Health Insurance EMMANUEL BENITEZ [id number] 2023-Present [phone] [address] [place] [phone] [id number] 2023 Unknown [id number] 2018 Unknown MMO MED MUTUAL S UPERMED PPO xxxxxxxxxxxx 2018-Present [id number] 2018 Unknown [id number] 1.2.840.359200.1.13.385.2 .7.3.128780.315 2018 Unknown [id number]. 1.13.385.2 .7.3.742309.315 2018 Unknown [id number] 1966 Unknown [id number] 2.16.840.1.591326.3.579.2 .419 1966 Unknown [id number] 2.16.840.1.460254.3.579.2 .983 1966 Unknown [id number] 2.16.840.1.347239.3.579.2 .903 1966 Unknown [id number] 2.16840.1.461409.3.579.2 .903 1966 Unknown [id number] 2.840.1.182712.3.579.2 .903 1966 Unknown [id number] 2.16840.1.802322.3.579.2 .903 1966 Unknown [id number] 2.16840.1.026693.3.579.2 .903 1966 Unknown [id number] 2.16840.1.850405.3.579.2 .903 1966 Unknown [id number] 2.840.1.258454.3.579.2 .903 1959 Unknown [id number] Unknown [id number] 2.16.840.1.485562.3.579.2 .383 Unknown [id number] 2.16.840.1.345470.3.579.2 .462 Unknown [id number] 2.16840.1.825807.3.579.2 .462 Unknown [id number] 2.16.840.1.257492.3.579.2 .462 Unknown [id number] 2.16.840.1.896355.3.579.2 .462 Unknown [id number] 2.16.840.1.481148.3.579.2 .462 Unknown [id number] 2.16.840.1.026371.3.579.2 .462 Unknown [id number] 2.16.840.1.630666.3.579.2 .462 Unknown [id number] 2.16.840.1.600694.3.579.2 .462 Unknown [id number] 2.16.840.1.540105.3.579.2 .462 Unknown [id number] 2.16.840.1.566038.3.579.2 .462 Unknown [id number] 2.16.840.1.447521.3.579.2 .462 Social History Date Type Detail Facility Start: 10-18-2019 End: 09-13-2021 Tobacco smoking status NHIS Never smoker [facility] Start: 10-18-2019 End: 09-21-2024 Alcohol intake Lifetime non-drinker (finding) [facility] Start: 10-18-2019 End: 09-13-2021 History SDOH Alcohol Frequency 1 [facility] Start: 1965 Sex Assigned At Not on file [facility] Start: 09-03-2021 End: 03-18-2022 Exposure to SARS-CoV-2 (event) Not sure [facility] Start: 01-17-2020 End: 09-13-2021 Tobacco use and exposure Never used [facility] Start: 01-17-2020 End: 09-13-2021 History SDOH [facility] Start: 01-17-2020 End: 08-06-2020 History SDOH Social Connections Mandaeism 3 [facility] Start: 01-17-2020 End: 09-13-2021 History SDOH Social Connections Membership 2 [facility] Start: 01-17-2020 End: 08-06-2020 History SDOH Physical Activity MPS 15 [facility] Start: 09-13-2021 End: 09-21-2024 Cigarette pack-years [facility] Start: 08-06-2020 End: 09-21-2024 Humiliation, Afraid, Rape, and Kick questionnaire [HARK] [facility] Within the last year , have you been afraid of your partner or ex-partner? No [facility] Are you now , , , , never or living with a partner? [facility] How often to you hav e a drink containing alcohol? Never [facility] Average Number of Drinks Not [facility] file [facility] Do you feel stress - tense, restless, nervous, or anxious, or unable to sleep at night because your mind is troubled all the time - these days [OSQ] Not at all [facility] (I/We) worried wheth er (my/our) food would run out before (I/we) got money to buy more. Never true [facility] Start: 04-09-2017 Gender identity Identifies as male gender (finding) [facility] Start: 10-18-2019 Sexual orientation Heterosexual (finding) [facility] Start: 09-19-2022 Alcohol intake Current non-drinker of alcohol (finding) [facility] Start: 1965 Sex Assigned At Male [facility] How hard is it for y ou to pay for the very basics like food, housing, medical care, and heating Not very hard [facility] Goals Date Patient Goal Desired Activity /State Mental Status Date Assessment Result Facility 11-24-2024 Cognitive function Voice/Name [facility] Work Phone: 10-17-2024 Cognitive function Level Of Cons ciousness Awake;Alert;Appropriate [facility] Work Phone: 10-17-2024 Cognitive function Voice/Name [facility] Work Phone: Clinical Notes 08-06-2020 to 11-24-2024 Note Date & Type Note Facility 11-24-2024 History and physi neida note Note Date/Time November 24, 2024 10:50am [facility] Medical Records Department [address] [place] [address] History & Physical Exam 11/24/24 1048 MR#: [id number] Acct: [id number] Name: MILY INGRAM Rep #:[id number] : 1965 59 From: Harrison Courtney MD PCP: Dr. Nikunj Adams, DO Statu s:[facility] Location: [place] [address] HPI - General General Date of Admission: 11/24/24 Date of Service: 11/24/24 Chief Complaint: Bleeding hemorrhoids HPI Narrative MILY INGRAM, is a 59 M who presents today for elective Doppler hemorrhoid artery ligation surgery as well as excision of a prolapsing internal hemorrhoid [facility] Medical History (Updated 11/10/24 @ 12:39 by Toyin Vasquez) Dietary restriction Hemorrhoid Wears glasses Gout Arthritis DVT (deep venous thrombosis) Anemia Non-smoker Hypertension Home Medications ?Medication ?Instructions ?Recorded ?Last Taken ?Type atorvastatin 20 mg tablet 20 mg PO DAILY 08/20/2311/05 History hydrochlorothiazide 25 mg tablet 25 mg PO DAILY 11/23/24 History lisinopril 40 mg tablet 40 mg PO DAILY 08/20/2311/05 History metformin 1,000 mg tablet 1,000 mg PO BID 08/20/23 History allopurinol 100 mg tablet 100 mg PO QHS 10/12/2411/23 History ferrous sulfate 325 mg (65 mg 325 mg PO DAILY 10/12/24 11/20/24 History iron) tablet (FeroSul) latanoprost 0.005 % eye drops 1 drp ophthalmic (eye) Q HS 10/12/24 11/22/24 History nifedipine 30 mg tablet,extended 30 mg PO DAILY 11/24/24 History release 24 hr Allergy/AdvReac Type Severity Reaction Status Date / Time No Known Allergies Allergy Verified 11/24/24 09:14 Surgical History (Updated 11/10/24 @ 12:39 by Toyin Vasquez) Hx of colonoscopy with polypectomy H/O foot surgery Social History household members: family Smoking Status: Never smoker alcohol intake: current Vital Signs Vital Signs Vital Signs: 11/24/24 09:16 11/24/24 09:16 11/24/24 09:32 Temperature 97.5 F L 97.5 F L Temperature Source Temporal Pulse Rate 83 83 Respiratory Rate 16 16 Respiratory Pattern Normal Blood Pressure 125/73 H 125/73 H Blood Pressure Mean 90 Blood Pressure Source Monitor Blood Pressure Position Semi-Fowlers Blood Pressure Location Left Arm Pulse Ox 97 97 Oxygen Delivery Method Room Air Room Air Weight Weight: 207 lb 3.752 oz Body Mass Index (BMI) 30.6 Physical Exam Const alert, oriented x3 and no apparent distress Assessment & Plan Assessment/Plan (1) Hemorrhoid: PLAN: Plan The patient is a 59-year-old male who presents with bleeding internal hemorrhoids as well as a prolapsing internal hemorrhoid. I have offered him a Doppler hemorrhoid artery ligation surgery along with excision of prolapsed internal hemorrhoid. We discussed the details of the planned procedure including risks benefits and alternatives. He wishes to proceed. Surgery beganmomentarily Charges/Coding Visit Charges Inpatient E&M: 20383 Init Hosp L3 11/24/24 1050 <Electronically signed by Harrison Courtney MD> Cosigner Signature (if applicable): CC: Dr. Harrison Courtney MD; Dr. Nikunj Adams DO~ Signed [facility] Work Phone: 1(631) 240-850608-21-2025 Procedure note [facility] Medical Records Department [address] [place] [address] Operative Report 11/24/24 1226 MR#: [id number] Acct: [id number] Name: MILY INGRAM Rep #:[id number] : 1965 59 From: Harrison Courtney MD PCP: Dr. Nikunj Adams DO Statu s:[facility] Location: [place] [address] Problems Associated Problem List Diagnoses (1) Hemorrhoid: Multi Select Codes Digestive Digestive CPT Codes: 27427 Remove in/ex hem groups 2+ and 61874 Excision, Anus w/US guidance Operative Report (Standard) Operative Information Date of Procedure: 11/24/24 Pre-Operative Diagnosis: Bleeding internal hemorrhoids Post-Operative Diagnosis: Same Surgery/Procedure Performed: 1. Hemorrhoid artery ligation 2. Excision of prolapsed internal hemorrhoid. payment analyst: Yes Systems Technologist: Ary Roy Tasks completed by medical support assistant: Retracting Additional sales assistants and salespersons?: No Type of Anesthesia: General and Local RN Documented Start/Stop Times: Operation Date: 11/24/24 10:30 Case Time Into Pre-Op 11/24/24 08:58 Anesthesia Start 11/24/24 10:54 Into Room 11/24/24 10:54 Out of Pre-Op 11/24/24 10:54 Procedure Start 11/24/24 11:20 Procedure End 11/24/24 12:00 Anesthesia End 11/24/24 12:08 Out of Room 11/24/24 12:08 Into Recovery 11/24/24 12:10 Procedure Start Time: 11:20 Procedure Stop Time: 12:00 Select all DRAINS/GRAFTS/IMPLANTS that apply: None Estimated Blood Loss: 15 mL Specimen collected: Yes Description of specimen(s) removed: Chronically prolapsed internal hemorrhoid Description of surgery: The patient is a 59-year-old male who was seen in my office recently with issuesrelated to bleedinghemorrhoids. He was evaluated and was found to have mild external hemorrhoids but was experiencing bleeding likely related to a chronically prolapsed internal hemorrhoid. I offered him Doppler guided hemorrhoid artery ligation surgery along with excision of the prolapsed internalhemorrhoid. We discussed the details of the planned procedure including the risks benefits and alternatives and he wished to proceed Patient was brought to the operative room today following informed consent. Preoperative timeout was performed. He was placed supine on the operative tablewith arms outstretched and arm boards. General anesthesia was induced. Once adequately sedated his legs were placed in a modified lithotomy position with appropriate padding and positioning. The area was prepped and draped in the usual sterile manner. Digital rectal examination was performed and no obvious masses were noted. The prolapsing internal hemorrhoid located at the 6 o'clock position posteriorly was clearly visible. This was excised first. A harmonic scalpel was then used to transect the prolapsed hemorrhoid. This was sent to pathology. The mucosa was then closed in a running manner using 2-0 chromic suture. We then proceeded with the hemorrhoid ligation portion of the operation. It was noted that when the Doppler ligation device was being assembled, that the battery door was not with the Doppler probe itself. Unfortunatelythe door was not able to be located. This was necessary to make electrical connection with the batteries and so this rendered the device not able to be powered. At this point we did not have a replacement. So instead itwas decided to place 2-0 Vicryl sutures in the typical locations where the dopplerable signals are usually located and those are typically at the 1, 3, 5, 7, 9, and 11:00 positions. This was performed without incident. A [id number] suture was placed in each location and tieddown thus effectively tying off the blood flow to the internal hemorrhoids. Hemostasis was very good. A total of 30 cc of local anesthetic were injected in to the region and a bilateral pudendal block manner. A Gelfoam plug was inserted alongwith Dibucaine. He was then awakened from anesthesia. Mesh underwear were applied as dressing. He was taken to recovery in good condition. Surgical Findings: See procedure note Complications Complications: No Admit VTE Documentation VTE Present on Admission: No VTE Mechan Device Prophylaxis: SCD's VTE Pharm Prophylaxis ordered?: No Reason prophylaxis not ordered: Treatment Not Indicated 11/24/24 1236 Cosigner Signature (if applicable): CC: Dr. Harrison Courtney MD; Dr. Nikunj Adams DO~ Signed [facility]08-21-2025 Discharge summary [facility] Medical Records Department [address] [place] [address] Instructions for Home/Discharge Instructions 11/24/24 1222 MR#: [id number] Acct: [id number] Name: MILY INGRAM Rep #:[id number] : 1965 59 From: Harrison Courtney MD PCP: Dr. Nikunj Adams DO Statu s:[facility] Discharge Instructions Diet Discharge Diet: Light diet - advance as tolerated Activity Discharge Activity: No Restrictions, May Shower and May Take a Tub Bath May shower in (days): 1 Dressing / Incision Call your doctor if your incision/area has: Continuous Slow Oozing, Sudden Increased Bleeding, Increased Pain/ Swelling, Increased Redness, Foul Smelling Discharge and Swelling at the incision site Call your doctor if you observe: Fever of 101 or Higher Cleanse incision/area with: Soap & Water Follow Up Care Please Follow Up With: Harrison Courtney MD When: 2 weeks. Please call my office to schedule appointment Test Results: Test results from this visit will be discussed in further detail at your follow- up appointment, if applicable. Discharge Plan Admission Primary Reason for Your Visit: Hemorrhoid surgery Attending Provider: Harrison Courtney Primary Care Provider: Nikunj Adams Instructions Print Language: Salvadorean Discharge Orders/Prescriptions Prescriptions: New oxycodone 5 mg tablet 5 mg PO Q8H PRN (Reason: pain) 3 Days Qty: 12 0RF Continued allopurinol 100 mg tablet 100 mg PO QHS nifedipine 30 mg tablet extended release 24hr 30 mg PO DAILY latanoprost 0.005 % drops 1 drp ophthalmic (eye) QHS ferrous sulfate [FeroSul] 325 mg (65 mg iron) tablet 325 mg PO DAILY atorvastatin 20 mg tablet 20 mg PO DAILY metformin 1,000 mg tablet 1,000 mg PO BID hydrochlorothiazide 25 mg tablet 25 mg PO DAILY lisinopril 40 mg tablet 40 mg PO DAILY Referrals / Follow Up: Nikunj Adams DO [Primary Care Provider] - Disposition Disposition (needs filled in before D/C Order can be placed): Home, Self Care 11/24/24 1226Harrison Courtney MD CC: Dr. Nikunj Adams DO ~ Signed [facility]08-21-2025 Consult note [facility] Medical Records Department [address] [place] [address] Anesthesia Postop Eval I 11/24/24 1214 MR#: [id number] Acct: [id number] Name: MILY INGRAM Rep #:[id number] : 1965 59 From: Artemio Amaya CRNA PCP: Dr. 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 Nikunj Adams, DO Statu s:[facility] Race: C Location: [place] [address] ASA Classification* ASA Classification ASA Classification: 3 Assessment & Plan Anesthesia* Anesthesia Assessment Anesthesia Assessment: Discussed sedation and/or anesthesia options, risks, benefits, and alternatives with patient/parents/legal guardian/POA. Questions invited. The patient/parents/legal guardian/POA seems to understand and agrees to proceedwith anesthesia plan. Reviewed the physical assessment, medical history, allergy history and patient home medications list prior to surgery/procedure/anesthetic and documented any changes. Performed airway and anesthesia risk assessments. Anesthesia Type Anesthesia Type: General History Source History Obtained from:: Patient and Chart Anesthesia Focused Assessment* Temperature: 97.5 F Pulse Rate: 83 Blood Pressure: 125/73 Respiratory Rate: 16 Pulse Ox: 97 Oxygen Delivery Method: Room Air Airway Assessment Mouth opens: >3 cm Mallampati Score: II Teeth Condition: Intact Neck Range of motion (ROM): Full ROM Labs Anesthesia Preop lab: CBC WBC 8.8 K/mm3 (4.4-11.0) 09/09/24 08:09/09/24 RBC 3.94 M/mm3 (4.6-6.2) L 09/09/24 08:09/09/24 Hgb 11.9 g/dL (13.0-16.5) L 09/09/24 08: 5 Hct 36.2 % (40-54) L 09/09/24 08:09/09/24 Plt Count 212 K/mm3 (150-450) 09/09/24 08:09/09/24 CHEMISTRY Potassium 5.1 mmol/L (3.3-5.1) 09/09/24 08:26 09/09/24 Sodium 138 mmol/L (133-145) 09/09/24 08:26 09/09/24 BUN 14 mg/dL (4-19) 09/09/24 08:26 09/09/24 Creatinine 1.09 mg/dL (0.70-1.20) 09/09/24 08:26 09/09/24 Glucose 102 mg/dL (70-99) H 09/09/24 08:26 09/09/24 POC Glucose 99 mg/dL (74-106) 10/17/24 07:23 10/17/24 COAG Pre-Assessment Diagnosis/Proposed Procedure Planned Operative Procedure(s): Doppler Guided Hemorrhoid Ligation TDH hemorrhoidectomy w/excision prolapsed internal hemorrhoids Anesthesia History Anesthesia History - assistant counsel: Anesthesia History - assistant counsel Hx Hospitalization No 11/10/24 12:39 Any Problems With Anesthesia No 11/10/24 12:39 Cholinesterase deficiency No 11/10/24 12:39 You/Your Family Experience No 11/10/24 12:39 fever (hyperthermia) with Relationship Recent Exposure to Contagious No 11/24/24 09:16 Disease Does patient have nerve No 11/10/24 12:39 stimulator Patient instructed to have device shut off --Does patient have Pacemaker No 11/24/24 09:16 or ICD? When Was Last Pacemaker Check QUESTION #4 FULL TEXT: You/Your Family Experience fever (hyperthermia) with Anesthesia Last Oral Intake Last Oral intake: Last Oral Intake NPO since 17:30 11/24/24 09:16 Meds taken in AM with sips of Yes 11/24/24 09:16 water? Meds patient instructed to PROCARDIA 11/24/24 09:16 take am of surgery PONV PONV - assistant counsel: PONV - assistant counsel Female No 11/10/24 12:39 HX of Motion Sickness No 11/10/24 12:39 HX of N/V After Surgery No 11/10/24 12:39 Non-Smoker Yes 11/10/24 12:39 Duration of Surgery greater Yes 11/10/24 12:39 than 60 minutes Number of Risk Factors 2 11/10/24 12:39 PONV Score Moderate Risk 11/10/24 12:39 Height & Weight Height & Weight: Anesthesia: Height & Weight Height 5 ft 9 in 11/24/24 09:16 Weight: 94 kg 11/24/24 09:16 Body Mass Index (BMI) 30.6 11/24/24 09:16 Respiratory Assessment Respiratory Assessment - assistant counsel: Respiratory Tract Infection Hx - assistant counsel Hx Respiratory Tract Infection No 11/10/24 12:39 STOP Sleep Apnea STOP Sleep Apnea - assistant counsel: STOP Sleep Apnea - assistant counsel Hx Hypertension Yes: ON MEDS 11/10/24 12:39 Hx Sleep Apnea No 11/10/24 12:39 CPAP BIPAP Do you snore loudly (louder No 11/10/24 12:39 than talking or can be heard Do you often feel tired/ No 11/10/24 12:39 fatigued/ sleepy during daytime? Has anyone observed you stop No 11/10/24 12:39 breathing during sleep? STOP Results Negative 11/10/24 12:39 QUESTION #5 FULL TEXT : Do you snore loudly (louder than talking or can be heard through closed doors)? 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 Specify any problems Hx of Preganancy in last 3 N/A 11/10/24 12:39 Months Nurse Filling Out Transfusion JZOLLINGE 11/10/24 12:39 & Questions: Date: 11/10/24 11/10/24 12:39 Time: 12:41 11/10/24 12:39 Patient unable to answer at this time (ie. confused, unrespo /Reproduction History /Reproductive History - assistant counsel: /Reproductive Hx- assistant counsel Hx Now No 11/10/24 12:39 Gestational Age (in weeks): EDC: Hx Hx Para Hx Section SAB No 11/10/24 12:39 Active Medications Active Medications: Current Medications Generic Name Dose Route Start Last Admin Trade Name Freq PRN Reason Stop Dose Admin Lactated Ringer's 1,000 mls @ 15 mls/hr 11/24/24 09:00 11/24/24 09:21 IV 15 mls/hr .Q48H ARIELLE Administration PFSH Medical History (Updated 11/10/24 @ 12:39 by Toyin Vasquez) Dietary restriction Hemorrhoid Wears glasses Gout Arthritis DVT (deep venous thrombosis) Anemia Non-smoker Hypertension Home Medications ?Medication ?Instructions ?Recorded ?Last Taken ?Type atorvastatin 20 mg tablet 20 mg PO DAILY 08/20/2311/05 History hydrochlorothiazide 25 mg tablet 25 mg PO DAILY 11/23/24 History lisinopril 40 mg tablet 40 mg PO DAILY 08/20/2311/05 History metformin 1,000 mg tablet 1,000 mg PO BID 08/20/23 History allopurinol 100 mg tablet 100 mg PO QHS 10/12/2411/23 History ferrous sulfate 325 mg (65 mg 325 mg PO DAILY 10/12/24 11/20/24 History iron) tablet (FeroSul) latanoprost 0.005 % eye drops 1 drp ophthalmic (eye) Q HS 10/12/24 11/22/24 History nifedipine 30 mg tablet,extended 30 mg PO DAILY 11/24/24 History release 24 hr Allergy/AdvReac Type Severity Reaction Status Date / Time No Known Allergies Allergy Verified 11/24/24 09:14 Surgical History (Updated 11/10/24 @ 12:39 by Toyin Vasquez) Hx of colonoscopy with polypectomy H/O foot surgery Social History household members: family Smoking Status: Never smoker alcohol intake: current Review of Systems (Anesthesia) ROS Narrative System reviewed and no additional complaints, except as documented. 11/24/24933 <Electronically signed by Wilmer Yerger M D> Date _ Wilmer Kaur Signature: Date CC: ~ Signed [facility] Work Phone: 1(541) 182-606008-21-2025 History and physical note [facility] Medical Records Department [address] [place] [address] History & Physical Exam 11/24/24 1048 MR#: [id number] Acct: [id number] Name: MILY INGRAM Rep #:[id number] : 1965 59 From: Harrison Courtney MD PCP: Dr. Nikunj Adams DO Stat s:[facility] Location: [place] [address] HPI - General General Date of Admission: 11/24/24 Date of Service: 11/24/24 Chief Complaint: Bleeding hemorrhoids HPI Narrative MILY INGRAM, is a 59 M who presents today for elective Doppler hemorrhoid artery ligation surgery as well as excision of a prolapsing internal hemorrhoid [facility] Medical History (Updated 11/10/24 @ 12:39 by Toyin Vasquez) Dietary restriction Hemorrhoid Wears glasses Gout Arthritis DVT (deep venous thrombosis) Anemia Non-smoker Hypertension Home Medications ?Medication ?Instructions ?Recorded ?Last Taken ?Type atorvastatin 20 mg tablet 20 mg PO DAILY 08/20/2311/05 History hydrochlorothiazide 25 mg tablet 25 mg PO DAILY 11/23/24 History lisinopril 40 mg tablet 40 mg PO DAILY 08/20/2311/05 History metformin 1,000 mg tablet 1,000 mg PO BID 08/20/23 History allopurinol 100 mg tablet 100 mg PO QHS 10/12/2411/23 History ferrous sulfate 325 mg (65 mg 325 mg PO DAILY 10/12/24 11/20/24 History iron) tablet (FeroSul) latanoprost 0.005 % eye drops 1 drp ophthalmic (eye) Q HS 10/12/24 11/22/24 History nifedipine 30 mg tablet,extended 30 mg PO DAILY 11/24/24 History release 24 hr Allergy/AdvReac Type Severity Reaction Status Date / Time No Known Allergies Allergy Verified 11/24/24 09:14 Surgical History (Updated 11/10/24 @ 12:39 by Toyin Vasquez) Hx of colonoscopy with polypectomy H/O foot surgery Social History household members: family Smoking Status: Never smoker alcohol intake: current Vital Signs Vital Signs Vital Signs: 11/24/24 09:16 11/24/24 09:16 11/24/24 09:32 Temperature 97.5 F L 97.5 F L Temperature Source Temporal Pulse Rate 83 83 Respiratory Rate 16 16 Respiratory Pattern Normal Blood Pressure 125/73 H 125/73 H Blood Pressure Mean 90 Blood Pressure Source Monitor Blood Pressure Position Semi-Fowlers Blood Pressure Location Left Arm Pulse Ox 97 97 Oxygen Delivery Method Room Air Room Air Weight Weight: 207 lb 3.752 oz Body Mass Index (BMI) 30.6 Physical Exam Const alert, oriented x3 and no apparent distress Assessment & Plan Assessment/Plan (1) Hemorrhoid: PLAN: Plan The patient is a 59-year-old male who presents with bleeding internal hemorrhoids as well as a prolapsing internal hemorrhoid. I have offered him a Doppler hemorrhoid artery ligation surgery along with excision of prolapsed internal hemorrhoid. We discussed the details of the planned procedure including risks benefits and alternatives. He wishes to proceed. Surgery beganmomentarily Charges/Coding Visit Charges Inpatient E&M: 59536 Init Hosp L3 11/24/24 1050 Cosigner Signature (if applicable): CC: Dr. Harrison Courtney MD; Dr. Nikunj Adams DO~ Signed [facility]08-21-2025 [facility] Medical Records Department [address] [place] [address] History Physical Exam 11/24/24 1048 MR#: [id number] Acct: [id number] Name: MILY INGRAM Rep #: [id number] : 1965 59 From: Harrison Courtney MD PCP: Dr. Nikunj Adams DO Status:REG [facility] Location: [address] HPI - General General Date of Admission: 11/24/24 Date of Service: 11/24/24 Chief Complaint: Bleeding hemorrhoids HPI Narrative MILY INGRAM, is a 59 M who presents today for elective Doppler hemorrhoid artery ligation surgery as well as excision of a prolapsing internal hemorrhoid [facility] Medical History (Updated 11/10/24 @ 12:39 by Toyin Vasquez) Dietary restriction Hemorrhoid Wears glasses Gout Arthritis DVT (deep venous thrombosis) Anemia Non-smoker Hypertension Home Medications ???Medication ???Instructions ???Recorded ???Last Taken ???Type atorvastatin 20 mg tablet 20 mg PO DAILY 08/20/23 11/23/24 H istory hydrochlorothiazide 25 mg tablet 25 mg PO DAILY 08/20/23 11/23/24 H istory lisinopril 40 mg tablet 40 mg PO DAILY 08/20/23 11/23/24 H istory metformin 1,000 mg tablet 1,000 mg PO BID 08/20/23 11/23/24 History allopurinol 100 mg tablet 100 mg PO QHS 10/12/24 11/23/24 Hi story ferrous sulfate 325 mg (65 mg 325 mg PO DAILY 10/12/24 11/20/24 History iron) tablet (FeroSul) latanoprost 0.005 % eye drops 1 drp ophthalmic (eye) QHS 5 11/22/24 History nifedipine 30 mg tablet,extended 30 mg PO DAILY 10/12/24 11/24/24 H istory release 24 hr Allergy/AdvReac Type Severity Reaction Status Date / Time No Known Allergies Allergy Verified 11/24/24 09:14 Surgical History (Updated 11/10/24 @ 12:39 by Toyin Vasquez) Hx of colonoscopy with polypectomy H/O foot surgery Social History household members: family Smoking Status: Never smoker alcohol intake: current Vital Signs Vital Signs Vital Signs: 11/24/24 09:16 11/24/24 09:16 11/24/24 09:32 Temperature 97.5 F L 97.5 F L Temperature Source Temporal Pulse Rate 83 83 Respiratory Rate 16 16 Respiratory Pattern Normal Blood Pressure 125/73 H 125/73 H Blood Pressure Mean 90 Blood Pressure Source Monitor Blood Pressure Position Semi-Fowlers Blood Pressure Location Left Arm Pulse Ox 97 97 Oxygen Delivery Method Room Air Room Air Weight Weight: 207 lb 3.752 oz Body Mass Index (BMI) 30.6 Physical Exam Const alert, oriented x3 and no apparent distress Assessment Plan Assessment/Plan (1) Hemorrhoid: PLAN: Plan The patient is a 59-year-old male who presents with bleeding internal hemorrhoids as well as a prolapsing internal hemorrhoid. I have offered him a Doppler hemorrhoid artery ligation surgery along with excision of prolapsed internal hemorrhoid. We discussed the details of the planned procedure including risks benefits and alternatives. He wishes to proceed. Surgery began momentarily Charges/Coding Visit Charges Inpatient E M: 76489 Init Hosp L3 11/24/24 1050 Cosigner Signature (if applicable): CC: Dr. Harrison Courtney MD; Dr. Nikunj Adams DO [facility]08-21-2025 Consult note [facility] Medical Records Department [address] [place] [address] Pre-Anesthesia Evaluation 11/24/24 0931 MR#: [id number] Acct: [id number] Name: MILY INGRAM Rep #:[id number] : 1965 59 From: Wilmer Limon MD PCP: Dr. Nikunj Adams DO Statu s:REG SDC Y Race: C Location: [place] [address] ASA Classification* ASA Classification ASA Classification: 3 Assessment & Plan Anesthesia* Anesthesia Assessment Anesthesia Assessment: Discussed sedation and/or anesthesia options, risks, benefits, and alternatives with patient/parents/legal guardian/POA. Questions invited. The patient/parents/legal guardian/POA seems to understand and agrees to proceedwith anesthesia plan. Reviewed the physical assessment, medical history, allergy history and patient home medications list prior to surgery/procedure/anesthetic and documented any changes. Performed airway and anesthesia risk assessments. Anesthesia Type Anesthesia Type: General History Source History Obtained from:: Patient and Chart Anesthesia Focused Assessment* Temperature: 97.5 F Pulse Rate: 83 Blood Pressure: 125/73 Respiratory Rate: 16 Pulse Ox: 97 Oxygen Delivery Method: Room Air Airway Assessment Mouth opens: >3 cm Mallampati Score: II Teeth Condition: Intact Neck Range of motion (ROM): Full ROM Labs Anesthesia Preop lab: CBC WBC 8.8 K/mm3 (4.4-11.0) 09/09/24 08:26 09/09/24 RBC 3.94 M/mm3 (4.6-6.2) L 09/09/24 08:26 09/09/24 Hgb 11.9 g/dL (13.0-16.5) L 09/09/24 08:26 5 Hct 36.2 % (40-54) L 09/09/24 08:26 09/09/24 Plt Count 212 K/mm3 (150-450) 09/09/24 08:26 09/09/24 CHEMISTRY Potassium 5.1 mmol/L (3.3-5.1) 09/09/24 08:26 09/09/24 Sodium 138 mmol/L (133-145) 09/09/24 08:26 09/09/24 BUN 14 mg/dL (4-19) 09/09/24 08:26 09/09/24 Creatinine 1.09 mg/dL (0.70-1.20) 09/09/24 08:26 09/09/24 Glucose 102 mg/dL (70-99) H 09/09/24 08:26 09/09/24 POC Glucose 99 mg/dL (74-106) 10/17/24 07:23 10/17/24 COAG Pre-Assessment Diagnosis/Proposed Procedure Planned Operative Procedure(s): Doppler Guided Hemorrhoid Ligation TDH hemorrhoidectomy w/excision prolapsed internal hemorrhoids Anesthesia History Anesthesia History - assistant counsel: Anesthesia History - assistant counsel Hx Hospitalization No 11/10/24 12:39 Any Problems With Anesthesia No 11/10/24 12:39 Cholinesterase deficiency No 11/10/24 12:39 You/Your Family Experience No 11/10/24 12:39 fever (hyperthermia) with Relationship Recent Exposure to Contagious No 11/24/24 09:16 Disease Does patient have nerve No 11/10/24 12:39 stimulator Patient instructed to have device shut off --Does patient have Pacemaker No 11/24/24 09:16 or ICD? When Was Last Pacemaker Check QUESTION #4 FULL TEXT: You/Your Family Experience fever (hyperthermia) with Anesthesia Last Oral Intake Last Oral intake: Last Oral Intake NPO since 17:30 11/24/24 09:16 Meds taken in AM with sips of Yes 11/24/24 09:16 water? Meds patient instructed to PROCARDIA 11/24/24 09:16 take am of surgery PONV PONV - assistant counsel: PONV - assistant counsel Female No 11/10/24 12:39 HX of Motion Sickness No 11/10/24 12:39 HX of N/V After Surgery No 11/10/24 12:39 Non-Smoker Yes 11/10/24 12:39 Duration of Surgery greater Yes 11/10/24 12:39 than 60 minutes Number of Risk Factors 2 11/10/24 12:39 PONV Score Moderate Risk 11/10/24 12:39 Height & Weight Height & Weight: Anesthesia: Height & Weight Height 5 ft 9 in 11/24/24 09:16 Weight: 94 kg 11/24/24 09:16 Body Mass Index (BMI) 30.6 11/24/24 09:16 Respiratory Assessment Respiratory Assessment - assistant counsel: Respiratory Tract Infection Hx - assistant counsel Hx Respiratory Tract Infection No 11/10/24 12:39 STOP Sleep Apnea STOP Sleep Apnea - assistant counsel: STOP Sleep Apnea - assistant counsel Hx Hypertension Yes: ON MEDS 11/10/24 12:39 Hx Sleep Apnea No 11/10/24 12:39 CPAP BIPAP Do you snore loudly (louder No 11/10/24 12:39 than talking or can be heard Do you often feel tired/ No 11/10/24 12:39 fatigued/ sleepy during daytime? Has anyone observed you stop No 11/10/24 12:39 breathing during sleep? STOP Results Negative 11/10/24 12:39 QUESTION #5 FULL TEXT : Do you snore loudly (louder than talking or can be heard through closeddoors)? 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 Specify any problems Hx of Preganancy in last 3 N/A 11/10/24 12:39 Months Nurse Filling Out Transfusion DAMION 11/10/24 12:39 & Questions: Date: 11/10/24 11/10/24 12:39 Time: 12:41 11/10/24 12:39 Patient unable to answer at this time (ie. confused, unrespo /Reproduction History /Reproductive History - assistant counsel: /Reproductive Hx- assistant counsel Hx Now No 11/10/24 12:39 Gestational Age (in weeks): EDC: Hx Hx Para Hx Section SAB No 11/10/24 12:39 Active Medications Active Medications: Current Medications Generic Name Dose Route Start Last Admin Trade Name Freq PRN Reason Stop Dose Admin Lactated Ringer's 1,000 mls @ 15 mls/hr 11/24/24 09:00 11/24/24 09:21 IV 15 mls/hr .Q48H ARIELLE Administration PFSH Medical History (Updated 11/10/24 @ 12:39 by Toyin Vasquez) Dietary restriction Hemorrhoid Wears glasses Gout Arthritis DVT (deep venous thrombosis) Anemia Non-smoker Hypertension Home Medications ?Medication ?Instructions ?Recorded ?Last Taken ?Type atorvastatin 20 mg tablet 20 mg PO DAILY 08/20/2311/05 History hydrochlorothiazide 25 mg tablet 25 mg PO DAILY 11/23/24 History lisinopril 40 mg tablet 40 mg PO DAILY 08/20/2311/05 History metformin 1,000 mg tablet 1,000 mg PO BID 08/20/23 History allopurinol 100 mg tablet 100 mg PO QHS 10/12/2411/23 History ferrous sulfate 325 mg (65 mg 325 mg PO DAILY 10/12/24 11/20/24 History iron) tablet (FeroSul) latanoprost 0.005 % eye drops 1 drp ophthalmic (eye) Q HS 10/12/24 11/22/24 History nifedipine 30 mg tablet,extended 30 mg PO DAILY 11/24/24 History release 24 hr Allergy/AdvReac Type Severity Reaction Status Date / Time No Known Allergies Allergy Verified 11/24/24 09:14 Surgical History (Updated 11/10/24 @ 12:39 by Toyin Vasquez) Hx of colonoscopy with polypectomy H/O foot surgery Social History household members: family Smoking Status: Never smoker alcohol intake: current Review of Systems (Anesthesia) ROS Narrative System reviewed and no additional complaints, except as documented. 11/24/24 0934 D> Date _ Wilmer Kaur Signature: Date CC: ~ Signed [facility]07-14-2025 Consult note [facility] Medical Records Department [address] [place] [address] Anesthesia Postop Eval I 10/17/24916 MR#: [id number] Acct: [id number] Name: MILY INGRAM Rep #:[id number] : 1965 59 From: Donato Resendiz PCP: Dr. Nikunj Adams DO Statu s:REG SD Y Race: C Location: [place] [address] Anesthesia: Postop Eval I Current Vital Signs Temperature: 97 F Pulse Rate: 76 Blood Pressure: 103/87 Respiratory Rate: 16 Pulse Ox: 96 Oxygen Delivery Method: Room Air Assessment Airway patent: Yes Spontaneous unlabored respirations: Yes Mental status: Awake and Calm nausea: No Vomiting: No Anesthesia Complication: No Fluid Hydration Crystalloid volume administer (ml): 900 Total IV fluid infused: 900 Progress Note Anesthesia document: Postop Eval 1 completed: Yes 10/17/2443 > Date _ Donato Kaur Signature: Date CC: ~ Signed [facility]07-14-2025 Consult note Author Oj Serrano [facility] Note Date/Time October 17, 2024 7:58 am [facility] Medical Records Department [address] [place] [address] Pre-Anesthesia Evaluation 10/17/24 0741 MR#: [id number] Acct: [id number] Name: MILY INGRAM Rep #:[id number] : 1965 59 From: Oj Serrano MD PCP: Dr. Nikunj Adams DO [facility] s:[facility] Y Race: C Location: [place] [address] ASA Classification* ASA Classification ASA Classification: 2 Assessment & Plan Anesthesia* Anesthesia Assessment Anesthesia Assessment: Discussed sedation and/or anesthesia options, risks, benefits, and alternatives with patient/parents/legal guardian/POA. Questions invited. The patient/parents/legal guardian/POA seems to understand and agrees to proceedwith anesthesia plan. Reviewed the physical assessment, medical history, allergy history and patient home medications list prior to surgery/procedure/anesthetic and documented any changes. Performed airway and anesthesia risk assessments. Anesthesia Type Anesthesia Type: MAC History Source History Obtained from:: Patient and Chart Anesthesia Focused Assessment* Temperature: 97.4 F Pulse Rate: 92 Blood Pressure: 109/81 Respiratory Rate: 16 Pulse Ox: 100 Oxygen Delivery Method: Room Air Airway Assessment Mouth opens: >3 cm Mallampati Score: II Teeth Condition: Intact Neck Range of motion (ROM): Full ROM Labs Anesthesia Preop lab: CBC WBC 8.8 K/mm3 (4.4-11.0) 09/09/24 08:26 09/09/24 RBC 3.94 M/mm3 (4.6-6.2) L 09/09/24 08:09/09/24 Hgb 11.9 g/dL (13.0-16.5) L 09/09/24 08:26 5 Hct 36.2 % (40-54) L 09/09/24 08:26 09/09/24 Plt Count 212 K/mm3 (150-450) 09/09/24 08:26 09/09/24 CHEMISTRY Potassium 5.1 mmol/L (3.3-5.1) 09/09/24 08:26 09/09/24 Sodium 138 mmol/L (133-145) 09/09/24 08:26 09/09/24 BUN 14 mg/dL (4-19) 09/09/24 08:26 09/09/24 Creatinine 1.09 mg/dL (0.70-1.20) 09/09/24 08:26 09/09/24 Glucose 102 mg/dL (70-99) H 09/09/24 08:26 09/09/24 COAG Pre-Assessment Diagnosis/Proposed Procedure Planned Operative Procedure(s): COLONOSCOPY-OA Anesthesia History Anesthesia History - assistant counsel: Anesthesia History - assistant counsel Hx Hospitalization No 10/12/24 11:34 Any Problems With Anesthesia No 10/12/24 11:34 Cholinesterase deficiency No 10/12/24 11:34 You/Your Family Experience No 10/12/24 11:34 fever (hyperthermia) with Relationship Recent Exposure to Contagious No 10/17/24 07:25 Disease Does patient have nerve No 10/12/24 11:34 stimulator Patient instructed to have device shut off --Does patient have Pacemaker No 10/17/24 07:25 or ICD? When Was Last Pacemaker Check QUESTION #4 FULL TEXT: You/Your Family Experience fever (hyperthermia) with Anesthesia Last Oral Intake Last Oral intake: Last Oral Intake NPO since 01:30 10/17/24 07:25 Meds taken in AM with sips of water? Meds patient instructed to take am of surgery PONV PONV - assistant counsel: PONV - assistant counsel Female No 10/12/24 11:34 HX of Motion Sickness No 10/12/24 11:34 HX of N/V After Surgery No 10/12/24 11:34 Non-Smoker Yes 10/12/24 11:34 Duration of Surgery greater No 10/12/24 11:34 than 60 minutes Number of Risk Factors 1 10/12/24 11:34 PONV Score Low Risk 10/12/24 11:34 Height & Weight Height & Weight: Anesthesia: Height & Weight Height 5 ft 9 in 10/17/24 07:25 Weight: 95 kg 10/17/24 07:25 Body Mass Index (BMI) 30.9 10/17/24 07:25 Respiratory Assessment Respiratory Assessment - assistant counsel: Respiratory Tract Infection Hx - assistant counsel Hx Respiratory Tract Infection No 10/12/24 11:34 STOP Sleep Apnea STOP Sleep Apnea - assistant counsel: STOP Sleep Apnea - assistant counsel Hx Hypertension Yes: CONTROLLED ON MED 10/12/24 11:34 Hx Sleep Apnea No 10/12/24 11:34 CPAP BIPAP Do you snore loudly (louder No 10/12/24 11:34 than talking or can be heard Do you often feel tired/ No 10/12/24 11:34 fatigued/ sleepy during daytime? Has anyone observed you stop No 10/12/24 11:34 breathing during sleep? STOP Results Negative 10/12/24 11:34 QUESTION #5 FULL TEXT : Do you snore loudly (louder than talking or can be heard through closed doors)? 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 Specify any problems Hx of Preganancy in last 3 N/A 10/12/24 11:34 Months Nurse Filling Out Transfusion VCHRISTIN 10/12/24 11:34 & Questions: Date: 10/12/24 10/12/24 11:34 Time: 11:36 10/12/24 11:34 Patient unable to answer at this time (ie. confused, unrespo /Reproduction History /Reproductive History - assistant counsel: /Reproductive Hx- assistant counsel Hx Now No 10/12/24 11:34 Gestational Age (in weeks): EDC: Hx Hx Para Hx Section SAB No 10/12/24 11:34 Active Medications Active Medications: Current Medications Generic Name Dose Route Start Last Admin Trade Name Freq PRN Reason Stop Dose Admin Lactated Ringer's 1,000 mls @ 15 mls/hr 10/17/24 07:45 10/17/24 07:35 IV 15 mls/hr .Q48H ARIELLE Administration PFSH Medical History Hemorrhoid Wears glasses Gout Arthritis DVT (deep venous thrombosis) Anemia Non-smoker Hypertension Home Medications ?Medication ?Instructions ?Recorded ?Last Taken ?Type atorvastatin 20 mg tablet 20 mg PO DAILY 08/20/2310/04 History hydrochlorothiazide 25 mg tablet 25 mg PO DAILY 10/14/24 History lisinopril 40 mg tablet 40 mg PO DAILY 08/20/2310/04 History metformin 1,000 mg tablet 1,000 mg PO BID 08/20/23 History allopurinol 100 mg tablet 100 mg PO QHS 10/12/2410/14 History ferrous sulfate 325 mg (65 mg 325 mg PO DAILY 10/12/24 10/06/24 History iron) tablet (FeroSul) latanoprost 0.005 % eye drops 1 drp ophthalmic (eye) Q HS 10/12/24 10/17/24 History nifedipine 30 mg tablet,extended 30 mg PO DAILY 10/17/24 History release 24 hr Allergy/AdvReac Type Severity Reaction Status Date / Time No Known Allergies Allergy Verified 10/17/24 07:20 Surgical History (Updated 08/24/23 @ 08:11 by Sherly Baeza) H/O foot surgery Social History (Updated 08/24/23 @ 08:11 by Sherly Baeza) household members: family Smoking Status: Never smoker alcohol intake: current Review of Systems (Anesthesia) ROS Narrative System reviewed and no additional complaints, except as documented. Physical Exam Const alert, oriented x3 and average body habitus Resp normal respiratory effort and normal air movement Cardio regular rate Neuro oriented x3 and moves all extremities 10/17/24 0758 <Electronically signed by Oj Lama> Date _ Oj Serrano MD Cosigner Signature: Date CC: ~ Signed [facility] Work Phone: [phone] 201-987207-14-2025 Procedure note [facility] Medical Records Department [address] [place] [address] Colonoscopy Report MR#: [id number] Acct: [id number] Name: MILY INGRAM Rep #:[id number] : 1965 59 From: Moreno Mosqueda DO PCP: Dr. Nikunj Adams DO Statu s:REG [facility] Patient Name: Mily Ingram Procedure Date: 10/17/2024 8:42 AM Date of : 1965 Age: 59 Procedure: Colonoscopy Indications: High risk colon cancer surveillance: Personal history of colonic polyps Providers: Moreno Mosqueda DO Referring MD: Nikunj Adams Do Medicines: Monitored Anesthesia Care Patient Profile: This is a 59 year old male. Refer to note in patient chart for documentation of history and physical. Last Colonoscopy: 5 years ago. Complications: No immediate complications. Procedure: Pre-Anesthesia Assessment: - Prior to the procedure, a History and Physical was performed, and patient medications and allergies were reviewed. The patient is competent. The risks and benefits of the procedure and the sedation options and risks were discussed with the patient. All questions were answered and informed consent was obtained. Patient identification and proposed procedure were verified by the physician in the pre-procedure area. Mental Status Examination: alert and oriented. Airway Examination: normal oropharyngeal airway and neck mobility. Respiratory Examination: clear to auscultation. CV Examination: normal. ASA Grade Assessment: II - A patient with mild systemic disease. After reviewing the risks and benefits, the patient was deemed in satisfactory condition to undergo the procedure. The anesthesia plan was to use monitored anesthesia care (MAC). Immediately prior to administration of medications, the patient was re-assessed for adequacy to receive sedatives. The heart rate, respiratory rate, oxygen saturations, blood pressure, adequacy of pulmonary ventilation, and response to care were monitored throughout the procedure. The physical status of the patient was re-assessed after the procedure. After I obtained informed consent, the scope was passed under direct vision. Throughout the procedure, the patient's blood pressure, pulse, and oxygen saturations were monitored continuously. The Colonoscope was introduced through the anus and advanced to the cecum, identified by appendiceal orifice and ileocecal valve. The colonoscopy was performed without difficulty. The patient tolerated the procedure well. The quality of the bowel preparation was adequate. The ileocecal valve, appendiceal orifice, and rectum were photographed. Scope In: 8:52:45 AM Scope Withdrawal Time 0 hours 9 minutes 41 seconds Scope Out: 9:05:37 AM Total Procedure Duration Time 0 hours 12 minutes 52 seconds Findings: The perianal and digital rectal examinations were normal. An 8 mm polyp was found in the sigmoid colon. The polyp was sessile. The polyp was removed with a hot snare. Resection and retrieval were complete. Verification of patient identification for the specimen was done. Estimated blood loss was minimal. A few small-mouthed diverticula were found in the recto-sigmoid colon and sigmoid colon. Non-bleeding hemorrhoids were found during retroflexion. The hemorrhoids were Grade III (internal hemorrhoids that prolapse but require manual reduction) and Grade IV (internal hemorrhoids that prolapse and cannot be reduced manually). Impression: - One 8 mm polyp in the sigmoid colon, removed with a hot snare. Resected and retrieved. - Diverticulosis in the recto-sigmoid colon and in the sigmoid colon. - Non-bleeding hemorrhoids. Recommendation: - Repeat colonoscopy in 5 years for surveillance. - Continue present medications. Procedure Code(s): --- Professional --- 02421, Colonoscopy, flexible; with removal of tumor(s), polyp(s), or other lesion(s) by snare technique CPT copyright 2021 [employer]. All rights reserved. The codes documented in this report are preliminary and upon beader tender review may be revised to meet current compliance requirements. Moreno Mosqueda DO 10/17/2024 9:13:56 AM This report has been signed electronically. Number of Addenda: 0 Note Initiated On: 10/17/2024 8:42 AM 10/17/24913 Date _ Moreno Mosqueda DO Cosigner Signature: Date (if indicated) CC: Dr. Nikunj Adams DO; Moreno Mosqueda DO ~ Date Dictated: 10/17/24841 Date Transcribed: Tumbler Machine Operator Helper: RF Signed [facility]07-14-2025 Procedure note [facility] Medical Records Department [address] [place] [address] Operative Report - CC Letter MR#: [id number] Acct: [id number] Name: MILY INGRAM Rep #:[id number] : 1965 59 From: Moreno Mosqueda DO PCP: Dr. Nikunj Adams DO Statu s:REG SDC 10/17/2024 Nikunj Adams Do Re : Colonoscopy procedure for Mily Ingram Dear Dr. Adams This procedure was performed on Thursday, October 17, 2024. My impressions and recommendations are as follows: Impressions : - One 8 mm polyp in the sigmoid colon, removed with a hot snare. Resected and retrieved. - Diverticulosis in the recto-sigmoid colon and in the sigmoid colon. - Non-bleeding hemorrhoids. Recommendations : - Repeat colonoscopy in 5 years for surveillance. - Continue present medications. My findings are described in the full procedure note, which is enclosed. If I can be of further assistance, please feel free to contact me at . Sincerely, Moreno Mosqueda DO 10/17/2024 9:13:56 AM This report has been signed electronically. 10/17/24913 Date _ Moreno Presley Signature: Date (if indicated) CC: Dr. Nikunj Adams DO; Moreno Mosqueda DO ~ Date Dictated: 10/17/24841 Date Transcribed: Tumbler Machine Operator Helper: RF Signed [facility]07-14-2025 Evaluation note* Diagnosis Onset Date Resolution Status Admit Date Personal history of colonic polyps acute October 17, 2024 7:00am [facility] Work Phone: 1(908) 525-629107-14-2025 Evaluation note* Diagnosis Onset Date Resolution Status Admit Date Personal history of colonic polyps acute October 17, 2024 7:00am Hemorrhoid acute October 25 1:44pm Hemorrhoid acute November 24, 025 8:54am [facility] Work Phone: 1(848) 780-871007-14-2025 History and physical note [facility] Medical Records Department [address] [place] [address] History & Physical Exam 10/17/24 0836 MR#: [id number] Acct: [id number] Name: MILY INGRAM Rep #:[id number] : 1965 59 From: Moreno Mosqueda DO PCP: Dr. Nikunj Adams DO Statu s:REG [facility] Location: [place] [address] HPI - General General Date of Admission: 10/17/24 Date of Service: 10/17/24 Chief Complaint: Surveillance colonoscopy HPI Narrative MILY INGRAM, is a 59 M who presents today for surveillance colonoscopy. He hada full colonoscopy back in 2019. During a colonoscopy discovered to have 1 adenomatous polyp that was removed. He is nothaving any problems with his bowels at this time. He has a past medical history hypertension diabetes which are controlled with medicines. Overall is in fairly good health. [facility] Medical History Hemorrhoid Wears glasses Gout Arthritis DVT (deep venous thrombosis) Anemia Non-smoker Hypertension Home Medications ?Medication ?Instructions ?Recorded ?Last Taken ?Type atorvastatin 20 mg tablet 20 mg PO DAILY 08/20/2310/04 History hydrochlorothiazide 25 mg tablet 25 mg PO DAILY 10/14/24 History lisinopril 40 mg tablet 40 mg PO DAILY 08/20/2310/04 History metformin 1,000 mg tablet 1,000 mg PO BID 08/20/23 History allopurinol 100 mg tablet 100 mg PO QHS 10/12/2410/14 History ferrous sulfate 325 mg (65 mg 325 mg PO DAILY 10/12/24 10/06/24 History iron) tablet (FeroSul) latanoprost 0.005 % eye drops 1 drp ophthalmic (eye) Q HS 10/12/24 10/17/24 History nifedipine 30 mg tablet,extended 30 mg PO DAILY 10/17/24 History release 24 hr Allergy/AdvReac Type Severity Reaction Status Date / Time No Known Allergies Allergy Verified 10/17/24 07:20 Surgical History H/O foot surgery Social History household members: family Smoking Status: Never smoker alcohol intake: current ROS Constitutional Constitutional: Denies fatigue, fever(s), poor appetite, weight gain or weight loss Gastrointestinal Gastrointestinal: Denies belching, bloating, change in bowel habits, change in stool character, chewing difficulty, coffee ground emesis, constipation, cramping, diarrhea, dyspepsia, dysphagia, earlysatiety, excessive flatus, fecalincontinence, heartburn, hematemesis, hematochezia, hemorrhoids, loose stools, melena, nausea, odynophagia, rectal bleeding, tenesmus, vomiting or weight changes Vital Signs Vital Signs Vital Signs: 10/17/24 07:25 10/17/24 07:25 10/17/24 07:44 Temperature 97.4 F L 97.4 F L Temperature Source Temporal Pulse Rate 92 92 Respiratory Rate 16 16 Respiratory Pattern Normal Blood Pressure 109/81 H 109/81 H Blood Pressure Mean 90 Blood Pressure Source Monitor Blood Pressure Position Semi-Fowlers Blood Pressure Location Left Arm Pulse Ox 100 100 Oxygen Delivery Method Room Air Room Air Weight Weight: 209 lb 7.026 oz Body Mass Index (BMI) 30.9 Physical Exam Const alert, oriented x3, no apparent distress and healthy appearing General Appearance: cooperative GI normal to inspection, nondistended, normoactive bowel sounds, soft to palpation,non-tender and non-distended Percussion: normal to percussion Rectal Exam: deferred Results Lab / Micro Data Labs: Laboratory Results - last 24 hr 10/17/24 07:23: POC Glucose 99 Assessment & Plan Assessment/Plan (1) Personal history of colonic polyps: PLAN: Patient will undergo colonoscopy. He was explained alternatives, risk andbenefits include notwithstanding bleeding, infection, sepsis, perforation, needfor return to . He will have an ASAof 3. 10/17/24 0838 Cosigner Signature (if applicable): CC: Dr. Nikunj Adams DO; Moreno Mosqueda DO~ Signed [facility]07-14-2025 [facility] Medical Records Department [address] [place] [address] History Physical Exam 10/17/24 0836 MR#: [id number] Acct: [id number] Name: MILY INGRAM Rep #: [id number] : 1965 59 From: Moreno Mosqueda DO PCP: Dr. Nikunj Adams DO Status:[facility] Location: [place] [address] HPI - General General Date of Admission: 10/17/24 Date of Service: 10/17/24 Chief Complaint: Surveillance colonoscopy HPI Narrative MILY INGRAM, is a 59 M who presents today for surveillance colonoscopy. He had a full colonoscopy back in 2019. During a colonoscopy discovered to have 1 adenomatous polyp that was removed. He is not having any problems with his bowels at this time. He has a past medical history hypertension diabetes which are controlled with medicines. Overall is in fairly good health. [facility] Medical History Hemorrhoid Wears glasses Gout Arthritis DVT (deep venous thrombosis) Anemia Non-smoker Hypertension Home Medications ???Medication ???Instructions ???Recorded ???Last Taken ???Type atorvastatin 20 mg tablet 20 mg PO DAILY 08/20/23 10/14/24 H istory hydrochlorothiazide 25 mg tablet 25 mg PO DAILY 08/20/23 10/14/24 H istory lisinopril 40 mg tablet 40 mg PO DAILY 08/20/23 10/14/24 H istory metformin 1,000 mg tablet 1,000 mg PO BID 08/20/23 10/16/24 History allopurinol 100 mg tablet 100 mg PO QHS 10/12/24 10/14/24 Hi story ferrous sulfate 325 mg (65 mg 325 mg PO DAILY 10/12/24 10/06/24 History iron) tablet (FeroSul) latanoprost 0.005 % eye drops 1 drp ophthalmic (eye) QHS 5 10/17/24 History nifedipine 30 mg tablet,extended 30 mg PO DAILY 10/12/24 10/17/24 H istory release 24 hr Allergy/AdvReac Type Severity Reaction Status Date / Time No Known Allergies Allergy Verified 10/17/24 07:20 Surgical History H/O foot surgery Social History household members: family Smoking Status: Never smoker alcohol intake: current ROS Constitutional Constitutional: Denies fatigue, fever(s), poor appetite, weight gain or weight loss Gastrointestinal Gastrointestinal: Denies belching, bloating, change in bowel habits, change in stool character, chewing difficulty, coffee ground emesis, constipation, cramping, diarrhea, dyspepsia, dysphagia, early satiety, excessive flatus, fecal incontinence, heartburn, hematemesis, hematochezia, hemorrhoids, loose stools, melena, nausea, odynophagia, rectal bleeding, tenesmus, vomiting or weight changes Vital Signs Vital Signs Vital Signs: 10/17/24 07:25 10/17/24 07:25 10/17/24 07:44 Temperature 97.4 F L 97.4 F L Temperature Source Temporal Pulse Rate 92 92 Respiratory Rate 16 16 Respiratory Pattern Normal Blood Pressure 109/81 H 109/81 H Blood Pressure Mean 90 Blood Pressure Source Monitor Blood Pressure Position Semi-Fowlers Blood Pressure Location Left Arm Pulse Ox 100 100 Oxygen Delivery Method Room Air Room Air Weight Weight: 209 lb 7.026 oz Body Mass Index (BMI) 30.9 Physical Exam Const alert, oriented x3, no apparent distress and healthy appearing General Appearance: cooperative GI normal to inspection, nondistended, normoactive bowel sounds, soft to palpation, non-tender and non- distended Percussion: normal to percussion Rectal Exam: deferred Results Lab / Micro Data Labs: Laboratory Results - last 24 hr 10/17/24 07:23: POC Glucose 99 Assessment Plan Assessment/Plan (1) Personal history of colonic polyps: PLAN: Patient will undergo colonoscopy. He was explained alternatives, risk and benefits include not withstanding bleeding, infection, sepsis, perforation, need for return to . He will have a n ASA of 3. 10/17/24 0838 Cosigner Signature (if applicable): CC: Dr. Nikunj Adams DO; Moreno Mosqueda, [facility] Consult note [facility] Medical Records Department [address] [place] [address] Pre-Anesthesia Evaluation 10/17/24 0741 MR#: [id number] Acct: [id number] Name: MILY INGRAM Rep #:[id number] : 1965 59 From: Oj Serrano MD PCP: Dr. Nikunj Adams DO Statu s:REG SDC Y Race: C Location: [place] [address] ASA Classification* ASA Classification ASA Classification: 2 Assessment & Plan Anesthesia* Anesthesia Assessment Anesthesia Assessment: Discussed sedation and/or anesthesia options, risks, benefits, and alternatives with patient/parents/legal guardian/POA. Questions invited. The patient/parents/legal guardian/POA seems to understand and agrees to proceedwith anesthesia plan. Reviewed the physical assessment, medical history, allergy history and patient home medications list prior to surgery/procedure/anesthetic and documented any changes. Performed airway and anesthesia risk assessments. Anesthesia Type Anesthesia Type: MAC History Source History Obtained from:: Patient and Chart Anesthesia Focused Assessment* Temperature: 97.4 F Pulse Rate: 92 Blood Pressure: 109/81 Respiratory Rate: 16 Pulse Ox: 100 Oxygen Delivery Method: Room Air Airway Assessment Mouth opens: >3 cm Mallampati Score: II Teeth Condition: Intact Neck Range of motion (ROM): Full ROM Labs Anesthesia Preop lab: CBC WBC 8.8 K/mm3 (4.4-11.0) 09/09/24 08:26 09/09/24 RBC 3.94 M/mm3 (4.6-6.2) L 09/09/24 08:26 09/09/24 Hgb 11.9 g/dL (13.0-16.5) L 09/09/24 08:26 5 Hct 36.2 % (40-54) L 09/09/24 08:26 09/09/24 Plt Count 212 K/mm3 (150-450) 09/09/24 08:26 09/09/24 CHEMISTRY Potassium 5.1 mmol/L (3.3-5.1) 09/09/24 08:26 09/09/24 Sodium 138 mmol/L (133-145) 09/09/24 08:26 09/09/24 BUN 14 mg/dL (4-19) 09/09/24 08:26 09/09/24 Creatinine 1.09 mg/dL (0.70-1.20) 09/09/24 08:26 09/09/24 Glucose 102 mg/dL (70-99) H 09/09/24 08:26 09/09/24 COAG Pre-Assessment Diagnosis/Proposed Procedure Planned Operative Procedure(s): COLONOSCOPY-OA Anesthesia History Anesthesia History - assistant counsel: Anesthesia History - assistant counsel Hx Hospitalization No 10/12/24 11:34 Any Problems With Anesthesia No 10/12/24 11:34 Cholinesterase deficiency No 10/12/24 11:34 You/Your Family Experience No 10/12/24 11:34 fever (hyperthermia) with Relationship Recent Exposure to Contagious No 10/17/24 07:25 Disease Does patient have nerve No 10/12/24 11:34 stimulator Patient instructed to have device shut off --Does patient have Pacemaker No 10/17/24 07:25 or ICD? When Was Last Pacemaker Check QUESTION #4 FULL TEXT: You/Your Family Experience fever (hyperthermia) with Anesthesia Last Oral Intake Last Oral intake: Last Oral Intake NPO since 01:30 10/17/24 07:25 Meds taken in AM with sips of water? Meds patient instructed to take am of surgery PONV PONV - assistant counsel: PONV - assistant counsel Female No 10/12/24 11:34 HX of Motion Sickness No 10/12/24 11:34 HX of N/V After Surgery No 10/12/24 11:34 Non-Smoker Yes 10/12/24 11:34 Duration of Surgery greater No 10/12/24 11:34 than 60 minutes Number of Risk Factors 1 10/12/24 11:34 PONV Score Low Risk 10/12/24 11:34 Height & Weight Height & Weight: Anesthesia: Height & Weight Height 5 ft 9 in 10/17/24 07:25 Weight: 95 kg 10/17/24 07:25 Body Mass Index (BMI) 30.9 10/17/24 07:25 Respiratory Assessment Respiratory Assessment - assistant counsel: Respiratory Tract Infection Hx - assistant counsel Hx Respiratory Tract Infection No 10/12/24 11:34 STOP Sleep Apnea STOP Sleep Apnea - assistant counsel: STOP Sleep Apnea - assistant counsel Hx Hypertension Yes: CONTROLLED ON MED 10/12/24 11:34 Hx Sleep Apnea No 10/12/24 11:34 CPAP BIPAP Do you snore loudly (louder No 10/12/24 11:34 than talking or can be heard Do you often feel tired/ No 10/12/24 11:34 fatigued/ sleepy during daytime? Has anyone observed you stop No 10/12/24 11:34 breathing during sleep? STOP Results Negative 10/12/24 11:34 QUESTION #5 FULL TEXT : Do you snore loudly (louder than talking or can be heard through closeddoors)? 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 Specify any problems Hx of Preganancy in last 3 N/A 10/12/24 11:34 Months Nurse Filling Out Transfusion VCHRISTIN 10/12/24 11:34 & Questions: Date: 10/12/24 10/12/24 11:34 Time: 11:36 10/12/24 11:34 Patient unable to answer at this time (ie. confused, unrespo /Reproduction History /Reproductive History - assistant counsel: /Reproductive Hx- assistant counsel Hx Now No 10/12/24 11:34 Gestational Age (in weeks): EDC: Hx Hx Para Hx Section SAB No 10/12/24 11:34 Active Medications Active Medications: Current Medications Generic Name Dose Route Start Last Admin Trade Name Freq PRN Reason Stop Dose Admin Lactated Ringer's 1,000 mls @ 15 mls/hr 10/17/24 07:45 10/17/24 07:35 IV 15 mls/hr .Q48H ARIELLE Administration PFSH Medical History Hemorrhoid Wears glasses Gout Arthritis DVT (deep venous thrombosis) Anemia Non-smoker Hypertension Home Medications ?Medication ?Instructions ?Recorded ?Last Taken ?Type atorvastatin 20 mg tablet 20 mg PO DAILY 08/20/2310/04 History hydrochlorothiazide 25 mg tablet 25 mg PO DAILY 10/14/24 History lisinopril 40 mg tablet 40 mg PO DAILY 08/20/2310/04 History metformin 1,000 mg tablet 1,000 mg PO BID 08/20/23 History allopurinol 100 mg tablet 100 mg PO QHS 10/12/2410/14 History ferrous sulfate 325 mg (65 mg 325 mg PO DAILY 10/12/24 10/06/24 History iron) tablet (FeroSul) latanoprost 0.005 % eye drops 1 drp ophthalmic (eye) Q HS 10/12/24 10/17/24 History nifedipine 30 mg tablet,extended 30 mg PO DAILY 10/17/24 History release 24 hr Allergy/AdvReac Type Severity Reaction Status Date / Time No Known Allergies Allergy Verified 10/17/24 07:20 Surgical History (Updated 08/24/23 @ 08:11 by Sherly Baeza) H/O foot surgery Social History (Updated 08/24/23 @ 08:11 by Sherly Baeza) household members: family Smoking Status: Never smoker alcohol intake: current Review of Systems (Anesthesia) ROS Narrative System reviewed and no additional complaints, except as documented. Physical Exam Const alert, oriented x3 and average body habitus Resp normal respiratory effort and normal air movement Cardio regular rate Neuro oriented x3 and moves all extremities 10/17/24 0758 D> Date _ Oj Serrano MD Cosigner Signature: Date CC: ~ Signed [facility]06-18-2025 NoteSubjective Patient ID: Mily Ingram is a 59 y.o. male. Diabetes He [...] healthy diet. An DANETTE inhibitor/angiotensin II receptor david is being taken. Hypertension This is a [...] CBC Iron and TIBC I am treating Mily Ingram for complex chronic condition(s) serving as the [...] colonoscopy coming up next month. AUTHENTICATED BY NIKUNJ ADAMS, ON 09/21/2024 08:01:01[facility]06-18-2025 History of Present illness Narrative* Nikunj Adams, DO - 09/21/2024 7:41 AM EDT Subjective Patient ID: Mily Ingram is a 59 y.o. male. Diabetes He [...] healthy diet. An DANETTE inhibitor/angiotensin II receptor david is being taken. Hypertension This is a [...] CBC Iron and TIBC I am treating Mily Ingram for complex chronic condition(s) serving as the focal point for the patient's care for consistency and continuity over time. Recent labs reviewed. A1c 5.7%. LDL 59. Hb was low at 11.9 and added iron also low. He has been dieting and not sure getting enough iron indiet. Will repeat cbc and iron studies in a month. He has colonoscopy coming up next month. documented in this [id number] Instructions* Patient Instructions* Rylee Rand LPN - 09/21/2024 7:07 AM EDT [facility] Our goal is to provide you with exceptional patient care, and we strive to do this for every patient, every visit. Since we care about you and your experience, you may receive a patient satisfaction survey in the mail, via email or text message from [employer]. We truly welcome your feedback, positive and negative, and ask that you complete the survey to let us know how we are doing. Please skipover any question(s) that may not apply to [...] their scheduled appointment may be asked to rescheduletheir appointment, this is at provider discretion. Any [...] 5-7 days please call our office at [phone]. Test & Lab Results: Even though you [...] call at or send the provider a [employer] message and we will be happy to look into this. Medication Refills: If you have a refill request outside of a scheduled appointment or after hours, please call your pharmacy to verify if you have any refills remaining. If a new prescription is needed, please give our office a call at during regular business hours or send the provider a [employer]anyan message and allow up to 2 business days for us to complete this. If your insurance requires your medication(s) to be prior authorized, we will work with your insurance company to get these medication(s) prior authorized for you. Please allow up to 7-10 business days for this to be completed. [employer] Messaging: [employer] is a wonderful way to communicate with your provider and often allows for quicker response times compared to calling our office. Please consider sending your provider a [employer]anyan message with your non-urgent questions or medication refill requests. Please do not use [employer] to send any messages requiring urgent or emergent attention. By selecting to send a message, you acknowledge you are seeking medical advice for non-urgent issues and that you are aware that you may not get a response for 2 business days. For issues requiring urgent or emergent attention, please call [phone]. Important Numbers: [facility] Billing Questions or MyChart Support or Medical Financial Assistance Central Scheduling or documented in this [id number] Telephone encounter Note* Telephone Encounter - Zoraida Perdomo RN - 09/15/2024 4:58 PM EDT Telephone call received from Nikunj Hylton, recommendations regarding lab tests- verbalized understanding. [id number] Miscellaneous Notes* Telephone Encounter - Zoraida Perdomo RN - 09/15/2024 4:58 PM EDT Telephone call received from Mily- Nikunj Moreno DO recommendations regarding lab tests- verbalized understanding. documented in this [id number] NoteB12 is low normal. Folate normal. Iron is low. I would recommend starting OTC ferrous sulfate 325mg daily with breakfast and repeat levels in a month. I will discuss further at his office visit that is coming up AUTHENTICATED BY NIKUNJ ADAMS ON 09/15/2024 15:41:38[facility]06-12-2025 History of Present illness Narrative* Nikunj Adams DO - 09/15/2024 3:41 PM EDT B12 is low normal. Folate normal. Iron is low. I would recommend starting OTC ferrous sulfate 325mgdaily with breakfast and repeat levels in a month. I will discuss further at his office visit that is coming up documented in this [id number] NoteRecent labs reviewed. I would like him to get additional labs done. His Hb was slightly low. I printed those additional orders. You can fax those to his lab or he can pick them up. AUTHENTICATED BY NIKUNJ ADAMS, ON 09/11/2024 10:29:25[facility]06-08-2025 History of Present illness Narrative* Nikunj Adams DO - 09/11/2024 10:29 AM EDT Recent labs reviewed. I would like him to get additional labs done. His Hb was slightly low. I printed those additional orders. You can fax those to his lab or he can pick them up. documented in this [id number] NoteSubjective Patient ID: Mily Ingram is a 58 y.o. male. Patient is [...] healthy diet. An DANETTE inhibitor/angiotensin II receptor david is being taken. Hypertension This is a [...] getting DM eye exam UTD AUTHENTICATED BY NIKUNJ ADAMS, ON 03/22/2024 11:13:34[facility] [id number] History of Present illness Narrative* Nikunj Adams, DO - 03/22/2024 8:53 AM EST Subjective Patient ID: Mily Ingram is a 58 y.o. male. Patient is [...] healthy diet. An DANETTE inhibitor/angiotensin II receptor david is being taken. Hypertension This is a [...] DM eye exam UTD documented in this [id number] Telephone encounter Note* Telephone Encounter - Rosy Ruvalcaba LPN - 12/16/2023 10:54 AM EDT Mily is requesting a refill for Requested Prescriptions Pending Prescriptions Disp Refills atorvastatin (LIPITOR) 20 MG tablet 90 tablet 1 Sig: Take 1 (one) tablet (20 mg total) by mouth daily . Last refill: 11/04/2023 Last appt: 09/24/2023 Upcoming appt (when is it due or is it scheduled): 03/22/2024 Please send to [facility] [address] [place] [address] [address] [place] [phone] Follow up: Refill pending for review without additional follow up based on information above. Patient consents to receiving text message survey upon completion of call. [id number] Miscellaneous Notes* Telephone Encounter - Rosy Ruvalcaba LPN - 12/16/2023 10:54 AM EDT Mily is requesting a refill for Requested Prescriptions Pending Prescriptions Disp Refills atorvastatin (LIPITOR) 20 MG tablet 90 tablet 1 Sig: Take 1 (one) tablet (20 mg total) by mouth daily . Last refill: 11/04/2023 Last appt: 09/24/2023 Upcoming appt (when is it due or is it scheduled): 03/22/2024 Please send to [facility] [address] [place] [address] [place] [place] [phone] Follow up: Refill pending for review without additional follow up based on information above. Patient consents to receiving text message survey upon completion of call. documented in this [id number] Telephone encounter Note* Telephone Encounter - Sarah Ragsdale LPN - 11/04/2023 3:04 PM EDT Mily is requesting a refill for Requested Prescriptions [...] is it scheduled): 03/22/24 Please send to [facility] [address] [place] [id number] Follow up: Refill pending for review without additional follow up based on information above. [id number] Miscellaneous Notes* Telephone Encounter - Sarah Ragsdale LPN - 11/04/2023 3:04 PM EDT Mily is requesting a refill for Requested Prescriptions [...] is it scheduled): 03/22/24 Please send to [facility] [address] [place] [id number] Follow up: Refill pending for review without additional follow up based on information above. documented in this [id number] History of Present illness Narrative* Nikunj Adams, - 09/24/2023 9:42 AM EDT Subjective Patient ID: Mily Ingram is a 58 y.o. male. Diabetes He [...] healthy diet. An DANETTE inhibitor/angiotensin II receptor david is being taken. Hypertension This is a [...] hr tablet Other Hyperlipidemia I am treating Mily Ingram for complex chronic condition(s) serving as the focal point for the patient's care for consistency and continuity over time. Recent labs reviewed. A1c 6.5%. LDL at goal. Bmp normal. Low salt diet. Work on 150 minutes exercise weekly. Get bp numbers to us in 2-3 weeks. Advised to get updated vaccines at local pharmacy documented in this [id number] History of Present illness Narrative* Shirlene Mccarthy, LORI - 08/20/2023 1:28 PM EDT Subjective Patient ID: Mily Ingram is a 58 y.o. male. Pt is here with concerns for extremely painful R elbow, red, warm and swollen. This started Thursdayof this week. He has limited ROM, pain with palpation and loss of strength R arm. This am, he woke with painful L ankle with reduced ROM and foot swelling. Lateral aspect of foot iswarm to touch and foot is swollen. Pt had been experiencing chills over past 2 days and febrile at appointment. After seeing Pt,he was advised to be seen at ED for probable septic bursitis R elbow and cellulitisL foot with possible joint involvement. 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 [...] incident. Associated symptoms include muscle weakness. The symptomsare aggravated by palpation. He has tried nothing [...] mg total) by mouth 2 (two) times aday with meals . 180 tablet 1 No current facility-administered medications for this visit. The following portions of the patient's history were reviewed and updated as appropriate: allergies, current medications, past family history, past medical history, past social history, past surgicalhistory, and problem list. Past Medical History: Diagnosis [...] of foot, left ? documented in this [id number] Telephone encounter Note* Telephone Encounter - Nel Robles MA - 08/18/2023 9:19 AM EDT Requested Prescriptions Pending Prescriptions Disp Refills hydroCHLOROthiazide (HYDRODIURIL) 25 MG tablet 90 tablet 1 Sig: Take 1 (one) tablet (25 mg total) by mouth daily . lisinopriL (PRINIVIL,ZESTRIL) 40 MG tablet 90 tablet 1 Sig: Take 1 (one) tablet (40 mg total) by mouth daily . Mukund good [id number] Miscellaneous Notes* Telephone Encounter - Nel Robles MA - 08/18/2023 9:19 AM EDT Requested Prescriptions Pending Prescriptions Disp Refills hydroCHLOROthiazide (HYDRODIURIL) 25 MG tablet 90 tablet 1 Sig: Take 1 (one) tablet (25 mg total) by mouth daily . lisinopriL (PRINIVIL,ZESTRIL) 40 MG tablet 90 tablet 1 Sig: Take 1 (one) tablet (40 mg total) by mouth daily . Mukund good documented in this [id number] History of Present illness Narrative* Nikunj Adams, - 03/25/2023 1:49 PM EST Subjective Patient ID: Mily Ingram is a 57 y.o. male. Patient is [...] healthy diet. An DANETTE inhibitor/angiotensin II receptor david is being taken. Hypertension This is a [...] exercise 150 minute weekly. documented in this [id number] Telephone encounter Note* Telephone Encounter - Nel Robles MA - 01/29/2023 2:39 PM EDT Requested Prescriptions Pending Prescriptions Disp Refills metFORMIN [...] (25 mg total) by mouth daily . Mukund good [id number] Miscellaneous Notes* Telephone Encounter - Nel Robles MA - 01/29/2023 2:39 PM EDT Requested Prescriptions Pending Prescriptions Disp Refills metFORMIN [...] (25 mg total) by mouth daily . Mukund tangela documented in this [id number] History of Present illness Narrative* MERCY Cerda - 09/19/2022 8:25 AM EDT Emergency Department Report [facility] Service Date:.09/19/22 PCP: Nikunj Adams Chief Complaint: Chief Complaint Patient presents with Ear Pain Bilat ear pain (sharp) onset 5 days ago HPI Mily Ingram is a 57 y.o. male presents to the ED today due to bilateral ear pain and fullness for nearly a week. Pt had just driven back from [place] last [place]. No trauma. [...] Prescriptions No medications on file Previous Medications [id number] SUSPENSION 3-4 drops to each ear 3 [...] or chest pain. Follow up with Dr. Adams in 2 weeks. Nothing in the ears - NO Q-TIPS 1. Ear pain, bilateral No follow-ups on file. New Prescriptions No medications on file Discontinued Medications No medications on file An After Visit Summary was printed and given to the patient with above information. . documented in this [facility]06-16-2023 Instructions* Patient Instructions* MERCY Cerda - 09/19/2022 8:25 AM EDT Continue your usual medications at the usual doses. Tylenol/Ibuprofen/Aleve for fever or pain. No more than 4000 mg of Tylenol or 2400 mg of Ibuprofen (Advil, Motrin) in a 24 hour period. Return here or nearest ER for uncontrolled fever, vomiting, difficulty breathing or difficulty swallowing or chest pain. Follow up with Dr. Adams in 2 weeks. Nothing in the ears - NO Q-TIPS * Attachments The following attachments cannot be sent through Care Everywhere. * Earache: Adult (Salvadorean) documented in this [facility]04-20-2023 Telephone encounter Note* Telephone Encounter - Jania Onofre MA - 07/24/2022 2:14 PM EDT Requested Prescriptions Pending Prescriptions Disp Refills metFORMIN [...] (25 mg total) by mouth daily . Mukund Good Patient also wanted a prescription called in for his right ankle. He stated he tweaked his ankle and it is a little bit swollen. [id number] Miscellaneous Notes* Telephone Encounter - Jania Onofre MA - 07/24/2022 2:14 PM EDT Requested Prescriptions Pending Prescriptions Disp Refills metFORMIN [...] (25 mg total) by mouth daily . Mukund Good Patient also wanted a prescription called in for his right ankle. He stated he tweaked his ankle and it is a little bit swollen. documented in this [id number] History of Present illness Narrative* Nikunj Randallenriqueta Adams, - 03/18/2022 10:58 AM EST Subjective Patient ID: Mily Ingram is a 56 y.o. male. Patient is [...] healthy diet. An DANETTE inhibitor/angiotensin II receptor david is being taken. Hypertension This is a [...] complication, without long-term current use of insulin ([facility]) Relevant Orders External Lab Microalbumin/Creatinine Hemoglobin A1c [...] vaccines at local pharmacy documented in this [id number] History of Present illness Narrative* Nikunj Adams DO - 09/13/2021 8:41 AM EDT Subjective Patient ID: Mily Ingram is a 56 y.o. male. Diabetes He [...] healthy diet. An DANETTE inhibitor/angiotensin II receptor david is being taken. Hypertension This is a [...] Hyperlipidemia Recommend covid booster documented in this [id number] Telephone encounter Note* Telephone Encounter - Nel Robles MA - 07/24/2021 1:49 PM EDT Requested Prescriptions Pending Prescriptions Disp Refills hydroCHLOROthiazide [...] (two) times a day with meals . mukund valadez run [id number] Miscellaneous Notes* Telephone Encounter - Nel Robles MA - 07/24/2021 1:49 PM EDT Requested Prescriptions Pending Prescriptions Disp Refills hydroCHLOROthiazide [...] (two) times a day with meals . mukund valadez run documented in this [id number] History of Present illness Narrative* Nikunj Adams, - 02/14/2021 2:49 PM EST Subjective Patient ID: Mily Ingram is a 55 y.o. male. Patient is [...] healthy diet. An DANETTE inhibitor/angiotensin II receptor david is being taken. Hypertension This is a [...] 20 minutes each session. documented in this [id number] History of Present illness Narrative* Nikunj Adams DO - 08/06/2020 2:31 PM EDT Bun/cr up a little. Make sure drinking 4-6 large glasses of water daily. A1c improved to 6.0%. good. No change in meds. We'll see him next visit documented in this [id number] History of Present illness Narrative* Nikunj Adams DO - 08/06/2020 8:58 AM EDT Subjective Patient ID: Mily Ingram is a 55 y.o. male. Diabetes He [...] healthy diet. An DANETTE inhibitor/angiotensin II receptor david is being taken. Hypertension This is a [...] numbers to us. Low salt diet. Work on150 minutes exercise weekly documented in this encounterOhioHealthConsult note Author FAWN Resendiz [facility] Note Date/Time October 17, 2024 9:43 am [facility] Medical Records Department [address] [place] [address] Anesthesia Postop Eval I 10/17/24916 MR#: [id number] Acct: [id number] Name: MILY INGRAM Rep #:[id number] : 1965 59 From: Donato Resendiz PCP: Dr. Nikunj Adams DO Statu s:REG SDC Y Race: C Location: [place] [address] Anesthesia: Postop Eval I Current Vital Signs Temperature: 97 F Pulse Rate: 76 Blood Pressure: 103/87 Respiratory Rate: 16 Pulse Ox: 96 Oxygen Delivery Method: Room Air Assessment Airway patent: Yes Spontaneous unlabored respirations: Yes Mental status: Awake and Calm nausea: No Vomiting: No Anesthesia Complication: No Fluid Hydration Crystalloid volume administer (ml): 900 Total IV fluid infused: 900 Progress Note Anesthesia document: Postop Eval 1 completed: Yes 10/17/2443 <Electronically signed by Donato Resendiz > Date _ Donato Kaur Signature: Date CC: ~ Signed [facility] Work Phone: Consult note Author Artemio Amaya [facility] Note Date/Time November 24, 2024 12 :15pm [facility] Medical Records Department [address] [place] [address] Anesthesia Postop Eval I 11/24/24 1214 MR#: [id number] Acct: [id number] Name: MILY INGRAM Rep #:[id number] : 1965 59 From: Artemio Amaya CRNA PCP: Dr. Nikunj Adams, Statu s:REG SDC Y Race: C Location: [place] [address] Anesthesia: Postop Eval I Current Vital Signs Temperature: 97.8 F Pulse Rate: 90 Blood Pressure: 104/63 Respiratory Rate: 20 Pulse Ox: 93 Oxygen Delivery Method: Room Air Assessment Airway patent: Yes Spontaneous unlabored respirations: Yes Mental status: Awake and Calm nausea: No Vomiting: No Anesthesia Complication: No Fluid Hydration Crystalloid volume administer (ml): 900 Total IV fluid infused: 900 Progress Note Anesthesia document: Postop Eval 1 completed: Yes 11/24/24 1215 <Electronically signed by Artemio potter CRNA> Date _ Artemio Amaya CRNA Cosigner Signature: Date CC: ~ Signed [facility] Work Phone: Discharge summary Author Harrison Courtney [facility] Note Date/Time November 24, 2024 12 :26pm [facility] Medical Records Department [address] [place] [address] Instructions for Home/Discharge Instructions 11/24/24 1222 MR#: [id number] Acct: [id number] Name: MILY INGRAM Rep #:[id number] : 1965 59 From: Harrison Courtney MD PCP: Dr. Nikunj Adams, Statu s:REG SDC Discharge Instructions Diet Discharge Diet: Light diet - advance as tolerated Activity Discharge Activity: No Restrictions, May Shower and May Take a Tub Bath May shower in (days): 1 Dressing / Incision Call your doctor if your incision/area has: Continuous Slow Oozing, Sudden Increased Bleeding, Increased Pain/ Swelling, Increased Redness, Foul Smelling Discharge and Swelling at the incision site Call your doctor if you observe: Fever of 101 or Higher Cleanse incision/area with: Soap & Water Follow Up Care Please Follow Up With: Harrison Courtney MD When: 2 weeks. Please call my office to schedule appointment Test Results: Test results from this visit will be discussed in further detail at your follow- up appointment, if applicable. Discharge Plan Admission Primary Reason for Your Visit: Hemorrhoid surgery Attending Provider: Harrison Courtney Primary Care Provider: Nikunj Adams Instructions Print Language: Salvadorean Discharge Orders/Prescriptions Prescriptions: New oxycodone 5 mg tablet 5 mg PO Q8H PRN (Reason: pain) 3 Days Qty: 12 0RF Continued allopurinol 100 mg tablet 100 mg PO QHS nifedipine 30 mg tablet extended release 24hr 30 mg PO DAILY latanoprost 0.005 % drops 1 drp ophthalmic (eye) QHS ferrous sulfate [FeroSul] 325 mg (65 mg iron) tablet 325 mg PO DAILY atorvastatin 20 mg tablet 20 mg PO DAILY metformin 1,000 mg tablet 1,000 mg PO BID hydrochlorothiazide 25 mg tablet 25 mg PO DAILY lisinopril 40 mg tablet 40 mg PO DAILY Referrals / Follow Up: Nikunj Adams DO [Primary Care Provider] - Disposition Disposition (needs filled in before D/C Order can be placed): Home, Self Care 11/24/24 1226<Electronically signed by Harrison Courtney MD>Harrison Courtney MD CC: Dr. Nikunj Adams DO ~ Signed [facility] Work Phone: Evaluation note* Diagnosis Type 2 diabetes mellitus without complication, without long-term current use of insulin (HCC)- Primary Essential hypertension Unspecified essential hypertension Hyperlipidemia, unspecified hyperlipidemia type [facility] Diagnosis Preventative health care- Primary Routine general medical examination at a health care facility Type 2 diabetes mellitus without complication, without long-term current use of insulin (HCC) Essential hypertension Unspecified essential hypertension Hyperlipidemia, unspecified hyperlipidemia type Prostate cancer screening Special screening for malignant neoplasm of prostate Need for Streptococcus pneumoniae vaccination Strain of left ankle, initial encounter [facility] 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 [facility] Diagnosis Essential hypertension- Primary Unspecified essential hypertension [facility] Diagnosis Type 2 diabetes mellitus without complication, without long-term current use of insulin (HCC)- Primary Essential hypertension Unspecified essential hypertension Hyperlipidemia, unspecified hyperlipidemia type [facility]* Diagnosis Elevated liver enzymes- Primary Other [...] Leukocytosis, unspecified type [facility]* Diagnosis Acute ankle pain, unspecified laterality- Primary Cellulitis of foot Cellulitis and abscess of foot, except toes [facility]* Diagnosis Ear pain, bilateral- Primary [facility] Diagnosis Preventative health care- Primary Routine general medical examination at a health care facility Type 2 diabetes mellitus without complication, without long-term current use of insulin (HCC) Essential hypertension Unspecified essential hypertension Mixed hyperlipidemia Prostate cancer screening Special screening for malignant neoplasm of prostate [facility] Diagnosis Acute ankle pain, unspecified laterality [facility] Diagnosis Acute ankle pain, unspecified laterality [facility]* Diagnosis Septic olecranon bursitis of right elbow- Primary Cellulitis of foot, left [facility]* Diagnosis Type 2 diabetes mellitus without complication, without long-term current use of insulin (HCC)- Primary Mixed hyperlipidemia [facility]* Diagnosis Type 2 diabetes mellitus without complication, without long-term current use of insulin (HCC)- Primary Essential hypertension Unspecified essential hypertension Mixed hyperlipidemia [facility]* Diagnosis Gout, unspecified cause, unspecified chronicity, unspecified site- Primary [facility] Diagnosis Type 2 diabetes mellitus without complication, without long-term current use of insulin (HCC) Mixed hyperlipidemia [facility]* Diagnosis Mixed hyperlipidemia [facility] Diagnosis Essential hypertension Unspecified essential hypertension [facility] Diagnosis Preventative health care- Primary Routine general medical examination at a health care facility Type 2 diabetes mellitus without complication, without long-term current use of insulin (HCC) Essential hypertension Unspecified essential hypertension Mixed hyperlipidemia Need for Streptococcus pneumoniae vaccination [facility]* Diagnosis Upper respiratory tract infection, unspecified type- Primary [facility]* Diagnosis Anemia, unspecified type- Primary [facility] assessment information availableWVeterans Health Administration Work Phone: Evaluation note* Diagnosis Type 2 diabetes mellitus without complication, without long-term current use of insulin (HCC)- Primary Essential hypertension Unspecified essential hypertension Mixed hyperlipidemia Anemia, unspecified type [facility]* Diagnosis Essential hypertension Unspecified essential hypertension [facility]* Diagnosis Type 2 diabetes mellitus without complication, without long-term current use of insulin (HCC) [facility] Diagnosis Essential hypertension Unspecified essential hypertension documented in this encounter [facility] and [facility] Author Moreno Mosqueda [facility] Note Date/Time October 17, 2024 8:38 am [facility] Medical Records Department [address] [place] [address] History & Physical Exam 10/17/24 0836 MR#: [id number] Acct: [id number] Name: MILY INGRAM Rep #:[id number] : 1965 59 From: Moreno Mosqueda DO PCP: Dr. Nikunj Adams DO Statu s:REG [facility] Location: [place] [address] HPI - General General Date of Admission: 10/17/24 Date of Service: 10/17/24 Chief Complaint: Surveillance colonoscopy HPI Narrative MILY INGRAM, is a 59 M who presents today for surveillance colonoscopy. He hada full colonoscopy back in 2019. During a colonoscopy discovered to have 1 adenomatous polyp that was removed. He is not having any problems with his bowels at this time. He has a past medical history hypertension diabetes which are controlled with medicines. Overall is in fairly good health. [facility] Medical History Hemorrhoid Wears glasses Gout Arthritis DVT (deep venous thrombosis) Anemia Non-smoker Hypertension Home Medications ?Medication ?Instructions ?Recorded ?Last Taken ?Type atorvastatin 20 mg tablet 20 mg PO DAILY 08/20/2310/04 History hydrochlorothiazide 25 mg tablet 25 mg PO DAILY 10/14/24 History lisinopril 40 mg tablet 40 mg PO DAILY 08/20/2310/04 History metformin 1,000 mg tablet 1,000 mg PO BID 08/20/23 History allopurinol 100 mg tablet 100 mg PO QHS 10/12/2410/14 History ferrous sulfate 325 mg (65 mg 325 mg PO DAILY 10/12/24 10/06/24 History iron) tablet (FeroSul) latanoprost 0.005 % eye drops 1 drp ophthalmic (eye) Q HS 10/12/24 10/17/24 History nifedipine 30 mg tablet,extended 30 mg PO DAILY 10/17/24 History release 24 hr Allergy/AdvReac Type Severity Reaction Status Date / Time No Known Allergies Allergy Verified 10/17/24 07:20 Surgical History H/O foot surgery Social History household members: family Smoking Status: Never smoker alcohol intake: current ROS Constitutional Constitutional: Denies fatigue, fever(s), poor appetite, weight gain or weight loss Gastrointestinal Gastrointestinal: Denies belching, bloating, change in bowel habits, change in stool character, chewing difficulty, coffee ground emesis, constipation, cramping, diarrhea, dyspepsia, dysphagia, early satiety, excessive flatus, fecalincontinence, heartburn, hematemesis, hematochezia, hemorrhoids, loose stools, melena, nausea, odynophagia, rectal bleeding, tenesmus, vomiting or weight changes Vital Signs Vital Signs Vital Signs: 10/17/24 07:25 10/17/24 07:25 10/17/24 07:44 Temperature 97.4 F L 97.4 F L Temperature Source Temporal Pulse Rate 92 92 Respiratory Rate 16 16 Respiratory Pattern Normal Blood Pressure 109/81 H 109/81 H Blood Pressure Mean 90 Blood Pressure Source Monitor Blood Pressure Position Semi-Fowlers Blood Pressure Location Left Arm Pulse Ox 100 100 Oxygen Delivery Method Room Air Room Air Weight Weight: 209 lb 7.026 oz Body Mass Index (BMI) 30.9 Physical Exam Const alert, oriented x3, no apparent distress and healthy appearing General Appearance: cooperative GI normal to inspection, nondistended, normoactive bowel sounds, soft to palpation,non-tender and non-distended Percussion: normal to percussion Rectal Exam: deferred Results Lab / Micro Data Labs: Laboratory Results - last 24 hr 10/17/24 07:23: POC Glucose 99 Assessment & Plan Assessment/Plan (1) Personal history of colonic polyps: PLAN: Patient will undergo colonoscopy. He was explained alternatives, risk andbenefits include not withstanding bleeding, infection, sepsis, perforation, needfor return to . He will have an ASA of 3. 10/17/24 0838 <Electronically signed by Moreno Mosqueda DO> Cosigner Signature (if applicable): CC: Dr. Nikunj Adams DO; Moreno Mosqueda DO~ Signed [facility] Work Phone: Reason for referral (narrative)No reason for referral information availableWVeterans Health Administration Work Phone: History of Present Illness * Nikunj Adams DO - 10/18/2019 2:13 PM EDT Subjective Patient ID: Mily Ingram is a 54 y.o. male. Patient is [...] at local pharmacy documented in this encounter* Nikunj Adams DO - 01/17/2020 7:57 AM EDT Subjective Patient ID: Mily Ingram is a 54 y.o. male. Diabetes He [...] healthy diet. An DANETTE inhibitor/angiotensin II receptor david is being taken. 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 No October 12, 2024 11:34am Advance Directive Response Recorded Date/ Time Do you have a Healthcare Power of News Librarian? No October 12, 2024 11:34am Do you have a Healthcare Power of News Librarian? No November 10, 2024 12:39pm Summary Purpose Family History No Family History Records FoundNo Family History Records FoundNo Family History Records FoundNo Family History Records FoundNo Family History Records FoundNo Family History Records Found Reason for Referral Specialty Diagnoses / Procedures Referred By Diann lehman Referred To Contact Diagnoses Elevated liver enzymes Procedures US Abdomen Limited Study Nikunj Adams, DO [address] [place] [address] Referral ID Status Reason Start Date Expiration Date V isits Requested Visits Authorized [id number] Authorized 09/16/2021 09/16/2022 1 1 Chief Complaint and Reason for Visit Chief Complaint Admit Date LABS September 09, 2024 8:20a m HEMORRHOIDS October 25, 2024 1:44 pm Reason for Visit Admit Date Personal history of colonic polyps October 17, 2024 7:00am Chief Complaint Admit Date LABS September 09, 2024 8:20a m Chief Complaint Admit Date LABS September 09, 2024 8:20a m HEMORRHOIDS October 25, 2024 1:44 pm Doppler Guided Hemorrhoid Ligation [facility] h emorrhoide November 24, 2024 8:54am Doppler Guided Hemorrhoid Ligation TDH h emorrhoide November 24, 2024 10:48am Reason for Visit Admit Date Personal history of colonic polyps October 17, 2024 7:00am Hemorrhoid October 25, 2024 1:44 pm Hemorrhoid November 24, 2024 8: 54am Chief Complaint Admit Date LABS September 09, 2024 8:20a m HEMORRHOIDS October 25, 2024 1:44 pm Doppler Guided Hemorrhoid Ligation TDH h emorrhoide November 24, 2024 8:54am Doppler Guided Hemorrhoid Ligation TDH h emorrhoide November 24, 2024 10:48am 2 W S/P HEMORRHOID LIGATION December 8:55am Additional Source Comments Reason for Visit (unrecogniz [...] Maintenance) Diabeti c Eye Exam due on 11/16/2021neumococcal Vaccine: Ped or At-Risk(2 of 2 - PCV) due on 02/14/2022Wellness Visit due on 03/25/2024 Reason Comments Follow-up No concerns, not fas ting. States had bloodwork last week Gap Closure (Health Maintenance) YAYA paiz w/ Dr Burciaga Reason Onset Date Comments Medication Refill 11/04/2024 Reason Onset Date Comments Medication Refill 12/12/2024 (unrecognized sect ion and content) No Status Records FoundNo Status Records FoundNo Status Records FoundNo Status Records FoundNo Status Records FoundNo Status Records Found INFORMATION SOURCE (unrecogn ized section and content) DATE CREATED AUTHOR 06/26/2020 [facility] DATE CREATED AUTHOR AUTHOR'S ORGANIZ ATION 09/19/2022 [facility] DATE CREATED AUTHOR AUTHOR'S ORGANIZ ATION 03/27/2023 [facility] DATE CREATED AUTHOR AUTHOR'S ORGANIZ ATION 04/09/2023 [facility] DATE CREATED AUTHOR AUTHOR'S ORGANIZ ATION 12/18/2024 [facility] DATE CREATED AUTHOR AUTHOR'S ORGANIZ ATION 12/25/2024 [facility] Telephone Encounter - Nel Robles MA - [...] (two) times a day with meals . Mukund Valadez Run documented in this encounter Care Teams (unrecognized sec tion and content) Lpn Relationship Specialty Start Date End Date Nikunj Adams DO [address] [place] [address] PCP - General Internal Medicine 10/18/19 Nikunj Adams DO [address] [place] [address] PCP - IZABEL Attributed Provider - [employer] 05/07/18 04/05/50 Lpn Relationship Specialty Start Date End Date Nikunj Adams DO [address] [place] [address] PCP - General Internal Medicine 10/18/19 Nikunj Adams DO [address] [place] [address] PCP - IZABEL Attributed Provider - [employer] 05/07/18 04/05/50 Lpn Relationship Specialty Start Date End Date Nikunj Adams DO [address] [place] [address] PCP - General Internal Medicine 10/18/19 Nikunj Adams DO [address] [place] [address] PCP - IZABEL Attributed Provider - [employer] 05/07/18 04/05/50 Lpn Relationship Specialty Start Date End Date Nikunj Adams DO [address] [place] [address] PCP - General Internal Medicine 10/18/19 Nikunj Adams, DO [address] [place] [address] PCP - IZABEL Attributed Provider - [employer] 05/07/18 04/05/50 Lpn Relationship Specialty Start Date End Date Nikunj Adams, DO [address] [place] [address] PCP - General Internal Medicine 10/18/19 Nikunj Adams DO [address] [place] [address] PCP - IZABEL Attributed Provider - [employer] 05/07/18 04/05/50 Lpn Relationship Specialty Start Date End Date Nikunj Adams, DO [address] [place] [address] PCP - General Internal Medicine 10/18/19 Nikunj Adams DO [address] [place] [address] PCP - IZABEL Attributed Provider - [employer] 05/07/18 04/05/50 Lpn Relationship Specialty Start Date End Date Nikunj Adams DO [address] [place] [address] PCP - General Internal Medicine 10/18/19 Nikunj Adams DO [address] [place] [address] PCP - IZABEL Attributed Provider - [employer] 05/07/18 04/05/50 Lpn Relationship Specialty Start Date End Date Nikunj Adams DO [address] [place] [address] PCP - General Internal Medicine 10/18/19 Nikunj Adams DO [address] [place] [address] PCP - IZABEL Attributed Provider - [employer] 05/07/18 04/05/50 Lpn Relationship Specialty Start Date End Date Nikunj Adams DO [address] [place] [address] PCP - General Internal Medicine 10/18/19 Nikunj Adams DO [address] [place] [address] PCP - IZABEL Attributed Provider - [employer] 05/07/18 04/05/50 Lpn Relationship Specialty Start Date End Date Nikunj Adams DO [address] [place] [address] PCP - General Internal Medicine 10/18/19 Nikunj Adams, [address] [place] [address] PCP - IZABEL Attributed Provider - [employer] 05/07/18 04/05/50 Lpn Relationship Specialty Start Date End Date Nikunj Adams DO [address] [place] [address] PCP - General Internal Medicine 09/19/22 Lpn Relationship Specialty Start Date End [place] [address] PCP - General Internal Medicine 10/18/19 [place] [address] [address] PCP - IZABEL Attributed Provider - [employer] 05/07/18 04/05/50 Lpn Relationship Specialty Start Date End Date Nikunj Adams, [address] [place] [address] PCP - General Internal Medicine 10/18/19 Nikunj Adams, [address] [place] [address] PCP - IZABEL Attributed Provider - [employer] 05/07/18 04/05/50 Lpn Relationship Specialty Start Date End Date Nikunj Adams, [address] [place] [address] PCP - General Internal Medicine 10/18/19 Nikunj Adams, [address] [place] [address] PCP - IZABEL Attributed Provider - [employer] 05/07/18 04/05/50 Lpn Relationship Specialty Start Date End Date Nikunj Adams, [address] [place] [address] PCP - General Internal Medicine 10/18/19 Nikunj Adams, [address] [place] [address] PCP - IZABEL Attributed Provider - [employer] 05/07/18 04/05/50 Lpn Relationship Specialty Start Date End Date Nikunj Adams, [address] [place] [address] PCP - General Internal Medicine 10/18/19 Nikunj Adams, [address] [place] [address] PCP - IZABEL Attributed Provider - [employer] 05/07/18 04/05/50 Lpn Relationship Specialty Start Date End Date Nikunj Adams, [address] [place] [address] PCP - General Internal Medicine 10/18/19 Nikunj Adams, DO [address] [place] [address] PCP - IZABEL Attributed Provider - [employer] 05/07/18 04/05/50 Lpn Relationship Specialty Start Date End Date Nikunj Adams, DO [address] [place] [address] PCP - General Internal Medicine 10/18/19 Nikunj Adams, DO [address] [place] [address] PCP - IZABEL Attributed Provider - [employer] 05/07/18 04/05/50 Lpn Relationship Specialty Start Date End Date Nikunj Adams, DO [address] [place] [address] PCP - General Internal Medicine 10/18/19 Lpn Relationship Specialty Start Date End Date Nikunj Adams, DO [address] [place] [address] PCP - General Internal Medicine 10/18/19 Lpn Relationship Specialty Start Date End Date Nikunj Adams, DO [address] [place] [address] PCP - General Internal Medicine 10/18/19 Lpn Relationship Specialty Start Date End Date Nikunj Adams DO [address] [place] [address] PCP - General Internal Medicine 10/18/19 Lpn Relationship Specialty Start Date End Date Nikunj Adams DO [address] [place] [address] PCP - General Internal Medicine 10/18/19 Lpn Relationship Specialty Start Date End Date Nikunj Adams DO [address] [place] [address] PCP - General Internal Medicine 10/18/19 Lpn Relationship Specialty Start Date End Date Nikunj Adams DO [address] [place] [address] PCP - General Internal Medicine 10/18/19 Team Status: Active Member Role Status Dates Dr. Nikunj Adams DO Primary Care Provider Act otoniel Team Status: Inactive Member Role Status Dates Dr. Nikunj Adams DO Primary Care Provider Act otoniel Start: September 09, 2024 End: September 09, 2024 Dr. Nikunj Adams DO Attending Provider Active Start: September 09, 2024 End: September 09, 2024 Dr. Nikunj Adams DO Referring Provider Active Start: September 09, 2024 End: September 09, 2024 Lpn Relationship Specialty Start Date End Date Nikunj Adams DO [address] [place] [address] PCP - General Internal Medicine 10/18/19 Team Status: Inactive Member Role Status Dates Dr. Nikunj Adams DO Primary Care Provider Act otoniel Start: September 15, 2024 End: September 15, 2024 Dr. Nikunj Adams DO Attending Provider Active Start: September 15, 2024 End: September 15, 2024 Dr. Nikunj Adams DO Referring Provider Active Start: September 15, 2024 End: September 15, 2024 Team Status: Active Member Role/Relationship Status Dates Dr. Nikunj Adams DO Primary Care Provider Act otoniel Team Status: Inactive Member Role/Relationship Status Dates Dr. Nikunj Adams DO Primary Care Provider Act otoniel Start: September 09, 2024 End: September 09, 2024 Dr. Nikunj Adams DO Attending Provider Active Start: September 09, 2024 End: September 09, 2024 Dr. Nikunj Adams DO Referring Provider Active Start: September 09, 2024 End: September 09, 2024 Team Status: Inactive Member Role/Relationship Status Dates Dr. Nikunj Adams DO Primary Care Provider Act otoniel Start: September 15, 2024 End: September 15, 2024 Dr. iNkunj Adams DO Attending Provider Active Start: September 15, 2024 End: September 15, 2024 Dr. Nikunj Adams DO Referring Provider Active Start: September 15, 2024 End: September 15, 2024 Team Status: Inactive Member Role/Relationship Status Dates Dr. Nikunj Adams DO Primary Care Provider Act otoniel Start: October 17, 2024 End: October 17, 2024 Dr. Nikunj Adams DO Referring Provider Active Start: October 17, 2024 End: October 17, 2024 Dr. Moreno Mosqueda DO Attending Provider Active Start: October 17, 2024 End: October 17, 2024 Team Status: Active Member Role/Relationship Status Dates Dr. Nikunj Adams DO Primary Care Provider Act otoniel Start: October 17, 2024 Dr. Nikunj Adams DO Referring Provider Active Start: October 17, 2024 Dr. Moreno Mosqueda DO Attending Provider Active Start: October 17, 2024 Dr. Moreno Mosqueda DO Other Provider Active St art: October 17, 2024 Lpn Relationship Specialty Start Date End [place] [address] PCP - General Internal Medicine 10/18/19 Team Status: Inactive Member Role/Relationship Status Dates Dr. Nikunj Adams DO Primary Care Provider Act otoniel Start: October 25, 2024 End: October 25, 2024 Dr. Harrison Courtney MD Attending Provider Active Start: October 25, 2024 End: October 25, 2024 Dr. Moreno Mosqueda DO Referring Provider Active Start: October 25, 2024 End: October 25, 2024 Lpn Relationship Specialty Start Date End Date Nikunj Adams DO [address] [place] [address] PCP - General Internal Medicine 10/18/19 Lpn Relationship Specialty Start Date End Date Nikunj Adams DO [address] [facility] [place] [address] PCP - General Internal Medicine 10/18/19 Team Status: Inactive Member Role/Relationship Status Dates Dr. Nikunj Adams DO Primary Care Provider Act otoniel Start: November 24, 2024 End: November 24, 2024 Dr. Harrison Courtney MD Attending Provider Active Start: November 24, 2024 End: November 24, 2024 Dr. Harrison Courtney MD Referring Provider Active Start: November 24, 2024 End: November 24, 2024 Team Status: Active Member Role/Relationship Status Dates Dr. Nikunj Adams DO Primary Care Provider Act otoniel Start: November 24, 2024 Dr. Harrison Courtney MD Attending Provider Active Start: November 24, 2024 Dr. Harrison Courtney MD Referring Provider Active Start: November 24, 2024 Dr. Harrison Courtney MD Other Provider Active St art: November 24, 2024 Team Status: Inactive Member Role/Relationship Status Dates Dr. Nikunj Adams DO Primary Care Provider Act otoniel Start: December 07, 2024 End: December 07, 2024 Dr. Nikunj Adams DO Referring Provider Active Start: December 07, 2024 End: December 07, 2024 Dr. Harrison Courtney MD Attending Provider Active Start: December 07, 2024 End: December 07, 2024 Lpn Relationship Specialty Start Date End Date Nikunj Adams DO [address] [place] [address] PCP - General Internal Medicine 10/18/19 Goals (unrecognized section and content) Goals may [...] BE BASED ON THE PRIMARY CLINICAL RECORDS. [facility]. provides no warranty or guarantee of the accuracy or completeness of information in this document.
[2025-03-10 07:29] LABS: Hematocrit 39.7 % (40-54); Hemoglobin 12.7 g/dL (13.0-16.5); Mean Corp Hgb Conc 32.0 g/dL (32-36); Mean Corpuscular Volume 93.0 fL (80-94); Mean Platelet Vol. 9.1 fl (6.2-12.0); Platelet Count 216 K/mm3 (150-450); RBC Distribution Width CV 14.3 % (11.6-14.6); RBC Distribution Width SD 48.6 fl (35.1-43.9); Red Blood Count 4.27 M/mm3 (4.6-6.2); White Blood Count 14.5 K/mm3 (4.4-11.0)
[2025-03-10 07:50] LABS: Creatinine, Urine (random) 151.00 mg/dL (39.00-259.00); Microalbumin,Random Urine 22.1 mg/L (<20 mg/L)
[2025-03-10 07:52] LABS: Color, Urine Yellow (Yellow); Glucose, Dipstick Normal (Normal); Ketone-Dipstick Negative (Negative); Leukocyte Esterase-Dipstick Negative /ul (Negative); Nitrite-Dipstick Negative (Negative); Occult Blood-Urine Negative /ul (Negative); Protein-Dipstick 15 mg/dl (Negative); Specific Gravity, Urine 1.015 (1.002-1.030); Urine Bilirubin Dipstick Negative (Negative)
[2025-03-10 08:25] LABS: AST(SGOT) 28 U/L (<=37); Alanine Aminotransfer ALT/SGPT 11 U/L (<=46); Albumin, Serum 3.6 g/dL (3.5-5.0); Alkaline Phosphatase 103 U/L (40-129); Anion Gap 10 (5-15); BUN 20 mg/dL (4-19); BUN/Creat Ratio 18.5 RATIO (10-20); Calcium,Total 9.4 mg/dL (7.6-11.0); Carbon Dioxide 26.2 mmol/L (21.0-32.0); Chloride 104 mmol/L (98-108); Cholesterol 111 mg/dL (<=200); Ferritin 107 ng/mL (37-417); Globulin 2.1 g/dL (2.2-4.2); Glucose 100 mg/dL (70-99); Low Density Lipoprotein Calc. 66 mg/dL; PSA,Total - Annual Screen 1.71 ng/mL (0.02-4.00); Potassium 4.9 mmol/L (3.3-5.1); Triglycerides 115 mg/dL; Very Low Density Lipoprotein 23 mg/dL (5-40); Vitamin B12 235 pg/mL (180-914); cholesterol:hdl ratio screen 4.63
[2025-03-10 08:40] LABS: Iron 54 ug/dL (65-175); Iron Binding Capacity,Total 284 ug/dL (250-450); Iron Binding Capacity,Unsat 230 ug/dL (228-428)
== END | disposition home or self-care (01) ==
LOC: LAB 06:41
PROVIDERS: PCP Internal Medicine; Referring Provider Internal Medicine; Visit Provider Internal Medicine
DX: Z00.00 Encounter for general adult medical examination without abnormal findings (principal); E11.9 Type 2 diabetes mellitus without complications; Z12.5 Encounter for screening for malignant neoplasm of prostate; D64.9 Anemia, unspecified; E53.8 Deficiency of other specified B group vitamins
CPT/HCPCS: 36415; 80053; 80061; 81002; 82043; 82570; 82607; 82728; 83036; 83540; 83550; 84153; 85027; G0103

== ENCOUNTER → 2025-03-27 | Outpatient (CLI) | payer OTHER, SELFPAY ==
--- OUTSIDE RECORDS SUMMARY | 2025-03-27 06:35 | XMS RPT_ITS | CCD ---
Author Organization [facility]ini[facility] Care Team Providers Care Manager Flight Name Role Phone Nikunj Adams Primary Care Provider Nikunj Adams Unavailable JAVIER BOSWELL Attending Unavailable JAVIER BOSWELL Admitting Unavailable NONE, NONE Consulting Unavailable NONE, NONE Primary Care Unavailable Nikunj Adams DO Primary Care Provi frank Nikunj Adams DO Unavailable [phone] Nikunj Adams DO Primary Care Provi frank Nikunj Adams DO Unavailable [phone] Nikunj Adams DO Unavailable Nikunj Adams DO [...] Provider Dr. Moreno Mosqueda DO Other Provider Sherwin PLEITEZ, Dr. Harrison Kim Attending Provider Friend DO, Dr. Mayer Referring Provider Sherwin PLEITEZ, Dr. Harrison Kim Referring Provider Sherwin PLEITEZ, Dr. Harrison Kim Other Provider Council, Nikunj E Primary Care Unavailable Sherwin, Harrison Kim Attending Unavailable Friend, Moreno Referring Unavailable Angie, Nikunj E Referring Unavailable Angie, Nikunj E Primary Care Unavailable Friend, Moreno Attending Unavailable MIKKI TROTTER Attending Unavailable MIKKI TROTTER Referring Unavailable Angie, Nikunj E Primary Care Unavailable Council, Nikunj E Primary Care Unavailable Angie, Nikunj E Attending Unavailable Angie, Nikunj E Referring Unavailable Council, Nikunj E Attending Unavailable Angie, Nikunj E Primary Care Unavailable Council, Nikunj E Referring Unavailable Angie, Nikunj E Primary Care Unavailable Council, Nikunj E Attending Unavailable Council, Nikunj E Primary Care Unavailable Harrison Courtney Attending Unavailable Wanfelipe, Harrison Kim Referring Unavailable Council, Nikunj E Referring Unavailable Angie, Nikunj E Primary Care Unavailable Wanfelipe, Harrison Kim Attending Unavailable Nagajothi, Nagapradee Attending Unavailabl e Nagajothi, Nagapradee Referring Unavailabl e Angie, Nikunj E Primary Care Unavailable Council, Nikunj E Referring Unavailable Council, Nikunj E Primary Care Unavailable Friend, Moreno Consulting Unavailable Friend, Moreno Attending Unavailable Angie, Nikunj E Primary Care Unavailable Wanfelipe, Harrison [...] / neomycin 3.5 mg/ml / polymyxin b 38271 unt/ml ophthalmic suspension (1 source) Aminoglycoside Antibacterial, Polymyxin-class Antibacterial, Corticosteroid Start: 01-10-2018 dexamethasone-neomycin -polymyxin 3.5-27535-5.1 Suspension 3-4 drops to each ear 3 [...] 07/16/2020 01/12/2021 Active take 1 capsule by [facility] once daily hydrochlorothiazide 12.5 MG Cap capsule [...] tablet 5 10/17/2024 Active polyethylene glycol 3350 77654 mg powder for oral solution (1 source) [...] Surgery Visit Reporton 12-07 Surgery Visit Report [facility] [address] [place] [address]. [address] [place] [address] OFFICE VISIT Date of Service: 12/07/24 MR#: [id number] Acct: [id number] Name: MILY INGRAM Rep #: [id number] : 1965 Provider: Dr. Harrison wang MD Age/Sex: 59/M Location: [facility] Status: Signed Intake Vital Signs 11/24/24 09:16 Height 5 ft 9 in Intake Visit Reasons: 2 W S/P HEMORRHOID LIGATION Chief Complaint: hemorrhoidectomy f/u Sdet Required: No Is patient in pain?: No [...] Code Global Post Op Diagnoses Hemorrhoid K64.9 [facility] Medical History Dietary restriction Hemorrhoid Wears [...] Cosigner Signature: Date (if applicable) CC: Normal [facility] Bedside Glucoseon 11-28-2024 FINGERSTICK GLU 97 mg/dL Normal 74-106 [facility] Comment on above: Result Comment: PAIGE NEUMANNENT OF PATIENT CARE PER NURSING PROTOCOL Performed By: #### L 501.080 #### [facility] [address] [place], [address] 12 Lead EKGon 11-24-2024 12 Lead EKG [facility] Cardiovascular Services [address] [place] [address] 12 Lead EKG 11/24/24 0914 MR#: [id number] Acct: [id number] Name: MILY INGRAM Rep #: [id number] : 1965 59 From: Lexi Munoz MD Attending Dr: Dr. Harrison Courtney MD Status: DE P [facility] Ordering Dr: Wilmer Limon MD Date: 11/24/24 Location: [facility] Sex: M C Admitted: Test Reason : [...] ECGs available Confirmed by CRYSTAL PLEITEZ, NICO ([id number]), copy editor YELENA DE LA GARZA ([id number]) on 11/28/2024 6:32:38 AM Referred By: Harrison Courtney Confirmed By: NICO MUNOZ MD 11/28/24 0632 Date Lexi Munoz MD CC: Dr. Wilmer Limon MD; Dr. Harrison Courtney MD; Dr. Nikunj Adams DO Signed Normal [facility] Discharge Instructionon 11-05 Discharge Instruction [facility] Medical Records Department [address] [place] [address] Instructions for Home/Discharge Instructions 11/24/24 1222 MR#: [id number] Acct: [id number] Name: MILY INGRAM Rep #: [id number] : 1965 59 From: Harrison Courtney MD PCP: Dr. Nikunj Adams DO Status:REG [facility] Discharge Instructions Diet Discharge Diet: Light diet [...] Primary Care Provider: Nikunj Adams Print Language: Azerbaijani Discharge Orders/Prescriptions Prescriptions: New oxycodone 5 mg [...] PO DAILY Referrals / Follow Up: Nikunj Aadms DO [Primary Care Provider] - Disposition Disposition (needs filled in before D/C Order can be placed): Home, Self Care 11/24/24 1226 Harrison Courtney MD CC: Dr. Nikunj Adams DO Signed Normal [facility] deOrdered By: Harrison Courtney on 11-24-2024 Glucose [Mass/Vol] 97 mg/dL 74-106 [facility] Comment on above: MANAGEMENT OF PATIEN T CARE PER NURSING PROTOCOL MR/POSTOP.ANE 11-24-2024 MR/POSTOP.[facility] Medical Records Department [address] [place] [address] Anesthesia Postop Eval I 11/24/24 1214 MR#: [id number] Acct: [id number] Name: MILY INGRAM Rep #: [id number] : 1965 59 From: Artemio Amaya CRNA PCP: Dr. Nikunj Adams DO Status:REG SDC Y Race: C Location: [place] [address] Anesthesia: Postop Eval I Current Vital Signs [...] CRNA Cosigner Signature: Date CC: Signed Normal [facility] Operative Reporton 5 Operative Report [facility] Medical Records Department [address] [place] [address] Operative Report 11/24/24 1226 MR#: [id number] Acct: [id number] Name: MILY INGRAM Rep #: [id number] : 1965 59 From: Harrison Courtney MD PCP: Dr. Nikunj Adams, DO Status:REG [facility] Location: [place] [address] Problems Associated Problem List Diagnoses (1) Hemorrhoid: Multi Select Codes Digestive Digestive CPT Codes: 70898 Remove in/ex hem groups 2+ and 75435 Excision, Anus w/US guidance Operative Report (Standard) Operative Information Date of Procedure: 11/24/24 Pre-Operative Diagnosis: Bleeding internal hemorrhoids Post-Operative Diagnosis: Same Surgery/Procedure Performed: 1. Hemorrhoid artery ligation 2. Excision of prolapsed internal hemorrhoid. education and development manager: Yes Commercial Title Examiner: Ary Roy Tasks completed by certified surgical first assistant: Retracting Additional advertising assistant manager?: No Type of Anesthesia: General and Local [...] positions. This was performed without incident. A [id number] suture was placed in each location and [...] prophylaxis not ordered: Treatment Not Indicated 11/24/24 0316 Cosigner Signature (if applicable): CC: Dr. Harrison Courtney MD; Dr. Nikunj Adams DO Signed Normal [facility] Surgery Specimen Level IIIon 11-24-2024 Surgery Specimen Level III Patient Age/Sex Location Account Attending Physician MILY INGRAM 59/M [facility] [id number] Dr. Harrison Courtney MD Specimen: [id number] Received: 11/24/24-1320 Status: KONRAD Owens Num: [id number] Spec Type: HEMORRHOID Subm Dr: Dr. Harrison [...] reveals red, rubbery and congested cut surfaces. Mat Maker sections are submitted in 1 cassette. [place] 11/24/2024 [facility]:[id number] Patient Age/Sex Location Account Attending Physician MILY INGRAM 59/M [facility] [id number] Dr. Harrison Courtney MD Signed (signature on file) Dr. Olivia Rodriguez DO 11/25/24 1326 Normal [facility] Comment on above: Performed By: #### P SUIII #### [facility] [address] [place], [address] Surgery Visit Reporton 10-25 Surgery Visit Report [facility] [address] [place] [address] OFFICE VISIT Date of Service: 10/25/24 MR#: [id number] Acct: [id number] Name: MILY INGRAM Rep #: [id number] : 1965 Provider: Dr. Harrison wang MD Age/Sex: 59/M Location: [facility] Status: Signed Intake Vital Signs 10/17/24 [...] 10/12/24 10/25/24 H istory release 24 hr [facility] Medical History (Updated 10/25/24 @ 13:55 [...] Const General: cooperative, healthy appearing and comfortable [facility] Head: normal to inspection Eyes General: appearance [...] (1) Hemorrhoid (more content not included)... Normal [facility] Bedside Glucoseon 10-17-2024 FINGERSTICK GLU 99 mg/dL Normal 74-106 [facility] Comment on above: Result Comment: PAIGE MOTTA OF PATIENT CARE PER NURSING PROTOCOL Performed By: #### P SUIII #### [facility] [address] [facility] [place], [address] Colonoscopy Reporton 025 Colonoscopy Report [facility] Medical Records Department [address] [facility] [place] [address] Colonoscopy Report MR#: [id number] Acct: [id number] Name: MILY INGRAM Rep #: [id number] : 1965 59 From: Moreno Mosqueda DO PCP: Dr. Nikunj Adams DO Status:[facility] Patient Name: Mily Ingram Procedure Date: 10/17/2024 [...] present medications. Procedure Code(s): --- Professional --- 53315, Colonoscopy, flexible; with removal of tumor(s), polyp(s), or other lesion(s) by snare technique CPT copyright 2021 [employer]. All rights reserved. The codes documented in this report are preliminary and upon tool carrier review may be revised to meet current compliance requirements. Moreno Mosqueda DO 10/17/2024 9:13:56 AM This report has been signed electronically. Number of Addenda: 0 Note Initiated On: 10/17/2024 8:42 AM 10/17/24913 Date Moreno Mosqueda DO Cosigner Signature: Date (if indicated) CC: Dr. Nikunj Adams DO; Moreno Mosqueda DO Date Dictated: 10/17/24841 Date Transcribed: Show Host/Hostess: JENNIFER Signed [facility] deOrdered By: Moreno Mosqueda on 10-17-2024 Glucose [Mass/Vol] 99 mg/dL 74-106 [facility] Comment on above: MANAGEMENT OF PATIEN T CARE PER NURSING PROTOCOL MR/POSTOP.Mika 10-17-2024 MR/POSTOP.[facility] Medical Records Department [address] [place] [address] Anesthesia Postop Eval I 10/17/24916 MR#: [id number] Acct: [id number] Name: MILY INGRAM Rep #: [id number] : 1965 59 From: Donato Resendiz PCP: Dr. Nikunj Adams, DO Status:[facility] Y Race: C Location: [place] [address] Anesthesia: Postop Eval I Current Vital Signs [...] Resendiz Cosignclarita Signature: Date CC: Signed Normal [facility] MR/[id number] 10-17-2024 [facility] Medical Records Department [address] [place] [address] Anesthesia Postop Eval II 10/17/24 1031 MR#: [id number] Acct: [id number] Name: MILY INGRAM Rep #: [id number] : 1965 59 From: Oj Serrano MD PCP: Dr. Nikunj Adams, DO Status:[facility] Y Race: C Location: EN Anesthesia Postop [...] Oj Bahena Signature: Date CC: Signed Normal [facility] Surgery Specimen Level Shazia 10-17-2024 Surgery Specimen Level IV Patient Age/Sex Location Account Attending Physician MILY INGRAM 59/M [place] [id number] Moreno Mosqueda DO Specimen: [id number] Received: 10/17/24 Status: KONRAD Owens Num: [id number] Spec Type: COLON BX Subm Dr: Moreno [...] is totally submitted in one cassette. 10/17/2024 CPT:69215 Patient Age/Sex Location Account Attending Physician MILY INGRAM ANNA 59/M EN [id number] Moreno Friend, DO Signed (signature on file) Dr. Jake Copeland MD 10/25/242223 Normal [facility] Comment on above: Performed By: #### P SUIV #### [facility] [address] [place], [address] Ferritinon 09-15-2024 Ferritin [Mass/Vol] 500 ng/mL High 37-417 [facility] Comment on above: Performed By: #### P SUIII #### [facility] [address] [place], [address] Folate [Moles/volume] in Ser um or PlasmaOrdered By: Nikunj Adams on 09-15-2024 Folate [Moles/Vol] 6.23 ng/mL 4.60-34.80 [facility] Folates,Serum (Folic Acid)on 09-15-2024 FOLATES,SERUM 6.23 ng/mL Normal 4.60-34.80 [facility] Comment on above: Order Comment: N Performed By: #### P SUIII #### [facility] [address] [place], [place], [address] Iron measurement (mass/mass) Ordered By: Nikunj Adams on 09-15-2024 Iron (Unsp spec) [Mass/Mass] 37 ug/dL Low 65-175 [facility] Iron+Iron Binding Capacityon 09-15-2024 Iron [Mass/Vol] 37 ug/dL Low 65-175 [facility] Comment on above: Performed By: #### P SUIII #### [facility] [address] [place], [place], [address] IRON SATURATION 13.0 Normal 9-55 [facility] Comment on above: Performed By: #### P SUIII #### [facility] [address] [place], [place], [address] TIBC 281 ug/dL Normal 250-450 [facility] Comment on above: Performed By: #### P SUIII #### [facility] [address] [place], [place], [address] UIBC 244 ug/dL Normal 228-428 [facility] Comment on above: Performed By: #### P SUIII #### [facility] [address] [place], [place], [address] No Panel InformationOrdered By: Nikunj Adams on 09-15-2024 Unsaturated Iron Binding Capacity 244 ug/dL 228-428 [facility] Serum or plasma ferritin dick surement (mass/volume)Ordered By: Nikunj Adams on 09-15-2024 Ferritin [Mass/Vol] 500 ng/mL High 37-417 [facility] Serum or plasma iron saturat ion measurement (mass fraction)Ordered By: Nikunj Adams on 09-15-2024 Iron saturation [Mass fraction] 13.0 % 9-55 [facility] Vitamin B12on 09-15-2024 Cobalamin (Vitamin B12) [Mass/Vol] 304 pg/mL Normal 180-914 [facility] Comment on above: Performed By: #### P SUIII #### [facility] [address] [place], [place], [address] Vitamin B12 ser/plasOrdered By: Nikunj Adams on 09-15-2024 Cobalamin (Vitamin B12) [Mass/Vol] 304 pg/mL 180-914 [facility] Anion gap in Serum or Plasma Ordered By: Nikunj Adams on 09-09-2024 Anion gap [Moles/Vol] 13 mmol/L 5-15 [facility] BUN/creatinine ratioOrdered By: Nikunj Adams on 09-09-2024 Urea nitrogen/Creatinine [Mass ratio] 13.2 mg/mg 10-20 [facility] Bilirubin Test strip Ql (U)O rdered By: Nikunj Adams on 09-09-2024 Bilirubin Ql (U) Negative Negative [facility] Bilirubin, totalOrdered By: Nikunj Adams on 09-09-2024 Bilirubin [Mass/Vol] 0.34 mg/dL 0.00-1.30 [facility] CBC-Complete Blood Cnt No Di ffon 09-09-2024 Erythrocyte distribution width (RBC) [Ratio] 13.6 % Normal 11.6-14.6 [facility] Comment on above: Performed By: #### P SUIV #### [facility] [address] [place], [address] ( Hematocrit (Bld) [Volume fraction] 36.2 % Low 40-54 [facility] Comment on above: Performed By: #### P SUIV #### [facility] [address] [place], [address] Hemoglobin (Bld) [Mass/Vol] 11.9 g/dL Low 13.0-16.5 [facility] Comment on above: Performed By: #### P SUIV #### [facility] [address] [place], [address] MCH (RBC) [Entitic mass] 30.2 pg Normal 27.0-32.0 [facility] Comment on above: Performed By: #### P SUIV #### [facility] [address] [place], [address] MCHC (RBC) [Mass/Vol] 32.9 g/dL Normal 32-36 [facility] Comment on above: Performed By: #### P SUIV #### [facility] [address] [place], [address] MCV (RBC) [Entitic vol] 91.9 fL Normal 80-94 [facility] Comment on above: Performed By: #### P SUIV #### [facility] [address] [place], [address] Platelet mean volume (Bld) [Entitic vol] 9.4 fL Normal 6.2-12.0 [facility] Comment on above: Performed By: #### P SUIV #### [facility] [address] [place], [address] Platelets (Bld) [#/Vol] 212 10*3/uL Normal 150-450 [facility] Comment on above: Performed By: #### P SUIV #### [facility] [address] [place], [address] RBC (Bld) [#/Vol] 3.94 10*6/uL Low 4.6-6.2 [facility] Comment on above: Performed By: #### P SUIV #### [facility] [address] [place], [address] RDW SD 46.0 fl High 35.1-43.9 [facility] Comment on above: Performed By: #### P SUIV #### [facility] [address] [place], [address] WBC (Bld) [#/Vol] 8.8 10*3/uL Normal 4.4-11.0 [facility] Comment on above: Performed By: #### P SUIV #### [facility] [address] [place], [address] Calculated very low density lipoprotein (VLDL) cholesterol measurementOrdered By: Nikunj Adams on 09-09-2024 Calculated very low density lipoprotein (VLDL) cholesterol measurement 25 mg/dL 5-40 [facility] Carbon dioxide, total [Moles /volume] in Central venous bloodOrdered By: Nikunj Adams on 09-09-2024 CO2 [Moles/Vol] 23.6 mmol/L 21.0-32.0 [facility] Chloride assayOrdered By: Joaquin Adams on 09-09-2024 Chloride [Moles/Vol] 102 mmol/L 98-108 [facility] Comprehensive Metabolic Prof ilon 09-09-2024 Albumin [Mass/Vol] 4.0 g/dL Normal 3.5-5.0 [facility] Comment on above: Performed By: #### P SUIV #### [facility] [address] [place], [address] Albumin/Globulin [Mass ratio] 1.4 {ratio} Normal 0.9-2.4 [facility] Comment on above: Performed By: #### P SUIV #### [facility] [address] [place], [address] ALK PHOS 109 U/L Normal 40-129 [facility] Comment on above: Performed By: #### P SUIV #### [facility] [address] [place], [address] ALT [Catalytic activity/Vol] 10 U/L Normal <=46 [facility] Comment on above: Performed By: #### P SUIV #### [facility] [address] [place], [address] AST [Catalytic activity/Vol] 28 U/L Normal <=37 [facility] Comment on above: Performed By: #### P SUIV #### [facility] [address] [place], [address] Bilirubin [Mass/Vol] 0.34 mg/dL Normal 0.00-1.30 [facility] Comment on above: Performed By: #### P SUIV #### [facility] [address] [place], [address] BUN/CRE 13.2 RATIO Normal 10-20 [facility] Comment on above: Performed By: #### P SUIV #### [facility] [address] [place], [address] Calcium [Mass/Vol] 9.4 mg/dL Normal 7.6-11.0 [facility] Comment on above: Performed By: #### P SUIV #### [facility] [address] [place], [address] Chloride [Moles/Vol] 102 mmol/L Normal 98-108 [facility] Comment on above: Performed By: #### P SUIV #### [facility] [address] [place], [address] CO2 [Moles/Vol] 23.6 mmol/L Normal 21.0-32.0 [facility] Comment on above: Performed By: #### P SUIV #### [facility] [address] [place], [address] Creatinine [Mass/Vol] 1.09 mg/dL Normal 0.70-1.20 [facility] Comment on above: Performed By: #### P SUIV #### [facility] [address] [place], [address] GAP 13 Normal 5-15 [facility] Comment on above: Performed By: #### P SUIV #### [facility] [address] [place], [address] GFR/1.73 sq M.predicted among non-blacks MDRD (S/P/Bld) [Vol rate/Area] 79 mL/min/{1.73_m2} Normal >60 [facility] Comment on above: Result Comment: mL/m in/1.73m2 CKD-EPI Creatinine Equation (2021) Performed By: #### P SUIV #### [facility] [address] [place], [address] Globulin (S) [Mass/Vol] 2.8 g/dL Normal 2.2-4.2 [facility] Comment on above: Performed By: #### P SUIV #### [facility] [address] [place], [address] Glucose [Mass/Vol] 102 mg/dL High 70-99 [facility] Comment on above: Performed By: #### P SUIV #### [facility] [address] [place], [address] Potassium [Moles/Vol] 5.1 mmol/L Normal 3.3-5.1 [facility] Comment on above: Performed By: #### P SUIV #### [facility] [address] [place], [address] Sodium [Moles/Vol] 138 mmol/L Normal 133-145 [facility] Comment on above: Performed By: #### P SUIV #### [facility] [address] [place], [address] T PROT 6.8 g/dL Normal 5.9-8.4 [facility] Comment on above: Performed By: #### P SUIV #### [facility] [address] [place], [address] Urea nitrogen [Mass/Vol] 14 mg/dL Normal 4-19 [facility] Comment on above: Performed By: #### P SUIV #### [facility] [address] [place], [address] Erythrocyte distribution wid th ratioOrdered By: Nikunj Adams on 09-09-2024 Erythrocyte distribution width (RBC) [Ratio] 13.6 % 11.6-14.6 [facility] Erythrocyte distribution wid th standard deviationOrdered By: Nikunj Adams on 09-09-2024 Erythrocyte distribution width (RBC) [Ratio] 46.0 fl High 35.1-43.9 [facility] Glomerular filtration rate ( GFR) estimation/1.73 sq m using serum, plasma, or whole bOrdered By: Nikunj Adams on 09-09-2024 GFR/1.73 sq M.predicted among non-blacks MDRD (S/P/Bld) [Vol rate/Area] 79 mL/min/{1.73_m2} >60 [facility] Comment on above: mL/min/1.73m2 CKD-EP I Creatinine Equation (2020) Hematocrit Auto (Bld) [Volum e fraction]Ordered By: Nikunj Adams on 09-09-2024 Hematocrit (Bld) [Volume fraction] 36.2 % Low 40-54 [facility] Hemoglobin A1con 09-09-2024 HbA1c (Bld) [Mass fraction] 5.7 % Normal <=5.6 [facility] Comment on above: Result Comment: Norm al < 5.7 % Prediabetic 5.7 - 6.4 % Diabetic >or= 6.5 % Please note range changes. Performed By: #### P SUIV #### [facility] [address] [place] [address]. [place], [address] Hemoglobin A1c percentageOrd ered By: Nikunj Adams on 09-09-2024 HbA1c (Bld) [Mass fraction] 5.7 % <5.7 [facility] Comment on above: Normal < 5.7 % Predi abetic 5.7 - 6.4 % Diabetic >or= 6.5 % Please note range changes. Hemoglobin measurementOrdere d By: Nikunj Adams on 09-09-2024 Hemoglobin (Bld) [Mass/Vol] 11.9 g/dL Low 13.0-16.5 [facility] Ketones Test strip Ql (U)Ord ered By: Nikunj Adams on 09-09-2024 Ketones Ql (U) Negative Negative [facility] LDL calc ser/plasOrdered By: Nikunj Adams on 09-09-2024 Cholesterol in LDL [Mass/Vol] 59 mg/dL Normal [facility] Comment on above: Ulotnjdook=829-007 m g/dL & Higher Eofr=531 mg/dL or greater Result Comment: Bord hrjxiz=087-857 mg/dL Higher Vqpf=332 mg/dL or greater Performed By: #### P SUIV #### [facility] [address] [place], [place], [id number] Laboratory - Chemistry and C hemistry - challengeOrdered By: Nikunj Adams on 09-09-2024 AST [Catalytic activity/Vol] 28 U/L <38 [facility] Lipid Profileon 09-09-2024 CHOL:HDL 4.28 Normal [facility] Comment on above: Performed By: #### P SUIV #### [facility] [address] [place], [address] Cholesterol in VLDL [Mass/Vol] 25 mg/dL Normal 5-40 [facility] Comment on above: Performed By: #### P SUIV #### [facility] [address] [place], [address] MCV (mean corpuscular volume ) determinationOrdered By: Nikunj Adams on 09-09-2024 MCV (RBC) [Entitic vol] 91.9 fL 80-94 [facility] Mean corpuscular hemoglobin (MCH) determinationOrdered By: Nikunj Adams on 09-09-2024 MCH (RBC) [Entitic mass] 30.2 pg 27.0-32.0 [facility] Mean corpuscular hemoglobin concentration (MCHC) determinationOrdered By: Nikunj Adams on 09-09-2024 MCHC (RBC) [Mass/Vol] 32.9 g/dL 32-36 [facility] Mean platelet volume determi nationOrdered By: Nikunj Adams on 09-09-2024 Platelet mean volume (Bld) [Entitic vol] 9.4 fL 6.2-12.0 [facility] Nitrite Test strip Ql (U)Ord ered By: Nikunj Adams on 09-09-2024 Nitrite Ql (U) Negative Negative [facility] Platelet countOrdered By: Joaquin Adams on 09-09-2024 Platelets (Bld) [#/Vol] 212 10*3/uL 150-450 [facility] Potassium measurement (mass/ volume)Ordered By: Nikunj Adams on 09-09-2024 Potassium (Unsp spec) [Mass/Vol] 5.1 mmol/L 3.3-5.1 [facility] Protein Test strip Ql (U)Ord ered By: Nikunj Adams on 09-09-2024 Protein Ql (U) 15 mg/dl High Negative [facility] RBC Auto (Bld) [#/Vol]Ordere d By: Nikunj Adams on 09-09-2024 RBC (Bld) [#/Vol] 3.94 10*6/uL Low 4.6-6.2 [facility] Screening total cholesterol/ high density lipoprotein (HDL) cholesterol ratioOrdered By: Nikunj Adams on 09-09-2024 Cholesterol.total/Choles terol in HDL [Mass ratio] 4.28 {ratio} [facility] Serum creatinine measurement (mass/volume)Ordered By: Nikunj Adams on 09-09-2024 Creatinine [Mass/Vol] 1.09 mg/dL 0.70-1.20 [facility] Serum globulin measurementOr dered By: Nikunj Adams on 09-09-2024 Globulin (S) [Mass/Vol] 2.8 g/dL 2.2-4.2 [facility] Serum glucose measurement (m ass/volume)Ordered By: Nikunj Adams on 09-09-2024 Glucose [Mass/Vol] 102 mg/dL High 70-99 [facility] Serum or plasma alanine spencer otransferase (ALT) measurementOrdered By: Nikunj Adams on 09-09-2024 ALT [Catalytic activity/Vol] 10 U/L <47 [facility] Serum or plasma albumin melony urement (mass/volume)Ordered By: Nikunj Adams on 09-09-2024 Albumin [Mass/Vol] 4.0 g/dL 3.5-5.0 [facility] Serum or plasma albumin/glob ulin mass ratioOrdered By: Niknuj Adams on 09-09-2024 Albumin/Globulin [Mass ratio] 1.4 {ratio} 0.9-2.4 [facility] Serum or plasma alkaline alexa sphatase measurementOrdered By: Nikunj Adams on 09-09-2024 ALP [Catalytic activity/Vol] 109 U/L 40-129 [facility] Serum or plasma calcium melony urement (mass/volume)Ordered By: Nikunj Adams on 09-09-2024 Calcium [Mass/Vol] 9.4 mg/dL 7.6-11.0 [facility] Serum or plasma cholesterol in HDL measurement (mass/volume)Ordered By: Nikunj Adams on 09-09-2024 Cholesterol in HDL [Mass/Vol] 26 mg/dL Low [facility] Comment on above: National Cholesterol Education Program [...] age. Performed By: #### P SUIV #### [facility] [address] [facility] [place], [address] Serum or plasma cholesterol measurement (mass/volume)Ordered By: Nikunj Adams on 09-09-2024 Cholesterol [Mass/Vol] 110 mg/dL Normal <=200 [facility] Comment on above: Cholesterol level, D esirable <200 mg/dLBorderline high cholesterol 200-239 mg/dLHigh cholesterol >=240 mg/dLRecommendations of the NCEP Adult Treatment Panel for the following risk-cutoff thresholds for the [place] population. Result Comment: Chol esterol level, Desirable <200 mg/dL Borderline high cholesterol 200-239 mg/dL High cholesterol >=240 mg/dL Recommendations of the NCEP Adult Treatment Panel for the following risk-cutoff thresholds for the [place] population. Performed By: #### P SUIV #### [facility] [address] [place], [address] Serum or plasma urea nitroge n measurement (mass/volume)Ordered By: Nikunj Adams on 09-09-2024 Urea nitrogen [Mass/Vol] 14 mg/dL 4-19 [facility] Sodium levelOrdered By: hCaz Adams on 09-09-2024 Sodium [Moles/Vol] 138 mmol/L 133-145 [facility] Total proteinOrdered By: Rafiq Adams on 09-09-2024 Protein [Mass/Vol] 6.8 g/dL 5.9-8.4 [facility] Triglycerides measurementOrd ered By: Nikunj Ramirezton on 09-09-2024 Triglyceride [Mass/Vol] 126 mg/dL Normal [facility] Comment on above: The drugs N-Acetylcy steine and Metamizole may falsely depress this assay. Normal range: <150 mg/dLBorderline High: 150-199 mg/dLHigh: 200-499 mg/dLVery High: >500 mg/dL Result Comment: The drugs N-Acetylcysteine and Metamizole may falsely depress this assay. Normal range: <150 mg/dL Borderline High: 150-199 mg/dL High: 200-499 mg/dL Very High: >500 mg/dL Performed By: #### P SUIV #### [facility] [address] [place], [place], [id number] Urinalysis, Routine (Dipstic k)on 09-09-2024 BILIRUBIN URINE Negative Normal Negative [facility] Comment on above: Order Comment: Urine , Random Performed By: #### P SUIV #### [facility] [address] [place], [place], [id number] Clarity (U) Clear Normal Clear [facility] Comment on above: Order Comment: Urine , Random Performed By: #### P SUIV #### [facility] [address] [place], [place], [id number] Color (U) Yellow Normal Yellow [facility] Comment on above: Order Comment: Urine , Random Performed By: #### P SUIV #### [facility] [address] [place], [place], [id number] GLUCOSE, UR Normal Normal Normal [facility] Comment on above: Order Comment: Urine , Random Performed By: #### P SUIV #### [facility] [address] [place], [address] KETONE UR Negative Normal Negative [facility] Comment on above: Order Comment: Urine , Random Performed By: #### P SUIV #### [facility] [address] [place], [address] LEUK ESTERASE Negative Normal Negative [facility] Comment on above: Order Comment: Urine , Random Performed By: #### P SUIV #### [facility] [address] [place], [address] Nitrite Ql (U) Negative Normal Negative [facility] Comment on above: Order Comment: Urine , Random Performed By: #### P SUIV #### [facility] [address] [place], [address] OCCULT BLOOD-UR Negative Normal Negative [facility] Comment on above: Order Comment: Urine , Random Performed By: #### P SUIV #### [facility] [address] [place], [address] pH UR 6.0 Normal 5.0 - 8.0 [facility] Comment on above: Order Comment: Urine , Random Performed By: #### P SUIV #### [facility] [address] [place], [address] PROT DIPSTX 15 mg/dl Abnormal Negative [facility] Comment on above: Order Comment: Urine , Random Performed By: #### P SUIV #### [facility] [address] [place], [address] SP.GR. DIPSTX 1.015 Normal 1.002-1.030 [facility] Comment on above: Order Comment: Urine , Random Performed By: #### P SUIV #### [facility] [address] [place], [address] UROBILI Normal Normal Normal [facility] Comment on above: Order Comment: Urine , Random Performed By: #### P SUIV #### [facility] [address] [place], [address] Urine clarityOrdered By: Rafiq Adams on 09-09-2024 Clarity (U) Clear Clear [facility] Urine color determinationOrd ered By: Nikunj Adams on 09-09-2024 Color (U) Yellow Yellow [facility] Urine glucose detectionOrder ed By: Nikunj Adams on 09-09-2024 Glucose Ql (U) Normal mg/dl Normal [facility] Urine leukocyte esterase det ection by dipstickOrdered By: Nikunj Adams on 09-09-2024 Leukocyte esterase Test strip Ql (U) Negative Negative [facility] Urine pHOrdered By: Nikunj Adams on 09-09-2024 pH (U) 6.0 [pH] 5.0 - 8.0 [facility] Urine specific gravity measu rementOrdered By: Nikunj Adams on 09-09-2024 Specific gravity (U) [Rel density] 1.015 1.002-1.030 [facility] Urine urobilinogen measureme ntOrdered By: Nikunj Adams on 09-09-2024 Urobilinogen Ql (U) Normal mg/dl Normal [facility] White blood cell (WBC) count Ordered By: Nikunj Adams on 09-09-2024 WBC (Bld) [#/Vol] 8.8 10*3/uL 4.4-11.0 [facility] CBC W/Diff, Automatedon - Absolute Lymph 4.11 X10 3/uL Normal 0.83-4.51 [facility] Comment on above: Performed By: #### P SUIV #### [facility] [address] [place], [address] Absolute Neut 6.3 X10 3/uL Normal 2.0-7.7 [facility] Comment on above: Performed By: #### P SUIV #### [facility] [address] [place], [address] Basophils/100 WBC (Bld) 0.7 % Normal 0-1 [facility] Comment on above: Performed By: #### P SUIV #### [facility] [address] [place], [address] Eosinophils/100 WBC (Bld) 3.5 % Normal 0-5 [facility] Comment on above: Performed By: #### P SUIV #### [facility] [address] [place], [address] Erythrocyte distribution width (RBC) [Ratio] 13.1 % Normal 11.6-14.6 [facility] Comment on above: Performed By: #### P SUIV #### [facility] [address] [place], [address] Hematocrit (Bld) [Volume fraction] 41.3 % Normal 40-54 [facility] Comment on above: Performed By: #### P SUIV #### [facility] [address] [place], [address] Hemoglobin (Bld) [Mass/Vol] 13.7 g/dL Normal 13.0-16.5 [facility] Comment on above: Performed By: #### P SUIV #### [facility] [address] [place], [address] IG% 0.700 Normal 0.0-0.9 [facility] Comment on above: Result Comment: IG% - Immature Granulocytes (promyelocytes, myelocytes and metamyelocytes) > 1% indicates that a LEFT SHIFT is Present. Performed By: #### P SUIV #### [facility] [address] [place], [address] Lymphocytes/100 WBC (Bld) 35.0 % Normal 19-41 [facility] Comment on above: Performed By: #### P SUIV #### [facility] [address] [place], [address] MCH (RBC) [Entitic mass] 30.4 pg Normal 27.0-32.0 [facility] Comment on above: Performed By: #### P SUIV #### [facility] [address] [place], [address] MCHC (RBC) [Mass/Vol] 33.2 g/dL Normal 32-36 [facility] Comment on above: Performed By: #### P SUIV #### [facility] [address] [place], [address] MCV (RBC) [Entitic vol] 91.8 fL Normal 80-94 [facility] Comment on above: Performed By: #### P SUIV #### [facility] [address] [place], [address] Monocytes/100 WBC (Bld) 7.0 % Normal 0-10 [facility] Comment on above: Performed By: #### P SUIV #### [facility] [address] [place], [address] Neutrophils/100 WBC (Bld) 53.1 % Normal 47-70 [facility] Comment on above: Performed By: #### P SUIV #### [facility] [address] [place], [address] Nucleated RBC (Bld) [#/Vol] 0 10*3/uL Normal 0-5 [facility] Comment on above: Performed By: #### P SUIV #### [facility] [address] [place], [address] Platelet mean volume (Bld) [Entitic vol] 9.7 fL Normal 6.2-12.0 [facility] Comment on above: Performed By: #### P SUIV #### [facility] [address] [place], [address] Platelets (Bld) [#/Vol] 239 10*3/uL Normal 150-450 [facility] Comment on above: Performed By: #### P SUIV #### [facility] [address] [place], [address] RBC (Bld) [#/Vol] 4.50 10*6/uL Low 4.6-6.2 [facility] Comment on above: Performed By: #### P SUIV #### [facility] [address] [place], [address] RDW SD 43.8 fl Normal 35.1-43.9 [facility] Comment on above: Performed By: #### P SUIV #### [facility] [address] [place], [address] WBC (Bld) [#/Vol] 11.8 10*3/uL High 4.4-11.0 [facility] Comment on above: Performed By: #### P SUIV #### [facility] [address] [place], [address] Hemoglobin A1con 03-16-2024 HbA1c (Bld) [Mass fraction] 6.7 % High 3.8-5.6 [facility] Comment on above: Result Comment: Norm al < 5.7 % Prediabetic 5.7 - 6.4 % Diabetic >or= 6.5 % Please note range changes. Performed By: #### P SUIII #### [facility] [address] [place], [address] Microalb:Creat Ratio,Random URon 03-16-2024 Creatinine [Mass/Vol] 34.90 mg/dL Normal NO RANGE EST. [facility] Comment on above: Performed By: #### P SUIII #### [facility] [address] [place], [address] MALB:CRE TNP Normal <30 mg/g CRE [facility] Comment on above: Performed By: #### P SUIII #### [facility] [address] [place], [place], [id number] MICROALBUMIN,UR < 5.0 Normal NO RANGE EST. [facility] Comment on above: Performed By: #### P SUIII #### [facility] [address] [place], [place], [id number] PSA,Total - Annual Screenon 03-16-2024 PSA,TOT SCREEN 1.21 ng/mL Normal 0.00-4.00 [facility] Comment on above: Result Comment: This test was performed using the TPSA assay method for the [employer] chemistry system. Values obtained with different assay methods cannot be used interchangably. When changing PSA assays in the course of monitoring a patient, additional sequential testing should be carried out to confirm baseline values. Performed By: #### P SUIII #### [facility] [address] [place], [place], [id number] CBC With No Diffon Hematocrit (Bld) [Volume fraction] 42.7 % Normal [facility] Comment on above: Performed By: #### H EMOG #### [facility] (DEFAULT) [address] [place], [place] [address] Hemoglobin (Bld) [Mass/Vol] 14.0 g/dL Normal 13.5-17.5 [facility] Comment on above: Performed By: #### H EMOG #### [facility] (DEFAULT) [address] [place], [place] [address] MCH (RBC) [Entitic mass] 31.6 pg Normal 26.0-34.0 [facility] Comment on above: Performed By: #### H EMOG #### [facility] (DEFAULT) [address] [place], [place] [address] MCHC (RBC) [Mass/Vol] 32.8 g/dL Normal 31.0-37.0 [facility] Comment on above: Performed By: #### H EMOG #### [facility] (DEFAULT) [address] [place], [place] [address] MCV (RBC) [Entitic vol] 96 fL Normal 80-100 M [facility] Comment on above: Performed By: #### H EMOG #### [facility] (DEFAULT) [address] [place], [place] [address] Platelets (Bld) [#/Vol] 210 10*3/uL Normal 150-400 [facility] Comment on above: Performed By: #### H EMOG #### [facility] (DEFAULT) [address] [place], [place] [address] RBC (Bld) [#/Vol] 4.43 10*6/uL Low 4.50-5.90 [facility] Comment on above: Performed By: #### H EMOG #### [facility] (DEFAULT) [address] [place], [place] [address] WBC (Bld) [#/Vol] 8.00 10*3/uL Normal 4.50-11.00 [facility] Comment on above: Performed By: #### H EMOG #### [facility] (DEFAULT) [address] [place] [address] CBC panel Auto (Bld)on 03-25 Hematocrit (Bld) [Volume fraction] 42.7 % [facility] Hemoglobin (Bld) [Mass/Vol] 14.0 g/dL 13.5 - 17.5 g/dL [facility] Interpretation and review of laboratory results Abnormal [facility] MCH (RBC) [Entitic mass] 31.6 pg 26. 0 - 34.0 pg [facility] MCHC (RBC) [Mass/Vol] 32.8 g/dL 31.0 - 37.0 g/dL [facility] MCV (RBC) [Entitic vol] 96 fL 80 - 100 fL [facility] Platelets (Bld) [#/Vol] 210 10*3/uL 150 - 400 K/uL [facility] RBC (Bld) [#/Vol] 4.43 10*6/uL Low [facility] eah WBC (Bld) [#/Vol] 8.00 10*3/uL 4.50 - 11. 00 K/uL [facility] Comprehensive Metabolic Pane godwin 03-25-2023 Albumin [Mass/Vol] 4.1 g/dL Normal 3.2-4.5 [facility] Comment on above: Performed By: #### C MP #### [facility] (DEFAULT) [address] [place], [place] [address] ALP [Catalytic activity/Vol] 75 U/L Normal 40-150 [facility] Comment on above: Performed By: #### C MP #### [facility] (DEFAULT) [address] [place], [place] [address] ALT [Catalytic activity/Vol] 96 U/L High 14-65 [facility] Comment on above: Performed By: #### C MP #### [facility] (DEFAULT) [facility] [address] [place], [place] [address] Anion gap [Moles/Vol] 12 mmol/L Normal 10-20 [facility] Comment on above: Performed By: #### C MP #### [facility] (DEFAULT) [address] [place], [place] [address] [place], [place] [address] AST [Catalytic activity/Vol] 88 U/L High 0-45 [facility] Comment on above: Performed By: #### C MP #### [facility] (DEFAULT) [facility] [address] [place], [place] [address] Bilirubin [Mass/Vol] 0.5 mg/dL Normal 0.0-1.3 [facility] Comment on above: Performed By: #### C MP #### [facility] (DEFAULT) [facility] [address] [place], [place] [address] Calcium [Mass/Vol] 9.5 mg/dL Normal 8.0-10.2 [facility] Comment on above: Performed By: #### C MP #### [facility] (DEFAULT) [address] [place], [place] [address] [place], [place] [address] Chloride [Moles/Vol] 105 mmol/L Normal 98-108 [facility] Comment on above: Performed By: #### C MP #### [facility] (DEFAULT) [facility] [address] [place], [place] [address] CO2 [Moles/Vol] 24.0 mmol/L Normal 21.0-32.0 [facility] Comment on above: Performed By: #### C MP #### [facility] (DEFAULT) [address] [place], [place] [address] Creatinine [Mass/Vol] 1.1 mg/dL Normal 0.5-1.3 [facility] Comment on above: Performed By: #### C MP #### [facility] (DEFAULT) [address] [place], [place] [address] GFR/1.73 sq M.predicted MDRD (S/P/Bld) [Vol rate/Area] 71 mL/min/{1.73_m2} Normal 60-1000 [facility] Comment on above: Result Comment: The eGFR should be used for monitoring renal function only and not for medication dosing. Performed By: #### C MP #### [facility] (DEFAULT) [address] [place] [address] Glucose [Mass/Vol] 100 mg/dL High 65-99 [facility] Comment on above: Performed By: #### C MP #### [facility] (DEFAULT) [address] [place] [address] Potassium [Moles/Vol] 4.0 mmol/L Normal 3.5-5.1 [facility] Comment on above: Performed By: #### C MP #### [facility] (DEFAULT) [address] [place] [address] Protein [Mass/Vol] 8.4 g/dL High 6.0-8.0 [facility] Comment on above: Performed By: #### C MP #### [facility] (DEFAULT) [address] [place] [address] Sodium [Moles/Vol] 137 mmol/L Normal 135-145 [facility] Comment on above: Performed By: #### C MP #### [facility] (DEFAULT) [address] [place] [address] Urea nitrogen [Mass/Vol] 23 mg/dL Normal 8-25 [facility] Comment on above: Performed By: #### C MP #### [facility] (DEFAULT) [address] [place], [place] [address] Comprehensive metabolic 2000 panelon 03-25-2023 Albumin [Mass/Vol] 4.1 g/dL 3.2 - 4.5 g/dL [facility] ALP [Catalytic activity/Vol] 75 U/L 40 - 150 U/L [facility] ALT [Catalytic activity/Vol] 96 U/L High 14 - 65 U/L [facility] Anion gap [Moles/Vol] 12 mmol/L 10 - 2 0 mmol/L [facility] AST [Catalytic activity/Vol] 88 U/L High 0 - 45 U/L [facility] Bilirubin Ql (U) 0.5 mg/dL 0.0 - 1.3 mg/dL [facility] Calcium [Mass/Vol] 9.5 mg/dL 8.0 - 10. 2 mg/dL [facility] Chloride [Moles/Vol] 105 mmol/L 98 - 10 8 mmol/L [facility] Creatinine [Mass/Vol] 1.1 mg/dL 0.5 - 1.3 mg/dL [facility] GFR/1.73 sq M.predicted among non-blacks MDRD (S/P/Bld) [Vol rate/Area] 71 mL/min/{1.73_m2} [facility] Comment on above: The eGFR should be u sed for monitoring renal function only and not for medication dosing. Glucose [Mass/Vol] 100 mg/dL High 65 - 99 mg/dL [facility] HCO3 (Bld) [Moles/Vol] 24.0 mmol/L 21.0 - 32.0 mmol/L [facility] Potassium [Moles/Vol] 4.0 mmol/L 3.5 - 5.1 mmol/L [facility] Protein [Mass/Vol] 8.4 g/dL High 6.0 - 8.0 g/dL [facility] Sodium [Moles/Vol] 137 mmol/L 135 - 145 mmol/L [facility] Urea nitrogen (BldV) [Mass/Vol] 23 mg/dL 8 - 25 mg/dL [facility] HGB A1Con 03-25-2023 Glucose [Mass/Vol] 151 mg/dL High 68-114 [facility] Comment on above: Performed By: #### A 1CE #### [facility] (DEFAULT) [address] [place], [place] [address] HbA1c (Bld) [Mass fraction] 6.9 % High 4.0-5.6 [facility] Comment on above: Result Comment: NORM AL: 4.0% - 5.6% INCREASED RISK FOR DIABETES: 5.7% - 6.4% DIABETES: >6.5% Performed By: #### A 1CE #### [facility] (DEFAULT) [address] [place], [place] [address] HbA1c (Bld) [Mass fraction]o n 03-25-2023 Glucose [Mass/Vol] 151 mg/dL High 68 - 114 mg/dL [facility] Interpretation and review of laboratory results Abnormal [facility] Hemoglobin A1con 03-25-2023 HbA1c (Bld) [Mass fraction] 6.9 % High 4.0 - 5.6 % [facility] Comment on above: NORMAL: 4.0% - 5.6% INCREASED RISK FOR DIABETES: 5.7% - 6.4% DIABETES: >6.5% Lipid 1996 panelon 3 Cholesterol [Mass/Vol] 181 mg/dL 100 - 199 mg/dL [facility] Comment on above: Comment: National Cholesterol Education Program Guidelines: Cholesterol Desirable: <200 mg/dL Borderline High: 200-239 mg/dL High: greater than or equal to 240 mg/dL Cholesterol in HDL [Mass/Vol] 35 mg/dL Low 40 - 59 mg/dL [facility] Comment on above: Comment: National Cholesterol Education Program Guidelines: HDL Cholesterol Low: <40 mg/dL Near Optimal: 40-59 mg/dL High: greater than or equal to 60 mg/dL Cholesterol in LDL [Mass/Vol] 107 mg/dL High 0 - 99 mg/dL [facility] Comment on above: Comment: National Cholesterol Education Program Guidelines: LDL Cholesterol Optimal: <100 mg/dL Near Optimal/above Optimal: 100-129 mg/dL Borderline High: 130-159 mg/dL High: 160-189 mg/dL Very High: greater than or equal to 190 mg/dL Cholesterol.total/Choles terol in HDL [Mass ratio] 5.17 {ratio} [facility] Comment on above: Comment: Female CHolesterol/HDL Ratio: Average risk: 4.4 1/2 average risk: 3.3 2 x average risk: 7.1 Magnesium [Mass/Vol] 146 mg/dL [facility] Comment on above: Comment: National Cholesterol Education Program guidelines: NON HDL Cholesterol Desirable: <130 mg/dL Borderline High 130-159 mg/dL High: 160-189 mg/dL Very High: > or = 190 mg/dL Triglyceride [Mass/Vol] 196 mg/dL High 30 - 150 mg/dL [facility] Comment on above: Comment: National Cholesterol Education Program Guidelines: Triglyceride Normal: <150 mg/dL Borderline High: 150-199 mg/dL High: 200-499 mg/dL Very High: greater than or equal to 500 mg/dL Lipid Profileon 03-25-2023 Cholesterol [Mass/Vol] 181 mg/dL Normal 100-199 [facility] Comment on above: Result Comment: Comm ent: National Cholesterol Education Program Guidelines: Cholesterol Desirable: <200 mg/dL Borderline High: 200-239 mg/dL High: greater than or equal to 240 mg/dL Performed By: #### L IPID #### [facility] (DEFAULT) [address] [place] [id number] Cholesterol in HDL [Mass/Vol] 35 mg/dL Low 40-59 [facility] Comment on above: Result Comment: Comm ent: National Cholesterol Education Program Guidelines: HDL Cholesterol Low: <40 mg/dL Near Optimal: 40-59 mg/dL High: greater than or equal to 60 mg/dL Performed By: #### L IPID #### [facility] (DEFAULT) [address] [place] [id number] Cholesterol in LDL [Mass/Vol] 107 mg/dL High 0-99 [facility] Comment on above: Result Comment: Comm ent: National Cholesterol Education Program Guidelines: LDL Cholesterol Optimal: <100 mg/dL Near Optimal/above Optimal: 100-129 mg/dL Borderline High: 130-159 mg/dL High: 160-189 mg/dL Very High: greater than or equal to 190 mg/dL Performed By: #### L IPID #### [facility] (DEFAULT) [address] [place] [address] 25179 Cholesterol non HDL [Mass/Vol] 146 mg/dL Normal [facility] Comment on above: Result Comment: Comm ent: National Cholesterol Education Program guidelines: NON HDL Cholesterol Desirable: <130 mg/dL Borderline High 130-159 mg/dL High: 160-189 mg/dL Very High: > or = 190 mg/dL Performed By: #### L IPID #### [facility] (DEFAULT) [address] [place] [id number] Cholesterol.total/Choles terol in HDL [Mass ratio] 5.17 {ratio} Normal [facility] Comment on above: Result Comment: Comm ent: Female CHolesterol/HDL Ratio: Average risk: 4.4 1/2 average risk: 3.3 2 x average risk: 7.1 Performed By: #### L IPID #### [facility] (DEFAULT) [address] [place] [address] [id number] Triglyceride [Mass/Vol] 196 mg/dL High 30-150 M [facility] Comment on above: Result Comment: Comm ent: National Cholesterol Education Program Guidelines: Triglyceride Normal: <150 mg/dL Borderline High: 150-199 mg/dL High: 200-499 mg/dL Very High: greater than or equal to 500 mg/dL Performed By: #### L IPID #### [facility] (DEFAULT) [address] [place] [address] 05509 Microalb/Creat Ratio, Urineo n 03-25-2023 Albumin DL <= 20 mg/L (U) [Mass/Vol] 0.7 mg/dL Normal 0.0-1.8 [facility] Comment on above: Result Comment: Test ing Performed At: [facility] [address] [place] [address] Performed By: #### Shahbaz CHÁVEZT #### [facility] (UNKNOWN) [address] [place] [address] 37041 CREATININE, URINE, RANDOM 70.3 mg/dL Normal [facility] Comment on above: Result Comment: Test ing Performed At: [facility] [address] [place] [id number] Performed By: #### M TASHARAT #### [facility] (UNKNOWN) [address] [place] [address] 53265 MICROALBUMIN/CREATININE RATIO 10 mg/g crea Normal 0-25 [facility] Comment on above: Result Comment: Test ing Performed At: [facility] [address] [place] [address] Performed By: #### M CHARMAINE #### [facility] (UNKNOWN) [address] [place] [address] [phone] No Panel Informationon 03-25 Interpretation and review of laboratory results Abnormal [facility] Prostate specific Ag [Mass/V ol]on 03-25-2023 PSA Total 1.35 ng/mL High 0.00 - 0.99 ng/mL [facility] Comment on above: NCCN Guidelines: PSA > 1.0 ng/mL and age 45-49 repeat in 1-2 years. PSA < 1.0 ng/mL and age 45-49 repeat at age 50 PSA > 3.0 ng/mL positive Urinalysison 03-25-2023 Bilirubin Ql (U) Negative Normal Negative [facility] Comment on above: Performed By: #### U A #### [facility] (DEFAULT) [address] [place] [address] [id number] Clarity (U) Clear Normal Clear [facility] Comment on above: Performed By: #### U A #### [facility] (DEFAULT) [address] [place] [address] Color (U) Yellow Normal [facility] Comment on above: Performed By: #### U A #### [facility] (DEFAULT) [address] [place] [address] 24755 Glucose Ql (U) Negative Normal Negative [facility] Comment on above: Performed By: #### U A #### [facility] (DEFAULT) [address] [place] [address] 57044 Hemoglobin Ql (U) Negative Normal Negative [facility] Comment on above: Performed By: #### U A #### [facility] (DEFAULT) [address] [place] [address] 12611 Ketones Ql (U) Negative Normal Negative [facility] Comment on above: Performed By: #### U A #### [facility] (DEFAULT) [address] [place] [address] 52595 Leukocytes Negative Normal Negative [facility] Comment on above: Performed By: #### U A #### [facility] (DEFAULT) [address] [place] [address] 33123 Nitrite Ql (U) Negative Normal Negative [facility] Comment on above: Performed By: #### U A #### [facility] (DEFAULT) [address] [place] [address] 63069 Protein Ql (U) Negative Normal Negative [facility] Comment on above: Performed By: #### U A #### [facility] (DEFAULT) [address] [place] [address] 47282 Specific gravity (U) [Rel density] 1.010 Normal 1.005-1.025 [facility] Comment on above: Performed By: #### U A #### [facility] (DEFAULT) [address] [place] [address] 13669 UpH 6.0 Normal 5.0-6.5 [facility] Comment on above: Performed By: #### U A #### [facility] (DEFAULT) [address] [place] [address] 52750 Urine Specimen Type Clean Catch Normal [facility] Comment on above: Performed By: #### U A #### [facility] (DEFAULT) [address] [place] [address] 44804 Urobilinogen (U) [Mass/Vol] 0.2 mg/dL Normal <2.0 [facility] Comment on above: Performed By: #### U A #### [facility] (DEFAULT) [address] [place] [address] 49697 Urinalysis dipstick panel Au to test strip (U)on 03-25-2023 Bilirubin Ql (U) Negative Negative [facility] Blood, Urine Negative Negative [facility] Clarity (U) Clear Clear [facility] Color (U) Yellow [facility] Glucose Ql (U) Negative Negative [facility] Ketones Ql (U) Negative Negative [facility] Leukocyte esterase Test strip Ql (U) Negative Negative [facility] Nitrite Auto test strip Ql (U) Negative Negative [facility] pH (U) 6.0 [pH] 5.0 - 6.5 [facility] Protein, Urine Negative Negative [facility] Specific gravity (U) [Rel density] 1.010 1.005 - 1.025 [facility] Urine Specimen Type Clean Catch [facility] Urobilinogen Qn (U) 0.2 NINF - 2.0 [facility] CBC panel Auto (Bld)on 03-18 Hematocrit (Bld) [Volume fraction] 42.9 % [facility] Hemoglobin (Bld) [Mass/Vol] 14.4 g/dL 13.5 - 17.5 g/dL [facility] Interpretation and review of laboratory results Abnormal [facility] MCH (RBC) [Entitic mass] 32.2 pg 26. 0 - 34.0 pg [facility] MCHC (RBC) [Mass/Vol] 33.6 g/dL 31.0 - 37.0 g/dL [facility] MCV (RBC) [Entitic vol] 96 fL 80 - 100 fL [facility] Platelets (Bld) [#/Vol] 287 10*3/uL 150 - 400 K/uL [facility] RBC (Bld) [#/Vol] 4.47 10*6/uL Low [facility] WBC (Bld) [#/Vol] 16.64 10*3/uL High 4.50 - 11 .00 K/uL [facility] Comprehensive metabolic 2000 panelon 03-18-2022 Albumin [Mass/Vol] 4.0 g/dL 3.2 - 4.5 g/dL [facility] ALP [Catalytic activity/Vol] 82 U/L 40 - 150 U/L [facility] ALT [Catalytic activity/Vol] 31 U/L 14 - 65 U/L [facility] Anion gap [Moles/Vol] 15 mmol/L 10 - 2 0 mmol/L [facility] AST [Catalytic activity/Vol] 17 U/L 0 - 45 U/L [facility] Bilirubin Ql (U) 0.7 mg/dL 0.0 - 1.3 mg/dL [facility] Calcium [Mass/Vol] 9.8 mg/dL 8.0 - 10. 2 mg/dL [facility] Chloride [Moles/Vol] 98 mmol/L 98 - 10 8 mmol/L [facility] Creatinine [Mass/Vol] 1.5 mg/dL High 0.5 - 1.3 mg/dL [facility] GFR/1.73 sq M.predicted among non-blacks MDRD (S/P/Bld) [Vol rate/Area] 49 mL/min/{1.73_m2} Low [facility] Comment on above: The eGFR should be u sed for monitoring renal function only and not for medication dosing. Glucose [Mass/Vol] 136 mg/dL High 65 - 99 mg/dL [facility] HCO3 (Bld) [Moles/Vol] 25.0 mmol/L 21.0 - 32.0 mmol/L [facility] Interpretation and review of laboratory results Abnormal [facility] Potassium [Moles/Vol] 3.8 mmol/L 3.5 - 5.1 mmol/L [facility] Protein [Mass/Vol] 9.5 g/dL High 6.0 - 8.0 g/dL [facility] Sodium [Moles/Vol] 134 mmol/L Low 135 - 145 mmol/L [facility] Urea nitrogen (BldV) [Mass/Vol] 29 mg/dL High 8 - 25 mg/dL [facility] HbA1c (Bld) [Mass fraction]o n 03-18-2022 Glucose [Mass/Vol] 126 mg/dL High 68 - 114 mg/dL [facility] Interpretation and review of laboratory results Abnormal [facility] Hemoglobin A1con 03-18-2022 HbA1c (Bld) [Mass fraction] 6.0 % High 4.0 - 5.6 % [facility] Comment on above: NORMAL: 4.0% - 5.6% INCREASED RISK FOR DIABETES: 5.7% - 6.4% DIABETES: >6.5% Lipid 1996 panelon Cholesterol [Mass/Vol] 172 mg/dL 100 - 199 mg/dL [facility] Comment on above: Comment: National Cholesterol Education Program Guidelines: Cholesterol Desirable: <200 mg/dL Borderline High: 200-239 mg/dL High: greater than or equal to 240 mg/dL Cholesterol in HDL [Mass/Vol] 49 mg/dL 40 - 59 mg/dL [facility] Comment on above: Comment: National Cholesterol Education Program Guidelines: HDL Cholesterol Low: <40 mg/dL Near Optimal: 40-59 mg/dL High: greater than or equal to 60 mg/dL Cholesterol in LDL [Mass/Vol] 103 mg/dL High 0 - 99 mg/dL [facility] Comment on above: Comment: National Cholesterol Education Program Guidelines: LDL Cholesterol Optimal: <100 mg/dL Near Optimal/above Optimal: 100-129 mg/dL Borderline High: 130-159 mg/dL High: 160-189 mg/dL Very High: greater than or equal to 190 mg/dL Cholesterol.total/Choles terol in HDL [Mass ratio] 3.51 {ratio} [facility] Comment on above: Comment: Female CHolesterol/HDL Ratio: Average risk: 4.4 1/2 average risk: 3.3 2 x average risk: 7.1 Interpretation and review of laboratory results Abnormal [facility] Magnesium [Mass/Vol] 123 mg/dL [facility] Comment on above: Comment: National Cholesterol Education Program guidelines: NON HDL Cholesterol Desirable: <130 mg/dL Borderline High 130-159 mg/dL High: 160-189 mg/dL Very High: > or = 190 mg/dL Triglyceride [Mass/Vol] 99 mg/dL 30 - 150 mg/dL [facility] Comment on above: Comment: National Cholesterol Education Program Guidelines: Triglyceride Normal: <150 mg/dL Borderline High: 150-199 mg/dL High: 200-499 mg/dL Very High: greater than or equal to 500 mg/dL [facility] Urinalysis dipstick panel Au to test strip (U)on 03-18-2022 Bilirubin Ql (U) Small Abnormal Negative [facility] th Blood, Urine Negative Negative [facility] Clarity (U) Clear Clear [facility] Color (U) Yellow [facility] Glucose Ql (U) Negative Negative [facility] Interpretation and review of laboratory results Abnormal [facility] Ketones Ql (U) 15 Abnormal Negative [facility] Leukocyte esterase Test strip Ql (U) Negative Negative [facility] Nitrite Auto test strip Ql (U) Negative Negative [facility] pH (U) 5.5 [pH] 5.0 - 6.5 [facility] Protein, Urine 30 Abnormal Negative [facility] Specific gravity (U) [Rel density] 1.005 - 1.025 [facility] Urine Specimen Type Clean Catch [facility] Urobilinogen Qn (U) 1.0 NINF - 2.0 [facility] Urine Microscopicon 03-18-20 22 Cast, Hyaline 5-10 [facility] Coarse Granular Casts 0-3 [facility] Interpretation and review of laboratory results Abnormal [facility] Mucus, Urine Moderate Abnormal None /hpf [facility] RBCs, Urine 0-3 None;0-3 /hpf [facility] Squamous Epithelial 0-4 [facility] WBCs, Urine 0-5 [facility] Comprehensive metabolic 2000 panelon 09-13-2021 Albumin [Mass/Vol] 4.3 g/dL 3.2 - 4.5 g/dL [facility] ALP [Catalytic activity/Vol] 84 U/L 40 - 150 U/L [facility] ALT [Catalytic activity/Vol] 84 U/L High 14 - 65 U/L [facility] Anion gap [Moles/Vol] 10 mmol/L 10 - 2 0 mmol/L [facility] AST [Catalytic activity/Vol] 56 U/L High 0 - 45 U/L [facility] Bilirubin Ql (U) 0.4 mg/dL 0 - 1.3 mg/dL [facility] Calcium [Mass/Vol] 9.4 mg/dL 8 - 10.2 mg/dL [facility] Chloride [Moles/Vol] 104 mmol/L 98 - 10 8 mmol/L [facility] Creatinine [Mass/Vol] 1.3 mg/dL 0.5 - 1.3 mg/dL [facility] GFR/1.73 sq M.predicted among non-blacks MDRD (S/P/Bld) [Vol rate/Area] 57 mL/min/{1.73_m2} Low [facility] Comment on above: The eGFR should be u sed for monitoring renal function only and not for medication dosing. Glucose [Mass/Vol] 102 mg/dL High 65 - 99 mg/dL [facility] HCO3 (Bld) [Moles/Vol] 24.0 mmol/L 21 - 32 mmol/L [facility] Interpretation and review of laboratory results Abnormal [facility] Potassium [Moles/Vol] 4.3 mmol/L 3.5 - 5.1 mmol/L [facility] Protein [Mass/Vol] 8.7 g/dL High 6 - 8 g/dL [facility] Sodium [Moles/Vol] 134 mmol/L Low 135 - 145 mmol/L [facility] Urea nitrogen (BldV) [Mass/Vol] 31 mg/dL High 8 - 25 mg/dL [facility] HbA1c (Bld) [Mass fraction]o n 09-13-2021 Glucose [Mass/Vol] 131 mg/dL High 68 - 114 mg/dL [facility] Interpretation and review of laboratory results Abnormal [facility] Hemoglobin A1con 09-13-2021 HbA1c (Bld) [Mass fraction] 6.2 % High 4 - 5.6 % [facility] Comment on above: NORMAL: 4.0% - 5.6% INCREASED RISK FOR DIABETES: 5.7% - 6.4% DIABETES: >6.5% CBC panel Auto (Bld)on 02-14 Hematocrit (Bld) [Volume fraction] 41.6 % [facility] Hemoglobin (Bld) [Mass/Vol] 14.0 g/dL 13.5 - 17.5 g/dL [facility] Interpretation and review of laboratory results Abnormal [facility] MCH (RBC) [Entitic mass] 32.3 pg 26. 0 - 34.0 pg [facility] MCHC (RBC) [Mass/Vol] 33.7 g/dL 31.0 - 37.0 g/dL [facility] MCV (RBC) [Entitic vol] 96 fL 80 - 100 fL [facility] Platelets (Bld) [#/Vol] 238 10*3/uL 150 - 400 K/uL [facility] RBC (Bld) [#/Vol] 4.34 10*6/uL Low [facility] WBC (Bld) [#/Vol] 11.17 10*3/uL High 4.50 - 11 .00 K/uL [facility] HbA1c (Bld) [Mass fraction]o n 02-14-2021 Glucose [Mass/Vol] 128 mg/dL High 68 - 114 mg/dL [facility] Interpretation and review of laboratory results Abnormal [facility] Hemoglobin A1con 02-14-2021 HbA1c (Bld) [Mass fraction] 6.1 % High 4.0 - 5.6 % [facility] Comment on above: NORMAL: 4.0% - 5.6% INCREASED RISK FOR DIABETES: 5.7% - 6.4% DIABETES: >6.5% Lipid 1996 panelon Cholesterol [Mass/Vol] 135 mg/dL 100 - 199 mg/dL [facility] Comment on above: Comment: National Cholesterol Education Program Guidelines: Cholesterol Desirable: <200 mg/dL Borderline High: 200-239 mg/dL High: greater than or equal to 240 mg/dL Cholesterol in HDL [Mass/Vol] 47 mg/dL 40 - 59 mg/dL [facility] Comment on above: Comment: National Cholesterol Education Program Guidelines: HDL Cholesterol Low: <40 mg/dL Near Optimal: 40-59 mg/dL High: greater than or equal to 60 mg/dL Cholesterol in LDL [Mass/Vol] 74 mg/dL 0 - 99 mg/dL [facility] Comment on above: Comment: National Cholesterol Education Program Guidelines: LDL Cholesterol Optimal: <100 mg/dL Near Optimal/above Optimal: 100-129 mg/dL Borderline High: 130-159 mg/dL High: 160-189 mg/dL Very High: greater than or equal to 190 mg/dL Cholesterol.total/Choles terol in HDL [Mass ratio] 2.87 {ratio} [facility] Comment on above: Comment: Female CHolesterol/HDL Ratio: [...] [Mass/Vol] 69 mg/dL 30 - 150 mg/dL [facility] Comment on above: Comment: National Cholesterol Education Program Guidelines: Triglyceride Normal: <150 mg/dL Borderline High: 150-199 mg/dL High: 200-499 mg/dL Very High: greater than or equal to 500 mg/dL No Panel Informationon 02-14 [facility] Prostate specific Ag [Mass/V ol]on 02-14-2021 Interpretation and review of laboratory results Abnormal [facility] PSA Total 1.18 ng/mL High 0.00 - 0.99 ng/mL [facility] Comment on above: NCCN Guidelines: PSA > 1.0 ng/mL and age 45-49 repeat in 1-2 years. PSA < 1.0 ng/mL and age 45-49 repeat at age 50 PSA > 3.0 ng/mL positive Urinalysis dipstick panel Au to test strip (U)on 02-14-2021 Bilirubin, Urine Negative Negative [facility] Blood, Urine Negative Negative [facility] Clarity (U) Clear Clear [facility] Color (U) Yellow [facility] Glucose Ql (U) Negative Negative [facility] Interpretation and review of laboratory results Abnormal [facility] Ketones Ql (U) 40 Abnormal Negative [facility] Leukocyte esterase Test strip Ql (U) Negative Negative [facility] Nitrite, Urine Negative Negative [facility] pH (U) 5.5 [pH] [facility] Protein, Urine 30 Abnormal Negative [facility] Specific gravity (U) [Rel density] 1.025 [facility] Urine Specimen Type Clean Catch [facility] Urobilinogen, Urine 0.[address] [facility] Urine Microscopicon 02-15-20 Interpretation and review of laboratory results Abnormal [facility] Mucus, Urine Moderate Abnormal None /hpf [facility] Squamous Epithelial 0-1 [facility] Basic metabolic 2000 panelOr dered By: Nikunj Adams on 08-06-2020 Anion gap [Moles/Vol] 11 mmol/L 10 - 2 0 mmol/L [facility] Calcium [Mass/Vol] 10.1 mg/dL 8.0 - 10. 2 mg/dL [facility] Chloride [Moles/Vol] 107 mmol/L 98 - 10 8 mmol/L [facility] Creatinine [Mass/Vol] 1.4 mg/dL High 0.5 - 1.3 mg/dL [facility] GFR/1.73 sq M.predicted among non-blacks MDRD (S/P/Bld) [Vol rate/Area] 52 mL/min/{1.73_m2} Low [facility] Comment on above: The eGFR should be u sed for monitoring renal function only and not for medication dosing. Glucose [Mass/Vol] 97 mg/dL 65 - 99 mg/dL [facility] HCO3 (Bld) [Moles/Vol] 25.0 mmol/L 21.0 - 32.0 mmol/L [facility] Interpretation and review of laboratory results Abnormal [facility] Potassium [Moles/Vol] 4.6 mmol/L 3.5 - 5.1 mmol/L [facility] Sodium [Moles/Vol] 138 mmol/L 135 - 145 mmol/L [facility] Urea nitrogen [Mass/Vol] 33 mg/dL High 8 - 25 mg/d L [facility] HbA1c (Bld) [Mass fraction]O rdered By: Nikunj Adams on 08-06-2020 Glucose [Mass/Vol] 126 mg/dL High 68 - 114 mg/dL [facility] Interpretation and review of laboratory results Abnormal [facility] Hemoglobin [id number] By: Joaquin Adams on 08-06-2020 HbA1c (Bld) [Mass fraction] 6.0 % High 4.0 - 5.6 % [facility] Comment on above: NORMAL: 4.0% - 5.6% INCREASED RISK FOR DIABETES: 5.7% - 6.4% DIABETES: >6.5% Vital Signs Date Time Vital Sign Value Performing Clinician Facility 11-24-2024 13:25-0400 Body temperature 97 [degF] Dr. Nikunj Adams DO Work Phone: [phone] [place] [address] 11-24-2024 13:25-0400 Diastolic blood pressure 74 mm[Hg] Dr. Nikunj Adams DO Work Phone: [phone] [place] [address] 11-24-2024 13:25-0400 Heart rate 78 /min Dr. Nikunj Adams DO Work Phone: [phone] [place] [address] 11-24-2024 13:25-0400 Respiratory rate 16 /min Dr. Nikunj Adams DO Work Phone: [phone] [place] [address] 11-24-2024 13:25-0400 SaO2% (BldA) [Mass fraction] 96 % Dr. Nikunj Adams DO Work Phone: [phone] [place] [address] 11-24-2024 13:25-0400 Systolic blood pressure 114 mm[Hg] Dr. Nikunj Adams DO Work Phone: [phone] [place] [address] 11-24-2024 12:20-0400 Inhaled oxygen flow rate 2 L/min Dr. Nikunj Adams DO Work Phone: [phone] [place] [address] 11-24-2024 09:16-0400 Body height 175.[address] Nikunj Adams DO Work Phone: [phone] [place] [address] 11-24-2024 09:16-0400 Body mass index (BMI) [Ratio] 30.6 kg/m2 Dr. Nikunj Adams DO Work Phone: [phone] [place] [address] 11-24-2024 09:16-0400 Body weight [address] Nikunj Adams DO Work Phone: [phone] [place] [address] 10-25-2024 13:55-0400 Body height 175.[address] Nikunj Adams DO Work Phone: [phone])[phone] [place] [address] 10-25-2024 13:55-0400 Body mass index (BMI) [Ratio] 31.7 kg/m2 Dr. Nikunj Adams DO Work Phone: [facility] 10-25-2024 13:55-0400 Body weight 97.[address] Nikunj Adams DO Work Phone: [facility] 10-25-2024 13:55-0400 Diastolic blood pressure 75 mm[Hg] Dr. Nikunj Adams DO Work Phone: [facility] 10-25-2024 13:55-0400 Heart rate 78 /min Dr. Nikunj Adams DO Work Phone: [facility] 10-25-2024 13:55-0400 Respiratory rate 18 /min Dr. Nikunj Adams DO Work Phone: [phone] [place] [address] 10-25-2024 13:55-0400 SaO2% (BldA) [Mass fraction] 98 % Dr. Nikunj Adams DO Work Phone: [facility] 10-25-2024 13:55-0400 Systolic blood pressure 118 mm[Hg] Dr. Nikunj Adams DO Work Phone: [facility] 10-17-2024 09:43-0400 Body temperature 97 [degF] Dr. Nikunj Adams DO Work Phone: [facility] 10-17-2024 09:43-0400 Diastolic blood pressure 87 mm[Hg] Dr. Nikunj Adams DO Work Phone: [facility] 10-17-2024 09:43-0400 Heart rate 76 /min Dr. Nikunj Adams DO Work Phone: [facility] 10-17-2024 09:43-0400 Respiratory rate 16 /min Dr. Nikunj Adams DO Work Phone: [facility] 10-17-2024 09:43-0400 SaO2% (BldA) [Mass fraction] 96 % Dr. Nikunj Adams DO Work Phone: [facility] 10-17-2024 09:43-0400 Systolic blood pressure 103 mm[Hg] Dr. Nikunj Adams DO Work Phone: [facility] 10-17-2024 07:25-0400 Body height 175.[address] Nikunj Adams DO Work Phone: [facility] 10-17-2024 07:25-0400 Body mass index (BMI) [Ratio] 30.9 kg/m2 Dr. Nikunj Adams DO Work Phone: [facility] 10-17-2024 07:25-0400 Body weight [address] Nikunj Adams DO Work Phone: [facility] 09-21-2024 07:29-0400 Body height 180.3 cm Nikunj Adams DO Work Phone: [facility] 09-21-2024 07:29-0400 Body mass index (BMI) [Ratio] 30.68 kg/m2 Nikunj Adams DO Work Phone: [facility] 09-21-2024 07:29-0400 Body weight 99.79 kg Nikunj Adams DO Work Phone: [facility] 09-21-2024 07:29-0400 Diastolic blood pressure 82 mm[Hg] Nikunj Adams DO Work Phone: [facility] 09-21-2024 07:29-0400 Heart rate 85 /min Nikunj Adams Work Phone: [facility] 09-21-2024 07:29-0400 SaO2% (BldA) [Mass fraction] 99 % Nikunj Adams DO Work Phone: [facility] 09-21-2024 07:29-0400 Systolic blood pressure 124 mm[Hg] Nikunj Adams DO Work Phone: [facility] 03-22-2024 08:46-0500 Body height 180.3 cm Nikunj Adams DO Work Phone: [facility] 03-22-2024 08:46-0500 Body mass index (BMI) [Ratio] 37.66 kg/m2 Nikunj Adams DO Work Phone: [facility] 03-22-2024 08:46-0500 Body weight 122.47 kg Nikunj Ramirezton DO Work Phone: [facility] 03-22-2024 08:46-0500 Diastolic blood pressure 82 mm[Hg] Nikunj Ramirezton DO Work Phone: [facility] 03-22-2024 08:46-0500 Heart rate 81 /min Nikunj Ramirezton DO Work Phone: [facility] 03-22-2024 08:46-0500 Respiratory rate 14 /min Nikunj Adams DO Work Phone: [facility] 03-22-2024 08:46-0500 SaO2% (BldA) [Mass fraction] 96 % Nikunj Adams DO Work Phone: [facility] 03-22-2024 08:46-0500 Systolic blood pressure 138 mm[Hg] Nikunj Adams DO Work Phone: [facility] 09-24-2023 09:37-0400 Diastolic blood pressure 92 mm[Hg] Nikunj Adams DO Work Phone: [facility] 09-24-2023 09:37-0400 Systolic blood pressure 154 mm[Hg] Nikunj Adams DO Work Phone: [facility] 09-24-2023 09:35-0400 Body height 180.3 cm Nikunj Ramirezton DO Work Phone: [facility] 09-24-2023 09:35-0400 Body mass index (BMI) [Ratio] 35.43 kg/m2 Nikunj Ramirezton DO Work Phone: [facility] 09-24-2023 09:35-0400 Body weight 115.21 kg Nikunj Ramirezton DO Work Phone: [facility] 09-24-2023 09:35-0400 Heart rate 84 /min Nikunj Ramirezton DO Work Phone: [facility] 09-24-2023 09:35-0400 Respiratory rate 14 /min Nikunj Ramirezton DO Work Phone: [facility] 09-24-2023 09:35-0400 SaO2% (BldA) [Mass fraction] 99 % Nikunj Adams DO Work Phone: [facility] 08-20-2023 13:19-0400 Diastolic blood pressure 106 mm[Hg] Shirlene Mccarthy [employer] Work Phone: [facility] 08-20-2023 13:19-0400 Systolic blood pressure 188 mm[Hg] Shirlene Mccarthy [employer] Work Phone: [facility] 08-20-2023 13:10-0400 Body height 180.3 cm Shirlene Mccarthy [employer] Work Phone: [facility] 08-20-2023 13:10-0400 Body mass index (BMI) [Ratio] 36.96 kg/m2 Shirlene Mccarthy [employer] Work Phone: [facility] 08-20-2023 13:10-0400 Body temperature 100.8 [degF] Shirlene Mccarthy [employer] Work Phone: [facility] 08-20-2023 13:10-0400 Body weight 120.2 kg Shirlene Mccarthy [employer] Work Phone: [facility] 08-20-2023 13:10-0400 Heart rate 97 /min Shrilene Mccarthy [employer] Work Phone: [facility] 08-20-2023 13:10-0400 SaO2% (BldA) [Mass fraction] 96 % Shirlene Mccarthy [employer] Work Phone: [facility] 03-25-2023 13:56-0500 Diastolic blood pressure 90 mm[Hg] Nikunj Angie DO Work Phone: [facility] 03-25-2023 13:56-0500 Systolic blood pressure 144 mm[Hg] Nikunj Adams DO Work Phone: [facility] 03-25-2023 13:50-0500 Body height 180.3 cm Nikunj Adams DO Work Phone: [facility] 03-25-2023 13:50-0500 Body mass index (BMI) [Ratio] 38.22 kg/m2 Nikunj Adams DO Work Phone: [facility] 03-25-2023 13:50-0500 Body weight 124.29 kg Nikunj Ramirezton DO Work Phone: [facility] 03-25-2023 13:50-0500 Heart rate 86 /min Nikunj Angie DO Work Phone: [facility] 03-25-2023 13:50-0500 Respiratory rate 14 /min Nikunj Rmairezton DO Work Phone: [facility] 03-25-2023 13:50-0500 SaO2% (BldA) [Mass fraction] 97 % Nikunj Ramirezton DO Work Phone: [facility] 09-19-2022 08:33-0400 Body height 175.3 cm Nikunj Jimmy PA Work Phone: [facility] 09-19-2022 08:33-0400 Body temperature 99.81 [degF] Nikunj Jimmy PA Work Phone: [facility] 09-19-2022 08:33-0400 Diastolic blood pressure 68 mm[Hg] Nikunj Jimmy PA Work Phone: [facility] 09-19-2022 08:33-0400 Heart rate 89 /min Nikunj Jimmy PA Work Phone: [facility] 09-19-2022 08:33-0400 Respiratory rate 16 /min Nikunj Jimmy PA Work Phone: [facility] 09-19-2022 08:33-0400 SaO2% (BldA) [Mass fraction] 97 % Nikunj Jimmy PA Work Phone: [facility] 09-19-2022 08:33-0400 Systolic blood pressure 137 mm[Hg] Nikunj Jimmy PA Work Phone: [facility] 03-18-2022 10:31-0500 Body height 180.3 cm Nikunj Ramirezton DO Work Phone: [facility] 03-18-2022 10:31-0500 Body mass index (BMI) [Ratio] 33.89 kg/m2 Nikunj Adams DO Work Phone: [facility] 03-18-2022 10:31-0500 Body temperature 97.39 [degF] Nikunj Adams DO Work Phone: [facility] 03-18-2022 10:31-0500 Body weight 110.22 kg Nikunj Adams DO Work Phone: [facility] 03-18-2022 10:31-0500 Diastolic blood pressure 86 mm[Hg] Nikunj Adams DO Work Phone: [facility] 03-18-2022 10:31-0500 Heart rate 113 /min Nikunj Adams DO Work Phone: [facility] 03-18-2022 10:31-0500 SaO2% (BldA) [Mass fraction] 99 % Nikunj Adams DO Work Phone: [facility] 03-18-2022 10:31-0500 Systolic blood pressure 138 mm[Hg] Nikunj Adams DO Work Phone: [facility] 09-13-2021 08:32-0400 Body height 180.3 cm Nikunj Adams DO Work Phone: [facility] 09-13-2021 08:32-0400 Body mass index (BMI) [Ratio] 36.74 kg/m2 Nikunj Adams DO Work Phone: [facility] 09-13-2021 08:32-0400 Body temperature 98.2 [degF] Nikunj Adams DO Work Phone: [facility] 09-13-2021 08:32-0400 Body weight 119.48 kg Nikunj Adams DO Work Phone: [facility] 09-13-2021 08:32-0400 Diastolic blood pressure 78 mm[Hg] Nikunj Adams DO Work Phone: [facility] 09-13-2021 08:32-0400 Heart rate 62 /min Nikunj Adams DO Work Phone: [facility] 09-13-2021 08:32-0400 SaO2% (BldA) [Mass fraction] 97 % Nikunj Adams DO Work Phone: [facility] 09-13-2021 08:32-0400 Systolic blood pressure 132 mm[Hg] Nikunj Adams DO Work Phone: [facility] 02-14-2021 14:37-0500 Body height 180.3 cm Nikunj Adams DO Work Phone: [facility] 02-14-2021 14:37-0500 Body mass index (BMI) [Ratio] 31.24 kg/m2 Nikunj Adams DO Work Phone: [facility] 02-14-2021 14:37-0500 Body temperature 98.4 [degF] Nikunj Adams DO Work Phone: [facility] 02-14-2021 14:37-0500 Body weight 101.61 kg Nikunj Adams DO Work Phone: [facility] 02-14-2021 14:37-0500 Diastolic blood pressure 76 mm[Hg] Nikunj Adams DO Work Phone: [facility] 02-14-2021 14:37-0500 Heart rate 88 /min Nikunj Adams DO Work Phone: [facility] 02-14-2021 14:37-0500 Respiratory rate 16 /min Nikunj Adams DO Work Phone: [facility] 02-14-2021 14:37-0500 SaO2% (BldA) [Mass fraction] 97 % Nikunj Adams DO Work Phone: [facility] 02-14-2021 14:37-0500 Systolic blood pressure 128 mm[Hg] Nikunj Adams DO Work Phone: [facility] 08-06-2020 09:12-0400 Diastolic blood pressure 84 mm[Hg] Nikunj Adams DO Work Phone: [facility] 08-06-2020 09:12-0400 Systolic blood pressure 138 mm[Hg] Nikunj Adams DO Work Phone: [facility] 08-06-2020 08:58-0400 Body height 180.3 cm Nikunj Adams DO Work Phone: [facility] 08-06-2020 08:58-0400 Body mass index (BMI) [Ratio] 35.98 kg/m2 Nikunj Adams DO Work Phone: [facility] 08-06-2020 08:58-0400 Body temperature 97.5 [degF] Nikunj Adams DO Work Phone: [facility] 08-06-2020 08:58-0400 Body weight 117.03 kg Nikunj Adams DO Work Phone: [facility] 08-06-2020 08:58-0400 Heart rate 81 /min Nikunj Adams DO Work Phone: [facility] 08-06-2020 08:58-0400 Respiratory rate 16 /min Nikunj Adams DO Work Phone: [facility] 08-06-2020 08:58-0400 SaO2% (BldA) [Mass fraction] 99 % Nikunj Adams DO Work Phone: [facility] 01-17-2020 08:08-0400 BP Diastolic 88 mm[Hg] Nikunj Adams [facility] 01-17-2020 08:08-0400 BP Systolic 148 mm[Hg] Nikunj Adams [facility] 01-17-2020 07:50-0400 BMI (Body Mass Index) 32.5 kg/m2 Nikunj Adams [facility] 01-17-2020 07:50-0400 Body Temperature 97.5 [degF] Nikunj Adams [facility] 01-17-2020 07:50-0400 Body weight 105.69 kg Nikunj Adams [facility] 01-17-2020 07:50-0400 [facility] 07:50-0400 Pulse (Heart Rate) 87 /[facility]17-2020 07:50-0400 Pulse Oximetry 98 % [facility]-17-2020 07:50-0400 Respiratory Rate 14 /min Nikunj Adams [facility] 10-18-2019 14:03-0400 BP Diastolic 92 mm[Hg] Nikunj Adams [facility] 10-18-2019 14:03-0400 BP Systolic 180 mm[Hg] Nikunj [facility] 10-18-2019 14:02-0400 BMI (Body Mass Index) 35.01 kg/m2 Nikunj [facility] 10-18-2019 14:02-0400 Body Temperature 99.7 [degF] Nikunj [facility] 10-18-2019 14:02-0400 Body weight 113.[address] [facility] 10-18-2019 14:02-0400 Height 180.[address] [facility] 10-18-2019 14:02-0400 Pulse (Heart Rate) 88 /min Nikunj [facility] 10-18-2019 14:02-0400 Pulse Oximetry 96 % Nikunj [facility] 10-18-2019 14:02-0400 Respiratory Rate 16 /min Nikunj [facility] Encounters Encounter Date Encounter Type Care Provider Facility Start: 03-17-2025 ambulatory Nikunj Gu ility:[facility] Start: 12-12-2024 End: 12-12-2024 Refill Nikunj Adams DO Work Phone: [facility] [place] Comment on above: Essential hypertensi on Start: 12-07-2024 End: 12-07-[address] Nikunj Adams DO Work Phone: -[facility] Start: 12-07-2024 End: 12-07-[address] Harrison Courtney MD -[facility] Work Phone: Start: 11-24-2024 ambulatory Nikunj Gu ility:[facility] Start: 11-24-2024 Non-patient / Non-visit Dr. Janay PLEITEZ -[facility] Start: 11-24-2024 End: 11-24-2024 Admission to same day surgery center Dr. Harrison Courtney MD [facility] Start: 11-24-2024 End: 11-24-[address] Nikunj Adams DO Work Phone: [facility] Start: 11-24-2024 ambulatory NIKUNJ [facility] Start: 11-04-2024 End: 11-04-2024 Refill Nikunj Adams DO Work Phone: [facility] [place] Comment on above: Type 2 diabetes jordi itus without complication, without long- term current use of insulin (HCC) Start: 10-25-2024 End: 10-25-[address] Harrison Courtney MD -[facility] Work Phone: Start: 10-25-2024 End: 10-25-[address] Nikunj Adams DO Work Phone: -[facility] Start: 10-17-2024 ambulatory Nikunj Adams Fac ility:[facility] Start: 10-17-2024 Non-patient / Non-visit Moreno Shaffer nd, DO -[facility] Start: 10-17-2024 End: 10-17-2024 Admission to same day surgery center Moreno Mosqueda DO -Endoscopy Work Phone: Start: 10-17-2024 End: 10-17-[address] Nikunj Adams DO Work Phone: -Endoscopy Comment on above: Essential hypertensi on Start: 09-21-2024 End: 09-21-2024 Office outpatient visit 25 minutes Nikunj Adams DO Work Phone: [facility] [place] Comment on above: Type 2 diabetes jordi itus without complication, without long- term current use of insulin (HCC) (Primary Dx); Essential hypertension; Mixed hyperlipidemia; Anemia, unspecified type Start: 09-21-2024 End: 09-21-2024 ambulatory [facility] Start: 09-21-2024 ambulatory NIKUNJ [facility] Start: 09-15-2024 End: 11-15-2024 Follow-up encounter Nikunj Adams DO Work Phone: [facility] [place] Comment on above: Ferritin, B12/Folate , Iron and TIBC Start: 09-15-2024 End: 09-15-[address] Nikunj Adams DO Work Phone: [facility] Work Phone: Start: 09-15-2024 End: 09-15-[address] Nikunj Adams DO -Laboratory Work Phone: Start: 09-15-2024 Encounter for genera l adult medical examination without abnormal findings Nikunj Adams [facility] Start: 09-15-2024 End: 09-15-2024 ambulatory Nikunj Adams Facility:[facility] Start: 09-11-2024 End: 11-11-2024 Orders Only Nikunj Adams DO Work Phone: [facility] [place] Comment on above: Anemia, unspecified type (Primary Dx) CBC Start: 09-09-2024 End: 09-09-[address] Nikunj Adams DO Work Phone: [facility] Work Phone: Start: 09-09-2024 End: 09-09-[address] Nikunj Adams DO -Laboratory Work Phone: Start: 09-09-2024 End: 09-09-2024 ambulatory Nikunj Adams Facility:[facility] Start: 09-09-2024 Encounter for genera l adult medical examination without abnormal findings NIKUNJ ADAMS [facility] Start: 05-30-2024 End: 05-30-2024 Orders Only Nikunj Adams DO Work Phone: [facility] [place] Comment on above: Upper respiratory tr act infection, unspecified type (Primary Dx) Start: 03-24-2024 End: 03-24-2024 Orders Only Historical Provider [facility] [place] Start: 03-22-2024 End: 03-22-2024 Patient encounter status Nikunj Adams DO Work Phone: [facility] Work Phone: Start: 03-22-2024 End: 03-22-2024 Periodic preventive med est patient 40-64yrs Nikunj Adams DO Work Phone: [facility] [place] Comment on above: Preventative health care (Primary Dx); Type 2 diabetes mellitus without complication, without long-term current use of insulin (HCC); Essential hypertension; Mixed hyperlipidemia; Need for Streptococcus pneumoniae vaccination Start: 03-22-2024 End: 03-22-2024 ambulatory NIKUNJ ADAMS [facility] Start: 03-16-2024 End: 03-16-2024 ambulatory MIKKI TROTTER Facility:[facility] Start: 03-06-2024 End: 03-06-2024 Refill Nikunj Adams DO Work Phone: [facility] [place] Comment on above: Essential hypertensi on Start: 12-16-2023 End: 12-16-2023 Refill Nikunj Adams DO Work Phone: [facility] [place] Comment on above: Mixed hyperlipidemia Start: 11-04-2023 End: 11-04-2023 Refill Nikunj Adams DO Work Phone: [facility] [place] Comment on above: Type 2 diabetes jordi itus without complication, without long- term current use of insulin (HCC); Mixed hyperlipidemia Start: 09-29-2023 End: 09-29-2023 Orders Only Nikunj Adams DO Work Phone: [facility] [place] Comment on above: Gout, unspecified ca use, unspecified chronicity, unspecified site (Primary Dx) Start: 09-24-2023 End: 09-24-2023 Office outpatient visit 25 minutes Nikunj Adams DO Work Phone: [facility] [place] Comment on above: Type 2 diabetes jordi itus without complication, without long- term current use of insulin (HCC) (Primary Dx); Essential hypertension; Mixed hyperlipidemia Start: 09-16-2023 Orders Only Nikunj Adams DO Work Phone: [facility] [place] Comment on above: Type 2 diabetes jordi itus without complication, without long- term current use of insulin (HCC) (Primary Dx); Mixed hyperlipidemia Start: 08-20-2023 End: 08-20-2023 Office outpatient visit 25 minutes Shirlene Poe Fabio SANDOVAL Work Phone: [facility] [place] Comment on above: Septic olecranon bur sitis of right elbow (Primary Dx); Cellulitis of foot, left Start: 08-18-2023 Refill Nel adhikari MA [facility] [place] Start: 08-03-2023 Orders Only Nikunj Adams DO Work Phone: [facility] [place] Comment on above: Acute ankle pain, un specified laterality Start: 06-22-2023 Orders Only Nikunj Adams DO Work Phone: [facility] [place] Comment on above: Acute ankle pain, un specified laterality Start: 03-25-2023 End: 03-25-[facility]: 03-25-[facility]23 End: 03-25-2023 Encounter for general adult medical examination without abnormal findings [facility] Start: 03-25-2023 End: 03-25-2023 ambulatory NIKUNJ RAMIREZTON Facility:[facility] Start: 03-25-2023 Encounter for genera l adult medical examination without abnormal findings [facility] Start: 03-25-2023 Orders Only Nikunj Adams DO Work Phone: [facility] [place] Start: 03-25-2023 End: 03-25-2023 Patient encounter status Nikunj Adams DO Work Phone: [facility] Work Phone: Start: 03-25-2023 End: 03-25-2023 Periodic preventive med est patient 40-64yrs Nikunj Adams Work Phone: [facility] [place] Comment on above: Preventative health care (Primary Dx); Type 2 diabetes mellitus without complication, without long-term current use of insulin (HCC); Essential hypertension; Mixed hyperlipidemia; Prostate cancer screening Start: 01-29-2023 Refill Nikunj Adams DO Work Phone: [facility] [place] Start: 09-19-2022 ambulatory NIKUNJ ADAMS [facility] Start: 09-19-2022 End: 09-19-2022 Office outpatient new 30 minutes Nikunj MADRID Work Phone: [facility] Comment on above: Ear pain, bilateral (Primary Dx) Start: 07-24-2022 Refill Nikunj Adams DO Work Phone: [facility] [place] Comment on above: Acute ankle pain, un specified laterality (Primary Dx); Cellulitis of foot Start: 03-19-2022 Orders Only Nikunj Adams DO Work Phone: [facility] [place] Comment on above: Essential hypertensi on (Primary Dx); Leukocytosis, unspecified type Start: 03-18-2022 Orders Only Nikunj Adams DO Work Phone: [facility] [place] Start: 03-18-2022 End: 03-18-2022 Patient encounter status Nikunj Adams DO Work Phone: [facility] [place] Start: 03-18-2022 End: 03-18-2022 Periodic preventive med est patient 40-64yrs Nikunj Adams Work Phone: [facility] [place] Comment on above: Preventative health care (Primary Dx); Type 2 diabetes mellitus without complication, without long-term current use of insulin (HCC); Essential hypertension; Hyperlipidemia, unspecified hyperlipidemia type; Cellulitis of foot Start: 09-16-2021 Orders Only Nikunj Adams DO Work Phone: [facility] [place] Comment on above: Elevated liver enzym es (Primary Dx) Start: 09-13-2021 Orders Only Nikunj Arbendavid lehman Angie DO Work Phone: [facility] [place] Start: 09-13-2021 End: 09-13-2021 Office outpatient visit 25 minutes Nikunj Adams DO Work Phone: [facility] [place] Comment on above: Type 2 diabetes jordi itus without complication, without long- term current use of insulin (HCC) (Primary Dx); Essential hypertension; Hyperlipidemia, unspecified hyperlipidemia type Start: 07-24-2021 Refill Nikunj Adams DO Work Phone: [facility] [place] Start: 02-25-2021 Orders Only Nikunj Ramirezton DO Work Phone: [facility] Primary [facility] [place] [facility] [place] Comment on above: Essential hypertensi on (Primary Dx) Start: 02-17-2021 Orders Only Nikunj Adams DO Work Phone: [facility] [place] [facility] [place] Comment on above: Hyperproteinemia (Pr imary Dx) Start: 02-14-2021 End: 02-14-2021 Patient encounter status Nikunj Adams DO Work Phone: [facility] [place] Start: 02-14-2021 End: 02-14-2021 Periodic preventive med est patient 40-64yrs Nikunj Adams DO Work Phone: [facility] [place] [facility] [place] Comment on above: Preventative health care (Primary Dx); Type 2 diabetes mellitus without complication, without long-term current use of insulin (HCC); Essential hypertension; Hyperlipidemia, unspecified hyperlipidemia type; Prostate cancer screening; Need for Streptococcus pneumoniae vaccination; Strain of left ankle, initial encounter Start: 02-14-2021 Orders Only Nikunj Adams DO Work Phone: [facility] [place] Start: 08-06-2020 End: 08-06-2020 Orders Only Nikunj Adams DO Work Phone: [facility] [place] Start: 08-06-2020 End: 08-06-2020 Office outpatient visit 25 minutes Nikunj Adams DO Work Phone: [facility] [place] Comment on above: Type 2 diabetes jordi itus without complication, without long- term current use of insulin (HCC) (Primary Dx); Essential hypertension; Hyperlipidemia, unspecified hyperlipidemia type Start: 07-16-2020 End: 07-16-2020 Refill Nikunj Adams Work Phone: [facility] [place] Start: 06-29-2020 Patient encounter procedure JAVIER ADHIKARI Facility:[facility] Start: 06-13-2020 End: 06-13-2020 Orders Only Giuliana Tanya Burris Work Phone: [facility] Start: 01-17-2020 End: 01-17-2020 Office outpatient visit 25 minutes Nikunj Adams Work Phone: [facility] [place] Comment on above: Type 2 diabetes jordi itus without complication, without long- term current use of insulin (HCC) (Primary Dx); Essential hypertension; Hyperlipidemia, unspecified hyperlipidemia type Start: 10-18-2019 End: 10-18-2019 Initial preventive medicine new patient 40-64yrs Nikunj Adams Work Phone: [facility] [place] [facility] [place] Comment on above: Preventative health care (Primary [...] By: #### P SAS1 #### [facility] (DEFAULT) [address]. [place], [place] [address] Start: 03-25-2023 Blood count complete automated Nikunj [...] Screening for malign ant neoplasm of colon [facility] Start: 06-12-2031 Pneumococcal Vaccine : Ped or At-Risk (2 of 2 - PPSV23) Pneumococcal Vaccine: Ped or At-Risk (2 of 2 - PPSV23) [facility] Start: 03-06-2027 Screening for malign ant neoplasm of colon [facility] Start: 03-17-2026 Prostate specific antigen measurement PSA Level [facility] Start: 09-21-2025 Diabetic foot examination Diabetic Foot Exam [facility] Start: 09-21-2025 Tetanus vaccination Tetanus: Every 1 0yrs [facility] Comment on above: Postponed from 06/11 (Patient Refused) Start: 09-09-2025 eGFR Diabetes eGFR Diabetes [facility] Start: 03-25-2025 Prostate specific antigen measurement PSA Level [facility] Start: 03-23-2025 End: 03-23-2025 Patient encounter procedure 03/23/2025 7:20 AM EST Office Visit [facility] [place] [address] [place] [address] Nikunj Adams [address] [place] [address] [facility] [place] Start: 03-22-2025 History and physical examination, annual for health maintenance Wellness Visit [facility] Start: 03-11-2025 Hemoglobin A1c measurement A1C [facility] Start: 12-05-2024 Influenza vaccination Influenza Vacc ine (#1) [facility] Start: 11-24-2024 Anesthesia anorectal procedure ANESTH ANORECTAL SURGERY [facility] Start: 11-24-2024 Int hrhc transanal h roid darmarnie 2+ w/us gdn INT HRHC TRANAL DARTLZJ 2+ [facility] Start: 11-24-2024 Patient discharge [facility] Start: 10-21-2024 End: 12-22-2024 CBC panel - Blood by Automated count CBC Lab Routine Anemia, unspecified type Expected: 10/21/2024, Expires: 12/22/2024 [facility] Work Phone: Comment on above: Expected: 10/21/2024 , Expires: 12/22/2024 Start: 10-21-2024 End: 12-22-2024 Iron and Iron binding capacity panel - Serum or Plasma Iron and TIBC Lab Routine Anemia, unspecified type Expected: 10/21/2024, Expires: 12/22/2024 [facility] Comment on above: Expected: 10/21/2024 , Expires: 12/22/2024 Start: 10-17-2024 Colsc flx w/rmvl of tumor polyp lesion snare tq COLONOSCOPY W/LESION REMOVAL [facility] Start: 10-17-2024 [facility] [place] [facility] Start: 09-21-2024 End: 09-21-2024 Patient encounter procedure 09/21/2024 7:40 AM EDT Office Visit [facility] [place] [address] [place] [address] Nikujn Adams, [address] [address] [facility] [place] Start: 09-11-2024 End: 10-11-2024 B12/Folate B12/Folate Lab Routine Anemia, unspecified type Expected: 09/11/2024, Expires: 10/11/2024 [facility] Comment on above: Expected: 09/11/2024 , Expires: 10/11/2024 Start: 09-11-2024 End: 10-11-2024 Ferritin [Mass/volume] in Serum or Plasma Ferritin Lab Routine Anemia, unspecified type Expected: 09/11/2024, Expires: 10/11/2024 [facility] Comment on above: Expected: 09/11/2024 , Expires: 10/11/2024 Start: 09-11-2024 End: 10-11-2024 Iron and Iron binding capacity panel - Serum or Plasma Iron and TIBC Lab Routine Anemia, unspecified type Expected: 09/11/2024, Expires: 10/11/2024 [facility] Work Phone: Comment on above: Expected: 09/11/2024 , Expires: 10/11/2024 Start: 03-25-2024 Diabetic foot examination Diabetic Foot Exam [facility] Start: 03-25-2024 eGFR Diabetes eGFR Diabetes [facility] Start: 03-25-2024 History and physical examination, annual for health maintenance Wellness Visit [facility] Start: 03-25-2024 Tetanus vaccination Tetanus: Every 1 0yrs [facility] Comment on above: Postponed from 06/11 (Patient Refused) Start: 03-25-2024 Urine screening for protein [facility] Start: 03-24-2024 Hemoglobin A1c measurement A1C [facility] Start: 03-22-2024 End: 03-22-2024 Patient encounter procedure 03/22/2024 8:40 AM EST Office Visit [facility] [address] [place] [address] Nikunj Adams DO [address] [place] [address] [facility] Start: 12-06-2023 Influenza vaccination Influenza Vacc ine (#1) [facility] Start: 09-24-2023 Hemoglobin A1c measurement A1C [facility] Start: 09-24-2023 End: 09-24-2023 Patient encounter procedure 09/24/2023 9:40 AM EDT Office Visit [facility] [address] [place] [address] Nikunj Adams DO [address] [address] [facility] Start: 09-16-2023 End: 10-16-2023 Comprehensive metabolic 2000 panel - Serum or Plasma Comprehensive Metabolic Panel Lab Routine Mixed hyperlipidemia Expected: 09/16/2023, Expires: 10/16/2023 [facility] Work Phone: Comment on above: Expected: 09/16/2023 , Expires: 10/16/2023 Start: 09-16-2023 End: 10-16-2023 Hemoglobin A1c/Hemoglobin.total in Blood Hemoglobin A1c Lab Routine Type 2 diabetes mellitus without complication, without long-term current use of insulin (HCC) Expected: 09/16/2023, Expires: 10/16/2023 [facility] Comment on above: Expected: 09/16/2023 , Expires: 10/16/2023 Start: 09-16-2023 End: 10-16-2023 Lipid 1996 panel - Serum or Plasma Lipid Panel Lab Routine Mixed hyperlipidemia Expected: 09/16/2023, Expires: 10/16/2023 [facility] Comment on above: Expected: 09/16/2023 , Expires: 10/16/2023 Start: 03-25-2023 End: 04-25-2023 CBC panel - Blood by Automated count CBC Lab Routine Preventative health care Expected: 03/25/2023, Expires: 04/25/2023 [facility] Work Phone: Comment on above: Expected: 03/25/2023 , Expires: 04/25/2023 Start: 03-25-2023 End: 04-25-2023 Comprehensive metabolic 2000 panel - Serum or Plasma Comprehensive Metabolic Panel Lab Routine Preventative health care Expected: 03/25/2023, Expires: 04/25/2023 [facility] Comment on above: Expected: 03/25/2023 , Expires: 04/25/2023 Start: 03-25-2023 End: 04-25-2023 External Lab Microalbumin/Creatinine External Lab Microalbumin/Creatinine Lab Routine Type 2 diabetes mellitus without complication, without long-term current use of insulin (HCC) Expected: 03/25/2023, Expires: 04/25/2023 [facility] Comment on above: Expected: 03/25/2023 , Expires: 04/25/2023 Start: 03-25-2023 End: 04-25-2023 Hemoglobin A1c/Hemoglobin.total in Blood Hemoglobin A1c Lab Routine Type 2 diabetes mellitus without complication, without long-term current use of insulin (HCC) Expected: 03/25/2023, Expires: 04/25/2023 [facility] Comment on above: Expected: 03/25/2023 , Expires: 04/25/2023 Start: 03-25-2023 End: 04-25-2023 Lipid 1996 panel - Serum or Plasma Lipid Panel Lab Routine Preventative health care Expected: 03/25/2023, Expires: 04/25/2023 [facility] Comment on above: Expected: 03/25/2023 , Expires: 04/25/2023 Start: 03-25-2023 End: 03-25-2023 Patient encounter procedure 03/25/2023 2:00 PM EST Office Visit [facility] [place] [phone] Nikunj Adams DO [address] [place] [address] [facility] [place] Start: 03-25-2023 End: 04-25-2023 Prostate specific Ag [Mass/volume] in Serum or Plasma PSA, Screen Lab Routine Prostate cancer screening Expected: 03/25/2023, Expires: 04/25/2023 [facility] Comment on above: Expected: 03/25/2023 , Expires: 04/25/2023 Start: 03-25-2023 End: 04-22-2023 Urinalysis Urinalysis Lab Routine Preventative health care Expected: 03/25/2023, Expires: 04/22/2023 [facility] Comment on above: Expected: 03/25/2023 , Expires: 04/22/2023 Start: 03-18-2023 Diabetic foot examination Foot Exam [facility] Start: 03-18-2023 History and physical examination, annual for health maintenance Wellness Visit [facility] Start: 03-18-2023 Tetanus vaccination Tetanus: Every 1 0yrs [facility] Comment on above: Postponed from 06/11 (Patient Refused) Start: 02-14-2023 Prostate specific antigen measurement PSA Level [facility] Start: 12-05-2022 COVID-19 Vaccine ( season) COVID-19 Vaccine ( season) [facility] Start: 12-05-2022 Influenza vaccination Sequenti al Influenza Vaccine (#1) [facility] Start: 09-18-2022 End: 09-18-2022 Patient encounter procedure [facility] [place] Start: 09-16-2022 Hemoglobin A1c measurement A1C [facility] Start: 09-16-2022 Urine screening for protein Urine Microalbumin [facility] Start: 04-19-2022 End: 05-20-2022 Basic metabolic 2000 panel - Serum or Plasma Basic Metabolic Panel Lab Routine Essential hypertension Expected: 04/19/2022, Expires: 05/20/2022 [facility] Comment on above: Expected: 04/19/2022 , Expires: 05/20/2022 Start: 04-19-2022 End: 05-20-2022 Complete blood count with white cell differential, manual CBC and Differential Lab Routine Leukocytosis, unspecified type Expected: 04/19/2022, Expires: 05/20/2022 [facility] Work Phone: Comment on above: Expected: 04/19/2022 , Expires: 05/20/2022 Start: 03-18-2022 End: 04-18-2022 CBC panel - Blood by Automated count CBC Lab Routine Preventative health care Expected: 03/18/2022, Expires: 04/18/2022 [facility] Work Phone: Comment on above: Expected: 03/18/2022 , Expires: 04/18/2022 Start: 03-18-2022 End: 04-18-2022 Comprehensive metabolic 2000 panel - Serum or Plasma Comprehensive Metabolic Panel Lab Routine Preventative health care Expected: 03/18/2022, Expires: 04/18/2022 [facility] Comment on above: Expected: 03/18/2022 , Expires: 04/18/2022 Start: 03-18-2022 End: 04-18-2022 External Lab Microalbumin/Creatinine External Lab Microalbumin/Creatinine Lab Routine Type 2 diabetes mellitus without complication, without long-term current use of insulin (HCC) Expected: 03/18/2022, Expires: 04/18/2022 [facility] Comment on above: Expected: 03/18/2022 , Expires: 04/18/2022 Start: 03-18-2022 End: 04-18-2022 Hemoglobin A1c/Hemoglobin.total in Blood Hemoglobin A1c Lab Routine Type 2 diabetes mellitus without complication, without long-term current use of insulin (HCC) Expected: 03/18/2022, Expires: 04/18/2022 [facility] Comment on above: Expected: 03/18/2022 , Expires: 04/18/2022 Start: 03-18-2022 End: 04-18-2022 Lipid 1996 panel - Serum or Plasma Lipid Panel Lab Routine Preventative health care Expected: 03/18/2022, Expires: 04/18/2022 [facility] Comment on above: Expected: 03/18/2022 , Expires: 04/18/2022 Start: 03-18-2022 End: 04-18-2022 Urinalysis Urinalysis Lab Routine Preventative health care Expected: 03/18/2022, Expires: 04/18/2022 [facility] Comment on above: Expected: 03/18/2022 , Expires: 04/18/2022 Start: 03-15-2022 Hemoglobin A1c measurement A1C [facility] Start: 03-15-2022 Microalbumin measurement, urine, quantitative Urine Microalbumin [facility] Start: 03-15-2022 Urine screening for protein Urine Microalbumin [facility] Start: 03-14-2022 End: 03-14-2022 Patient encounter procedure 03/14/2022 Office Visit Primary Care Nikunj Adams, DO [address] [place] [address] [facility] [place] Start: 02-14-2022 Diabetic foot examination Foot Exam [facility] Start: 02-14-2022 History and physical examination, annual for health maintenance Wellness Visit [facility] Start: 02-14-2022 Microalbumin measurement, urine, quantitative Urine Microalbumin [facility] Start: 02-14-2022 Pneumococcal Vaccine : Ped or At-Risk (2 - PCV) Pneumococcal Vaccine: Ped or At-Risk (2 - PCV) [facility] Start: 02-14-2022 Pneumococcal Vaccine : Ped or At-Risk (2 of 2 - PCV) Pneumococcal Vaccine: Ped or At-Risk (2 of 2 - PCV) [facility] Start: 11-16-2021 Glaucoma screening [facility] Start: 11-16-2021 Ophthalmic examinati on and evaluation Ophthalmology Exam [facility] Start: 10-17-2021 Prostate specific antigen measurement PSA Level [facility] Start: 09-16-2021 End: 11-16-2021 US scan of upper abdomen US Abdomen Limited Study Imaging Routine Elevated liver enzymes Expected: 09/16/2021, Expires: 11/16/2021 [facility] Work Phone: Comment on above: Expected: 09/16/2021 , Expires: 11/16/2021 Start: 09-13-2021 End: 10-13-2021 Comprehensive metabolic 2000 panel - Serum or Plasma Comprehensive Metabolic Panel Lab Routine Type 2 diabetes mellitus without complication, without long-term current use of insulin (HCC) Expected: 09/13/2021, Expires: 10/13/2021 [facility] Work Phone: Comment on above: Expected: 09/13/2021 , Expires: 10/13/2021 Start: 09-13-2021 End: 10-13-2021 External Lab Microalbumin/Creatinine External Lab Microalbumin/Creatinine Lab Routine Type 2 diabetes mellitus without complication, without long-term current use of insulin (HCC) Expected: 09/13/2021, Expires: 10/13/2021 [facility] Comment on above: Expected: 09/13/2021 , Expires: 10/13/2021 Start: 09-13-2021 End: 10-13-2021 Hemoglobin A1c/Hemoglobin.total in Blood Hemoglobin A1c Lab Routine Type 2 diabetes mellitus without complication, without long-term current use of insulin (HCC) Expected: 09/13/2021, Expires: 10/13/2021 [facility] Comment on above: Expected: 09/13/2021 , Expires: 10/13/2021 Start: 09-13-2021 End: 09-13-2021 Patient encounter procedure 09/13/2021 Office Visit Primary Care Nikunj Adams DO [address] [place] [address] [facility] [place] Start: 08-14-2021 Hemoglobin A1c measurement A1C [facility] Start: 08-14-2021 Microalbumin measurement, urine, quantitative Urine Microalbumin [facility] Start: 08-14-2021 End: 08-14-2021 Patient encounter procedure 08/14/2021 Office Visit Primary Care Nikunj Adams DO [address] [place] [address] [facility] [place] Start: 08-06-2021 Tetanus vaccination Tetanus: Every 1 0yrs [facility] Comment on above: Postponed from 06/11 (Patient Refused) Start: 08-04-2021 COVID-19 Vaccine (3 - Booster for Moderna series) COVID-19 Vaccine (3 - Booster for Moderna series) [facility] Start: 03-27-2021 End: 04-27-2021 Comprehensive metabolic 2000 panel - Serum or Plasma Comprehensive Metabolic Panel Lab Routine Essential hypertension Expected: 03/27/2021, Expires: 04/27/2021 [facility] Work Phone: Comment on above: Expected: 03/27/2021 , Expires: 04/27/2021 Start: 02-17-2021 End: 03-19-2021 Serum immunofixation Immunofixation, Serum Lab Routine Hyperproteinemia Expected: 02/17/2021, Expires: 03/19/2021 [facility] Comment on above: Expected: 02/17/2021 , Expires: 03/19/2021 Start: 02-17-2021 End: 03-19-2021 Serum protein electrophoresis Protein Electrophoresis, Serum Lab Routine Hyperproteinemia Expected: 02/17/2021, Expires: 03/19/2021 [facility] Work Phone: Comment on above: Expected: 02/17/2021 , Expires: 03/19/2021 Start: 02-17-2021 End: 03-19-2021 Urine protein electrophoresis Protein Electrophoresis, Urine, Random Lab Routine Hyperproteinemia Expected: 02/17/2021, Expires: 03/19/2021 [facility] Comment on above: Expected: 02/17/2021 , Expires: 03/19/2021 Start: 02-14-2021 End: 03-16-2021 CBC panel - Blood by Automated count CBC Lab Routine Preventative health care Expected: 02/14/2021, Expires: 03/16/2021 [facility] Work Phone: Comment on above: Expected: 02/14/2021 , Expires: 03/16/2021 Start: 02-14-2021 End: 03-16-2021 Comprehensive metabolic 2000 panel - Serum or Plasma Comprehensive Metabolic Panel Lab Routine Preventative health care Expected: 02/14/2021, Expires: 03/16/2021 [facility] Comment on above: Expected: 02/14/2021 , Expires: 03/16/2021 Start: 02-14-2021 End: 03-16-2021 External Lab Microalbumin/Creatinine External Lab Microalbumin/Creatinine Lab Routine Type 2 diabetes mellitus without complication, without long-term current use of insulin (HCC) Expected: 02/14/2021, Expires: 03/16/2021 [facility] Comment on above: Expected: 02/14/2021 , Expires: 03/16/2021 Start: 02-14-2021 End: 03-16-2021 Hemoglobin A1c/Hemoglobin.total in Blood Hemoglobin A1c Lab Routine Type 2 diabetes mellitus without complication, without long-term current use of insulin (HCC) Expected: 02/14/2021, Expires: 03/16/2021 [facility] Comment on above: Expected: 02/14/2021 , Expires: 03/16/2021 Start: 02-14-2021 End: 03-16-2021 Lipid 1996 panel - Serum or Plasma Lipid Panel Lab Routine Preventative health care Expected: 02/14/2021, Expires: 03/16/2021 [facility] Comment on above: Expected: 02/14/2021 , Expires: 03/16/2021 Start: 02-14-2021 End: 03-16-2021 Prostate specific Ag [Mass/volume] in Serum or Plasma PSA, Screen Lab Routine Prostate cancer screening Expected: 02/14/2021, Expires: 03/16/2021 [facility] Comment on above: Expected: 02/14/2021 , Expires: 03/16/2021 Start: 02-14-2021 End: 03-16-2021 Urinalysis Urinalysis Lab Routine Preventative health care Expected: 02/14/2021, Expires: 03/16/2021 [facility] Comment on above: Expected: 02/14/2021 , Expires: 03/16/2021 Start: 02-06-2021 Hemoglobin A1c measurement A1C [facility] Start: 02-04-2021 End: 02-04-2021 Patient encounter procedure 02/04/2021 Office Visit Primary Care Nikunj Adams, DO [address] [place] [address] [phone] [facility] [place] Start: 01-16-2021 Diabetic foot examination Foot Exam [facility] Start: 10-17-2020 Albumin DL <= 20 mg/ L (U) [Mass/Vol] Urine Microalbumin [facility] Start: 10-17-2020 History and physical examination, annual for health maintenance Wellness Visit [facility] Start: 10-17-2020 Microalbumin measurement, urine, quantitative Urine Microalbumin [facility] Start: 08-06-2020 End: 09-06-2020 Basic metabolic 2000 panel - Serum or Plasma Basic Metabolic Panel Lab Routine Type 2 diabetes mellitus without complication, without long-term current use of insulin ([facility]) Expected: 08/06/2020, Expires: 09/06/2020 [facility] Comment on above: Expected: 08/06/2020 , Expires: 09/06/2020 Start: 08-06-2020 End: 09-06-2020 Hemoglobin A1c/Hemoglobin.total in Blood Hemoglobin A1c Lab Routine Type 2 diabetes mellitus without complication, without long-term current use of insulin ([facility]) Expected: 08/06/2020, Expires: 09/06/2020 [facility] Comment on above: Expected: 08/06/2020 , Expires: 09/06/2020 Start: 08-06-2020 End: 08-06-2020 Office Visit 08/06/2020 Office Visit Primary Care Nikunj Adams DO [address] [place] [address] [phone] [facility] [place] Start: 08-03-2020 COVID-19 Vaccine (2 - Moderna 3-dose booster series) COVID-19 Vaccine (2 - Moderna 3-dose booster series) [facility] Start: 08-03-2020 COVID-19 Vaccine (2 - Moderna 3-dose series) COVID-19 Vaccine (2 - Moderna 3-dose series) [facility] Start: 07-17-2020 HbA1c (Bld) [Mass fraction] A1C [facility] Start: 07-17-2020 Hemoglobin A1c measurement A1C [facility] Start: 07-17-2020 End: 07-17-2020 Office Visit 07/17/2020 Office Visit Primary Care Nikunj Adams DO [address] [place] [address] [phone] [facility] Primary Care [facility] Start: 04-19-2020 HbA1c (Bld) [Mass fraction] A1C [facility] Start: 04-18-2020 Administration of he rpes zoster vaccine Zoster Vaccines (2 of 2) [facility] Start: 01-17-2020 End: 02-17-2020 Basic metabolic 2000 panel Basic Metabolic Panel Lab Routine Type 2 diabetes mellitus without complication, without long-term current use of insulin (HCC) Expected: 01/17/2020, Expires: 02/17/2020 [facility] Comment on above: Expected: 01/17/2020 , Expires: 02/17/2020 Start: 01-17-2020 End: 02-17-2020 HbA1c (Bld) [Mass fraction] Hemoglobin A1c Lab Routine Type 2 diabetes mellitus without complication, without long-term current use of insulin (HCC) Expected: 01/17/2020, Expires: 02/17/2020 [facility] Comment on above: Expected: 01/17/2020 , Expires: 02/17/2020 Start: 01-17-2020 End: 01-17-2020 Office Visit 01/17/2020 Office Visit Primary Care Nikunj Adams, DO [address] [place] [address] [phone] [facility] [place] Start: 12-06-2019 Influenza vaccinatio n given Sequential Influenza Vaccine (#1) [facility] Start: 11-01-2019 End: 11-18-2019 Basic metabolic 2000 panel Basic Metabolic Panel Lab Routine Essential hypertension Expected: 11/01/2019, Expires: 11/18/2019 [facility] Comment on above: Expected: 11/01/2019 , Expires: 11/18/2019 Start: 10-18-2019 End: 11-18-2019 Complete blood count (hemogram) panel - Blood by Automated count CBC Lab Routine Preventative health care Expected: 10/18/2019, Expires: 11/18/2019 [facility] Comment on above: Expected: 10/18/2019 , Expires: 11/18/2019 Start: 10-18-2019 End: 11-18-2019 Comprehensive metabolic 2000 panel Comprehensive Metabolic Panel Lab Routine Preventative health care Expected: 10/18/2019, Expires: 11/18/2019 [facility] Comment on above: Expected: 10/18/2019 , Expires: 11/18/2019 Start: 10-18-2019 End: 11-18-2019 External Lab Microalbumin/Creatinine External Lab Microalbumin/Creatinine Lab Routine Type 2 diabetes mellitus without complication, without long-term current use of insulin (HCC) Expected: 10/18/2019, Expires: 11/18/2019 [facility] Comment on above: Expected: 10/18/2019 , Expires: 11/18/2019 Start: 10-18-2019 End: 11-18-2019 HbA1c (Bld) [Mass fraction] Hemoglobin A1c Lab Routine Type 2 diabetes mellitus without complication, without long-term current use of insulin (HCC) Expected: 10/18/2019, Expires: 11/18/2019 [facility] Comment on above: Expected: 10/18/2019 , Expires: 11/18/2019 Start: 10-18-2019 End: 11-18-2019 Hepatitis C antibody measurement Hepatitis C Antibody Lab Routine Need for hepatitis C screening test Expected: 10/18/2019, Expires: 11/18/2019 [facility] Comment on above: Expected: 10/18/2019 , Expires: 11/18/2019 Start: 10-18-2019 End: 11-18-2019 Lipid 1996 panel Lipid Panel Lab Routine Preventative health care Expected: 10/18/2019, Expires: 11/18/2019 [facility] Comment on above: Expected: 10/18/2019 , Expires: 11/18/2019 Start: 10-18-2019 End: 11-18-2019 Prostate specific Ag [Mass/Vol] PSA, Screen Lab Routine Prostate cancer screening Expected: 10/18/2019, Expires: 11/18/2019 [facility] Comment on above: Expected: 10/18/2019 , Expires: 11/18/2019 Start: 2016 Administration of [facility] zoster vaccine Zoster Vaccines (1 of 2) [facility] Start: 2016 Prostate specific antigen measurement PROSTATE CANCER SCREENING DISCUSSION [facility] Start: 2016 Screening for malign ant neoplasm of colon [facility] Start: 06-12-2011 Screening for malign ant neoplasm of colon COLORECTAL CANCER SCREENING DISCUSSION [facility] Start: 2006 Lipid panel LIPID SCREENING [facility] Start: 1985 Third diphtheria, tetanus and acellular pertussis (DTaP) vaccination TDAP (ADULT) [facility] Start: 1982 COVID-19 Vaccine (1 of 2) COVID-19 Vaccine (1 of 2) [facility] Start: 1982 COVID-19 Vaccine (1) COVID-19 Vaccin e (1) [facility] Start: 1981 HIV screening HIV SCREENING DISCUSSI ON [facility] Start: 1976 Ophthalmic examinati on and evaluation Ophthalmology Exam [facility] Start: 1966 Hepatitis C screening HEPATITI S C VIRUS SCREENING [facility] Start: 1966 Potassium [Moles/vol ume] in Serum or Plasma POTASSIUM [facility] Start: 1966 Screening for malign ant neoplasm of colon [facility] Start: 1966 Tetanus vaccination [facility] Immunizations Immunization Date Immunization Notes Care Provider Fa cility 03-22-2024 Pneumococcal Conjuga te 20-Valent (Prevnar 20) Nikunj Adams DO Work Phone: [facility] 01-22-2024 Seasonal, trivalent, recombinant, injectable influenza vaccine, preservative free Nikunj Adams DO Work Phone: [facility] 01-22-2024 influenza virus vacc ine, unspecified formulation Nikunj Adams DO Work Phone: [facility] 02-17-2023 influenza virus vacc ine, unspecified formulation Nikunj Adams DO Work Phone: [facility] 01-19-2022 Seasonal, quadrivale nt, recombinant, injectable influenza vaccine, preservative free Nikunj Adams DO Work Phone: [facility] 02-14-2021 pneumococcal polysac charide vaccine, 23 valent Nikunj Adams DO Work Phone: [facility] 02-14-2021 pneumococcal vaccine , unspecified formulation Nikunj Adams DO Work Phone: [facility] 01-19-2021 Seasonal, quadrivale nt, recombinant, injectable influenza vaccine, preservative free Nikunj Adams DO Work Phone: [facility] 07-06-2020 Moderna SARS-CoV-2 Vaccination Nikunj Adams DO Work Phone: [facility] 06-15-2020 zoster vaccine recombinant W illiam Angie DO Work Phone: [facility] 02-27-2020 zoster vaccine recombinant W illiam Angie DO Work Phone: [facility] 01-09-2020 Seasonal, quadrivale nt, recombinant, injectable influenza vaccine, preservative free Nikunj [facility] 01-26-2019 Seasonal, quadrivale nt, recombinant, injectable influenza vaccine, preservative free Nikunj [facility] 01-10-2014 influenza, seasonal, injectable Nikunj [facility] 12-22-2011 influenza virus vacc ine, whole virus [facility] 01-27-2011 influenza virus vacc ine, whole virus [facility] Payers Date Payer Category Payer Self-pay 2023 Managed Care (privat e) or private health insurance (indemnity), not otherwise specified [employer] [id number] 2023 Private Health Insurance EMMANUEL BENITEZ [id number] 2023-Present [phone] [address] [place] [id number] 2023 Unknown [id number] 2018 Unknown MMO MED MUTUAL S UPERMED PPO xxxxxxxxxxxx 2018-Present xxxxxxxxxxxx [id number] 2018 Unknown [id number] 1.2.840.684734.1.13.385.2 .7.3.275564.315 2018 Unknown [id number]. 1.13.385.2 .7.3.912695.315 2018 Unknown [id number] 1966 Unknown [id number] 2.16.840.1.172612.3.579.2 .419 1966 Unknown [id number] 2.16.840.1.602671.3.579.2 .983 1966 Unknown [id number] 2.16.840.1.391364.3.579.2 .903 1966 Unknown [id number] 2.16840.1.374156.3.579.2 .903 1966 Unknown [id number] 2.840.1.009703.3.579.2 .903 1966 Unknown [id number] 2.16840.1.055496.3.579.2 .903 1966 Unknown [id number] 2.16840.1.611166.3.579.2 .903 1966 Unknown [id number] 2.16840.1.912144.3.579.2 .903 1966 Unknown [id number] 2.840.1.918891.3.579.2 .903 1959 Unknown [id number] Unknown [id number] 2.16.840.1.334783.3.579.2 .383 Unknown [id number] 2.16.840.1.598245.3.579.2 .462 Unknown [id number] 2.16840.1.356165.3.579.2 .462 Unknown [id number] 2.16.840.1.563306.3.579.2 .462 Unknown [id number] 2.16.840.1.963104.3.579.2 .462 Unknown [id number] 2.16.840.1.922499.3.579.2 .462 Unknown [id number] 2.16.840.1.388172.3.579.2 .462 Unknown [id number] 2.16.840.1.112340.3.579.2 .462 Unknown [id number] 2.16.840.1.365925.3.579.2 .462 Unknown [id number] 2.16.840.1.603834.3.579.2 .462 Unknown [id number] 2.16.840.1.215670.3.579.2 .462 Unknown [id number] 2.16.840.1.732275.3.579.2 .462 Social History Date Type Detail Facility Start: 10-18-2019 End: 09-13-2021 Tobacco smoking status NHIS Never smoker [facility] Start: 10-18-2019 End: 09-21-2024 Alcohol intake Lifetime non-drinker (finding) [facility] Start: 10-18-2019 End: 09-13-2021 History SDOH Alcohol Frequency 1 [facility] Start: 1965 Sex Assigned At Not on file [facility] Start: 09-03-2021 End: 03-18-2022 Exposure to SARS-CoV-2 (event) Not sure [facility] Start: 01-17-2020 End: 09-13-2021 Tobacco use and exposure Never used [facility] Start: 01-17-2020 End: 09-13-2021 History SDOH Social Connections Phone 5 [facility] Start: 01-17-2020 End: 08-06-2020 History SDOH Social Connections Congregational 3 [facility] Start: 01-17-2020 End: 09-13-2021 History SDOH Social Connections Membership 2 [facility] Start: 01-17-2020 End: 08-06-2020 History SDOH Physical Activity MPS 15 [facility] Start: 09-13-2021 End: 09-21-2024 Cigarette pack-years [facility] Start: 08-06-2020 End: 09-21-2024 Humiliation, Afraid, Rape, [...] Gender identity Identifies as male gender (finding) [facility] Start: 10-18-2019 Sexual orientation Heterosexual (finding) [facility] Start: 09-19-2022 Alcohol intake Current non-drinker of alcohol (finding) [facility] Start: 1965 Sex Assigned At Male [facility] How hard is it for y ou to pay for the very basics like food, housing, medical care, and heating Not very hard [facility] Goals Date Patient Goal Desired Activity /State Mental Status Date Assessment Result Facility 11-24-2024 Cognitive function Voice/Name [facility] Work Phone: 10-17-2024 Cognitive function Level Of Cons ciousness Awake;Alert;Appropriate [facility] Work Phone: 10-17-2024 Cognitive function Voice/Name [facility] Work Phone: Clinical Notes 08-06-2020 to 11-24-2024 Note Date & Type Note Facility 11-24-2024 History and physi neida note Note Date/Time November 24, 2024 10:50am [facility] Medical Records Department [address] [place] [address] History & Physical Exam 11/24/24 1048 MR#: [id number] Acct: [id number] Name: MILY INGRAM Rep #:[id number] : 1965 59 From: Harrison Courtney MD PCP: Dr. Nikunj Adams, DO Statu s:REG [facility] Location: [place] [address] HPI - General General Date of Admission: 11/24/24 Date of Service: 11/24/24 Chief Complaint: Bleeding hemorrhoids HPI Narrative MILY INGRAM, is a 59 M who presents today for elective Doppler hemorrhoid artery ligation surgery as well as excision of a prolapsing internal hemorrhoid [facility] Medical History (Updated 11/10/24 @ 12:39 by Toiyn Vasquez) Dietary restriction Hemorrhoid Wears glasses Gout [...] Surgery beganmomentarily Charges/Coding Visit Charges Inpatient E&M: 39933 Init Hosp L3 11/24/24 1050 <Electronically signed by Harrison Courtney MD> Cosigner Signature (if applicable): CC: Dr. Harrison Courtney MD; Dr. Nikunj Adams DO~ Signed [facility] Work Phone: 1(430) 425-751408-21-2025 Procedure note [facility] Medical Records Department [address] [place] [address] Operative Report 11/24/24 1226 MR#: [id number] Acct: [id number] Name: MILY INGRAM Rep #:[id number] : 1965 59 From: Harrison Courtney MD PCP: Dr. Nikunj Adams DO Statu s:REG [facility] Location: [place] [address] Problems Associated Problem List Diagnoses (1) Hemorrhoid: Multi Select Codes Digestive Digestive CPT Codes: 49403 Remove in/ex hem groups 2+ and 90555 Excision, Anus w/US guidance Operative Report (Standard) Operative Information Date of Procedure: 11/24/24 Pre-Operative Diagnosis: Bleeding internal hemorrhoids Post-Operative Diagnosis: Same Surgery/Procedure Performed: 1. Hemorrhoid artery ligation 2. Excision of prolapsed internal hemorrhoid. education and development manager: Yes Commercial Title Examiner: Ary Roy Tasks completed by certified surgical first assistant: Retracting Additional advertising assistant manager?: No Type of Anesthesia: General and Local [...] positions. This was performed without incident. A [id number] suture was placed in each location and [...] Courtney MD; Dr. Nikunj Adams DO~ Signed [facility]08-21-2025 Discharge summary [facility] Medical Records Department [address] [place] [address] Instructions for Home/Discharge Instructions 11/24/24 1222 MR#: [id number] Acct: [id number] Name: MILY INGRAM Rep #:[id number] : 1965 59 From: Harrison Courtney MD PCP: Dr. Nikunj Adams DO Statu s:REG [facility] Discharge Instructions Diet Discharge Diet: Light diet [...] Care Provider: Nikunj Adams Instructions Print Language: Azerbaijani Discharge Orders/Prescriptions Prescriptions: New oxycodone 5 mg [...] CC: Dr. Nikunj Adams DO ~ Signed [facility]08-21-2025 Consult note [facility] Medical Records Department [address] [place] [address] Anesthesia Postop Eval I 11/24/24 1214 MR#: [id number] Acct: [id number] Name: MILY INGRAM Rep #:[id number] : 1965 59 From: Artemio Amaya CRNA PCP: Dr. Nikunj Adams DO Statu s:REG [facility] Y Race: C Location: [place] [address] Anesthesia: Postop Eval I Current Vital Signs [...] Eval 1 completed: Yes 11/24/24 1215 y SILO FILLER> Date _ Artemio Amaya CRNA Cosigner Signature: Date CC: ~ Signed [facility]08-21-2025 Consult note Author Wilmer Limon [facility] Note Date/Time November 24, 2024 9: 34am [facility] Medical Records Department [address] [place] [address] Pre-Anesthesia Evaluation 11/24/24 0931 MR#: [id number] Acct: [id number] Name: MILY INGRAM Rep #:[id number] : 1965 59 From: Wilmer Limon MD PCP: Dr. Nikunj Adams, DO Statu s:REG [facility] Y Race: C Location: [place] [address] ASA Classification* ASA Classification ASA Classification: 3 [...] internal hemorrhoids Anesthesia History Anesthesia History - statistical developer: Anesthesia History - statistical developer Hx Hospitalization No 11/10/24 12:39 Any Problems [...] take am of surgery PONV PONV - statistical developer: PONV - statistical developer Female No 11/10/24 12:39 HX of Motion [...] 11/24/24 09:16 Respiratory Assessment Respiratory Assessment - statistical developer: Respiratory Tract Infection Hx - statistical developer Hx Respiratory Tract Infection No 11/10/24 12:39 STOP Sleep Apnea STOP Sleep Apnea - statistical developer: STOP Sleep Apnea - statistical developer Hx Hypertension Yes: ON MEDS 11/10/24 12:39 [...] Tobacco Use History Tobacco Use History - statistical developer: Tobacco Use History - statistical developer Tobacco Use Smoking Status Never smoker 11/10/24 12:39 Hx Tobacco Use No 11/10/24 12:39 Years Smoking Packs Smoked per Day Smoking Cessation Date was within the last 15 years Hx Smoking Cessation Date Hx Smoking Cessation Counseling Hematologic Medial History Hematologic Hx - statistical developer: 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 Hx of Blood Transfusion No 11/10/24 12:39 [...] confused, unrespo /Reproduction History /Reproductive History - statistical developer: /Reproductive Hx- statistical developer Hx Now No 11/10/24 12:39 Gestational Age [...] Wilmer Kaur Signature: Date CC: ~ Signed [facility] Work Phone: 1(876) 135-422208-21-2025 History and physical note [facility] Medical Records Department [address] [place] [address] History & Physical Exam 11/24/24 1048 MR#: [id number] Acct: [id number] Name: MILY INGRAM Rep #:[id number] : 1965 59 From: Harrison Courtney MD PCP: Dr. Nikunj Adams DO Stat s:REG [facility] Location: [place] [address] HPI - General General Date of Admission: 11/24/24 Date of Service: 11/24/24 Chief Complaint: Bleeding hemorrhoids HPI Narrative MILY INGRAM, is a 59 M who presents today for elective Doppler hemorrhoid artery ligation surgery as well as excision of a prolapsing internal hemorrhoid [facility] Medical History (Updated 11/10/24 @ 12:39 [...] Surgery beganmomentarily Charges/Coding Visit Charges Inpatient E&M: 54696 Init Hosp L3 11/24/24 1050 Cosigner Signature (if applicable): CC: Dr. Harrison Courtney MD; Dr. Nikunj Adams DO~ Signed [facility]08-21-2025 [facility] Medical Records Department [address] [place] [address] History Physical Exam 11/24/24 1048 MR#: [id number] Acct: [id number] Name: MILY INGRAM Rep #: [id number] : 1965 59 From: Harrison Courtney MD PCP: Dr. Nikunj Adams DO Status:REG [facility] Location: [address] HPI - General General Date of Admission: 11/24/24 Date of Service: 11/24/24 Chief Complaint: Bleeding hemorrhoids HPI Narrative MILY INGRAM, is a 59 M who presents today for elective Doppler hemorrhoid artery ligation surgery as well as excision of a prolapsing internal hemorrhoid [facility] Medical History (Updated 11/10/24 @ 12:39 [...] momentarily Charges/Coding Visit Charges Inpatient E M: 19368 Init Hosp L3 11/24/24 1050 Cosigner Signature (if applicable): CC: Dr. Harrison Courtney MD; Dr. Nikunj Adams DO [facility]08-21-2025 Consult note [facility] Medical Records Department [address] [place] [address] Pre-Anesthesia Evaluation 11/24/24 0931 MR#: [id number] Acct: [id number] Name: MILY INGRAM Rep #:[id number] : 1965 59 From: Wilmer Limon MD PCP: Dr. Nikunj Adams DO Statu s:REG [facility] Y Race: C Location: [place] [address] ASA Classification* ASA Classification ASA Classification: 3 [...] internal hemorrhoids Anesthesia History Anesthesia History - statistical developer: Anesthesia History - statistical developer Hx Hospitalization No 11/10/24 12:39 Any Problems [...] take am of surgery PONV PONV - statistical developer: PONV - statistical developer Female No 11/10/24 12:39 HX of Motion [...] 11/24/24 09:16 Respiratory Assessment Respiratory Assessment - statistical developer: Respiratory Tract Infection Hx - statistical developer Hx Respiratory Tract Infection No 11/10/24 12:39 STOP Sleep Apnea STOP Sleep Apnea - statistical developer: STOP Sleep Apnea - statistical developer Hx Hypertension Yes: ON MEDS 11/10/24 12:39 [...] Tobacco Use History Tobacco Use History - statistical developer: Tobacco Use History - statistical developer Tobacco Use Smoking Status Never smoker 11/10/24 12:39 Hx Tobacco Use No 11/10/24 12:39 Years Smoking Packs Smoked per Day Smoking Cessation Date was within the last 15 years Hx Smoking Cessation Date Hx Smoking Cessation Counseling Hematologic Medial History Hematologic Hx - statistical developer: 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 Nikunj Adams DO Statu s:REG SD Y Race: C Location: [place] [address] Anesthesia: Postop Eval I Current Vital Signs [...] Donato Kaur Signature: Date CC: ~ Signed [facility]07-14-2025 Consult note Author Oj Serrano [facility] Note Date/Time October 17, 2024 7:58 am [facility] Medical Records Department [address] [place] [address] Pre-Anesthesia Evaluation 10/17/24 0741 MR#: [id number] Acct: [id number] Name: MILY INGRAM Rep #:[id number] : 1965 59 From: Oj Serrano MD PCP: Dr. Nikunj Adams DO [facility] s:[facility] Y Race: C Location: [place] [address] ASA Classification* ASA Classification ASA Classification: 2 [...] Procedure(s): COLONOSCOPY-OA Anesthesia History Anesthesia History - statistical developer: Anesthesia History - statistical developer Hx Hospitalization No 10/12/24 11:34 Any Problems [...] take am of surgery PONV PONV - statistical developer: PONV - statistical developer Female No 10/12/24 11:34 HX of Motion [...] 10/17/24 07:25 Respiratory Assessment Respiratory Assessment - statistical developer: Respiratory Tract Infection Hx - statistical developer Hx Respiratory Tract Infection No 10/12/24 11:34 STOP Sleep Apnea STOP Sleep Apnea - statistical developer: STOP Sleep Apnea - statistical developer Hx Hypertension Yes: CONTROLLED ON MED 10/12/24 [...] Tobacco Use History Tobacco Use History - statistical developer: Tobacco Use History - statistical developer Tobacco Use Smoking Status Never smoker 10/12/24 11:34 Hx Tobacco Use No 10/12/24 11:34 Years Smoking Packs Smoked per Day Smoking Cessation Date was within the last 15 years Hx Smoking Cessation Date Hx Smoking Cessation Counseling Hematologic Medial History Hematologic Hx - statistical developer: 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 Nikunj Adams DO Statu s:REG [facility] Patient Name: Mily Ingram Procedure Date: 10/17/2024 [...] present medications. Procedure Code(s): --- Professional --- 93716, Colonoscopy, flexible; with removal of tumor(s), polyp(s), or other lesion(s) by snare technique CPT copyright 2021 [employer]. All rights reserved. The codes documented in this report are preliminary and upon tool carrier review may be revised to meet current compliance requirements. Moreno Mosqueda DO 10/17/2024 9:13:56 AM This report has been signed electronically. Number of Addenda: 0 Note Initiated On: 10/17/2024 8:42 AM 10/17/24913 Date _ Moreno Mosqueda DO Cosigner Signature: Date (if indicated) CC: Dr. Nikunj Adams DO; Moreno Mosqueda DO ~ Date Dictated: 10/17/24841 Date Transcribed: Show Host/Hostess: RF Signed [facility]07-14-2025 Procedure note [facility] Medical Records Department [address] [place] [address] Operative Report - CC Letter MR#: [id number] Acct: [id number] Name: MILY INGRAM Rep #:[id number] : [...] DO ~ Date Dictated: 10/17/24841 Date Transcribed: Show Host/Hostess: RF Signed [facility]07-14-2025 Evaluation note* Diagnosis Onset Date Resolution Status Admit Date Personal history of colonic polyps acute October 17, 2024 7:00am [facility] Work Phone: 1(641) 218-803907-14-2025 Evaluation note* Diagnosis Onset Date Resolution Status Admit Date Personal history of colonic polyps acute October 17, 2024 7:00am Hemorrhoid acute October 25 1:44pm Hemorrhoid acute November 24, 025 8:54am [facility] Work Phone: 1(191) 372-504907-14-2025 History and physical note [facility] Medical Records Department [address] [place] [address] History & Physical Exam 10/17/24 0836 MR#: [id number] Acct: [id number] Name: MILY INGRAM Rep #:[id number] : 1965 59 From: Moreno Mosqueda DO PCP: Dr. Nikunj Adams DO Statu s:REG [facility] Location: [place] [address] HPI - General General Date of Admission: [...] medicines. Overall is in fairly good health. [facility] Medical History Hemorrhoid Wears glasses Gout [...] Nikunj Adams DO; Moreno Mosqueda DO~ Signed [facility]07-14-2025 [facility] Medical Records Department [address] [place] [address] History Physical Exam 10/17/24 0836 MR#: [id number] Acct: [id number] Name: MILY INGRAM Rep #: [id number] : 1965 59 From: Moreno Mosqueda DO PCP: Dr. Nikunj Adams DO Status:[facility] Location: [place] [address] HPI - General General Date of Admission: [...] medicines. Overall is in fairly good health. [facility] Medical History Hemorrhoid Wears glasses Gout [...] CC: Dr. Nikunj Adams DO; Moreno Mosqueda, [facility] Consult note [facility] Medical Records Department [address] [place] [address] Pre-Anesthesia Evaluation 10/17/24 0741 MR#: [id number] Acct: [id number] Name: MILY INGRAM Rep #:[id number] : 1965 59 From: Oj Serrano MD PCP: Dr. Nikunj Adams DO Statu s:REG [facility] Y Race: C Location: [place] [address] ASA Classification* ASA Classification ASA Classification: 2 [...] Procedure(s): COLONOSCOPY-OA Anesthesia History Anesthesia History - statistical developer: Anesthesia History - statistical developer Hx Hospitalization No 10/12/24 11:34 Any Problems [...] take am of surgery PONV PONV - statistical developer: PONV - statistical developer Female No 10/12/24 11:34 HX of Motion [...] 10/17/24 07:25 Respiratory Assessment Respiratory Assessment - statistical developer: Respiratory Tract Infection Hx - statistical developer Hx Respiratory Tract Infection No 10/12/24 11:34 STOP Sleep Apnea STOP Sleep Apnea - statistical developer: STOP Sleep Apnea - statistical developer Hx Hypertension Yes: CONTROLLED ON MED 10/12/24 [...] Tobacco Use History Tobacco Use History - statistical developer: Tobacco Use History - statistical developer Tobacco Use Smoking Status Never smoker 10/12/24 11:34 Hx Tobacco Use No 10/12/24 11:34 Years Smoking Packs Smoked per Day Smoking Cessation Date was within the last 15 years Hx Smoking Cessation Date Hx Smoking Cessation Counseling Hematologic Medial History Hematologic Hx - statistical developer: 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 AUTHENTICATED BY NIKUNJ ADAMS, ON 09/21/2024 08:01:01[facility]06-18-2025 History of Present illness Narrative* Nikunj Adams, [...] coming up next month. documented in this [id number] Instructions* Patient Instructions* Rylee Rand LPN - 09/21/2024 7:07 AM EDT [facility] Our goal is to provide you with exceptional patient care, and we strive to do this for every patient, every visit. Since we care about you and your experience, you may receive a patient satisfaction survey in the mail, via email or text message from [employer]. We truly welcome your feedback, positive and [...] 5-7 days please call our office at [phone]. Test & Lab Results: Even though you [...] call at or send the provider a Lanyon message and we will be happy to look into this. Medication Refills: If you have a refill request outside of a scheduled appointment or after hours, please call your pharmacy to verify if you have any refills remaining. If a new prescription is needed, please give our office a call at during regular business hours or send the provider a Lanyon message and allow up to 2 business days for us to complete this. If your insurance requires your medication(s) to be prior authorized, we will work with your insurance company to get these medication(s) prior authorized for you. Please allow up to 7-10 business days for this to be completed. Lanyon Messaging: Lanyon is a wonderful way to communicate with your provider and often allows for quicker response times compared to calling our office. Please consider sending your provider a Lanyon message with your non-urgent questions or medication refill requests. Please do not use Lanyon to send any messages requiring urgent or emergent attention. By selecting to send a message, you acknowledge you are seeking medical advice for non-urgent issues and that you are aware that you may not get a response for 2 business days. For issues requiring urgent or emergent attention, please call [phone]. Important Numbers: [facility] Billing Questions or MyChart Support or Medical Financial Assistance Central Scheduling or documented in this [id number] Telephone encounter Note* Telephone Encounter - Zoraida Perdomo RN - 09/15/2024 4:58 PM EDT Telephone call received from Nikunj Hylton, recommendations regarding lab tests- verbalized understanding. [id number] Miscellaneous Notes* Telephone Encounter - Zoraida Perdomo RN - 09/15/2024 4:58 PM EDT Telephone call received from Mily- Nikunj Moreno DO recommendations regarding lab tests- verbalized understanding. documented in this [id number] NoteB12 is low normal. Folate normal. Iron is low. I would recommend starting OTC ferrous sulfate 325mg daily with breakfast and repeat levels in a month. I will discuss further at his office visit that is coming up AUTHENTICATED BY NIKUNJ ADAMS ON 09/15/2024 15:41:38[facility]06-12-2025 History of Present illness Narrative* Nikunj Adams DO - 09/15/2024 3:41 PM EDT B12 is low normal. Folate normal. Iron is low. I would recommend starting OTC ferrous sulfate 325mgdaily with breakfast and repeat levels in a month. I will discuss further at his office visit that is coming up documented in this [id number] NoteRecent labs reviewed. I would like him to get additional labs done. His Hb was slightly low. I printed those additional orders. You can fax those to his lab or he can pick them up. AUTHENTICATED BY NIKUNJ ADAMS, ON 09/11/2024 10:29:25[facility]06-08-2025 History of Present illness Narrative* Nikunj Adams DO - 09/11/2024 10:29 AM EDT Recent labs reviewed. I would like him to get additional labs done. His Hb was slightly low. I printed those additional orders. You can fax those to his lab or he can pick them up. documented in this [id number] NoteSubjective Patient ID: Mily Ingram is a [...] UTD AUTHENTICATED BY NIKUNJ ADAMS, ON 03/22/2024 11:13:34[facility] [id number] History of Present illness Narrative* Nikunj Adams, [...] DM eye exam UTD documented in this [id number] Telephone encounter Note* Telephone Encounter - Rosy [...] is it scheduled): 03/22/2024 Please send to [facility] [address] [place] [address] [facility] [employer] [place] [phone] Follow up: Refill pending for review without additional follow up based on information above. Patient consents to receiving text message survey upon completion of call. [id number] Miscellaneous Notes* Telephone Encounter - Rosy Ruvalcaba [...] is it scheduled): 03/22/2024 Please send to [facility] [address] [place] [address] [facility] [employer] [place] [phone] Follow up: Refill pending for review without additional follow up based on information above. Patient consents to receiving text message survey upon completion of call. documented in this [id number] Telephone encounter Note* Telephone Encounter - Sarah [...] is it scheduled): 03/22/24 Please send to [facility] [address] [place] [phone] Follow up: Refill pending for review without additional follow up based on information above. [id number] Miscellaneous Notes* Telephone Encounter - Sarah Ragsdale [...] is it scheduled): 03/22/24 Please send to [facility] [address] [place] [phone] Follow up: Refill pending for review without additional follow up based on information above. documented in this [id number] History of Present illness Narrative* Nikunj Adams, [...] vaccines at local pharmacy documented in this [id number] History of Present illness Narrative* Shirlene Mccarthy, [...] possible joint involvement. 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 [...] of foot, left ? documented in this [id number] Telephone encounter Note* Telephone Encounter - Nel Robles MA - 08/18/2023 9:19 AM EDT Requested Prescriptions Pending Prescriptions Disp Refills hydroCHLOROthiazide (HYDRODIURIL) 25 MG tablet 90 tablet 1 Sig: Take 1 (one) tablet (25 mg total) by mouth daily . lisinopriL (PRINIVIL,ZESTRIL) 40 MG tablet 90 tablet 1 Sig: Take 1 (one) tablet (40 mg total) by mouth daily . Mukund good [id number] Miscellaneous Notes* Telephone Encounter - Nel Robles [...] daily . Mukund good documented in this [id number] History of Present illness Narrative* Nikunj Adams, [...] exercise 150 minute weekly. documented in this [id number] Telephone encounter Note* Telephone Encounter - Nel [...] total) by mouth daily . Mukund good [id number] Miscellaneous Notes* Telephone Encounter - Nel Robles [...] daily . Mukund tangela documented in this [id number] History of Present illness Narrative* MERCY Cerda - 09/19/2022 8:25 AM EDT Emergency Department Report [facility] Service Date:.09/19/22 PCP: Nikunj Adams Chief Complaint: Chief Complaint Patient presents with Ear Pain Bilat ear pain (sharp) onset 5 days ago HPI Mily Ingram is a 57 y.o. male presents to the ED today due to bilateral ear pain and fullness for nearly a week. Pt had just driven back from [place] last week [place]. No trauma. [...] Prescriptions No medications on file Previous Medications VUDDZSHRZPPEJ-VJNJIUSV-PMCMOZSAV 3.5-78766-7.1 SUSPENSION 3-4 drops to each ear 3 [...] with above information. . documented in this [facility]06-16-2023 Instructions* Patient Instructions* MERCY Cerda [...] sent through Care Everywhere. * Earache: Adult (Azerbaijani) documented in this [facility]04-20-2023 Telephone encounter Note* Telephone Encounter [...] and it is a little bit swollen. [id number] Miscellaneous Notes* Telephone Encounter - Jania Onofre [...] mg total) by mouth daily . Mukund Godo Patient also wanted a prescription called in for his right ankle. He stated he tweaked his ankle and it is a little bit swollen. documented in this [id number] History of Present illness Narrative* Nikunj Randallenriqueta [...] complication, without long-term current use of insulin ([facility]) Relevant Orders External Lab Microalbumin/Creatinine Hemoglobin A1c [...] vaccines at local pharmacy documented in this [id number] History of Present illness Narrative* Nikunj Adams [...] Hyperlipidemia Recommend covid booster documented in this [id number] Telephone encounter Note* Telephone Encounter - Nel [...] day with meals . mukund valadez run [id number] Miscellaneous Notes* Telephone Encounter - Nel Robles [...] . mukund valadez run documented in this [id number] History of Present illness Narrative* Nikunj Adams, [...] 20 minutes each session. documented in this [id number] History of Present illness Narrative* Nikunj Adams DO - 08/06/2020 2:31 PM EDT Bun/cr up a little. Make sure drinking 4-6 large glasses of water daily. A1c improved to 6.0%. good. No change in meds. We'll see him next visit documented in this [id number] History of Present illness Narrative* Nikunj Adams [...] in this encounterOhioHealthConsult note Author FAWN Resendiz [facility] Note Date/Time October 17, 2024 9:43 am [facility] Medical Records Department [address] [place] [address] Anesthesia Postop Eval I 10/17/24916 MR#: [id number] Acct: [id number] Name: MILY INGRAM Rep #:[id number] : 1965 59 From: Donato Resendiz PCP: Dr. Nikunj Adams DO Statu s:REG SDC Y Race: C Location: [place] [address] Anesthesia: Postop Eval I Current Vital Signs [...] Donato Kaur Signature: Date CC: ~ Signed [facility] Work Phone: Consult note Author Artemio Amaya [facility] Note Date/Time November 24, 2024 12 :15pm [facility] Medical Records Department [address] [place] [address] Anesthesia Postop Eval I 11/24/24 1214 MR#: [id number] Acct: [id number] Name: MILY INGRAM Rep #:[id number] : 1965 59 From: Artemio Amaya CRNA PCP: Dr. Nikunj Adams, Statu s:REG SDC Y Race: C Location: [place] [address] Anesthesia: Postop Eval I Current Vital Signs [...] CRNA Cosigner Signature: Date CC: ~ Signed [facility] Work Phone: Discharge summary Author Harrison Courtney [facility] Note Date/Time November 24, 2024 12 :26pm [facility] Medical Records Department [address] [place] [address] Instructions for Home/Discharge Instructions 11/24/24 1222 MR#: [id number] Acct: [id number] Name: MILY INGRAM Rep #:[id number] : [...] Care Provider: Nikunj Adams Instructions Print Language: Azerbaijani Discharge Orders/Prescriptions Prescriptions: New oxycodone 5 mg [...] CC: Dr. Nikunj Adams DO ~ Signed [facility] Work Phone: Evaluation note* Diagnosis Type 2 diabetes mellitus without complication, without long-term current use of insulin (HCC)- Primary Essential hypertension Unspecified essential hypertension Hyperlipidemia, unspecified hyperlipidemia type [facility]* Diagnosis [facility] health care- Primary Routine general medical examination at a health care facility Type 2 diabetes mellitus without complication, without long-term current use of insulin (HCC) Essential hypertension Unspecified essential hypertension Hyperlipidemia, unspecified hyperlipidemia type Prostate cancer screening Special screening for malignant neoplasm of prostate Need for Streptococcus pneumoniae vaccination Strain of left ankle, initial encounter [facility] 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 [facility] Diagnosis Essential hypertension- Primary Unspecified essential hypertension [facility] Diagnosis Type 2 diabetes mellitus without complication, without long-term current use of insulin (HCC)- Primary Essential hypertension Unspecified essential hypertension Hyperlipidemia, unspecified hyperlipidemia type [facility] Diagnosis Elevated liver enzymes- Primary Other [...] Leukocytosis, unspecified type [facility] Diagnosis Acute ankle pain, unspecified laterality- Primary Cellulitis of foot Cellulitis and abscess of foot, except toes [facility]* Diagnosis Ear pain, bilateral- Primary [facility] Diagnosis Preventative health care- Primary Routine general medical examination at a health care facility Type 2 diabetes mellitus without complication, without long-term current use of insulin (HCC) Essential hypertension Unspecified essential hypertension Mixed hyperlipidemia Prostate cancer screening Special screening for malignant neoplasm of prostate [facility] Diagnosis Acute ankle pain, unspecified laterality [facility] Diagnosis Acute ankle pain, unspecified laterality [facility]* Diagnosis Septic olecranon bursitis of right elbow- Primary Cellulitis of foot, left [facility]* Diagnosis Type 2 diabetes mellitus without complication, without long-term current use of insulin (HCC)- Primary Mixed hyperlipidemia [facility] Diagnosis Type 2 diabetes mellitus without complication, without long-term current use of insulin (HCC)- Primary Essential hypertension Unspecified essential hypertension Mixed hyperlipidemia [facility]* Diagnosis Gout, unspecified cause, unspecified chronicity, unspecified site- Primary [facility] Diagnosis Type 2 diabetes mellitus without complication, without long-term current use of insulin (HCC) Mixed hyperlipidemia [facility]* Diagnosis Mixed hyperlipidemia [facility]* Diagnosis Essential hypertension Unspecified essential hypertension [facility]* Diagnosis Preventative health care- Primary Routine general medical examination at a health care facility Type 2 diabetes mellitus without complication, without long-term current use of insulin (HCC) Essential hypertension Unspecified essential hypertension Mixed hyperlipidemia Need for Streptococcus pneumoniae vaccination [facility]* Diagnosis Upper respiratory tract infection, unspecified type- Primary [facility]* Diagnosis Anemia, unspecified type- Primary [facility] noteNo assessment information availableWProMedica [facility] Work Phone: Evaluation note* Diagnosis Type 2 diabetes mellitus without complication, without long-term current use of insulin (HCC)- Primary Essential hypertension Unspecified essential hypertension Mixed hyperlipidemia Anemia, unspecified type [facility]* Diagnosis Essential hypertension Unspecified essential hypertension [facility]* Diagnosis Type 2 diabetes mellitus without complication, without long-term current use of insulin (HCC) [facility] Diagnosis Essential hypertension Unspecified essential hypertension documented [facility] this encounter [facility] Author Moreno Mosqueda [facility] Note Date/Time October 17, 2024 8:38 am [facility] Medical Records Department [address] [place] [address] History & Physical Exam 10/17/24 0836 MR#: [id number] Acct: [id number] Name: MILY INGRAM Rep #:[id number] : 1965 59 From: Moreno Mosqueda DO PCP: Dr. Nikunj Adams DO Statu s:REG [facility] [place] Location: [place] [address] HPI - General General Date of Admission: [...] medicines. Overall is in fairly good health. [facility] Medical History Hemorrhoid Wears glasses Gout [...] Nikunj Adams DO; Moreno Mosqueda DO~ Signed [facility] Work Phone: Reason for referral (narrative)No reason for referral information availableWProMedica Bay Park Hospital Work Phone: History of Present Illness [...] FoundDocuments on File Type Date Recorded Patient Mat Maker Expl anation Advance Directives and Living Will Advance Directive Response Recorded Date/ Time Do you have a Healthcare Power of Wood Machine Carver? No October 12, 2024 11:34am Advance Directive Response Recorded Date/ Time Do you have a Healthcare Power of Wood Machine Carver? No October 12, 2024 11:34am Do you have a Healthcare Power of Wood Machine Carver? No November 10, 2024 12:39pm Summary Purpose [...] Nikunj Adams, DO [address] [place] [address] Referral ID Status Reason Start Date Expiration Date V isits Requested Visits Authorized [id number] Authorized 09/16/2021 09/16/2022 1 1 Chief Complaint [...] section and content) DATE CREATED AUTHOR 06/26/2020 [facility] DATE CREATED AUTHOR AUTHOR'S ORGANIZ ATION 09/19/2022 [facility] DATE CREATED AUTHOR AUTHOR'S ORGANIZ ATION 03/27/2023 [facility] DATE CREATED AUTHOR AUTHOR'S ORGANIZ ATION 04/09/2023 [facility] spital DATE CREATED AUTHOR AUTHOR'S ORGANIZ ATION 12/18/2024 [facility] DATE CREATED AUTHOR AUTHOR'S ORGANIZ ATION 12/25/2024 [facility] Telephone Encounter - Nel Robles MA - [...] Care Teams (unrecognized sec tion and content) Manager Flight Relationship Specialty Start Date End Date Nikunj Adams DO [address] [place] [address] PCP - General Internal Medicine 10/18/19 Nikunj Adams DO [address] [place] [address] PCP - IZABEL Attributed Provider - MMO Commercial 05/07/18 04/05/50 Manager Flight Relationship Specialty Start Date End Date Nikunj Adams DO [address] [place] [address] PCP - General Internal Medicine 10/18/19 Nikunj Adams DO [address] [place] [address] PCP - IZABEL Attributed Provider - MMO Commercial 05/07/18 04/05/50 Manager Flight Relationship Specialty Start Date End Date Nikunj Adams DO [address] [place] [address] PCP - General Internal Medicine 10/18/19 Nikunj Adams DO [address] [place] [address] PCP - IZABEL Attributed Provider - MMO Commercial 05/07/18 04/05/50 Manager Flight Relationship Specialty Start Date End Date Niuknj Adams DO [address] [place] [address] PCP - General Internal Medicine 10/18/19 Nikunj Adams, DO [address] [place] [address] PCP - IZABEL Attributed Provider - MMO Commercial 05/07/18 04/05/50 Manager Flight Relationship Specialty Start Date End Date Nikunj Adams, DO [address] [place] [address] PCP - General Internal Medicine 10/18/19 Nikunj Adams DO [address] [place] [address] PCP - IZABEL Attributed Provider - MMO Commercial 05/07/18 04/05/50 Manager Flight Relationship Specialty Start Date End Date Nikunj Adams, DO [address] [place] [address] PCP - General Internal Medicine 10/18/19 Nikunj Adams DO [address] [place] [address] PCP - IZABEL Attributed Provider - MMO Commercial 05/07/18 04/05/50 Manager Flight Relationship Specialty Start Date End Date Nikunj Adams DO [address] [place] [address] PCP - General Internal Medicine 10/18/19 Nikunj Adams DO [address] [place] [address] PCP - IZABEL Attributed Provider - MMO Commercial 05/07/18 04/05/50 Manager Flight Relationship Specialty Start Date End Date Nikunj Adams DO [address] [place] [address] PCP - General Internal Medicine 10/18/19 Nikunj Adams DO [address] [place] [address] PCP - IZABEL Attributed Provider - MMO Commercial 05/07/18 04/05/50 Manager Flight Relationship Specialty Start Date End Date Nikunj Adams DO [address] [place] [address] PCP - General Internal Medicine 10/18/19 Nikunj Adams DO [address] [place] [address] PCP - IZABEL Attributed Provider - MMO Commercial 05/07/18 04/05/50 Manager Flight Relationship Specialty Start Date End Date Nikunj Adams DO [address] [place] [address] PCP - General Internal Medicine 10/18/19 Nikunj Adams, [address] [place] [address] PCP - IZABEL Attributed Provider - MMO Commercial 05/07/18 04/05/50 Manager Flight Relationship Specialty Start Date End Date Nikunj Adams DO [address] [place] [address] PCP - General Internal Medicine 09/19/22 Manager Flight Relationship Specialty Start Date End Date [place] [address] PCP - General Internal Medicine 10/18/19 [place] [address] PCP - IZABEL Attributed Provider - MMO Commercial 05/07/18 04/05/50 Manager Flight Relationship Specialty Start Date End Date Nikunj Adams, [address] [place] [address] PCP - General Internal Medicine 10/18/19 Nikunj Adams, [address] [place] [address] PCP - IZABEL Attributed Provider - MMO Commercial 05/07/18 04/05/50 Manager Flight Relationship Specialty Start Date End Date Nikunj Adams, [address] [place] [address] PCP - General Internal Medicine 10/18/19 Nikunj Adams, [address] [place] [address] PCP - IZABEL Attributed Provider - MMO Commercial 05/07/18 04/05/50 Manager Flight Relationship Specialty Start Date End Date Nikunj Adams, [address] [place] [address] PCP - General Internal Medicine 10/18/19 Nikunj Adams, [address] [place] [address] PCP - IZABEL Attributed Provider - MMO Commercial 05/07/18 04/05/50 Manager Flight Relationship Specialty Start Date End Date Nikunj Adams, [address] [place] [address] PCP - General Internal Medicine 10/18/19 Nikunj Adams, [address] [place] [address] PCP - IZABEL Attributed Provider - MMO Commercial 05/07/18 04/05/50 Manager Flight Relationship Specialty Start Date End Date Nikunj Adams, [address] [place] [address] PCP - General Internal Medicine 10/18/19 Nikunj Adams, DO [address] [place] [address] PCP - IZABEL Attributed Provider - MMO Commercial 05/07/18 04/05/50 Manager Flight Relationship Specialty Start Date End Date Nikunj Adams, DO [address] [place] [address] PCP - General Internal Medicine 10/18/19 Nikunj Adams, DO [address] [place] [address] PCP - IZABEL Attributed Provider - MMO Commercial 05/07/18 04/05/50 Manager Flight Relationship Specialty Start Date End Date Nikunj Adams, DO [address] [place] [address] PCP - General Internal Medicine 10/18/19 Manager Flight Relationship Specialty Start Date End Date Nikunj Adams, DO [address] [place] [address] PCP - General Internal Medicine 10/18/19 Manager Flight Relationship Specialty Start Date End Date Nikunj Adams, DO [address] [place] [address] PCP - General Internal Medicine 10/18/19 Manager Flight Relationship Specialty Start Date End Date Nikunj Adams DO [address] [place] [address] PCP - General Internal Medicine 10/18/19 Manager Flight Relationship Specialty Start Date End Date Nikunj Adams DO [address] [place] [address] PCP - General Internal Medicine 10/18/19 Manager Flight Relationship Specialty Start Date End Date Nikunj Adams DO [address] [place] [address] PCP - General Internal Medicine 10/18/19 Manager Flight Relationship Specialty Start Date End Date Nikunj Adams DO [address] [place] [address] PCP - General Internal Medicine 10/18/19 Team [...] September 09, 2024 End: September 09, 2024 Manager Flight Relationship Specialty Start Date End Date Nikunj Adams DO [address] [place] [address] PCP - General Internal Medicine 10/18/19 Team [...] Provider Active St art: October 17, 2024 Manager Flight Relationship Specialty Start Date End [place] [address] PCP - General Internal Medicine 10/18/19 Team Status: Inactive Member Role/Relationship Status Dates Dr. Nikunj Adams DO Primary Care Provider Act otoniel Start: October 25, 2024 End: October 25, 2024 Dr. Harrison Courtney MD Attending Provider Active Start: October 25, 2024 End: October 25, 2024 Dr. Moreno Mosqueda DO Referring Provider Active Start: October 25, 2024 End: October 25, 2024 Manager Flight Relationship Specialty Start Date End Date Nikunj Adams DO [address] [place] [address] PCP - General Internal Medicine 10/18/19 Manager Flight Relationship Specialty Start Date End Date Nikunj Adams DO [address] [facility] [place] [address] PCP - General Internal Medicine 10/18/19 Team [...] December 07, 2024 End: December 07, 2024 Manager Flight Relationship Specialty Start Date End Date Nikunj Adams DO [address] [facility] [place] [address] PCP - General Internal Medicine 10/18/19 Goals [...] BE BASED ON THE PRIMARY CLINICAL RECORDS. [employer] [facility]. provides no warranty or guarantee of the accuracy or completeness of information in this document.
== END | disposition home or self-care (01) ==
PROVIDERS: PCP Internal Medicine; Referring Provider Internal Medicine; Visit Provider Internal Medicine
DX: R53.83 Other fatigue (principal)
CPT/HCPCS: 36415; 84403